=== PATIENT | female | born 1950 | race Caucasian/White ===

== ENCOUNTER 2025-03-06 18:32 | Emergency (ER) | payer MEDICAID, SELFPAY ==
--- NOTE | 2025-03-06 19:14 | XR_ITS ---
Examination: CT brain head without contrast. 2-D sagittal coronal reconstructions Date and time of exam:March 06, 2025 1936 hours Comparison August 01, 2024 INDICATIONS: Altered mental status today, history CVA CTDI: vol (mGy):48.8 DLP: (mGycm):976 Technique: Multiple CT axial sections of the brain have been obtained, 5 mm slice thickness. Contrast has not been administered. 2-D sagittal, coronal reconstructions have been obtained Low dose protocols were performed. One or more of the following dose reduction techniques were used; automated exposure control, adjustment of the mA and/or KV according to patient size, use of iterative reconstruction technique. Findings: No significant ventricular enlargement. Old infarcts right posterior temporal right occipital lobe left occipital lobe Intra-axial or extra-axial hemorrhage density is not seen. No mass effect or midline shift Basal cisterns are not remarkable. Fourth ventricle is midline. Cranial vault intact. Impression: Negative for acute hemorrhage, mass effect or midline shift Brain MRI follow-up would best assess for acute ischemic change
--- NOTE | 2025-03-06 19:15 | PD.EDRME ---
Rapid Medical Screening Exam RME Arrival date/time: 03/06/25 18:32 This is a case of 74-year-old female with history of CVA was brought by the son due to multiple falls this week and altered level of consciousness patient son denies patient complaining chest pain shortness of breath or palpitation Chief Complaint: Altered Mental Status Time Seen by Provider: 03/06/25 18:46
[2025-03-06 19:24] VITALS: BP 147/89; PULSE 101; RESP 18; TEMP 36.6; O2SAT 95; BMI 26.6
[2025-03-06 19:54] LABS: Basophils % (Auto) 0 % (0-2.5); Eosinophils % (Auto) 0 % (0-10); Hematocrit 37.5 % (36.0-46.0); Hemoglobin 11.9 g/dL (12.0-16.0); Immature Granulocytes % (Auto) 1 % (0-0); Immature Granulocytes Auto 0.03 Thou/mm3 (0.00-0.00); Lymphocytes # (Auto) 1.6 Thou/mm3 (1.0-4.8); Lymphocytes % (Auto) 25 % (10-50); Mean Corpuscular HGB Conc 31.7 g/dl (31.0-37.0); Mean Corpuscular Hemoglobin 29.1 pg (25.0-35.0); Mean Corpuscular Volume 92 fL (80-100); Monocytes # (Auto) 0.8 Thou/mm3 (0.0-0.8); Monocytes % (Auto) 12 % (0-12); Neutrophils # (Auto) 3.9 Thou/mm3 (1.8-7.7); Neutrophils % (Auto) 62 % (37-80); Nucleated Red Blood Cell % 0 /100 WBC (0); Platelet Count 251 Thou/mm3 (140-440); RDW Standard Deviation 46.8 fL (36.4-46.3); Red Blood Count 4.09 Miln/mm3 (4.00-5.20); White Blood Count 6.3 Thou/mm3 (3.6-11.0)
[2025-03-06 20:07] LABS: Alanine Aminotransferase 13 U/L (10-49); Albumin, Serum 3.8 gm/dL (3.4-4.8); Albumin/Globulin Ratio 1.2 (1.2-2.2); Alkaline Phosphatase 87 U/L (46-116); Anion Gap 8 (7-16); Aspartate Amino Transferase 18 U/L (0-34); BUN/Creatinine Ratio 14 Ratio (12-20); Bilirubin,Total 1.5 mg/dL (0.3-1.2); Blood Urea Nitrogen 14 mg/dL (9-23); Calcium 9.1 mg/dL (8.3-10.6); Calcium (Corrected) 9.3 mg/dL (8.5-10.1); Carbon Dioxide 25.3 mMol/L (20.0-31.0); Chloride 105 mMol/L (98-107); Globulin 3.1 gm/dL (2.3-3.5); Glucose 114 mg/dL (74-106); Osmolality,Calculated 277 (275-295); Potassium 3.3 mMol/L (3.4-5.1); Sodium 138 mMol/L (136-145); Total Protein 6.9 gm/dL (5.7-8.2); eGFR 58 See Note
[2025-03-06 20:11] LABS: Troponin I 0.072 ng/mL (0.0-0.045)
[2025-03-06 22:39] LABS: Troponin I 0.065 ng/mL (0.0-0.045)
== END 2025-03-07 00:23 | disposition left against medical advice (07) ==
PROVIDERS: Nurse Practitioner Family; Emergency Provider Emergency Medicine
DX: R41.82 Altered mental status, unspecified (principal); Z86.73 Personal history of transient ischemic attack (TIA), and cerebral infarction without residual deficits; Z53.29 Procedure and treatment not carried out because of patient's decision for other reasons
CPT/HCPCS: 36415; 70450; 80053; 84484; 85025; 99281

== ENCOUNTER 2025-04-26 22:12 | Inpatient (IN) | payer MEDICARE, MEDICAID, SELFPAY ==
[2025-04-26] VITALS (16 sets, daily range): BP systolic 75–106; BP diastolic 55–70; PULSE 68–188; RESP 10–27; TEMP 36.6–36.7; O2SAT 95–97; BMI 30.7
--- NOTE | 2025-04-26 22:47 | EKG_ITS ---
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[id number] Requested By: ED Temporary Provider Order Number: [id number] Reading MD: ED Temporary Provider Measurements Intervals [place] Rate: 187 P: AK: QRS: -18 QRSD: 166 T: -60 QT: 251 QTc: 443 Interpretive Statements ATRIAL FIBRILLATION WITH RAPID VENTRICULAR RESPONSE INTRAVENTRICULAR CONDUCTION DELAY [130+ ms QRS DURATION] INFERIOR MYOCARDIAL INFARCTION , OF INDETERMINATE AGE [40+ ms Q WAVE AND/OR ST/T ABNORMALITY IN II/aVF] CRITICAL TEST RESULT Compared to ECG 08/02/2024 00:46:54 Myocardial infarct finding now present Sinus rhythm no longer present First degree AV block no longer present /store/S0/[id number]/[id number].pdf
--- NOTE | 2025-04-26 23:03 | XR_ITS ---
Examination: AP chest single view TECHNIQUE: AP portable supine chest single view Date and time: April 26, 2025 1142 hours Comparison August 01, 2024 MEDICATIONS: Atrial fibrillation status post coronary artery stent hypertension FINDINGS: Mild prominence cardiac contour. Mild vascular congestion. No lobar pneumonia or chetan pulmonary edema IMPRESSION: Mild vascular congestion
--- NOTE | 2025-04-26 23:03 | XR_ITS ---
Examination: CT brain head without contrast. 2-D sagittal coronal reconstructions Date and time of exam:April 27, 2025 0109 hours INDICATIONS: Altered mental status today COMPARISON: March 06, 2025 CTDI: vol (mGy):47.4 DLP: (mGycm):940 Technique: Multiple CT axial sections of the brain have been obtained, 5 mm slice thickness. Contrast has not been administered. 2-D sagittal, coronal reconstructions have been obtained Low dose protocols were performed. One or more of the following dose reduction techniques were used; automated exposure control, adjustment of the mA and/or KV according to patient size, use of iterative reconstruction technique. Findings: No significant ventricular enlargement. Again noted old infarcts in the right posterior parietal occipital lobe and left occipital lobe Intra-axial or extra-axial hemorrhage density is not seen. No mass effect or midline shift Basal cisterns are not remarkable. Fourth ventricle is midline. Cranial vault intact. Impression: Negative for acute hemorrhage, mass effect or midline shift If symptoms persist, consider MRI brain follow up as clinically warranted
--- NOTE | 2025-04-26 23:05 | XR_ITS ---
Examination: CT cervical spine without contrast 2-D sagittal reconstructions 2-D coronal reconstructions 3-D reconstructions. Exam date and time:April 27, 2025 0109 hours INDICATIONS: Neck pain altered mental status today CTDI:vol (mGy) 8.19 DLP: (mGycm) 151 Technique: Multiple 2 mm axial sections of the cervical spine have been obtained. The coronal and sagittal reconstructions have been obtained. 3-D reconstructions have been obtained. Low dose protocols were performed. One or more of the following dose reduction techniques were used; automated exposure control, adjustment of the mA and/or KV according to patient size, use of iterative reconstruction technique. Findings: Axial sections demonstrate intact base of the skull. C1 exhibit satisfactory relationship to the odontoid. No acute cervical vertebral body fracture seen. Alignment posterior spinous processes satisfactory. Impression: No acute cervical fracture. Moderate degenerative disc disease C3-C4, C4-C5, C5-C6
--- NOTE | 2025-04-26 23:05 | PD.EDWEAK ---
ED Weakness RME/HPI General Chief complaint: Weakness Stated complaint: WEAKNESS Arrival date/time: 04/26/25 22:12 RME / HPI RME / HPI Narrative: Dr. Sapp?s Main ED Evaluation: 74yo female with a history of CVA, aFib, MARCIO thrombus, CAD s/p stent, HTN BIBA from home presents to the ED for a chief complaint of generalized weakness. I spoke with the patient's son Robbi on the phone, who states the patient has been generally weak for the last few months, reporting it's gotten progressively worse over the last few weeks. Son states he is unable to take care of the patient due to him working all day. Son notes the patient did not take her amiodarone today. Patient denies any chest pain, abdominal pain or any other associated symptoms. Patient does smoke tobacco and marijuana. Related Data Home Medications ?Medication ?Instructions ?Recorded ?Confirmed olmesartan 40 mg tablet 40 mg PO DAILY 08/18/23 08/03/24 bumetanide 1 mg tablet 1 mg PO QDAY 08/03/24 08/03/24 spironolactone 25 mg tablet 25 mg PO QDAY 08/03/24 08/03/24 Previous Rx's ?Medication ?Instructions ?Recorded aspirin 81 mg capsule 81 mg PO QDAY #30 caps 08/20/23 atorvastatin 80 mg tablet 80 mg PO QDAY #30 tabs 08/20/23 apixaban 5 mg tablet (Eliquis) 5 mg PO BID #60 tabs 08/22/23 amiodarone 200 mg tablet 200 mg PO QDAY 30 days #30 tabs 08/04/24 Allergies Allergy/AdvReac Type Severity Reaction Status Date / Time codeine Allergy Unknown Blister Verified 03/06/25 18:35 Review of Systems Review of Systems Systems Reviewed: All systems reviewed, normal except as documented Past Medical History Past Medical History NEUROLOGIC: Positive Cerebrovascular Accident; Negative Neurological Disorders or Seizures CARDIAC: Positive Myocardial Infarction, Cardiac Arrhythmia, Atrial Fibrillation, Heart Murmur, Congestive Heart Failure and Hypertension; Negative Cardiac Disorders, Edema, Cellulitis or Varicose Veins RESPIRATORY: Negative Chronic Obstructive Pulmonary Disease (COPD), Asthma, Tuberculosis or Sleep Apnea GASTROINTESTINAL: Negative Gastrointestinal Disorders or Hepatitis GENITOURINARY: Negative Genitourinary Disorders or Renal Disease REPRODUCTIVE: Positive Previous Pregnancies MUSCULOSKELETAL: Positive Musculoskeletal Disorders, Arthritis, Fibromyalgia and Fractures ENDOCRINE: Negative Endocrine Disorders, Diabetes Mellitus Type 1 or Diabetes Mellitus Type 2 HEMATOLOGIC: Negative Blood Disorders or Sickle Cell Disease OTHER HISTORY: Positive Hospitalization and Falls; Negative Autoimmune Disease, Shingles, Blood Transfusions, Blood Transfusion Reaction, Anesthesia Reactions, Chemotherapy, Radiation Therapy, MRSA, Human Immunodeficiency Virus (HIV), Chicken Pox, Measles, Mumps, Rubella (Chinese Measles), Pertussis, Clostridium Difficile or Cancer Family History FAMILY HISTORY: Positive Family Cardiac Disorders, Family Cancer and Family Surgery; Negative Family Psychiatric Problems, Family Respiratory Disorders, Family Gastrointestinal Problems or Family Anesthesia Reaction Surgical History SURGICAL: Positive Cardiac Surgery, Coronary Stent, Angiogram, Hysterectomy, Tubal Ligation and Section; Negative Pacemaker or Ear Surgery Social History SMOKING STATUS: Never smoker SECOND HAND EXPOSURE: Yes ED Exam Narrative Physical exam: GEN. APPEARANCE: The patient is alert awake oriented X-3 in no distress, lying down comfortably, does not look ill/toxic. Patient has good eye contact. Patient is cooperative. VITALS: All vitals were reviewed and the pulse ox is 95% on room air which is normal according to my interpretation. HEENT: Normocephalic, atraumatic. Pupils are equal and reactive. Oral mucosa is moist. Patent Nares NECK: Supple, nontender, no thyromegaly, no meningismus, no JVD CHEST: Symmetrical, atraumatic, and with equal expansion , Nontender on palpation no deformity and no crepitus. CARDIOVASCULAR: Tachycardic, irregular rhythm, no murmur or gallop rub. LUNGS: Clear to auscultation bilaterally with symmetrical chest rise. No laboring tachypnea or wheezing. No intercostal subcostal retraction. No rales and no rhonchi. ABDOMEN: Soft, flat, nontender to palpation, no guarding or rebound tenderness. There are no abnormal masses palpated. Active and normal bowel sounds. EXTREMITIES: Nontender. No edema. No cyanosis. Patient is able to move all 4 extremities well, with full ROM and good CSM. SKIN: Warm and dry, no jaundice or rashes noted. NEURO: Patient is MONK x 4, Cranial nerves II through XII grossly intact. There is no focal neurologic deficits noted. GCS is 15, PNS and TANK REFINISHER appear grossly intact. PSYCHIATRIC: Patient is in normal mood and affect. Course Quality Measures none Orders Category Date Time Status Bedside COVID-19 Antigen Test NOW Care 04/26/25 23:03 Active Bedside Influenza A&B Antigen Test NOW Care 04/26/25 23:03 Completed EKG (ED ONLY) *Do not use* NOW Care 04/26/25 22:47 Completed EKG (ED ONLY) *Do not use* NOW Care 04/27/25 06:27 Completed EKG (ED ONLY) *Do not use* NOW Care 04/27/25 06:28 Active Le [Urinary Catheter] QS Care 04/27/25 01:12 Active Consult to General Surgery Stat Cons 04/27/25 06:32 Ordered Consult to Nephrology Stat Cons 04/27/25 06:[address] abdomen pelvis wo con Stat Exams 04/27/25 00:[address] cervical spine wo con Stat Exams 04/26/25 23:[address] chest wo con Stat Exams 04/27/25 00:[address] head/brain wo con Stat Exams 04/26/25 23:03 Taken CXR [XR chest 1V] Stat Exams 04/26/25 23:03 Completed EKG (ED Only) Stat Exams 04/26/25 22:47 Draft EKG (ED Only) Stat Exams 04/27/25 06:26 Ordered EKG (ED Only) Stat Exams 04/27/25 06:28 Ordered US abdomen limited Stat Exams 04/27/25 02:51 Taken Acetaminophen Stat Lab 04/26/25 23:16 Completed Ammonia Stat Lab 04/26/25 23:16 Completed BNP [B-Type Natriuretic Peptide] Stat Lab 04/26/25 23:16 Completed CBC Stat Lab 04/26/25 23:16 Completed CMP [Comprehensive Metabolic Panel] Stat Lab 04/26/25 23:16 Completed Drug Screen,Urine Stat Lab 04/27/25 01:41 Completed INR [Prothrombin Time with INR] Stat Lab 04/26/25 23:16 Completed Salicylate Stat Lab 04/26/25 23:16 Completed T4 (Thyroxine) Stat Lab 04/26/25 23:16 Completed Thyroid Stimulating Hormone Stat Lab 04/26/25 23:16 Completed Troponin I Stat Lab 04/26/25 23:16 Completed Troponin I Stat Lab 04/27/25 00:50 Completed UA, C/S IF [Urinalysis, C/S if Indicated] Stat Lab 04/27/25 01:12 Ordered UA, C/S IF [Urinalysis, C/S if Indicated] Stat Lab 04/27/25 01:41 Completed VBG [Venous Blood Gas] Stat Lab 04/26/25 23:16 Completed Amiodarone 150 mg Ivpb [Nexterone Ivpb] Med 04/26/25 23:00 Discontinued 150 mg in 100 ml IV 600 mls/hr Amiodarone 360 mg Ivpb [Nexterone Ivpb] Med 04/26/25 23:00 Discontinued 360 mg in 200 ml IV 16.667 mls/hr Amiodarone 360 mg Ivpb [Nexterone Ivpb] Med 04/27/25 05:00 Active 360 mg in 200 ml IV 16.667 mls/hr Amiodarone 360 mg Ivpb [Nexterone Ivpb] Med 04/26/25 22:59 Discontinued 360 mg in 200 ml IV 33.333 mls/hr Bumetanide Inj [Bumex Inj] Med 04/27/25 06:30 Once 1 mg IVP X1 ONE Digoxin Inj [Lanoxin Inj] Med 04/26/25 23:35 Discontinued 0.25 mg IVP X1 ONE Digoxin Inj [Lanoxin Inj] Med 04/27/25 06:27 Discontinued 0.25 mg IVP X1 ONE Etomidate Inj [Amidate Inj] Med 04/26/25 22:53 Discontinued 20 mg .ROUTE .STK-MED ONE Etomidate Inj [Amidate Inj] Med 04/26/25 22:57 Discontinued 5 mg IVP X1 ONE Magnesium Sulfate 1 gm Ivpb [Magnesium Sulfate Ivpb] Med 04/26/25 22:54 Discontinued 1 gm in 100 ml IV X1 Magnesium Sulfate 1 gm Ivpb [Magnesium Sulfate Ivpb] Med 04/27/25 06:34 Active 1 gm in 100 ml IV X1 Magnesium Sulfate 1 gm Ivpb [Magnesium Sulfate Ivpb] Med 04/26/25 22:48 Discontinued 100 ml IV .STK-MED Norepinephrine/D5W 8mg/250ml [Levophed in D5W 8mg/250ml Med 04/26/25 22:59 Active ] 8 mg in 250 ml IV 0.05 mcg/kg/min Vital Signs Vital signs: Vital Signs Temperature 97.8 F 04/26/25 22:25 Pulse Rate 164 H 04/26/25 22:25 Respiratory Rate 20 04/26/25 22:25 Pulse Oximetry (%) 95 04/26/25 22:25 Oxygen Delivery Method Room Air 04/26/25 22:25 Weakness MDM Narrative [facility] Narrative:: Scribe Attestation: 04/26/25 - Bárbara Stevens am scribing for and in the presence of Dr. Sapp. 2313: Discussed case with Dr. Rosas from cardiology regarding consultation. Discussed patients ED course, exam findings, labs, and radiology results. Agrees with holding off cardioversion due to the patient's known MARCIO thrombus. Discussed how the patient has a history of CHF with a 30% EF and I ordered NS 500mL. Recommends additional NS 500mL. Is agreeable to the amiodarone bolus and drip, and starting levophed. Recommends digoxin 0.25mg if there's no improvement in the patient's blood pressure. 2335: Patient is still fluctuating from the 160s-180s after receiving amiodarone. Digoxin 0.25mg ordered. 0051: Patient is now hypoxic, likely due to her fluid overload. Patient's HR is in sinus rhythm. BP is sustaining at 100 systolically. The nurses expressed concern regarding vaginal bleeding. Will proceed with CT scans without contrast. 0254: Patient is back on room air. Hemodynamically stable not in distress. Went to CT without any difficulties. Labs showed leukocytosis 13.1 left shift of 89%. No acute electrolyte abnormality, patient does have acute renal failure, current creatinine is 2.4, GFR is 13. In February of this year her creatinine was normal. Patient also with a transaminitis, T. bili is 2, AST 166, ALT 413, alk phos 163 troponin was 0.16 which down trended to 0.14. BNP is 1788. Chest x-ray with findings concerning for fluid overload. Given patient's acute renal failure, will consult nephrology for recommendations of her fluid overload state and acute renal failure. Patient is producing urine. Urinalysis with amorphous crystals, rare bacteria no leuk esterase no nitrites. CT abdomen pelvis with evidence of cirrhosis, gallstones with thickened gallbladder wall. Given transaminitis also ordered right upper quadrant ultrasound. For further assessment. Patient has anasarca. CT of the chest with pneumonia. Will provide patient with antibiotics. 0257: Called on-call mender [employer] Dr. Martin, left HIPAA compliant voicemail. 0304: Discussed case with the resident physician, attending Dr. French from Hospitalist service regarding admission. Discussed patients ED course, exam findings, labs, and radiology results. The Hospitalist requests to wait for the abdominal ultrasound. 0546: Called on-call mender [employer] Dr. Martin again, left HIPAA compliant voicemail. 0627: Patient is tachycardic again in the 160s and is hypoxic at 86% on room air. Repeat EKG and digoxin 0.25mg ordered. Patient converted back to sinus rhythm. Digoxin held. Magnesium sulfate 1mg ordered. 0629: Discussed case with Dr. Martin from nephrology regarding consultation. Discussed patients ED course, exam findings, labs, and radiology results. Recommends Bumex 1mg BID. 0632: Discussed case with Dr. West from general surgery regarding consultation. Discussed patients ED course, exam findings, labs, and radiology results. Agrees to consult. 0636: Discussed case with the resident physician, attending Dr. French from Hospitalist service regarding admission. Discussed patients ED course, exam findings, labs, and radiology results. The Hospitalist agrees to accept the patient for admission and will pass this patient off to the day team. Patient data External records reviewed:: [facility] previous records (Per chart review, patient was admitted here on 08/01/24 for CVA.) and EMS form Clinical information provided by:: patient, EMS and family (son) Social determinants that could affect healthcare access:: none Patient has the following chronic illnesses:: CVA, aFib on Eliquis, CAD s/p stent, HTN How is presenting disease/condition affected by chronic disease/condition?: caused by Evaluation data The following diagnostics were reviewed and interpreted by me:: lab results, radiology exam(s) and EKG tracing(s) Lab and/or radiology exams considered but not ordered:: none Interpretation Summary: WBC 13.1, PT 14.6, INR 1.4, Creatinine 3.4, BUN 81, eGFR 13, Total Bilirubin 2.0, LFTs elevated, Troponin 0.161, BNP 1788, TSH 13.17, T4 3.4, Salicylates negative, Acetaminophen negative. Repeat troponin 0.147. EKG done at 2249, aFib RVR, rate of 185, nonspecific ST-T wave changes, no STEMI, according to my interpretation. Repeat EKG done at 0630, NSR, rate of 76, occasional PVCs, nonspecific ST-T changes, no acute ischemia, according to my interpretation. [place] [facility] Report Signed Patient: OLGA GEIGER Record#: [id number] Birthdate: 1950 Age/Sex: 74 / F Location: [facility] Attending Dr: Ordering Physician: Mary Jo Sapp MD Date of Service: 04/26/25 Procedure(s): XR chest 1V Accession Number(s): [id number] cc: Kelby Philippe MD; NO PRIMARY/FAMILY,PHYSICIAN; Mary Jo Sapp MD~ Examination: AP chest single view TECHNIQUE: AP portable supine chest single view Date and time: April 26, 2025 1142 hours Comparison August 01, 2024 MEDICATIONS: Atrial fibrillation status post coronary artery stent hypertension FINDINGS: Mild prominence cardiac contour. Mild vascular congestion. No lobar pneumonia or chetan pulmonary edema IMPRESSION: Mild vascular congestion Dictated By: Kelby Philippe MD Signed By: <Electronically signed by Kelby Philippe MD in OV> 04/26/[address] scan of the chest without intravenous contrast (axial sections with sagittal and coronal reformats) April 27, 2025 at 0114 hours Clinical History: Pulmonary thromboembolism Comparison: None Findings: There are multiple bilateral pulmonary nodules, predominantly subpleural, the largest measures 1.7 cm in the right middle lobe (image 76/162). There is streaky atelectasis/scarring in the posterior lower lobes. There are mild emphysematous changes in the lungs with bullae. There is peribronchial soft tissue thickening in bilateral lungs, consistent with chronic airways disease. There is patchy collapse-consolidation in bilateral lower lobes posteriorly (left greater than right); possibility of aspiration cannot be excluded. No evidence of pleural effusion or pneumothorax. The mediastinum demonstrates no evidence of mass or lymphadenopathy. The thoracic aorta demonstrates atheromatous calcification without evidence of aneurysm. Coronary artery calcification is noted. There is minimal pericardial effusion. There is mild cardiomegaly. Degenerative changes are identified in the spine. There is diffuse osteopenia. There is subcutaneous edema in the mid and lower chest wall. Please note that evaluation of soft tissue/vascular structures is limited due to absence of IV contrast. Impression: 1. Possibility of pulmonary thromboembolism cannot be excluded on this noncontrast study. 2. Multiple bilateral pulmonary nodules, likely neoplastic as described. 3. Patchy collapse-consolidation in bilateral lower lobes posteriorly (left greater than right); possibility of aspiration cannot be excluded. 4. Mild emphysematous changes in the lungs. 5. Peribronchial soft tissue thickening in bilateral lungs, consistent with chronic airways disease. 6. Mild cardiomegaly with minimal pericardial effusion. 7. Other findings as described above. Suggest clinical correlation and follow up accordingly. This report has been electronically signed by: Narendra Pierce MD. CT scan of the abdomen and pelvis without intravenous contrast (axial sections with sagittal and coronal reformats) April 27, 2025 at 0114 hours Clinical History: Renal failure / Stone Comparison: None Findings: The evaluation is limited due streaky artifacts. The liver demonstrates nodular contour, suggestive of cirrhosis. There are cysts in the left lobe of the liver, the largest measuring 1.4 cm. Additional small hypodense lesions are noted in the liver, which are too small to characterize. There are multiple small calculi in the contracted gallbladder with apparent wall thickening. The pancreas, spleen, kidneys and adrenals are grossly unremarkable on this noncontrast study. No renal/ureteric calculus or ureteral obstruction. No evidence of bowel obstruction. The appendix is not visualized. There is no mesenteric or retroperitoneal adenopathy. There is suggestion of pelvic floor laxity with possible rectocele. A Le catheter is seen in the incompletely distended urinary bladder. There is a bicornuate uterus. There is zxse-sj-vsfrxaen ascites. There is no free air. The abdominal aorta demonstrates atheromatous calcification without evidence of aneurysm. Degenerative changes are identified in the spine. There is diffuse subcutaneous edema in the abdominal wall. Please note that evaluation of soft tissue/vascular structures and bowel loops is limited due to absence of IV and oral contrast. Impression: 1. No renal/ureteric calculus or ureteral obstruction. 2. Zoxr-xb-micxiten ascites and generalized anasarca. 3. Cholelithiasis with apparent gallbladder wall thickening. Suggest further evaluation with sonography, if clinically indicated. 4. Possible hepatic cirrhosis. 5. Other findings as described above. Suggest clinical correlation and follow up accordingly. Please also refer to report of CT chest. This report has been electronically signed by: Narendra Pierce MD. CT scan of the head without intravenous contrast (axial sections with sagittal and coronal reformats) April 27, 2025 0109 hours. 3D images were also provided. Clinical History: Altered mental status. Comparison: No prior study is available for comparison. Findings: There is no evidence of acute intracranial hemorrhage, mass effect or midline shift. There are large hypodensities in the right occipitoparietal and left parietal lobes, likely representing old infarcts with encephalomalacia. An old lacunar infarct is noted in the left basal ganglia. There are periventricular white matter hypodensities, compatible with chronic small vessel ischemia. Although no definitive wedge shaped acute infarcts are detected, it is difficult to exclude small acute infarcts especially in a background of chronic ischemic changes. Please also note that subtle early infarcts are better assessed using diffusion weighted MR imaging if clinically indicated. There is volume loss. The intracranial arteries are tortuous, ectatic and demonstrates mild atheromatous calcification. The calvarium is intact. Right maxillary sinus is hypoplastic and demonstrates mild mucosal thickening and sclerotic cohen. A tiny retention cyst or polyp is seen in the left maxillary sinus. The mastoid air cells and the other visualized paranasal sinuses are clear. Postsurgical changes are seen at the right ostiomeatal unit with a small adjacent soft tissue lesion/polyp (axial image 37/42), measuring 1.5 x 1.2 cm. Impression: 1. No evidence of acute intracranial hemorrhage, midline shift or calvarial fracture. If there are persistent clinical symptoms or additional clinical concerns consider an MRI. 2. Generalized cerebral atrophy and chronic small vessel ischemic change with chronic infarcts as described above. 3. Other findings as described above. This report has been electronically signed by: Narendra Pierce MD. CT scan of the cervical spine without intravenous contrast (axial sections with sagittal and coronal reformats). 3D images were also provided. April 27, 2025 0109 hours Clinical History: Trauma. Comparison: No prior study is available for comparison. Findings: The bones are osteopenic. There is no evidence of acute fracture or traumatic subluxation. There is loss of cervical lordosis. Degenerative changes are noted in the form of multilevel marginal osteophytes, decreased disc spaces, uncinate and facet hypertrophy, producing multilevel mild spinal canal and [id number]-ad-[id number] bilateral neural foraminal narrowing. The prevertebral soft tissues are unremarkable. The visualized lung apices are clear. There is an exophytic osseous lesion in the right mandible medially (axial image 30/81), incompletely included in the field of view. A small hypodense nodule is seen in the right lobe of thyroid. Impression: 1. No evidence of acute fracture or traumatic subluxation. 2. Cervical spondylosis as described. 3. Other findings as described above. Suggest clinical correlation and follow up accordingly. This report has been electronically signed by: Narendra Pierce MD. [facility] Preliminary Report Draft Patient: OLGA GEIGER. Record#: [id number] Birthdate: 1950 Age/Sex: 74 / F Location: [facility] Attending Dr: Ordering Physician: Date of Service: Procedure(s): Accession Number(s): cc: ~ Ultrasound Abdomen. April 27, 2025 at 0427 hours Clinical history: Cholecystitis. Technique: Grayscale and color flow images of the abdomen are provided. Hepatic and portal veins were also imaged with color flow images. Correlated with the prior CT study dated April 27, 2025 at 0114 hours Findings: The liver is normal in echogenicity. Hepatopetal flow in main portal vein. No intrahepatic biliary ductal dilatation. Gallbladder wall thickening up to 0.32 mm. Gallbladder calculus measuring up to 2.2 x 0.8 x 1.6 cm. Small amount of free fluid in the right upper quadrant and right lower quadrant. The pancreas is not seen due to bowel gas. The inferior vena cava to the extent visualized is within normal limits. Impression: Cholelithiasis with acute cholecystitis. Suggest follow-up with HIDA scan, if clinically indicated. Report Electronically Signed By: Benoit Keen 04/27/2025 5:59:42 AM [EST] Medications / Prescriptions Medications or Prescriptions considered but not ordered:: none Medication administrations:: Medication Administration History Bumetanide (Bumetanide Inj 0.25 Mg/Ml Vial 4 Ml) 1 mg IVP X1 ONE Stop: 04/27/25 06:31 Norepinephrine/Dextrose (Levophed In D5w 8mg/250ml) 8 mg in 250 mls @ 7.867 mls/hr IV .Q24H PRN; Protocol PRN Reason: PER PROTOCOL Stop: 05/26/25 22:58 Amiodarone HCl/Dextrose (Nexterone Ivpb) 360 mg in 200 mls @ 16.667 mls/hr IV .Q12H JOHN Stop: 04/28/25 04:59 Last Admin: 04/27/25 05:07 Dose: 16.667 mls/hr Documented By: EE Magnesium Sulfate/Dextrose (Magnesium Sulfate Ivpb) 1 gm in 100 mls @ 100 mls/hr IV X1 ONE Stop: 04/27/25 07:33 Discontinued Medications Digoxin (Digoxin Inj 0.25 Mg/Ml Amp 2 Ml) 0.25 mg IVP X1 ONE Stop: 04/26/25 23:36 Last Admin: 04/26/25 23:46 Dose: 0.25 mg Documented By: EE Digoxin (Digoxin Inj 0.25 Mg/Ml Amp 2 Ml) 0.25 mg IVP X1 ONE Stop: 04/27/25 06:28 Etomidate (Etomidate Inj 2 Mg/Ml Vial 10 Ml) 5 mg IVP X1 ONE Stop: 04/26/25 22:58 Last Admin: 04/27/25 01:23 Dose: Not Given Documented By: DEYSI Non-Admin Reason: Discontinued Etomidate (Etomidate Inj 2 Mg/Ml Vial 10 Ml) Confirm Administered Dose 20 mg .ROUTE .STK-MED ONE Stop: 04/26/25 22:54 Last Admin: 04/26/25 23:41 Dose: Not Given Documented By: EE Non-Admin Reason: Override Medication Magnesium Sulfate/Dextrose (Magnesium Sulfate Ivpb) 1 gm in 100 mls @ 100 mls/hr IV X1 ONE Stop: 04/26/25 23:53 Last Admin: 04/26/25 23:42 Dose: Not Given Documented By: EE Non-Admin Reason: Cancelled by Provider Magnesium Sulfate/Dextrose (Magnesium Sulfate Ivpb) Confirm Administered Dose 100 mls @ ud IV .STK-MED ONE Stop: 04/26/25 22:49 Last Admin: 04/26/25 23:48 Dose: Not Given Documented By: EE Non-Admin Reason: Override Medication Amiodarone HCl/Dextrose (Nexterone Ivpb) 150 mg in 100 mls @ 600 mls/hr IV .Q10M ONE Stop: 04/26/25 23:09 Last Infusion: 04/26/25 23:23 Dose: Infused Documented By: Admin: 04/26/25 23:12 Dose: 600 mls/hr Documented By: EF Amiodarone HCl/Dextrose (Nexterone Ivpb) 360 mg in 200 mls @ 33.333 mls/hr IV .Q6H ONE Stop: 04/27/25 04:58 Last Infusion: 04/27/25 05:23 Dose: Infused Documented By: Admin: 04/26/25 23:22 Dose: 33.333 mls/hr Documented By: EF Amiodarone HCl/Dextrose (Nexterone Ivpb) 360 mg in 200 mls @ 16.667 mls/hr IV .Q12H JOHN Stop: 04/27/25 22:59 Last Admin: 04/27/25 02:36 Dose: Not Given Documented By: EE Non-Admin Reason: Cancelled by Provider see above Consultations Consultation(s) initiated? (list below): Yes Diagnosis Weakness Differential Diagnosis: other (ACS, arrhythmia, CHF exacerbation, renal failure, liver failure, LOYD) Most likely diagnosis given after review of the tests above:: see clinical impression below Admission Indicated Admission indicated?: indicated Admission Request Was there a request for admission?: No Disposition Plan Disposition Plan: Admit Critical Care Time Critical Care Time Critical Care Time: Yes Total Critical Care Time (min.): 120 Attestation: The high probability of sudden, clinically significant deterioration in the patient?s condition required the highest level of my preparedness to intervene urgently. The services I provided to this patient were to treat and/or prevent clinically significant deterioration. Services included the following: chart data review, reviewing nursing notes and/or old charts, documentation time, csm consultant collaboration regarding findings and treatment options, medication orders and management, direct patient care, vital sign assessments and ordering, interpreting and reviewing diagnostic studies and lab tests. Aggregate critical care time includes only time during which I was engaged in work directly related to the patient?s care, as described above, whether at bedside or elsewhere in the Emergency Department. It did not include time spent performing other reported procedures or the services of residents, students, nurses or physician assistants. Discharge Plan Plan Patient Disposition: Admit Acute Care w/in Hospital Prescriptions/Referrals Prescriptions/Med Rec: No Action olmesartan 40 mg tablet 40 mg PO DAILY aspirin 81 mg capsule 81 mg PO QDAY Qty: 30 3RF atorvastatin 80 mg tablet 80 mg PO QDAY Qty: 30 3RF Eliquis 5 mg tablet 5 mg PO BID Qty: 60 3RF spironolactone 25 mg Tablet 25 mg PO QDAY bumetanide 1 mg Tablet 1 mg PO QDAY amiodarone 200 mg Tablet 200 mg PO QDAY 30 Days Qty: 30 2RF Referrals: No Primary/Family,Physician [Primary Care Provider] - In 1 week Problem List Clinical Impression: Atrial fibrillation with RVR, Acute renal failure (ARF), CHF exacerbation, Shock, Elevated troponin, Acute cholecystitis Patient/Caregiver Discharge Instructions Print Language: Syrian Stand Alone Forms: Alexandrea Award Info., Patient Portal Info Letter
[2025-04-26] MEDS: AMIODARONE 150 MG IVPB 150 MG/100 ML BAG 600 MG IV (23:12)
[2025-04-26] MEDS: AMIODARONE 360 MG IVPB 360 MG/200 ML BAG 33.333 MG IV (23:22)
[2025-04-26 23:26] LABS: Base Excess, Venous -4 (-3-3); O2 Saturation, Venous 76 % (96-97); PCO2, Venous 23 mmHg (36-56); PO2, Venous 33 mmHg (15-58); pH, Venous 7.49 (7.33-7.66)
[2025-04-26 23:27] LABS: Basophils # (Auto) 0.0 Thou/mm3 (0.0-0.2); Basophils % (Auto) 0 % (0-2.5); Eosinophils # (Auto) 0.0 Thou/mm3 (0.0-0.5); Eosinophils % (Auto) 0 % (0-10); Hematocrit 41.1 % (36.0-46.0); Hemoglobin 13.7 g/dL (12.0-16.0); Immature Granulocytes Auto 0.08 Thou/mm3 (0.00-0.00); Lymphocytes # (Auto) 0.6 Thou/mm3 (1.0-4.8); Lymphocytes % (Auto) 5 % (10-50); Mean Corpuscular HGB Conc 33.3 g/dl (31.0-37.0); Mean Corpuscular Hemoglobin 25.5 pg (25.0-35.0); Mean Corpuscular Volume 77 fL (80-100); Monocytes # (Auto) 0.8 Thou/mm3 (0.0-0.8); Monocytes % (Auto) 6 % (0-12); Neutrophils # (Auto) 11.6 Thou/mm3 (1.8-7.7); Neutrophils % (Auto) 89 % (37-80); Nucleated Red Blood Cell # 0.03 Thou/mm3 (0.00-0.00); Nucleated Red Blood Cell % 0 /100 WBC (0); Platelet Count 103 Thou/mm3 (140-440); RDW Standard Deviation 51.0 fL (36.4-46.3); Red Blood Count 5.37 Miln/mm3 (4.00-5.20); White Blood Count 13.1 Thou/mm3 (3.6-11.0)
[2025-04-26 23:40] LABS: INR 1.4 (0.9-1.3); Prothrombin Time 14.6 Seconds (9.0-12.2)
[2025-04-26] MEDS: DIGOXIN INJ 0.25 MG/ML AMP 2 ML IVP (23:46)
[2025-04-26 23:47] LABS: B-Type Natriuretic Peptide 1788 pg/mL (0-100)
[2025-04-26 23:49] LABS: Ammonia 34 uMol/L (11-32)
[2025-04-26 23:52] LABS: T4 (Thyroxine) 3.4 mcg/dL (4.5-10.9)
[2025-04-26 23:53] LABS: Acetaminophen < 2.0 mcg/mL (10.0-20.0); Alanine Aminotransferase 413 U/L (10-49); Albumin, Serum 3.0 gm/dL (3.4-4.8); Albumin/Globulin Ratio 0.9 (1.2-2.2); Alkaline Phosphatase 163 U/L (46-116); Anion Gap 14 (7-16); Aspartate Amino Transferase 166 U/L (0-34); BUN/Creatinine Ratio 24 Ratio (12-20); Bilirubin,Total 2.0 mg/dL (0.3-1.2); Blood Urea Nitrogen 81 mg/dL (9-23); Calcium 8.2 mg/dL (8.3-10.6); Calcium (Corrected) 9.0 mg/dL (8.5-10.1); Carbon Dioxide 21.6 mMol/L (20.0-31.0); Chloride 103 mMol/L (98-107); Creatinine (Component) 3.4 mg/dL (0.6-1.3); Estimated Creatinine Clearance 15.1 mL/min (>60); Globulin 3.4 gm/dL (2.3-3.5); Glucose 142 mg/dL (74-106); Osmolality,Calculated 303 (275-295); Potassium 3.6 mMol/L (3.4-5.1); Salicylate 4.1 mg/dL; Sodium 139 mMol/L (136-145); Thyroid Stimulating Hormone 13.17 uIU/mL (0.55-4.78); Total Protein 6.4 gm/dL (5.7-8.2); eGFR 13 See Note
[2025-04-26 23:54] LABS: Troponin I 0.161 ng/mL (0.0-0.045)
[2025-04-27] VITALS (143 sets, daily range): BP systolic 77–134; BP diastolic 48–91; PULSE 54–161; RESP 7–26; TEMP 36.3–36.6; O2SAT 61–100
--- NOTE | 2025-04-27 00:55 | XR_ITS ---
Examination: CT chest, without intravenous contrast. Sagittal and coronal 2-D reconstructions. Exam date and time: April 27, 2025, 0114 hours INDICATIONS: Chest pain and difficulty breathing shortness of breath today CTDI:vol (mGy) 23.2 DLP: (mGycm) 798 Technique: Multiple 3.0 mm axial sections of the chest to been obtained. Bone and lung density settings are obtained. Sagittal and coronal 2-D reconstructions have been obtained. Low dose protocols were performed. One or more of the following dose reduction techniques were used; automated exposure control, adjustment of the mA and/or KV according to patient size, use of iterative reconstruction technique. Findings: Moderate enlargement cardiac contour Heavy coronary artery calcification. No thoracic aortic aneurysmal dilatation No mediastinal lymphadenopathy At least 6 bilateral noncalcified pulmonary nodules, the largest in the lower lung zone on the right measuring 11 mm, 12 mm Mild vascular congestion Mild left base pneumonia Focal areas of air space destruction Trace pericardial effusion IMPRESSION: Moderate enlargement cardiac contour, heavy coronary artery calcification Mild left base pneumonia Bilateral pulmonary nodules, the largest in the right lung, 11 mm 12 mm, differential would include pulmonary nodular metastatic disease
--- NOTE | 2025-04-27 00:55 | XR_ITS ---
Examination: CT abdomen and pelvis without contrast. Coronal 3-D reconstructions. Sagittal 2-D reconstructions. Date and time of exam:April 27, 2025, 0114 hours INDICATIONS: Renal failure, altered mental status of abdominal pain and weakness today CTDI: vol (mGy): 18.8 DLP: (mGycm): 1075 Technique: Axial images of the abdomen have been obtained, 3 mm slice thickness Intravenous contrast material has not been administered. Low dose protocols were performed. One or more of the following dose reduction techniques were used; automated exposure control, adjustment of the mA and/or KV according to patient size, use of iterative reconstruction technique. Findings: Pneumonia left base Minimal right pleural disease Cirrhosis Small liver cysts Spleen is not enlarged Trace ascites Anasarca Cholelithiasis, gallbladder wall is thickened No pancreatic mass 2 mm upper pole left renal calculus, coronal image 86 Moderate renal parenchymal scar formation No bowel obstruction No pericecal inflammatory change Colonic diverticulosis Urinary bladder is contracted around a Le catheter with marked urinary bladder wall thickening IMPRESSION: Mild pneumonia left base Cirrhosis Mild ascites Cholelithiasis Gallbladder wall thickening, consider HIDA scan or MRCP follow-up 2 mm upper pole nonobstructing left renal calculus, no hydronephrosis or ureteral calculi Marked thickening of the urinary bladder wall, consider cystitis
--- NOTE | 2025-04-27 01:18 | PC.NURSE ---
PT TAKEN TO CT VIA JASON WITH RN AND AUTO FLEET MANAGER MORIAH
[2025-04-27 01:21] LABS: Troponin I 0.147 ng/mL (0.0-0.045)
[2025-04-27 01:47] LABS: Collection Type, Urine Catheter
[2025-04-27 01:53] LABS: Amorphous Crystals,Urine Present (Absent); Bacteria,Urine Rare; Bilirubin,Urine Negative (Negative); Blood,Urine 3+ (Negative); Clarity,Urine Turbid (Clear/Hazy); Color,Urine Yellow (Lt Yel-Yel); Culture Indicated,Urine Not Indicated; Glucose, Urine Negative (Negative); Hyaline Casts,Urine 1 /hpf (0-1); Ketones,Urine Negative (Negative); Leukocyte Esterase,Urine Negative (Negative); Nitrite,Urine Negative (Negative); PH,Urine 5.5 (5.0-7.0); Protein,Urine 1+ (Neg - Trace); RBC,Urine 5 /hpf (0-3); Specific Gravity,Urine 1.018 (1.001-1.035); Squamous Epithelial Cell,Urine 3 /hpf (0-5); Urobilinogen,Urine Negative mg/dL (0.0-1.0); WBC,Urine 5 /hpf (0-5)
[2025-04-27 01:57] LABS: Amphetamine/Methamp Scrn,U Negative (Negative); Barbiturate Screen,Urine Negative (Negative); Benzodiazepines Screen,Urine Negative (Negative); Benzoylecgonine Screen, Ur Negative (Negative); Fentanyl Screen,Urine Negative (Negative); Opiate Screen,Urine Negative (Negative); THC Screen,Urine Negative (Negative)
--- NOTE | 2025-04-27 02:51 | XR_ITS ---
Examination: Abdomen sonogram, Limited Date and time of exam: April 27, 2025, 0427 hours INDICATIONS: Right upper abdominal pain and nausea beginning several days ago Technique: Real-time baires scale transabdominal sonographic images of the upper abdomen obtained. Findings: 22 mm gallstone Gallbladder wall 0.32 cm no edema Common duct and pancreas obscured by bowel gas Liver 16.1 cm, mild free fluid in the right upper abdomen and right lower abdomen Normal hepatopedal portal venous flow Patent IVC IMPRESSION: Cholelithiasis, negative for cholecystitis Mild free fluid in the abdomen, clinical correlation advised
--- NOTE | 2025-04-27 02:53 | PRELIM_ITS ---
CT scan of the head without intravenous contrast (axial sections with sagittal and coronal reformats) April 27, 2025 0109 hours. 3D images were also provided. Clinical History: Altered mental status. Comparison: No prior study is available for comparison. Findings: There is no evidence of acute intracranial hemorrhage, mass effect or midline shift. There are large hypodensities in the right occipitoparietal and left parietal lobes, likely representing old infarcts with encephalomalacia. An old lacunar infarct is noted in the left basal ganglia. There are periventricular white matter hypodensities, compatible with chronic small vessel ischemia. Although no definitive wedge shaped acute infarcts are detected, it is difficult to exclude small acute infarcts especially in a background of chronic ischemic changes. Please also note that subtle early infarcts are better assessed using diffusion weighted MR imaging if clinically indicated. There is volume loss. The intracranial arteries are tortuous, ectatic and demonstrates mild atheromatous calcification. The calvarium is intact. Right maxillary sinus is hypoplastic and demonstrates mild mucosal thickening and sclerotic cohen. A tiny retention cyst or polyp is seen in the left maxillary sinus. The mastoid air cells and the other visualized paranasal sinuses are clear. Postsurgical changes are seen at the right ostiomeatal unit with a small adjacent soft tissue lesion/polyp (axial image 37/42), measuring 1.5 x 1.2 cm. Impression: 1. No evidence of acute intracranial hemorrhage, midline shift or calvarial fracture. If there are persistent clinical symptoms or additional clinical concerns consider an MRI. 2. Generalized cerebral atrophy and chronic small vessel ischemic change with chronic infarcts as described above. 3. Other findings as described above. Report Electronically Signed By: Narendra Story 04/27/2025 2:52:16 AM [EST]
--- NOTE | 2025-04-27 02:54 | PRELIM_ITS ---
CT scan of the cervical spine without intravenous contrast (axial sections with sagittal and coronal reformats). 3D images were also provided. April 27, 2025 0109 hours Clinical History: Trauma. Comparison: No prior study is available for comparison. Findings: The bones are osteopenic. There is no evidence of acute fracture or traumatic subluxation. There is loss of cervical lordosis. Degenerative changes are noted in the form of multilevel marginal osteophytes, decreased disc spaces, uncinate and facet hypertrophy, producing multilevel mild spinal canal and doel-al-parepang bilateral neural foraminal narrowing. The prevertebral soft tissues are unremarkable. The visualized lung apices are clear. There is an exophytic osseous lesion in the right mandible medially (axial image 30/81), incompletely included in the field of view. A small hypodense nodule is seen in the right lobe of thyroid. Impression: 1. No evidence of acute fracture or traumatic subluxation. 2. Cervical spondylosis as described. 3. Other findings as described above. Suggest clinical correlation and follow up accordingly. Report Electronically Signed By: Narendra Story 04/27/2025 2:53:30 AM [EST]
[2025-04-27] MEDS: AMIODARONE 360 MG IVPB 360 MG/200 ML BAG 16.667 MG IV ×2 (05:07→17:01)
--- NOTE | 2025-04-27 06:00 | PRELIM_ITS ---
Ultrasound Abdomen. April 27, 2025 at 0427 hours Clinical history: Cholecystitis. Technique: Grayscale and color flow images of the abdomen are provided. Hepatic and portal veins were also imaged with color flow images. Correlated with the prior CT study dated April 27, 2025 at 0114 hours Findings: The liver is normal in echogenicity. Hepatopetal flow in main portal vein. No intrahepatic biliary ductal dilatation. Gallbladder wall thickening up to 0.32 mm. Gallbladder calculus measuring up to 2.2 x 0.8 x 1.6 cm. Small amount of free fluid in the right upper quadrant and right lower quadrant. The pancreas is not seen due to bowel gas. The inferior vena cava to the extent visualized is within normal limits. Impression: Cholelithiasis with acute cholecystitis. Suggest follow-up with HIDA scan, if clinically indicated. Report Electronically Signed By: Benoit Keen 04/27/2025 5:59:42 AM [EST]
--- NOTE | 2025-04-27 06:26 | EKG_ITS ---
[facility] Test Date: 2025-04-27 Pat Name: OLGA GEIGER Department: Room: - Gender: Female Sales And Service Associate: : 1950 Requested By: Mary Jo Urrutia Order Number: [id number] Reading MD: Mary Jo Urrutia Measurements Intervals [place] Rate: 76 P: -23 NE: 163 QRS: -12 QRSD: 106 T: 240 QT: 367 QTc: 413 Interpretive Statements SINUS RHYTHM WITH FREQUENT VENTRICULAR PREMATURE COMPLEXES POSSIBLE ANTERIOR MYOCARDIAL INFARCTION , OF INDETERMINATE AGE [30 ms Q WAVE IN V3/V4, OR R < 0.2 mV IN V4] INFERIOR MYOCARDIAL INFARCTION , OF INDETERMINATE AGE [40+ ms Q WAVE AND/OR ST/T ABNORMALITY IN II/aVF] Compared to ECG 04/26/2025 22:50:43 Ventricular premature complex(es) now present Atrial fibrillation no longer present T-wave abnormality no longer present Possible ischemia no longer present Myocardial infarct finding still present /store/S0/[id number]/ecg/[id number].pdf
--- NOTE | 2025-04-27 06:27 | PC.NURSE ---
PT BACK IN SVT ON MONITOR RATE 168. MD RIVERA INFORMED. NEW ORDERS PROVIDED.
--- NOTE | 2025-04-27 06:33 | PC.NURSE ---
EKG COMPLETED AND READS SINUS WITH HR IN THE 70'S PER DR RIVERA, HOLD OFF ON DIGOXIN MED AT THIS TIME.
[2025-04-27] MEDS: BUMETANIDE INJ 0.25 MG/ML VIAL 4 ML 1 MG IVP ×3 (06:43→18:43)
--- NOTE | 2025-04-27 07:20 | PC.NURSE ---
Received report from Sana DAMON and assumed care of patient. Patient sleeping in bed at this time with no signs of distress. Vital signs stable at this time.
--- NOTE | 2025-04-27 07:48 | PD.IMCONS ---
HPI Data of Consult Primary Care Provider: Physician No Primary/Family Consult Narrative History of present illness: This is a 74yo female with a history of CVA, aFib, MARCIO thrombus, CAD s/p stent, HTN BIBA Patient was seen in the emergency room with a complaint of generalized fatigue tiredness Patient in the emergency room was noted to be in rapid atrial fibrillation Heart rate was in the 140s Cardiology consultation requested Patient was started on amiodarone drip, this morning patient converted to sinus rhythm Patient has a prior history of atrial fibrillation also carries a diagnosis of left atrial appendage thrombus cc:: cc: Meds Home Medications and Allergies Home Medications ?Medication ?Instructions ?Recorded ?Confirmed ?Type olmesartan 40 mg tablet 40 mg PO DAILY 08/18/23 08/03/24 History bumetanide 1 mg tablet 1 mg PO QDAY 08/03/24 08/03/24 History spironolactone 25 mg tablet 25 mg PO QDAY 08/03/24 08/03/24 History Allergies Allergy/AdvReac Type Severity Reaction Status Date / Time codeine Allergy Unknown Blister Verified 03/06/25 18:35 Exam Vital Signs Temp Pulse Resp BP Pulse Ox O2 Del Method O2 Flow Rate 97.8 F 68 16 119/80 97 Oxy Mask 8 04/27/25 01:56 04/27/25 06:43 04/27/25 06:35 04/27/25 06:43 04/27/25 06:35 04/27/25 06:35 04/27/25 06:35 Routine HEENT Exam Head: Present normocephalic and atraumatic Eye: Present EOMI and PERRL ENT: Present mucous membranes moist Routine Neck Exam Neck: Present supple and trachea midline Routine Respiratory Exam Respiratory: Present chest non-tender, lungs clear, normal breath sounds and no resp distress Routine Cardiovascular Exam Cardiovascular: Present RRR Routine Abdominal Exam Abdominal: Present soft and normoactive bowel sounds Routine Extremities Exam Extremities: Present full ROM Routine Skin Exam Skin: Present intact, dry and warm Routine Neurological Exam Neurological: Present alert, oriented X3 and CN II-XII intact Routine Psychiatric Exam Psychiatric: Present normal affect and normal thought process Results Labs 04/26/25 23:16 04/26/25 23:16 Labs: Short CBC 04/26/25 Range/Units 23:16 WBC 13.1 H (3.6-11.0) Thou/mm3 Hgb 13.7 (12.0-16.0) g/dL Hct 41.1 (36.0-46.0) % Plt Count 103 L (140-440) Thou/mm3 BMP 04/26/25 23:16 Sodium 139 Potassium 3.6 Chloride 103 Carbon Dioxide 21.6 BUN 81 H Creatinine 3.4 H Glucose 142 H Calcium 8.2 L Cardiac Enzymes 04/26/25 04/27/25 Range/Units 23:16 00:50 Troponin I 0.161 H* 0.147 H* (0.0-0.045) ng/mL Liver Function 04/26/25 Range/Units 23:16 Total Bilirubin 2.0 H (0.3-1.2) mg/dL AST 166 H (0-34) U/L ALT 413 H (10-49) U/L Alkaline Phosphatase 163 H (46-116) U/L Albumin 3.0 L (3.4-4.8) gm/dL Urine 04/27/25 Range/Units 01:41 Urine Color Yellow (Lt Yel-Yel) Urine Clarity Turbid A (Clear/Hazy) Urine pH 5.5 (5.0-7.0) Ur Specific [place] 1.018 (1.001-1.035) Urine Protein 1+ A (Neg - Trace) Urine Glucose (UA) Negative (Negative) ABG Interpretation ABG results: 04/26/25 23:16 VBG pH 7.49 VBG pCO2 23 L VBG pO2 33 VBG Base Excess -4 L Assessment and Plan Assessment and plan (1) Atrial fibrillation with RVR: Status: Acute (2) Hypertension: Status: Acute (3) Elevated troponin: Status: Acute (4) Cholelithiasis: Status: Acute Additional Assessment & Plan Additional Plan: Patient has converted back to sinus rhythm Currently on amiodarone drip Once the protocol is completed changed to p.o. amiodarone Patient has minimal elevation of troponin Patient will be recommended to undergo echocardiographic exam
--- NOTE | 2025-04-27 07:50 | PD.SURCONS ---
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 She was noted to have elevation of troponins, acute renal failure with creatinine of 3.4, significant elevation of BNP and elevation of liver enzymes. Abdominal ultrasound showed gallstones without evidence of cholecystitis. CT scan revealed cirrhosis of the liver with ascites. She denies history of abdominal pain, has been eating and tolerating diet well. Review of Systems Constitutional Constitutional: Denies chills and Denies fever(s) Cardiovascular Cardiovascular: Reports chest pain and Reports dyspnea Respiratory Respiratory: Denies cough and Reports dyspnea Genitourinary Genitourinary: Denies difficulty voiding Hematologic/Lymphatic Hematologic/Lymphatic: Denies easy bleeding and Reports easy bruising Past Medical History Surgical History OTHER SURGICAL HX: , coronary angiogram Social History SMOKING STATUS: Current every day smoker SUBSTANCE USE: marijuana ALCOHOL: Current Meds Home Medications and Allergies Home Medications ?Medication ?Instructions ?Recorded ?Confirmed ?Type olmesartan 40 mg tablet 40 mg PO DAILY 08/18/23 08/03/24 History bumetanide 1 mg tablet 1 mg PO QDAY 08/03/24 08/03/24 History spironolactone 25 mg tablet 25 mg PO QDAY 08/03/24 08/03/24 History Allergies Allergy/AdvReac Type Severity Reaction Status Date / Time codeine Allergy Unknown Blister Verified 03/06/25 18:35 Exam Vital Signs Temp Pulse Resp BP Pulse Ox O2 Del Method O2 Flow Rate 97.4 F 66 13 97/66 96 Oxy Mask 13 04/27/25 07:48 04/27/25 07:48 04/27/25 07:48 04/27/25 07:48 04/27/25 07:48 04/27/25 07:48 04/27/25 07:48 Constitutional Constitutional: no acute distress Routine Abdominal Exam Comments: Abdomen is soft and nondistended and nontender Results Results: Laboratory Laboratory results: results reviewed Results: Imaging Imaging narrative: Abdominal ultrasound, CT scan of abdomen pelvis images reviewed, radiologist interpretation noted Assessment & Plan Additional Assessment Additional comments: She has cholelithiasis without evidence of cholecystitis. Elevation of liver enzymes is most likely due to shock liver from heart failure. Ultrasound does not show evidence of cholecystitis. Gallbladder wall thickening on CT scan in the presence of ascites is not an accurate assessment for cholecystitis Plan Patient was found to have cholelithiasis that is asymptomatic. Clinically she does not have evidence of cholecystitis. Once her other medical issues are resolved, if cholecystitis still a consideration she will require HIDA scan. No indications for surgical intervention at this time
--- NOTE | 2025-04-27 08:13 | ECHO_ITS ---
Transthoracic Echo Report Ht (in): 65 Wt (lb): 185 Exam Location: Echo Lab Status: Emergency Farmworker Animal: CecilioAlida cedillo Indications: Procedure Performed: BP: 119 / 80 HR: 68 Technical Quality: Adequate MEASUREMENTS (Male / Female) Normal Values 2D ECHO LV Diastolic Diameter PLAX 7.2 cm 4.2 - 5.9 / 3.9 - 5.3 cm LV Systolic Diameter PLAX 6.2 cm IVS Diastolic Thickness 0.6 cm 0.6 - 1.0 / 0.6 - 0.9 cm LVPW Diastolic Thickness 0.8 cm 0.6 - 1.0 / 0.6 - 0.9 cm LV Relative Wall Thickness 0.2 LVOT Diameter 2.2 cm LA Volume Index 72.0 cm?/m? 16 - 28 cm?/m? DOPPLER AV Peak Velocity 116.0 cm/s AV Peak Gradient 5.4 mmHg LVOT Peak Velocity 73.2 cm/s LVOT Peak Gradient 2.1 mmHg AV Area Cont Eq pk 2.4 cm? TR Peak Velocity 227.0 cm/s TR Peak Gradient 20.6 mmHg PV Peak Velocity 97.7 cm/s PV Peak Gradient 3.8 mmHg FINDINGS Left Ventricle The left ventricular cavity size is severely increased. The left ventricular the left ventricular ejection fraction is severely decreased, estimated at 15-20%. wall thicknesses are normal. Right Ventricle The right ventricular size is moderately increased. . The estimated right ventricular systolic pressure 20 mmHg. Left Atrium The left atrial cavity size is severely increased. Right Atrium The right atrial cavity size is severely increased. Atrial Septum The interatrial septum appears normal with no evidence of a shunt. Aorta The aorta is normal by two-dimensional, color flow and Doppler interrogation. Mitral Valve Mild mitral annular calcification as well as mild calcification of the mitral valve leaflets. Mild mitral regurgitation. Aortic Valve Diffuse calcification of the aortic valve without stenosis. No significant aortic regurgitation. Tricuspid Valve The tricuspid valve is normal by two-dimensional, color flow and Doppler interrogation. There is moderate tricuspid regurgitation. Pulmonic Valve The pulmonic valve is not well visualized. There is trace pulmonic valve regurgitation. Vessels The pulmonary artery appears normal. The inferior vena cava is dilated. Pericardium The pericardium is normal by two-dimensional imaging. There is no significant pericardial effusion. CONCLUSIONS Indications: HFrEF and A-fib. Dilated cardiomyopathy. EF worsened from 35 to 40% to less than 20%. Severe LV dilatation, severe Global Hypokinesis. Estimated EF 15-20%. Diastolic dysfunction present but could not be graded due to A-fib/arrhythmia. Mild RV dilatation with moderate RV dysfunction. Mildly elevated RVSP at 35 and 40 mmHg. Mild MAC with mild MR.. Mild aortic valve sclerosis without stenosis. Moderate TR. Trace PI. IVC Dilated with less than 50% collapse with inspiration. No pericardial effusion. Herberth Lezama (Electronically Signed) Final Date: 27 April 2025 18:22
--- NOTE | 2025-04-27 08:37 | PD.EDADDENDU ---
Emergency Room Addendum <Selina Wellington - Last Filed: 04/27/25 09:09> Addendum Narrative: 0828: I spoke with vascular sonographer Dr. Lezama, discussed patients HPI . Request that the patient receive a total of 2 mg of Bumex, 2 mg of magnesium as well as 40 mg of potassium this morning given that her blood pressure is within normal limits, and she is fluid overloaded. I updated the hospitalist team. Care is now transitioned to the hospitalist team. <Mary Jo Sapp MD - Last Filed: 04/27/25 08:48> Addendum Narrative: 0828: I spoke with vascular sonographer Dr. Lezama, discussed patients HPI . Request that the patient receive a total of 2 mg of Bumex, 2 mg of magnesium as well as 40 mg of potassium this morning given that her blood pressure is within normal limits, and she is fluid overloaded. I updated the hospitalist team. Care is not transitioned to the hospitalist team.
[2025-04-27 09:59] LABS: Free T4 (Free Thyroxine) 0.76 ng/dL (0.89-1.76)
--- NOTE | 2025-04-27 11:45 | PCS.ST ---
Swallow Evaluation completed. See report for details. Recommend chopped diet/regular liquids.
--- NOTE | 2025-04-27 12:08 | PD.RESHP ---
Documentation for date of: 04/27/25 HPI History of Present Illness History of present illness: Patient is a poor historian unable to give history. Patient states she lives with her son Robbi whom I tried to contact twice unable to reach via phone. Majority of history is obtained by chart reviewing. Ms. Kaiser is a 74-year-old female past medical history significant for A-fib (on amiodarone and Eliquis), CAD status post stent, hypertension, history of CVA in 2022, HFrEF EF 35 to 40% and history of left ventrical mural thrombus. Patient was brought in by her son for SNF placement as he is unable to care of her at home because patient has increased generalized weakness. In the ED patient was found to have elevated troponins, and SVT patient was given digoxin and magnesium and then patient went into A-fib with RVR and was started on amnio drip overnight. Patient also appeared to be in fluid overload with worsening shortness of breath and lower extremity edema. Patient denied any chest pain, palpitation, dizziness. Patient appears to be agitated and asks to call her son for detailed information. ED course: In the ED initial blood pressure 76/55, pulse 164 respirations 20 saturating 172 oxygen via oxy mask. Labs are significant for WBC 13.1, MCV 77, platelet 103, BUN 81, creatinine 3.4, GFR 13, osmolality 303, total bilirubin 2.0, AST 166, ALT 413, ammonia 34, troponin 0.161 -> 0.147, albumin 3.0 TSH 13.13, freeT4 0.76, T4 3.4 PMH: A-fib, CAD status post stent, hypertension, history of CVA, HFrEF, left ventricle mural thrombus PSH: Coronary angiogram, x4 SH: Smokes cigarettes and marijuana daily, denies illicit drugs or alcohol Allergies: Codeine Review of Systems Review of Systems Systems Reviewed: All systems reviewed, normal except as documented Exam Vital Signs Temp Pulse Resp BP Pulse Ox O2 Del Method O2 Flow Rate 97.9 F 60 18 94/67 97 Oxy Mask 13 04/27/25 10:23 04/27/25 10:23 04/27/25 10:23 04/27/25 10:23 04/27/25 10:23 04/27/25 10:04/27/25 10:23 Narrative Exam GENERAL: A&Ox3, elderly female, Awake, Not in acute distress NEURO: no focal neurological deficits HEENT: Atraumatic, Normocephalic. mucous membranes moist. Eyes open, symmetrical, & clear HEART: Normal Heart Sounds LUNGS: Clear to auscultation with no wheezing or crackles. ABDOMEN: soft, non-distended, non-tender, bowel sounds heard, no guarding or rebound tenderness SKIN: Multiple scrapes, lacerations noted on lower extremities bilaterally EXTREMITIES: 3+ pitting edema bilaterally in LE, no tenderness, able to move all 4 extremities, pedal pulses palpated Results: Labs 04/26/25 23:16 04/26/25 23:16 Labs: Short CBC 04/26/25 Range/Units 23:16 WBC 13.1 H (3.6-11.0) Thou/mm3 Hgb 13.7 (12.0-16.0) g/dL Hct 41.1 (36.0-46.0) % Plt Count 103 L (140-440) Thou/mm3 BMP 04/26/25 23:16 Sodium 139 Potassium 3.6 Chloride 103 Carbon Dioxide 21.6 BUN 81 H Creatinine 3.4 H Glucose 142 H Calcium 8.2 L Cardiac Enzymes 04/26/25 04/27/25 Range/Units 23:16 00:50 Troponin I 0.161 H* 0.147 H* (0.0-0.045) ng/mL Liver Function 04/26/25 Range/Units 23:16 Total Bilirubin 2.0 H (0.3-1.2) mg/dL AST 166 H (0-34) U/L ALT 413 H (10-49) U/L Alkaline Phosphatase 163 H (46-116) U/L Albumin 3.0 L (3.4-4.8) gm/dL Urine 04/27/25 Range/Units 01:41 Urine Color Yellow (Lt Yel-Yel) Urine Clarity Turbid A (Clear/Hazy) Urine pH 5.5 (5.0-7.0) Ur Specific [place] 1.018 (1.001-1.035) Urine Protein 1+ A (Neg - Trace) Urine Glucose (UA) Negative (Negative) ABG Interpretation ABG results: 04/26/25 23:16 VBG pH 7.49 VBG pCO2 23 L VBG pO2 33 VBG Base Excess -4 L Quality Measures Quality Measures none Advance care planning discussed with:: patient and other Medications Home Medications and Allergies Home Medications ?Medication ?Instructions ?Recorded ?Confirmed ?Type olmesartan 40 mg tablet 40 mg PO DAILY 08/18/23 08/03/24 History bumetanide 1 mg tablet 1 mg PO QDAY 08/03/24 08/03/24 History spironolactone 25 mg tablet 25 mg PO QDAY 08/03/24 08/03/24 History Allergies Allergy/AdvReac Type Severity Reaction Status Date / Time codeine Allergy Unknown Blister Verified 03/06/25 18:35 Visit Medications Acetaminophen (Acetaminophen 325 Mg Tablet) 650 mg PO Q6H PRN PRN Reason: Fever >101.5 Stop: 05/27/25 08:00 Heparin Sodium (Porcine) (Heparin Sod Inj 5000 Unit/Ml Vial) 5,000 unit SC Q8HR [facility] Stop: 05/11/25 08:14 Norepinephrine/Dextrose (Levophed In D5w 8mg/250ml) 8 mg in 250 mls @ 7.867 mls/hr IV .Q24H PRN; Protocol PRN Reason: PER PROTOCOL Stop: 05/26/25 22:58 Amiodarone HCl/Dextrose (Nexterone Ivpb) 360 mg in 200 mls @ 16.667 mls/hr IV .Q12H [facility] Stop: 04/28/25 04:59 Last Admin: 04/27/25 05:07 Dose: 16.667 mls/hr Ceftriaxone Sodium/Dextrose (Rocephin/D5w 1gm Iv Premix) 1 gm in 50 mls @ 100 mls/hr IV QDAY [facility] Stop: 05/04/25 08:06 Azithromycin 500 mg/ Sodium (Chloride) 250 mls @ 250 mls/hr IV QDAY [facility] Stop: 05/05/25 08:59 Discontinued Medications Bumetanide (Bumetanide Inj 0.25 Mg/Ml Vial 4 Ml) 1 mg IVP X1 ONE Stop: 04/27/25 06:31 Last Admin: 04/27/25 06:43 Dose: 1 mg Bumetanide (Bumetanide Inj 0.25 Mg/Ml Vial 4 Ml) 1 mg IVP X1 ONE Stop: 04/27/25 08:36 Digoxin (Digoxin Inj 0.25 Mg/Ml Amp 2 Ml) 0.25 mg IVP X1 ONE Stop: 04/26/25 23:36 Last Admin: 04/26/25 23:46 Dose: 0.25 mg Digoxin (Digoxin Inj 0.25 Mg/Ml Amp 2 Ml) 0.25 mg IVP X1 ONE Stop: 04/27/25 06:28 Etomidate (Etomidate Inj 2 Mg/Ml Vial 10 Ml) 5 mg IVP X1 ONE Stop: 04/26/25 22:58 Last Admin: 04/27/25 01:23 Dose: Not Given Magnesium Sulfate/Dextrose (Magnesium Sulfate Ivpb) 1 gm in 100 mls @ 100 mls/hr IV X1 ONE Stop: 04/26/25 23:53 Last Admin: 04/26/25 23:42 Dose: Not Given Amiodarone HCl/Dextrose (Nexterone Ivpb) 150 mg in 100 mls @ 600 mls/hr IV .Q10M ONE Stop: 04/26/25 23:09 Last Infusion: 04/26/25 23:23 Dose: Infused Amiodarone HCl/Dextrose (Nexterone Ivpb) 360 mg in 200 mls @ 33.333 mls/hr IV .Q6H ONE Stop: 04/27/25 04:58 Last Infusion: 04/27/25 05:23 Dose: Infused Amiodarone HCl/Dextrose (Nexterone Ivpb) 360 mg in 200 mls @ 16.667 mls/hr IV .Q12H JOHN Stop: 04/27/25 22:59 Last Admin: 04/27/25 02:36 Dose: Not Given Magnesium Sulfate/Dextrose (Magnesium Sulfate Ivpb) 1 gm in 100 mls @ 100 mls/hr IV X1 ONE Stop: 04/27/25 07:33 Last Infusion: 04/27/25 07:50 Dose: Infused Azithromycin 500 mg/ Sodium (Chloride) 250 mls @ 250 mls/hr IV X1 ONE Stop: 04/27/25 09:29 Magnesium Sulfate/Dextrose (Magnesium Sulfate Ivpb) 1 gm in 100 mls @ 100 mls/hr IV X1 ONE Stop: 04/27/25 09:34 Potassium Chloride (Potassium Chloride 20 Meq Tabcr) 40 meq PO X1 ONE Stop: 04/27/25 08:36 Assessment & Plan Plan Ms. Kaiser is a 74-year-old female past medical history significant for A-fib (on amiodarone and Eliquis), CAD status post stent, hypertension, history of CVA in 2022, HFrEF EF 35 to 40% and history of left ventrical mural thrombus. Patient was brought in by her son for SNF placement as he is unable to care of her at home because patient has increased generalized weakness. #Acute hypoxic respiratory failure secondary to #Community-acquired pneumonia and #Acute decompensated heart failure #HFrEF, EF of 30 to 35% with stage II diastolic dysfunction - CT of chest shows moderate enlargement of cardiac contour and mild left base pneumonia -BNP is 11/14/1989 Plan: -IV antibiotics azithromycin plus Rocephin started 04/27- -Continue Bumex 1mg IV BID -Echocardiogram ordered -Will hold home GDMT due to soft BP and pt requiring amiodrip for A-fib with RVR -Strict ins and out -Daily weights -Fluid restrictions -Cardiology is consulted and following #A-fib with RVR #History of small PFO - Patient has a history of A-fib and takes amiodarone as well as Eliquis daily - On admission patient was found to be in A-fib with heart rate 160-70's -In the ED patient was given digoxin and magnesium and started on amio drip as per cardio recommendations BE: BE from 08/22/2023 showed Small mobile MARCIO thrombus, Positive bubble study. There is evidence of very small PFO demonstrated by agitated saline injection [id number] score 5, HAS-BLED 5 Plan: -Continue amnio drip at 1 mg/min as per cardiology's recommendation -Resumed home pt's eliquis -Keep magnesium above 2 and potassium above 4 -Repeat echo ordered -Learning Analyst Dr. Lezama is consulted, appreciate recommendations #LOYD Baseline 1.0, on admission creatinine is 3.4, GFR 13, BUN 81 likely prerenal in the setting of poor oral intake plan: -Avoid nephrotoxic and renally dise medications -Unable to give IV fludis due to pt rafael cute CHF exacerbation Consulted Application Administrator Dr. Martin, appreciate recommendations #Hypotension. #Primary hypertension. Patient has history of hypertension, home meds include olmesartan 40mg and spironolactone 25mg, however Pt became hypotensive after starting amiodarone drip. -Will hold antihypertensive medications as of now. -Continue to monitor BP now Will consider antihypertensives after the amiodarone drip has been stopped #Euthyroid sick syndrome #Intermittent bradycardia - Patient does not have history of thyroid disease -TSH is 13.17, free T4 0.76, T4 3.4 -Patient intermittently goes into bradycardia with heart rate ranging between 39 and 60s Plan: - Levothyroxine 25 mcg daily before breakfast - Due to bradycardia additional levothyroxine 25 mcg's given x 1 - Atropine as needed for heart rate below 40 - Will check for goiter in the setting of patient on amiodarone for chronic A-fib #Pulmonary nodules CT of chest shows At least 6 bilateral noncalcified pulmonary nodules, the largest in the lower lung zone on the right measuring 11 mm, 12 mm - Patient is unaware of the pulmonary nodules however she is a chronic smoker plan: After patient is stable patient will likely need further workup of the pulmonary nodules - The nodules may be too small to biopsy, will speak to IR after patient is more stable. #Hx. of Ischemic stroke, 2022 #History of CAD s/p stent placement. -Resumed home aspirin and Atorvastatin Health Maintenance Disposition: telemetry DVT Prophylaxis: resumed Eliquis for afib GI Prophylaxis: not indicated Diet: Diabetic Diet Lines: Peripheral lines Code status: Full Assessment and plan discussed with my attending physician Dr. Yvan Vanessa ([id number]-[id number])- Internal medicine resident Attending Provider Attestation/Addendum After examination of the patient and review of the clinical data I feel that this patient needs admission to the hospital for further treatment/evaluation. I have discussed and was present for the essential components of the history, physical examination, diagnosis, and treatment plan with the resident. I agree with the patient's care as documented by the resident and amended herein by me. Alberto Santoro DO. Patient seen and evaluated in the ED in short, the patient is a 74-year-old female with a significant past medical history of CVA the last being in July 2024, atrial fibrillation on AC, left atrial thrombus, CAD status post stent, hypertension and CHF, last echocardiogram in July 2024 with an EF of 30 to 35% with stage II diastolic dysfunction with severe global hypokinesis and severe systolic dysfunction. Patient presented to the ED for progressively worsening generalized weakness, progressively worsening over the last couple of weeks. Patient's son has difficulty managing the patient at home due to his work schedule. The patient presented with atrial fibrillation with RVR with a heart rate in the 1 60-1 80s and received amiodarone and digoxin per cardiology recommendations who were consulted in the ED. Patient did become hypoxic and she was hypotensive however became more hemodynamically stable as time passed. Blood pressure was still soft today, 98/59 mmHg however stable. Patient has been afebrile thus far. Patient on OxyMask 15 L, SpO2 98%. Significant labs today include a WBC of 13.1, normal hemoglobin, platelet count 103, INR 1.4, VBG performed in the ED demonstrated a corrected pH of 7.54, CO2 of 18. Sodium 139, potassium 3.6, bicarb 21.6, BUN 81 and creatinine 3.4, baseline appears to be 1. Total bilirubin 2, liver enzymes elevated with an AST of 166, ALT 413 and alk phos at 163. Ammonia level normal at 34. Troponin was elevated upon admission however it has down trended, the last 0.147, BNP 1788 on arrival. TSH 13, free T4 low at 0.76, patient not on any levothyroxine at home however the patient is acutely ill and readings are not reliable. UA significant for 3+ blood. U tox negative. Initial EKG demonstrated atrial fibrillation with RVR with a rate of 187, chest x-ray demonstrated mild vascular congestion, CT head unremarkable for any acute intracranial pathology, CT cervical spine negative, CTAP demonstrating mild pneumonia in the left base, cirrhosis, mild ascites, cholelithiasis with gallbladder wall thickening and a 2 mm upper pole nonobstructing left renal calculi with no hydronephrosis noted and a marked thickening of the bladder indicative of cystitis. Chest CT demonstrated a moderate enlargement of the cardiac contour, mild left base pneumonia and bilateral pulmonary nodules the largest being in the right lung, 11 mm, 12 mm. An abdominal ultrasound was negative for cholecystitis and demonstrated mild free fluid in the abdomen. CBD was obscured by bowel gas, the largest gallstone was 22 mm. Repeat EKG on 04/27 demonstrated NSR with frequent PVCs. Echo pending Patient will be admitted to telemetry for acute decompensated heart failure exacerbation, atrial fibrillation with RVR, LOYD, left base pneumonia likely secondary to gram-negative organisms, incidental finding of pulmonary nodules, possibly metastatic in nature and possible hypothyroidism/ESS. At this time cardiology has been consulted for the cardiac issues listed above, patient presently amiodarone drip, patient has converted back to NSR at present. Will also continue Bumex 1 mg IV twice daily. Heart failure measures have been placed, strict I's and O's, fluid restriction and daily weights at this time. Echo ordered and pending. The patient was on GDMT however final med rec pending. Like nephrology is also been consulted by the ED for LOYD, most likely no urgent dialysis need at this time we will continue to monitor strict I's and O's and diurese the patient monitoring for adequate UOP. Surgery was also consulted for cholelithiasis and possible cholecystitis by the ED however does not have any evidence of cholecystitis, no surgical intervention warranted at this time. Patient has no right upper quadrant tenderness, liver enzymes possibly secondary to cirrhosis versus hepatic congestion, will CTM. The patient pneumonia, will continue coverage for Likely secondary to gram-negative organisms and possibly atypical organisms, will cover with ceftriaxone azithromycin at this time. Will likely start the patient on low-dose levothyroxine at this time, TSH and free T4 may be inaccurate in time of acute illness due to euthyroid sick syndrome however hypothyroidism may be contributing to some of her symptoms. Will also check for goiter ISO amiodarone use. Will reconcile and restart home medications as appropriate will continue to monitor closely while she is here. Although this document has been carefully reviewed, there may still be some phonetic and other typographical errors. These errors are purely grammatical due to imperfections in the software program and should not be construed in any way to compromise the substance of the patient's medical care during this visit.
--- NOTE | 2025-04-27 13:06 | PC.LAC ---
PATIENT EVALUATED AND CLEARED BY SPEECH THERAPY TO EAT AND DRINK.
--- NOTE | 2025-04-27 13:23 | PD.NEPHCONS ---
History of Present Illness Data of Consult Requesting Physician: Matias Santoro DO Primary Care Provider: Physician No Primary/Family Consult Narrative cc:: cc: Matias Santoro, DO Meds Home Medications and Allergies Home Medications ?Medication ?Instructions ?Recorded ?Confirmed ?Type olmesartan 40 mg tablet 40 mg PO DAILY 08/18/23 08/03/24 History bumetanide 1 mg tablet 1 mg PO QDAY 08/03/24 08/03/24 History spironolactone 25 mg tablet 25 mg PO QDAY 08/03/24 08/03/24 History Allergies Allergy/AdvReac Type Severity Reaction Status Date / Time codeine Allergy Unknown Blister Verified 03/06/25 18:35 Exam Vital Signs Temp Pulse Resp BP Pulse Ox O2 Del Method O2 Flow Rate 97.8 F 69 20 111/79 95 Oxy Mask 13 04/27/25 12:03 04/27/25 12:03 04/27/25 12:03 04/27/25 12:03 04/27/25 12:03 04/27/25 12:03 04/27/25 12:03 Results Labs 04/30/25 04:55 04/30/25 04:55 Labs: Short CBC 04/26/25 Range/Units 23:16 WBC 13.1 H (3.6-11.0) Thou/mm3 Hgb 13.7 (12.0-16.0) g/dL Hct 41.1 (36.0-46.0) % Plt Count 103 L (140-440) Thou/mm3 BMP 04/26/25 23:16 Sodium 139 Potassium 3.6 Chloride 103 Carbon Dioxide 21.6 BUN 81 H Creatinine 3.4 H Glucose 142 H Calcium 8.2 L Cardiac Enzymes 04/26/25 04/27/25 Range/Units 23:16 00:50 Troponin I 0.161 H* 0.147 H* (0.0-0.045) ng/mL Liver Function 04/26/25 Range/Units 23:16 Total Bilirubin 2.0 H (0.3-1.2) mg/dL AST 166 H (0-34) U/L ALT 413 H (10-49) U/L Alkaline Phosphatase 163 H (46-116) U/L Albumin 3.0 L (3.4-4.8) gm/dL Urine 04/27/25 Range/Units 01:41 Urine Color Yellow (Lt Yel-Yel) Urine Clarity Turbid A (Clear/Hazy) Urine pH 5.5 (5.0-7.0) Ur Specific [place] 1.018 (1.001-1.035) Urine Protein 1+ A (Neg - Trace) Urine Glucose (UA) Negative (Negative) ABG Interpretation ABG results: 04/26/25 23:16 VBG pH 7.49 VBG pCO2 23 L VBG pO2 33 VBG Base Excess -4 L Assessment & Plan Assessment and plan (1) Atrial fibrillation with RVR: Status: Acute (2) Hypertension: Status: Acute (3) Elevated troponin: Status: Acute (4) Cholelithiasis: Status: Acute
[2025-04-27] MEDS: HEPARIN SOD INJ 5000 UNIT/ML VIAL SC (14:41)
[2025-04-27] MEDS: AZITHROMYCIN INJ 500 MG in SODIUM CHLORIDE 0.9% 250 ML 250 ML 250 MG IV (14:57)
--- NOTE | 2025-04-27 17:12 | PC.NURSE ---
CALLED DR. GALLAGHER TO NOTIFIED HER ABOUT THIS PT RHYTHM AND HEART RATE IN THE LOW 30-40'S, DR. GALLAGHER REPORTS THAT SHE WILL CONSULT WITH CARDIOLOGY. NO NEW ORDERS GIVEN TO THIS NURSE
[2025-04-27] MEDS: cefTRIAXone/D5w 1gm IV premix 1 GM/50 ML BAG IV (18:10)
[2025-04-27] MEDS: LEVOTHYROXINE SODIUM 25 MCG TABLET PO (18:47)
--- NOTE | 2025-04-27 19:15 | PC.NURSE ---
Pt is resting in bed with no c/o pain or acute distess at this time, pt noted to be on amioodarone drip at 16.7 ml/hr and tolerating well with 69 controlled A-Fib at this time, pt also noted on 10L/min face mask with SaO2-95%. Bed in low position and locked with siderails up x 2.
--- NOTE | 2025-04-27 21:11 | PD.RESCONSUL ---
HPI Data of Consult Requesting Physician: Matias Santoro DO Admitting Provider: Matias Santoro DO Attending Provider: Matias Santoro DO Primary Care Provider: Physician No Primary/Family Consult Narrative History of present illness: CC: lower peripheral edema. Patient is a 74 year old female with past medical history of multivessel disease with medical treatment [COGNOS ANALYST of RCA and moderate LCx, OM1 disease, excellent [id number] collaterals] as per cardiac cath in 2018, CHF with HFrEF 35 to 40% to less than 20% (04/27/2025) dilated cardiomyopathy, history of MARCIO thrombus, and history of small PFO, Atrial Fibrillation on Eliquis, history of CVA, and hypertension. Patient presented to the emergency room via EMS w/ chief complain of possible SNF placement and acute on chronic CHF with Atrial Fibrillation w/ rvr. Patient is a poor historian and is only alert and oriented x 2, patient is unsure of time. Patient unable to provide past medical history or medication history, which was chart reviewed. Patient was admitted by hospitalist team on 04/27/2025 for acute on chronic CHF and atrial fibrillation with RVR likely in the setting of community-acquired pneumonia. Cardiology consulted on 04/27/2025 for acute on chronic CHF exacerbation along with atrial fibrillation with RVR. Acute on chronic CHF A-fib with RVR. ER course Vitals blood pressure 76/55, HR 64, respiratory rate 20, temperature 97.8, SpO2 95% on 7 L NC--> patient on 11 L WBC (04/26/2025) 13 CMP (04/26/2024): Sodium 139, osmolality 303 K3.6, BUN 81, creatinine 3.4 (LOYD), BUN/creatinine ratio 24 Glucose 142 Total bili 2, AST's 166, ALT 413, alkaline phosphatase 163, ammonia 34--> hyperosmolarity likely in the setting of ammonia Trending troponin 0.161, 0.147-peaked EKG: A-fib with RVR Chest x-ray mild vascular congestion head CT negative for acute hemorrhage or mass effect Abdomen pelvis (04/27/2025) mild pneumonia left base, cirrhosis, mild ascites, cholelithiasis, gallbladder wall thickening consider HIDA, 2 mm upper pole nonobstructing left renal calculus no hydronephrosis or utero calculi noted, marked thickening of the urinary bladder wall consider cystitis Cervical spine CT: Moderate degenerative disc disease PMH: A-fib, CAD status post stent, hypertension, history of CVA, HFrEF, left ventricle mural thrombus PSH: Coronary angiogram, x4 SH: Smokes cigarettes and marijuana daily, denies illicit drugs or alcohol Allergies: Codeine cc:: cc: Matias Santoro, DO Review of Systems Review of Systems Narrative Review of Systems: General appearance: NO weight change, NO fatigue, NO weakness, NO fever, NO chills, NO night sweats, No cough Skin: NO rash, NO itching, NO sores, NO moles HEENT: NO Trauma, NO nausea, NO vomiting, NO visual changes, NO blurry vision, NO double vision, NO tinnitus, NO vertigo, NO ear discharge, NO rhinorrhea, NO stuffiness, NO sneezing, NO allergy, NO epistaxis. NO Hoarseness, NO sore throat, NO swollen neck. Cardiac: NO Palpitations, NO dyspnea on exertion, NO orthopnea, NO paroxysmal nocturnal dyspnea, NO edema Respiratory: NO Shortness of Breath, NO Wheezing, NO Cough, NO Sputum, NO hemoptysis GI:NO appetite, NO nausea, NO vomiting, NO dysphagia, NO changes in bowel frequency, NO stool color, NO diarrhea, NO constipation, NO hemetemesis, NO hemorrhoids, NO melena, NO hematechezia, NO abdominal pain, NO jaundice Renal: NO frequency, NO hesitancy, NO urgency, NO hematuria, NO nocturia, NO incontinence MSK: NO muscle weakness, NO gout, NO arthritis, NO muscle stiffness Neuro: NO headaches, NO tremors, NO weakness, NO paralysis, NO seizures, NO loss of consciousness, NO numbness. Hem: NO anemia, NO easy bruising/bleeding, NO petechiae, NO purpura Endo: NO heat/cold intolerance, NO excessive sweating, NO polyuria, NO polydipsia, NO polyphagia, NO thyroid problems, NO diabetes Pysch: NO mood, NO anxiety, NO depression Exam Vital Signs Temp Pulse Resp BP Pulse Ox O2 Del Method O2 Flow Rate 97.8 F 65 16 110/71 100 Oxy Mask 15 04/27/25 20:00 04/27/25 20:00 04/27/25 20:00 04/27/25 20:00 04/27/25 20:00 04/27/25 20:00 04/27/25 16:22 Narrative Exam General Appearance: Alert & Oriented X1, thin female who is lying in bed in thin female HEENT: Skull symmetrical and atraumatic. Conjunctivae pink and moist. Oral mucosa appears dry. Pupils equal, round, reactive to light and accommodation (PERRL). External ear without lesion or discharge. Cardio: Normal Rate and Rhythm with S1 and S2 heart sounds. No murmurs or extra heart sounds auscultated. No bruits on carotid auscultation. No peripheral edema or cyanosis. Lungs: Symmetric with good expansion. Chest and back non-tender. Decreased vesicular breath sounds, rhonchi present. Abdomen: Non-tender, Non-distended, Normal Reactive Bowel Sounds Neuro: YES Alert, NO cooperative, Yes oriented to person, NO place, and NO time. speech slurred. CN grossly intact. Upper motor strength 5/5 and Lower motor strength 4/5. Sensation intact. Results Labs 04/28/25 05:22 04/28/25 05:22 Labs: Short CBC 04/26/25 Range/Units 23:16 WBC 13.1 H (3.6-11.0) Thou/mm3 Hgb 13.7 (12.0-16.0) g/dL Hct 41.1 (36.0-46.0) % Plt Count 103 L (140-440) Thou/mm3 BMP 04/26/25 23:16 Sodium 139 Potassium 3.6 Chloride 103 Carbon Dioxide 21.6 BUN 81 H Creatinine 3.4 H Glucose 142 H Calcium 8.2 L Cardiac Enzymes 04/26/25 04/27/25 Range/Units 23:16 00:50 Troponin I 0.161 H* 0.147 H* (0.0-0.045) ng/mL Liver Function 04/26/25 Range/Units 23:16 Total Bilirubin 2.0 H (0.3-1.2) mg/dL AST 166 H (0-34) U/L ALT 413 H (10-49) U/L Alkaline Phosphatase 163 H (46-116) U/L Albumin 3.0 L (3.4-4.8) gm/dL Urine 04/27/25 Range/Units 01:41 Urine Color Yellow (Lt Yel-Yel) Urine Clarity Turbid A (Clear/Hazy) Urine pH 5.5 (5.0-7.0) Ur Specific [place] 1.018 (1.001-1.035) Urine Protein 1+ A (Neg - Trace) Urine Glucose (UA) Negative (Negative) ABG Interpretation ABG results: 04/26/25 23:16 VBG pH 7.49 VBG pCO2 23 L VBG pO2 33 VBG Base Excess -4 L Quality Measures Quality Measures none Advance care planning discussed with:: patient Medications Home Medications and Allergies Home Medications ?Medication ?Instructions ?Recorded ?Confirmed ?Type olmesartan 40 mg tablet 40 mg PO DAILY 08/18/23 08/03/24 History bumetanide 1 mg tablet 1 mg PO QDAY 08/03/24 08/03/24 History spironolactone 25 mg tablet 25 mg PO QDAY 08/03/24 08/03/24 History Allergies Allergy/AdvReac Type Severity Reaction Status Date / Time codeine Allergy Unknown Blister Verified 03/06/25 18:35 Visit Medications Acetaminophen (Acetaminophen 325 Mg Tablet) 650 mg PO Q6H PRN PRN Reason: Fever >101.5 Stop: 05/27/25 08:00 Apixaban (Apixaban 2.5 Mg Tablet) 5 mg PO BID [facility] Stop: 05/27/25 20:59 Aspirin (Aspirin Ec 81 Mg Tabec) 81 mg PO DAILY [facility] Stop: 05/28/25 08:59 Atorvastatin Calcium (Atorvastatin Calcium 20 Mg Tablet) 80 mg PO HS [facility] Stop: 05/27/25 20:59 Atropine Sulfate (Atropine Sulf Inj 1 Mg/Ml Vial) 0.5 mg IVP Q5MIN PRN PRN Reason: HR < 40 Stop: 04/30/25 17:39 Bumetanide (Bumetanide Inj 0.25 Mg/Ml Vial 4 Ml) 1 mg IVP BIDD JOHN Stop: 05/27/25 17:59 Last Admin: 04/27/25 18:43 Dose: 1 mg Norepinephrine/Dextrose (Levophed In D5w 8mg/250ml) 8 mg in 250 mls @ 7.867 mls/hr IV .Q24H PRN; Protocol PRN Reason: PER PROTOCOL Stop: 05/26/25 22:58 Amiodarone HCl/Dextrose (Nexterone Ivpb) 360 mg in 200 mls @ 16.667 mls/hr IV .Q12H [facility] Stop: 04/28/25 04:59 Last Admin: 04/27/25 17:01 Dose: 16.667 mls/hr Ceftriaxone Sodium/Dextrose (Rocephin/D5w 1gm Iv Premix) 1 gm in 50 mls @ 100 mls/hr IV QDAY [facility] Stop: 05/04/25 08:06 Last Infusion: 04/27/25 18:50 Dose: Infused Azithromycin 500 mg/ Sodium (Chloride) 250 mls @ 250 mls/hr IV QDAY [facility] Stop: 05/05/25 08:59 Levothyroxine Sodium (Levothyroxine Sodium 25 Mcg Tablet) 25 mcg PO ACBR [facility] Stop: 05/28/25 05:59 Discontinued Medications Atropine Sulfate (Atropine Sulf Inj 0.1 Mg/Ml Syr 10 Ml) 0.5 mg IV Q5MIN PRN PRN Reason: HR <40 Stop: 04/30/25 17:31 Bumetanide (Bumetanide Inj 0.25 Mg/Ml Vial 4 Ml) 1 mg IVP X1 ONE Stop: 04/27/25 06:31 Last Admin: 04/27/25 06:43 Dose: 1 mg Bumetanide (Bumetanide Inj 0.25 Mg/Ml Vial 4 Ml) 1 mg IVP X1 ONE Stop: 04/27/25 08:36 Last Admin: 04/27/25 14:36 Dose: 1 mg Digoxin (Digoxin Inj 0.25 Mg/Ml Amp 2 Ml) 0.25 mg IVP X1 ONE Stop: 04/26/25 23:36 Last Admin: 04/26/25 23:46 Dose: 0.25 mg Digoxin (Digoxin Inj 0.25 Mg/Ml Amp 2 Ml) 0.25 mg IVP X1 ONE Stop: 04/27/25 06:28 Last Admin: 04/27/25 14:59 Dose: Not Given Etomidate (Etomidate Inj 2 Mg/Ml Vial 10 Ml) 5 mg IVP X1 ONE Stop: 04/26/25 22:58 Last Admin: 04/27/25 01:23 Dose: Not Given Heparin Sodium (Porcine) (Heparin Sod Inj 5000 Unit/Ml Vial) 5,000 unit SC Q8HR [facility] Stop: 05/11/25 08:14 Last Admin: 04/27/25 14:41 Dose: 5,000 unit Magnesium Sulfate/Dextrose (Magnesium Sulfate Ivpb) 1 gm in 100 mls @ 100 mls/hr IV X1 ONE Stop: 04/26/25 23:53 Last Admin: 04/26/25 23:42 Dose: Not Given Amiodarone HCl/Dextrose (Nexterone Ivpb) 150 mg in 100 mls @ 600 mls/hr IV .Q10M ONE Stop: 04/26/25 23:09 Last Infusion: 04/26/25 23:23 Dose: Infused Amiodarone HCl/Dextrose (Nexterone Ivpb) 360 mg in 200 mls @ 33.333 mls/hr IV .Q6H ONE Stop: 04/27/25 04:58 Last Infusion: 04/27/25 05:23 Dose: Infused Amiodarone HCl/Dextrose (Nexterone Ivpb) 360 mg in 200 mls @ 16.667 mls/hr IV .Q12H JOHN Stop: 04/27/25 22:59 Last Admin: 04/27/25 02:36 Dose: Not Given Magnesium Sulfate/Dextrose (Magnesium Sulfate Ivpb) 1 gm in 100 mls @ 100 mls/hr IV X1 ONE Stop: 04/27/25 07:33 Last Infusion: 04/27/25 07:50 Dose: Infused Azithromycin 500 mg/ Sodium (Chloride) 250 mls @ 250 mls/hr IV X1 ONE Stop: 04/27/25 09:29 Last Infusion: 04/27/25 16:31 Dose: Infused Magnesium Sulfate/Dextrose (Magnesium Sulfate Ivpb) 1 gm in 100 mls @ 100 mls/hr IV X1 ONE Stop: 04/27/25 09:34 Last Admin: 04/27/25 18:51 Dose: 100 mls/hr Levothyroxine Sodium (Levothyroxine Sodium 25 Mcg Tablet) 25 mcg PO X1 ONE Stop: 04/27/25 18:01 Last Admin: 04/27/25 18:47 Dose: 25 mcg Potassium Chloride (Potassium Chloride 20 Meq Tabcr) 40 meq PO X1 ONE Stop: 04/27/25 08:36 Last Admin: 04/27/25 14:28 Dose: 40 meq Assessment & Plan Plan Patient is a 74 year old female with past medical history of CAD s/p with COGNOS ANALYST of RCA and 90% stenosis of OM1 as per cardiac cath in 2018, CHF HFrEF 35 to 40% to less than 20% (04/27/2025) dilated cardiomyopathy, history of MARCIO thrombus, and history of small PFO, Atrial Fibrillation on Eliquis, history of CVA, and hypertension. Patient was admitted for acute on chronic CHF and atrial fibrillation. #Acute respiratory failure secondary to acute CHF exacerbation as well as A-fib with RVR #Acute on chronic severe congestive heart failure #A-fib with RVR #Dilated ischemic cardiomyopathy with severe global hypokinesia # History of multivessel CAD on medical management #CHF HFrEF 20% (04/27/2025) Patient has a past medical history of CHF with previous ejection fraction between 35 to 40%, upon admission worsening ejection fraction to 20% (638 2024). Patient has a past medical history of a cardiomyopathy likely in the setting of atrial fibrillation and undelrying pneumonia. Lower peripheral edema noted ,3+. Acute CHF likely cardio-renal syndrome. 04/27/2025: Dilated cardiomyopathy. EF worsened from 35 to 40% to less than 20%.Severe LV dilatation, severe Global Hypokinesis. Estimated EF 15-20%.Diastolic dysfunction present but could not be graded due to A-fib/arrhythmia. Mild RV dilatation with moderate RV dysfunction. Mildly elevated RVSP at 35 and 40 mmHg. Mild MAC with mild MR.. Mild aortic valve sclerosis without stenosis. Moderate TR. Trace PI. IVC Dilated with less than 50% collapse with inspiration. No pericardial effusion. BNP 1788 NYHA III Plan -Bumex 1 mg IV BID Albumin prior to next dose of Bumex given low Albumin. -Home dose Bumex 1 mg PO once daily -Continue Diuresis 1.5/2.0 L daily -Aggressive Diuresis -Aspiration precautions needed -K>4 and Magnesium >2 -Repeat BNP prior to discharge -Fluid restriction 1500 and sodium restriction -Work towards GDMT, Entresto (not part of home medication) & Sprinoloactone #A-fib with RVR #History of MARCIO thrombus Patient has a past medical history of atrial fibrillation, on Amiodarone 200 mg Qday and Eliquis 5 mg PO BID. Plan -Amiodarone Drip continue -Transition to home medication of Amiodarone 100 mg once daily->Amioadarone 100 mg BID, monitor AST ALT functin for worsening #LOYD-mostly cardiorenal syndrome Patient presented with worsening BUN81/ Cr of 3.4, which previous base of 1.0. BUN/Cr ratio of 24, likely pre-renal, unclear if patinet is compliant with home medication, including bumex. Given BUN/Cr ration consider cardio-renal vs LOYD on CKD givne previous GFR near 50s/CDK IIIa. Monitor for signs of intrinsic injury given concern for decrease urine output Plan -Strict ins and outs -avoid nephrotoxins -renally dose medication -consider urine lytes but may be off given use of bumex. #Acute Metabolic Encephalopathy #Altered Mental Status Patient presented with worsening acute encephalopathy, patient appears altered and unable to describe place or time. Patient presented with increased Ammonia vs infectious cause vs stroke given history of CVA Plan -Continue to treat underlying condition, including Ammonia and Pneumonia #Cirrhosis, mild ascites #Hyperbilirubinemia # Elevated LFTs-Transiminits Patient noted to have cirrhosis on CT abdomen.Elevated hyerbilirubinemia and transimiitis, likely in the settin go hepto-chf, given CHF exacerbation vs other infectious cause, such as hepatitis vs incidential finding of cholelithiasis-less likely. Amiodarone and Atorvastatin may also be contributing to elvation of AST/ALT Plan -Continue to monitor AST/ALT -Continue to monitor liver function -Hepatitis AM #Community Acquired Pneumonia #SIRs criteria, likely CAP #Luekocytosis Patient presented on admission with elvated WBC 13.1 and tachycardia-likely combination of infectious cause and atrial fibrillation. Plan -Ceftriaxone (04/27/2025-05/04/2025) and Azithromycin (04/28/2025-05/05/2025) -MRSA screen needed -Consider Sputum -Cocci ordered -Blood Cultures pending #History of CVA, Left occipital infarct #Hyperlipidemia Patient has a past medical histoyr o fo CVA and hyperlipidemia. Plan -Aspirin 81 mg once daily -Atorvastatin 80 mg PO HS, monitor AST and [facility] -Lipid Panel #Incidental bilateral pulmonary nodules, largest in the right lung 11 mm, 12 mm #Incidental finding 2 mm upper pole left renal calculi #Incidental finding, cholelithiasis negative for cholecystitis Health Maintenance: Disp: Pt is currently admitted to floors for further management of acute on chronic CHF and AFib w/ rvr. Cardiology consulted. FEN: Cardiac Diet DVT: on subQ heparin Code: Full Code - The patient's plan was discussed with attending Dr. Lise Zhu MD PGY1 Internal Medicine Attending Provider Attestation/Addendum I have personally seen and examined the patient separately on the above date of service and discussed the plan of care with the resident. I reviewed the resident Dr. Laura Zhu consultation progress note and agree with the resident findings and plan in the note above and have also edited the documentation to reflect my findings and plan. Patient well-known to me from previous admissions. Presented with weakness as well as some shortness of breath. Patient was hypertensive in the emergency department with she was atrial fibrillation with RVR. Overnight cardiology consult was consulted and recommended no ventricular cardioversion was not was given amiodarone IV bolus along with amiodarone drip. Patient also received 1 dose of reaction 0.25 mg and then eventually converted to normal sinus rhythm. Patient was hypotensive on arrival and initially was actually given fluids in the emergency department and patient was definitely fluid overloaded and later on was started on Bumex 1 mg IV twice daily. An echocardiogram was read as part of the evaluation which showed Echo 04/27/2025: Dilated cardiomyopathy. EF worsened from 35 to 40% to less than 20%.Severe LV dilatation, severe Global Hypokinesis. Estimated EF 15-20%.Diastolic dysfunction present but could not be graded due to A-fib/arrhythmia. Mild RV dilatation with moderate RV dysfunction. Mildly elevated RVSP at 35 and 40 mmHg. Mild MAC with mild MR.. Mild aortic valve sclerosis without stenosis. Moderate TR. Trace PI. IVC Dilated with less than 50% collapse with inspiration. No pericardial effusion. Acute hypoxic respiratory failure mostly secondary to the acute on chronic severe CHF exacerbation and also been very tight for pneumonia. Echo noted now shows an ejection fraction of 20% and on examination send patient is significantly volume overloaded including pedal edema as well as crackles on examination. Also has possible cardiorenal syndrome with creatinine elevated to 3.4 as and also elevated AST and ALT secondary to hepatic congestion. Recommend aggressive diuresis for now with IV Bumex 1 mg twice daily and will continue to uptitrate based on the input output. Patient mostly has ischemic dilated cardiomyopathy given her previous history of CAD multivessel as noted above in the HPI. Troponins peaked only 0.161 indicating acute coronary syndrome. Troponin is mostly secondary to supply dyspnea especially in the setting of prolonged A-fib with RVR. Likely A-fib with RVR patient should be continued with amiodarone drip as per protocol and start the patient on amiodarone 200 mg twice daily and eventually can be changed to 200 mg once daily. Heparin drip for anticoagulation for now. Keep potassium greater than 4 and magnesium greater than 2.0 at all times. Check TSH A1c and lipid profile for further cardiac restratification. Strict input output Daily weights and 2 g sodium diet. Herberth Lezama M.D. Interventional Cardiology
[2025-04-27] MEDS: APIXABAN 2.5 MG TABLET 5 MG PO (21:52)
[2025-04-27] MEDS: ATORVASTATIN CALCIUM 20 MG TABLET 80 MG PO (21:52)
--- NOTE | 2025-04-27 21:58 | PC.NURSE ---
Report called to floor nurse, NELSON Zavala
--- NOTE | 2025-04-27 23:01 | PC.NURSE ---
PT AAO TO SELF AND PLACE. NO S/S OF DISTRESS.PT DENIES PAIN. PT STATED POC SON SOH. RN CALLED [facility] AT [phone]. FOR ADMISSION QUESTIONS AND HOME MEDS BUT NO ANSWER. LEFT MESSAGE TO CALL BACK. PT ORIENTED TO ROOM, USE OF CALL LIGHT AND UPDATED WITH PLAN OF CARE, PT VERBALIZED UNDERSTANDING. CALL LIGHT WITHIN REACH. BED LOW,WHEELS LOCKED AND ALARM ON.
[2025-04-28] VITALS (12 sets, daily range): BP systolic 93–117; BP diastolic 49–80; PULSE 52–77; RESP 16–18; TEMP 36.1–36.6; O2SAT 95–98; BMI 12.0; BMI 27.1
--- NOTE | 2025-04-28 01:30 | PC.NURSE ---
pt unable to recall home meds, will follow up with son Robbi in am.
[2025-04-28] MEDS: LEVOTHYROXINE SODIUM 25 MCG TABLET PO (05:15)
[2025-04-28 06:00] LABS: Basophils # (Auto) 0.0 Thou/mm3 (0.0-0.2); Basophils % (Auto) 0 % (0-2.5); Eosinophils # (Auto) 0.0 Thou/mm3 (0.0-0.5); Eosinophils % (Auto) 0 % (0-10); Hematocrit 41.2 % (36.0-46.0); Hemoglobin 13.6 g/dL (12.0-16.0); Immature Granulocytes Auto 0.09 Thou/mm3 (0.00-0.00); Lymphocytes # (Auto) 0.6 Thou/mm3 (1.0-4.8); Lymphocytes % (Auto) 5 % (10-50); Mean Corpuscular HGB Conc 33.0 g/dl (31.0-37.0); Mean Corpuscular Hemoglobin 25.4 pg (25.0-35.0); Mean Corpuscular Volume 77 fL (80-100); Monocytes # (Auto) 0.5 Thou/mm3 (0.0-0.8); Monocytes % (Auto) 4 % (0-12); Neutrophils # (Auto) 12.4 Thou/mm3 (1.8-7.7); Neutrophils % (Auto) 91 % (37-80); Nucleated Red Blood Cell # 0.03 Thou/mm3 (0.00-0.00); Nucleated Red Blood Cell % 0 /100 WBC (0); Platelet Count 102 Thou/mm3 (140-440); RDW Standard Deviation 51.7 fL (36.4-46.3); Red Blood Count 5.36 Miln/mm3 (4.00-5.20); White Blood Count 13.7 Thou/mm3 (3.6-11.0)
[2025-04-28] MEDS: ACETAMINOPHEN 325 MG TABLET 650 MG PO (06:01)
[2025-04-28] MEDS: BUMETANIDE INJ 0.25 MG/ML VIAL 4 ML 1 MG IVP ×2 (06:24→12:21)
[2025-04-28 06:40] LABS: Alanine Aminotransferase 298 U/L (10-49); Albumin, Serum 2.8 gm/dL (3.4-4.8); Albumin/Globulin Ratio 0.8 (1.2-2.2); Alkaline Phosphatase 168 U/L (46-116); Anion Gap 13 (7-16); Aspartate Amino Transferase 91 U/L (0-34); BUN/Creatinine Ratio 29 Ratio (12-20); Bilirubin,Total 1.9 mg/dL (0.3-1.2); Blood Urea Nitrogen 84 mg/dL (9-23); Calcium 8.0 mg/dL (8.3-10.6); Calcium (Corrected) 9.0 mg/dL (8.5-10.1); Carbon Dioxide 23.8 mMol/L (20.0-31.0); Cardiac Risk Estimate 7.7 RATIO (3.7-5.6); Chloride 104 mMol/L (98-107); Cholesterol 108 mg/dL (132-200); Creatinine (Component) 2.9 mg/dL (0.6-1.3); Estimated Creatinine Clearance 16.6 mL/min (>60); Globulin 3.3 gm/dL (2.3-3.5); Glucose 114 mg/dL (74-106); HDL Cholesterol 14 mg/dL (40-60); LDL Cholesterol,Calculated 75 mg/dL (0-130); Magnesium 2.2 mg/dL (1.6-2.6); Osmolality,Calculated 307 (275-295); Phosphorous 4.2 mg/dL (2.4-5.1); Potassium 3.7 mMol/L (3.4-5.1); Sodium 141 mMol/L (136-145); Thyroid Stimulating Hormone 7.40 uIU/mL (0.55-4.78); Total Protein 6.1 gm/dL (5.7-8.2); Triglycerides 93 mg/dL (30-150); eGFR 16 See Note
--- NOTE | 2025-04-28 08:01 | EKG_ITS ---
[facility] (Formerly [facility]) Test Date: 2025-04-28 Pat Name: OLGA GEIGER Department: Room: S270A Gender: Female [employer]: NOAH : 1950 Requested By: Gasper Rosas Order Number: [id number] Reading MD: Gasper Rosas Measurements Intervals [place] Rate: 69 P: IN: QRS: -22 QRSD: 110 T: 243 QT: 430 QTc: 463 Interpretive Statements ATRIAL FIBRILLATION WITH ABERRANT CONDUCTION OR VENTRICULAR PREMATURE COMPLEXES LOW QRS VOLTAGE IN PRECORDIAL LEADS POSSIBLE ANTERIOR MYOCARDIAL INFARCTION , OF INDETERMINATE AGE INFERIOR MYOCARDIAL INFARCTION , PROBABLY OLD Compared to ECG 04/27/2025 06:30:33 Aberrant conduction of supraventricular beat(s) now present Low QRS voltage now present Sinus rhythm no longer present Myocardial infarct finding still present /store/S0/[id number].pdf
[2025-04-28] MEDS: cefTRIAXone/D5w 1gm IV premix 1 GM/50 ML BAG IV (08:38)
[2025-04-28] MEDS: ASPIRIN EC 81 MG TABEC PO (08:39)
[2025-04-28] MEDS: AMIODARONE HCL 200 MG TABLET PO (08:39)
[2025-04-28] MEDS: APIXABAN 2.5 MG TABLET 5 MG PO ×2 (08:39→21:08)
[2025-04-28] MEDS: AZITHROMYCIN INJ 500 MG in SODIUM CHLORIDE 0.9% 250 ML 250 ML 250 MG IV (10:20)
[2025-04-28 11:34] LABS: Hepatitis A Antibody IgM Non Reactive (Non React); Hepatitis B Core Antibody IgM Non Reactive (Non React); Hepatitis B Surface Antigen Non Reactive (Non React); Hepatitis C Antibody Non Reactive (Non React)
--- NOTE | 2025-04-28 12:05 | XR_ITS ---
Examination: Right shoulder single view TECHNIQUE: AP internal rotation right shoulder single view Date and time: April 28, 2025 1219 hours INDICATIONS: Onset right shoulder pain today FINDINGS: Moderate to advanced osteoarthritis glenohumeral joint No shoulder fracture or dislocation Moderate osteoarthritis acromioclavicular joint IMPRESSION: Moderate to advanced osteoarthritis glenohumeral joint Right lung pulmonary nodule at least 11 mm, please see the CT chest report April 27, 2025
--- NOTE | 2025-04-28 12:08 | PC.NURSE ---
Attempted to call son Robbi to have him bring in medication, phone number on file is the wrong number.
[2025-04-28 12:19] LABS: Cocci Serology, IgM Negative (Negative)
--- NOTE | 2025-04-28 13:27 | PD.RESPRO ---
Documentation for date of: 04/28/25 Subjective Subjective Interval history: Overnight events: No acute events overnight Patient was seen and examined at bedside. AM vitals and labs reviewed. Vitals WNL, no longer in the low 30s-40s noted on nursing note on 04/27/25, which prompted Cardiology consult. The patient was able to respond to questions and follow commands, but had to pause and think about how to respond for a few seconds. She was not able to articulate what brought her into the hospital. She denies any pain and stated that she has no complaints at this time. She did not endorse SOB during my encounter with her. She stated that she feels better than yesterday and does not look overtly edematous. Labs today showed improving Cr at 2.9, down from 3.4 yesterday AM. eGFR slightly increased to 16 from 13 yesterday AM. Intake/Output 898/900. Review of systems otherwise negative except for what is mentioned above. Exam Vital Signs Temp Pulse Resp BP Pulse Ox O2 Del Method O2 Flow Rate 97.4 F 77 18 99/80 98 Room Air 15 04/28/25 12:00 04/28/25 12:21 04/28/25 12:00 04/28/25 12:21 04/28/25 12:00 04/28/25 12:00 04/27/25 16:22 Narrative Exam Physical Exam: General: Dozing off periodically, no acute distress. Skin: Warm, dry, intact. Head: Normocephalic, atraumatic. Eye: Normal conjunctiva, PERRL. Cardiovascular: Heart sounds distant, could not appreciate. Respiratory: Crackles present in lower lung brock, respirations unlabored. Gastrointestinal: Soft, nontender, non-distended. No guarding or rebound tenderness. Extremities: No edema, no cyanosis, no clubbing. 1+ radial pulse bilaterally, 1+ posterior tibial pulse bilaterally. Neuro: No focal deficits observed. Conversant, moving all extremities. No overt cerebellar signs/incoordination. Psychiatric: Cooperative, quick to disengage in conversation. Objective Labs 04/30/25 04:55 04/30/25 04:55 Labs: Laboratory Results - last 24 hr 04/28/25 04/28/25 05:22 10:00 WBC 13.7 H RBC 5.36 H Hgb 13.6 Hct 41.2 MCV 77 L MCH 25.4 MCHC 33.0 RDW Std Deviation 51.7 H Plt Count 102 L Neut % (Auto) 91 H Lymph % (Auto) 5 L [place] % (Auto) 4 Eos % (Auto) 0 Baso % (Auto) 0 Neut # (Auto) 12.4 H Lymph # (Auto) 0.6 L [place] # (Auto) 0.5 Eos # (Auto) 0.0 Baso # (Auto) 0.0 Immature Gran # (Auto) 0.09 H Absolute Nucleated RBC 0.03 H Immature Gran % 1 H Nucleated RBC % 0 Sodium 141 Potassium 3.7 Chloride 104 Carbon Dioxide 23.8 Anion Gap 13 BUN 84 H Creatinine 2.9 H D Estim Creat Clear Calc 16.6 L eGFR 16 L BUN/Creatinine Ratio 29 H Glucose 114 H Calculated Osmolality 307 H Calcium 8.0 L Corrected Calcium 9.0 Phosphorus 4.2 Magnesium 2.2 Total Bilirubin 1.9 H AST 91 H ALT 298 H Alkaline Phosphatase 168 H Total Protein 6.1 Albumin 2.8 L Globulin 3.3 Albumin/Globulin Ratio 0.8 L Triglycerides 93 Cholesterol 108 L LDL Cholesterol, Calc 75 HDL Cholesterol 14 L Cholesterol/HDL Ratio 7.7 H TSH 7.40 H D Coccidioides IgM Ab Negative Hepatitis A IgM Ab Non Reactive Hep Bs Antigen Non Reactive Hep B Core IgM Ab Non Reactive Hepatitis C Antibody Non Reactive ABG Interpretation ABG results: 04/26/25 23:16 VBG pH 7.49 VBG pCO2 23 L VBG pO2 33 VBG Base Excess -4 L Quality Measures Quality Measures none Advance care planning discussed with:: patient Assessment & Plan Assessment Current Active Medications: Generic Name Dose Route Start Last Admin Trade Name Ivy PRN Reason Stop Dose Admin Acetaminophen 650 mg 04/27/25 08:01 04/28/25 06:01 Acetaminophen 325 Mg Tablet PO 05/27/25 08:00 650 mg Q6H PRN Administration Fever >101.5 Amiodarone HCl 200 mg 04/28/25 09:00 04/28/25 08:39 Amiodarone Hcl 200 Mg Tablet PO 05/28/25 08:59 200 mg QDAY JOHN Administration Apixaban 5 mg 04/27/25 21:00 04/28/25 08:39 Apixaban 2.5 Mg Tablet PO 05/27/25 20:59 5 mg BID JOHN Administration Aspirin 81 mg 04/28/25 09:00 04/28/25 08:39 Aspirin Ec 81 Mg Tabec PO 05/28/25 08:59 81 mg DAILY JOHN Administration Atorvastatin Calcium 80 mg 04/27/25 21:00 04/27/25 21:52 Atorvastatin Calcium 20 Mg Tablet PO 05/27/25 20:59 80 mg HS JOHN Administration Atropine Sulfate 0.5 mg 04/27/25 17:40 Atropine Sulf Inj 1 Mg/Ml Vial IVP 04/30/25 17:39 Q5MIN PRN HR < 40 Bumetanide 2 mg 04/28/25 18:00 Bumetanide Inj 0.25 Mg/Ml Vial 4 Ml IVP 05/28/25 17:59 BIDD JOHN Ceftriaxone Sodium/Dextrose 1 gm in 50 mls @ 100 mls/hr 04/27/25 08:07 04/28/25 08:38 Rocephin/D5w 1gm Iv Premix IV 05/04/25 08:06 100 mls/hr QDAY JOHN Administration Azithromycin 500 mg/ Sodium 250 mls @ 250 mls/hr 04/28/25 09:00 04/28/25 10:20 Chloride IV 05/05/25 08:59 250 mls/hr QDAY JOHN Administration Albumin Human 12.5 gm in 50 mls @ 50 mls/hr 04/28/25 17:00 Albuminar-25 Ivpb IV 04/28/25 17:59 X1 ONE Levothyroxine Sodium 25 mcg 04/28/25 06:00 04/28/25 05:15 Levothyroxine Sodium 25 Mcg Tablet PO 05/28/25 05:59 25 mcg ACBR JOHN Administration Plan Mrs. Kaiser is a 74 year old lady with a relevant past medical history of CAD s/p stent, HFrEF with EF of 35-40%, atrial fibrilation on Eliquis, and dilated cardiomyopathy who presented to [facility] with concerns of SNF placement. Nephrology was consulted due to concerns of LOYD in the setting of an acute exacerbation of her CHF. #Acute kidney injury due to cardiorenal syndrome 2/2 acute CHF exacerbation Patient admitted with Cr of 3.4, GFR 13, BUN 81 in the setting of a history of HFrEF and 3+ edema on physical exam. - Continue diuresis with Bumex/Bumetanide 1mg IVP daily - Continue to monitor progress and trend Cr - Nephrology will continue to monitor Rest of conditions to continue current management per primary team: - Acute hypoxic respiratory failure 2/2 acute decompensated heart failure vs CAP - A-fib w/ RVR - Pulmonary nodules Patient was discussed with the Nephrology attending, Dr. Martin. Thank you for allowing us to participate in the care of this patient. Aayush Hall, PGY-1 Attending Provider Attestation/Addendum Pt is seen and examined. labs reviewed. notes reviewed. agree with assessment and plan and findings of resident. Marcos Martin MD
--- NOTE | 2025-04-28 14:28 | ESPR_ITS ---
Documentation for date of: 04/28/25 Subjective Subjective Interval history: Pt is seen and examined at bedside. Pt BP is 103/69, saturating on room air. Pt denies SOB, and cardiac symptoms. Pt is net negative 101 potassium is 3.7, mag 2.2, keep potassium above 4 and mag above 2 at all times. Kidney fucntion is improving BUN 84, Creatinine 2.9. T. brent down trending 1.9, AST 91, ALT 298 Conitnue home amiodarone 200mg daily, eliquis 5mg BID, discontinue coreg due to soft BP. Exam Vital Signs Temp Pulse Resp BP Pulse Ox O2 Del Method O2 Flow Rate 97.4 F 77 18 99/80 98 Room Air 15 04/28/25 12:00 04/28/25 12:21 04/28/25 12:00 04/28/25 12:21 04/28/25 12:00 04/28/25 12:00 04/27/25 16:22 Narrative Exam GENERAL: A&Ox3, elderly female, Awake, Not in acute distress NEURO: no focal neurological deficits HEENT: Atraumatic, Normocephalic. mucous membranes moist. Eyes open, symmetrical, & clear HEART: Normal Heart Sounds LUNGS: Clear to auscultation with no wheezing or crackles. ABDOMEN: soft, non-distended, non-tender, bowel sounds heard, no guarding or rebound tenderness SKIN: Multiple scrapes, lacerations noted on lower extremities bilaterally and lower back on buttocks EXTREMITIES: 2+ pitting edema bilaterally in LE, no tenderness, able to move all 4 extremities, pedal pulses palpated Objective Labs 04/30/25 04:55 04/30/25 04:55 Labs: Laboratory Results - last 24 hr 04/28/25 04/28/25 05:22 10:00 WBC 13.7 H RBC 5.36 H Hgb 13.6 Hct 41.2 MCV 77 L MCH 25.4 MCHC 33.0 RDW Std Deviation 51.7 H Plt Count 102 L Neut % (Auto) 91 H Lymph % (Auto) 5 L [place] % (Auto) 4 Eos % (Auto) 0 Baso % (Auto) 0 Neut # (Auto) 12.4 H Lymph # (Auto) 0.6 L [place] # (Auto) 0.5 Eos # (Auto) 0.0 Baso # (Auto) 0.0 Immature Gran # (Auto) 0.09 H Absolute Nucleated RBC 0.03 H Immature Gran % 1 H Nucleated RBC % 0 Sodium 141 Potassium 3.7 Chloride 104 Carbon Dioxide 23.8 Anion Gap 13 BUN 84 H Creatinine 2.9 H D Estim Creat Clear Calc 16.6 L eGFR 16 L BUN/Creatinine Ratio 29 H Glucose 114 H Calculated Osmolality 307 H Calcium 8.0 L Corrected Calcium 9.0 Phosphorus 4.2 Magnesium 2.2 Total Bilirubin 1.9 H AST 91 H ALT 298 H Alkaline Phosphatase 168 H Total Protein 6.1 Albumin 2.8 L Globulin 3.3 Albumin/Globulin Ratio 0.8 L Triglycerides 93 Cholesterol 108 L LDL Cholesterol, Calc 75 HDL Cholesterol 14 L Cholesterol/HDL Ratio 7.7 H TSH 7.40 H D Coccidioides IgM Ab Negative Hepatitis A IgM Ab Non Reactive Hep Bs Antigen Non Reactive Hep B Core IgM Ab Non Reactive Hepatitis C Antibody Non Reactive ABG Interpretation ABG results: 04/26/25 23:16 VBG pH 7.49 VBG pCO2 23 L VBG pO2 33 VBG Base Excess -4 L Quality Measures Quality Measures none Advance care planning discussed with:: patient Assessment & Plan Assessment Current Active Medications: Generic Name Dose Route Start Last Admin Trade Name Freq PRN Reason Stop Dose Admin Acetaminophen 650 mg 04/27/25 08:01 04/28/25 06:01 Acetaminophen 325 Mg Tablet PO 05/27/25 08:00 650 mg Q6H PRN Administration Fever >101.5 Amiodarone HCl 200 mg 04/28/25 09:00 04/28/25 08:39 Amiodarone Hcl 200 Mg Tablet PO 05/28/25 08:59 200 mg QDAY JOHN Administration Apixaban 5 mg 04/27/25 21:00 04/28/25 08:39 Apixaban 2.5 Mg Tablet PO 05/27/25 20:59 5 mg BID JOHN Administration Aspirin 81 mg 04/28/25 09:00 04/28/25 08:39 Aspirin Ec 81 Mg Tabec PO 05/28/25 08:59 81 mg DAILY JOHN Administration Atorvastatin Calcium 80 mg 04/27/25 21:00 04/27/25 21:52 Atorvastatin Calcium 20 Mg Tablet PO 05/27/25 20:59 80 mg HS JOHN Administration Atropine Sulfate 0.5 mg 04/27/25 17:40 Atropine Sulf Inj 1 Mg/Ml Vial IVP 04/30/25 17:39 Q5MIN PRN HR < 40 Bumetanide 2 mg 04/28/25 18:00 Bumetanide Inj 0.25 Mg/Ml Vial 4 Ml IVP 05/28/25 17:59 BIDD JOHN Ceftriaxone Sodium/Dextrose 1 gm in 50 mls @ 100 mls/hr 04/27/25 08:07 04/28/25 08:38 Rocephin/D5w 1gm Iv Premix IV 05/04/25 08:06 100 mls/hr QDAY JOHN Administration Azithromycin 500 mg/ Sodium 250 mls @ 250 mls/hr 04/28/25 09:00 04/28/25 10:20 Chloride IV 05/05/25 08:59 250 mls/hr QDAY JOHN Administration Albumin Human 12.5 gm in 50 mls @ 50 mls/hr 04/28/25 17:00 Albuminar-25 Ivpb IV 04/28/25 17:59 X1 ONE Levothyroxine Sodium 25 mcg 04/28/25 06:00 04/28/25 05:15 Levothyroxine Sodium 25 Mcg Tablet PO 05/28/25 05:59 25 mcg ACBR JOHN Administration Plan Ms. Kaiser is a 74-year-old female past medical history significant for A-fib (on amiodarone and Eliquis), CAD status post stent, hypertension, history of CVA in 2022, HFrEF EF 35 to 40% and history of left ventrical mural thrombus. Patient was brought in by her son for SNF placement as he is unable to care of her at home because patient has increased generalized weakness. #Acute hypoxic respiratory failure secondary to #Acute on chronic decompensated heart failure #HFrEF, EF of 20% #Dilated Cardiomyopathy #Severe global hypokinesia Patient has a past medical history of CHF with previous ejection fraction between 35 to 40%, upon admission worsening ejection fraction to 20% (04/27/2025) - CT of chest shows moderate enlargement of cardiac contour and mild left base pneumonia -BNP is 1788 -NYHA IV Plan: -Continue Bumex 1mg IV BID -Discontinue home coreg -Will hold home GDMT due to soft BP and pt requiring amiodrip for A-fib with RVR -Strict ins and out -Daily weights -Fluid restrictions 1500 and sodium restriction to 2gm -K>4 and Magnesium >2 -Repeat BNP prior to discharge -Work towards GDMT, Entresto (not part of home medication) & Sprinoloactone #A-fib with RVR, now rate controlled #History of MARCIO thrombus - Patient has a history of A-fib and takes amiodarone 200mg daily as well as Eliquis 5mg BID - On admission patient was found to be in A-fib with heart rate 160-70's -In the ED patient was given digoxin and magnesium and started on amio drip as per cardio recommendations BE: BE from 08/22/2023 showed Small mobile MARCIO thrombus, Positive bubble study. There is evidence of very small PFO demonstrated by agitated saline injection [id number] score 5, HAS-BLED 5 Plan: -Amiodarone drip completed as per cardiology's recommendation -Transition to home medication of Amiodarone 200 mg once daily->Amioadarone 200 mg BID -Monitor liver enzymes -Resumed home eliquis -Keep magnesium above 2 and potassium above 4 #LOYD Baseline 1.0, on admission creatinine is 3.4, GFR 13, BUN 81 likely prerenal in the setting of poor oral intake plan: -Avoid nephrotoxic and renally dise medications -Unable to give IV fludis due to pt rafael cute CHF exacerbation Consulted Vehicle Controls Engineer Dr. Martin, appreciate recommendations #Hypotension. #Primary hypertension. Patient has history of hypertension, home meds include olmesartan 40mg and spironolactone 25mg, however Pt became hypotensive after starting amiodarone drip. -Will hold antihypertensive medications as of now. -Continue to monitor BP now Will consider antihypertensives after the amiodarone drip has been stopped #Community Acquired Pneumonia -Continue IV antibiotics #Pulmonary nodules CT of chest shows At least 6 bilateral noncalcified pulmonary nodules, the largest in the lower lung zone on the right measuring 11 mm, 12 mm - Patient is unaware of the pulmonary nodules however she is a chronic smoker plan: After patient is stable patient will likely need further workup of the pulmonary nodules -The nodules may be too small to biopsy, will speak to IR after patient is more stable. #Hx. of Ischemic stroke, 2022 #History of CAD s/p stent placement. -Continue home aspirin and Atorvastatin Assessment and plan discussed with attending physician Dr. Keven Vanessa (PGY-2)- Internal medicine resident Attending Provider Attestation/Addendum I have personally seen and examined the patient separately on the above date of service and discussed the plan of care with the resident. I reviewed the resident Dr. Juan Hernandez consultation progress note and agree with the resident findings and plan in the note above and have also edited the documentation to reflect my findings and plan. Herberth Lezama M.D. Interventional Cardiology
--- NOTE | 2025-04-28 14:50 | PD.RESPRO ---
Documentation for date of: 04/28/25 Exam Vital Signs Temp Pulse Resp BP Pulse Ox O2 Del Method O2 Flow Rate 97.4 F 77 18 99/80 98 Room Air 15 04/28/25 12:00 04/28/25 12:21 04/28/25 12:00 04/28/25 12:21 04/28/25 12:00 04/28/25 12:00 04/27/25 16:22 Objective Labs 04/28/25 05:22 04/28/25 05:22 Labs: Laboratory Results - last 24 hr 04/28/25 04/28/25 05:22 10:00 WBC 13.7 H RBC 5.36 H Hgb 13.6 Hct 41.2 MCV 77 L MCH 25.4 MCHC 33.0 RDW Std Deviation 51.7 H Plt Count 102 L Neut % (Auto) 91 H Lymph % (Auto) 5 L [place] % (Auto) 4 Eos % (Auto) 0 Baso % (Auto) 0 Neut # (Auto) 12.4 H Lymph # (Auto) 0.6 L [place] # (Auto) 0.5 Eos # (Auto) 0.0 Baso # (Auto) 0.0 Immature Gran # (Auto) 0.09 H Absolute Nucleated RBC 0.03 H Immature Gran % 1 H Nucleated RBC % 0 Sodium 141 Potassium 3.7 Chloride 104 Carbon Dioxide 23.8 Anion Gap 13 BUN 84 H Creatinine 2.9 H D Estim Creat Clear Calc 16.6 L eGFR 16 L BUN/Creatinine Ratio 29 H Glucose 114 H Calculated Osmolality 307 H Calcium 8.0 L Corrected Calcium 9.0 Phosphorus 4.2 Magnesium 2.2 Total Bilirubin 1.9 H AST 91 H ALT 298 H Alkaline Phosphatase 168 H Total Protein 6.1 Albumin 2.8 L Globulin 3.3 Albumin/Globulin Ratio 0.8 L Triglycerides 93 Cholesterol 108 L LDL Cholesterol, Calc 75 HDL Cholesterol 14 L Cholesterol/HDL Ratio 7.7 H TSH 7.40 H D Coccidioides IgM Ab Negative Hepatitis A IgM Ab Non Reactive Hep Bs Antigen Non Reactive Hep B Core IgM Ab Non Reactive Hepatitis C Antibody Non Reactive ABG Interpretation ABG results: 04/26/25 23:16 VBG pH 7.49 VBG pCO2 23 L VBG pO2 33 VBG Base Excess -4 L Quality Measures Quality Measures none Assessment & Plan Assessment Current Active Medications: Generic Name Dose Route Start Last Admin Trade Name Freq PRN Reason Stop Dose Admin Acetaminophen 650 mg 04/27/25 08:01 04/28/25 06:01 Acetaminophen 325 Mg Tablet PO 05/27/25 08:00 650 mg Q6H PRN Administration Fever >101.5 Amiodarone HCl 200 mg 04/28/25 09:00 04/28/25 08:39 Amiodarone Hcl 200 Mg Tablet PO 05/28/25 08:59 200 mg QDAY JOHN Administration Apixaban 5 mg 04/27/25 21:00 04/28/25 08:39 Apixaban 2.5 Mg Tablet PO 05/27/25 20:59 5 mg BID JOHN Administration Aspirin 81 mg 04/28/25 09:00 04/28/25 08:39 Aspirin Ec 81 Mg Tabec PO 05/28/25 08:59 81 mg DAILY JOHN Administration Atorvastatin Calcium 80 mg 04/27/25 21:00 04/27/25 21:52 Atorvastatin Calcium 20 Mg Tablet PO 05/27/25 20:59 80 mg HS JOHN Administration Atropine Sulfate 0.5 mg 04/27/25 17:40 Atropine Sulf Inj 1 Mg/Ml Vial IVP 04/30/25 17:39 Q5MIN PRN HR < 40 Bumetanide 2 mg 04/28/25 18:00 Bumetanide Inj 0.25 Mg/Ml Vial 4 Ml IVP 05/28/25 17:59 BIDD JOHN Ceftriaxone Sodium/Dextrose 1 gm in 50 mls @ 100 mls/hr 04/27/25 08:07 04/28/25 08:38 Rocephin/D5w 1gm Iv Premix IV 05/04/25 08:06 100 mls/hr QDAY JOHN Administration Azithromycin 500 mg/ Sodium 250 mls @ 250 mls/hr 04/28/25 09:00 04/28/25 10:20 Chloride IV 05/05/25 08:59 250 mls/hr QDAY JOHN Administration Albumin Human 12.5 gm in 50 mls @ 50 mls/hr 04/28/25 17:00 Albuminar-25 Ivpb IV 04/28/25 17:59 X1 ONE Levothyroxine Sodium 25 mcg 04/28/25 06:00 04/28/25 05:15 Levothyroxine Sodium 25 Mcg Tablet PO 05/28/25 05:59 25 mcg ACBR JOHN Administration
--- NOTE | 2025-04-28 14:56 | PC.SS ---
Addendum entered by Trista Ma 04/28/25 16:13: SS met with pt and son to talk about d/c to SNF. Son and pt are agreeable to SNF, residential placement in the area. Son is agreeable to seek placement short term outside the area. Son is aware APS report was completed for self neglect and hospital employees are mandated reporters. Addendum entered by Trista Ma 04/28/25 15:23: APS report provided to Tammi and faxed to [phone]. Written report in patient's chart. Bedside nurse, Alexandrea is updated Original Note: SS generated APS report based on the following pt had multiple bruising in the lower extremities.? In addition nurse reported pending Xray to right shoulder to assess for injury.? Pt resides with adult son, , and minor grand daughter.? Son is employed during the day.? Pt at home with family.? It was reported that pt provides own self care.? Pt is confused.? Pt currently not at baseline.? Per bedside nurse, pt has bruising in the lower bottom and sores in the lower region.? Son report pt is experiencing numerous falls at home.? Per nursing report d/c plan is for pt to go to SNF due to family not being able to care for her at home.? Soc 341 placed in patient's chart. ?
--- NOTE | 2025-04-28 16:43 | PD.RESPRO ---
Documentation for date of: 04/28/25 Patient is a 74-year-old female with a past medical history of CAD status post PCI, CHF with worsening ejection fraction 15 to 20% with severe LV dilation, severe global hypokinesia, and mild aortic valve sclerosis, hyperlipidemia, history of CVA, history of left ventricle mural who presented with acute hypoxic respiratory failure secondary to CAP and CHF exacerbation. Bumex increased from 1 mg IV twice daily to 2 mg twice daily and albumin x 1 given. Continue amiodarone p.o. despite bradycardia, continue to monitor. Possible euthyroid sick syndrome TSH 13.17 TSH 7.4. Continue levothyroxine. Patient agreeable to SNF. APS report filed. Subjective Subjective Interval history: Overnight events: No acute events overnight Patient was seen and examined at bedside. AM vitals and labs reviewed.The patient was able to understand and answer questions, but had to pause and think about how to respond for a few seconds. She was not able to articulate what brought her into the hospital. She denies any chest pain, shortness of breathe, fever, and chills. She stated that she feels better than yesterday and does not look overtly edematous. Her I/O is 898/900ml. Exam Vital Signs Temp Pulse Resp BP Pulse Ox O2 Del Method O2 Flow Rate 97.4 F 77 18 99/80 98 Room Air 15 04/28/25 12:00 04/28/25 12:21 04/28/25 12:00 04/28/25 12:21 04/28/25 12:00 04/28/25 12:00 04/27/25 16:22 Narrative Exam GENERAL: A&Ox3, elderly female, Awake, Not in acute distress NEURO: no focal neurological deficits HEENT: Atraumatic, Normocephalic. mucous membranes moist. Eyes open, symmetrical, & clear HEART: Normal Heart Sounds LUNGS: Clear to auscultation with no wheezing or crackles. ABDOMEN: soft, non-distended, non-tender, bowel sounds heard, no guarding or rebound tenderness SKIN: Multiple scrapes, lacerations noted on lower extremities bilaterally EXTREMITIES: 2+ pitting edema bilaterally in LE, no tenderness, able to move all 4 extremities, pedal pulses palpated Objective Labs 04/29/25 04:50 04/29/25 04:50 Labs: Laboratory Results - last 24 hr 04/28/25 04/28/25 05:22 10:00 WBC 13.7 H RBC 5.36 H Hgb 13.6 Hct 41.2 MCV 77 L MCH 25.4 MCHC 33.0 RDW Std Deviation 51.7 H Plt Count 102 L Neut % (Auto) 91 H Lymph % (Auto) 5 L Price % (Auto) 4 Eos % (Auto) 0 Baso % (Auto) 0 Neut # (Auto) 12.4 H Lymph # (Auto) 0.6 L Price # (Auto) 0.5 Eos # (Auto) 0.0 Baso # (Auto) 0.0 Immature Gran # (Auto) 0.09 H Absolute Nucleated RBC 0.03 H Immature Gran % 1 H Nucleated RBC % 0 Sodium 141 Potassium 3.7 Chloride 104 Carbon Dioxide 23.8 Anion Gap 13 BUN 84 H Creatinine 2.9 H D Estim Creat Clear Calc 16.6 L eGFR 16 L BUN/Creatinine Ratio 29 H Glucose 114 H Calculated Osmolality 307 H Calcium 8.0 L Corrected Calcium 9.0 Phosphorus 4.2 Magnesium 2.2 Total Bilirubin 1.9 H AST 91 H ALT 298 H Alkaline Phosphatase 168 H Total Protein 6.1 Albumin 2.8 L Globulin 3.3 Albumin/Globulin Ratio 0.8 L Triglycerides 93 Cholesterol 108 L LDL Cholesterol, Calc 75 HDL Cholesterol 14 L Cholesterol/HDL Ratio 7.7 H TSH 7.40 H D Coccidioides IgM Ab Negative Hepatitis A IgM Ab Non Reactive Hep Bs Antigen Non Reactive Hep B Core IgM Ab Non Reactive Hepatitis C Antibody Non Reactive ABG Interpretation ABG results: 04/26/25 23:16 VBG pH 7.49 VBG pCO2 23 L VBG pO2 33 VBG Base Excess -4 L Quality Measures Quality Measures none Advance care planning discussed with:: patient Assessment & Plan Assessment Current Active Medications: Generic Name Dose Route Start Last Admin Trade Name Freq PRN Reason Stop Dose Admin Acetaminophen 650 mg 04/27/25 08:01 04/28/25 06:01 Acetaminophen 325 Mg Tablet PO 05/27/25 08:00 650 mg Q6H PRN Administration Fever >101.5 Amiodarone HCl 200 mg 04/28/25 09:00 04/28/25 08:39 Amiodarone Hcl 200 Mg Tablet PO 05/28/25 08:59 200 mg QDAY JOHN Administration Apixaban 5 mg 04/27/25 21:00 04/28/25 08:39 Apixaban 2.5 Mg Tablet PO 05/27/25 20:59 5 mg BID JOHN Administration Aspirin 81 mg 04/28/25 09:00 04/28/25 08:39 Aspirin Ec 81 Mg Tabec PO 05/28/25 08:59 81 mg DAILY JOHN Administration Atorvastatin Calcium 80 mg 04/27/25 21:00 04/27/25 21:52 Atorvastatin Calcium 20 Mg Tablet PO 05/27/25 20:59 80 mg HS JOHN Administration Atropine Sulfate 0.5 mg 04/27/25 17:40 Atropine Sulf Inj 1 Mg/Ml Vial IVP 04/30/25 17:39 Q5MIN PRN HR < 40 Bumetanide 2 mg 04/28/25 18:00 Bumetanide Inj 0.25 Mg/Ml Vial 4 Ml IVP 05/28/25 17:59 BIDD JOHN Ceftriaxone Sodium/Dextrose 1 gm in 50 mls @ 100 mls/hr 04/27/25 08:07 04/28/25 08:38 Rocephin/D5w 1gm Iv Premix IV 05/04/25 08:06 100 mls/hr QDAY JOHN Administration Azithromycin 500 mg/ Sodium 250 mls @ 250 mls/hr 04/28/25 09:00 04/28/25 10:20 Chloride IV 05/05/25 08:59 250 mls/hr QDAY JOHN Administration Albumin Human 12.5 gm in 50 mls @ 50 mls/hr 04/28/25 17:00 Albuminar-25 Ivpb IV 04/28/25 17:59 X1 ONE Levothyroxine Sodium 25 mcg 04/28/25 06:00 04/28/25 05:15 Levothyroxine Sodium 25 Mcg Tablet PO 05/28/25 05:59 25 mcg ACBR JOHN Administration Plan Ms. Kaiser is a 74-year-old female past medical history significant for A-fib (on amiodarone and Eliquis), CAD status post stent, hypertension, history of CVA in 2022, HFrEF EF 35 to 40% and history of left ventrical mural thrombus. Patient was brought in by her son for SNF placement as he is unable to care of her at home because patient has increased generalized weakness. #Acute hypoxic respiratory failure secondary to #Community-acquired pneumonia and #Acute decompensated heart failure #HFrEF, EF of <20% - CT of chest shows moderate enlargement of cardiac contour and mild left base pneumonia -BNP is 11/14/1987 Plan: -IV antibiotics azithromycin plus Rocephin started 04/27- -Continue Bumex 2mg IV BID -Echocardiogram (04/27/2025) indicates HFrEF and A-fib. Dilated cardiomyopathy. EF worsened from 35 to 40% to less than 20%. Severe LV dilatation, severe Global Hypokinesis. Estimated EF 15-20%. Diastolic dysfunction present but could not be graded due to A-fib/arrhythmia. Mild RV dilatation with moderate RV dysfunction. Mildly elevated RVSP at 35 and 40 mmHg. Mild MAC with mild MR.. Mild aortic valve sclerosis without stenosis. Moderate TR. Trace PI. IVC Dilated with less than 50% collapse with inspiration. No pericardial effusion. -Will hold home GDMT due to soft BP and pt requiring amiodrip for A-fib with RVR -Strict ins and out -Daily weights -Fluid restrictions -Cardiology is consulted and following #A-fib with RVR #History of small PFO - Patient has a history of A-fib and takes amiodarone as well as Eliquis daily - On admission patient was found to be in A-fib with heart rate 160-70's -In the ED patient was given digoxin and magnesium and started on amio drip as per cardio recommendations BE: BE from 08/22/2023 showed Small mobile MARCIO thrombus, Positive bubble study. There is evidence of very small PFO demonstrated by agitated saline injection [id number] score 5, HAS-BLED 5 Plan: -Continue amnio drip at 1 mg/min as per cardiology's recommendation -Resumed home pt's eliquis -Keep magnesium above 2 and potassium above 4 -Repeat echo ordered -Winchman/Crane Operator Dr. Lezama is consulted, appreciate recommendations #LOYD Baseline 1.0, on admission creatinine is 3.4, GFR 13, BUN 81 likely prerenal in the setting of poor oral intake plan: -Avoid nephrotoxic and renally dise medications -Unable to give IV fludis due to pt rafael cute CHF exacerbation Consulted Power Saw Operator Dr. Martin, appreciate recommendations #Hypotension. #Primary hypertension. Patient has history of hypertension, home meds include olmesartan 40mg and spironolactone 25mg, however Pt became hypotensive after starting amiodarone drip. -Will hold antihypertensive medications as of now. -Continue to monitor BP now Will consider antihypertensives after the amiodarone drip has been stopped #Euthyroid sick syndrome #Intermittent bradycardia - Patient does not have history of thyroid disease -TSH is 13.17, free T4 0.76, T4 3.4 -Patient intermittently goes into bradycardia with heart rate ranging between 39 and 60s Plan: - Levothyroxine 25 mcg daily before breakfast - Due to bradycardia additional levothyroxine 25 mcg's given x 1 - Atropine as needed for heart rate below 40 - Will check for goiter in the setting of patient on amiodarone for chronic A-fib #Pulmonary nodules CT of chest shows At least 6 bilateral noncalcified pulmonary nodules, the largest in the lower lung zone on the right measuring 11 mm, 12 mm - Patient is unaware of the pulmonary nodules however she is a chronic smoker plan: After patient is stable patient will likely need further workup of the pulmonary nodules - The nodules may be too small to biopsy, will speak to IR after patient is more stable. #Hx. of Ischemic stroke, 2022 #History of CAD s/p stent placement. -Resumed home aspirin and Atorvastatin Health Maintenance Disposition: telemetry DVT Prophylaxis: resumed Eliquis for afib GI Prophylaxis: not indicated Diet: Diabetic Diet Lines: Peripheral lines Code status: Full Attending Provider Attestation/Addendum I have discussed and was present for the essential components of the history, physical examination, diagnosis, and treatment plan with the resident. I agree with the patient's care as documented by the resident and amended herein by me. Alberto Santoro DO. Although this document has been carefully reviewed, there may still be some phonetic and other typographical errors. These errors are purely grammatical due to imperfections in the software program and should not be construed in any way to compromise the substance of the patient's medical care during this visit.
[2025-04-28] MEDS: ALBUMIN HUMAN 25% IVPB 12.5 GM/50 ML BTL IV (17:08)
[2025-04-28] MEDS: BUMETANIDE INJ 0.25 MG/ML VIAL 4 ML 2 MG IVP (17:45)
[2025-04-28] MEDS: BALSAM PERU/CASTOR OIL (Venelex) 60 GM TUBE TOP (21:07)
[2025-04-28] MEDS: ATORVASTATIN CALCIUM 20 MG TABLET 80 MG PO (21:08)
[2025-04-29] VITALS (10 sets, daily range): BP systolic 91–138; BP diastolic 55–86; PULSE 61–169; RESP 16–98; TEMP 36.1–36.8; O2SAT 96–98; BMI 12.0
[2025-04-29] MEDS: BUMETANIDE INJ 0.25 MG/ML VIAL 4 ML 2 MG IVP ×2 (05:37→17:02)
[2025-04-29] MEDS: LEVOTHYROXINE SODIUM 25 MCG TABLET PO (05:38)
[2025-04-29 05:54] LABS: Basophils # (Auto) 0.0 Thou/mm3 (0.0-0.2); Basophils % (Auto) 0 % (0-2.5); Eosinophils # (Auto) 0.0 Thou/mm3 (0.0-0.5); Eosinophils % (Auto) 0 % (0-10); Hematocrit 39.4 % (36.0-46.0); Hemoglobin 13.4 g/dL (12.0-16.0); Immature Granulocytes Auto 0.06 Thou/mm3 (0.00-0.00); Lymphocytes # (Auto) 0.7 Thou/mm3 (1.0-4.8); Lymphocytes % (Auto) 6 % (10-50); Mean Corpuscular HGB Conc 34.0 g/dl (31.0-37.0); Mean Corpuscular Hemoglobin 25.6 pg (25.0-35.0); Mean Corpuscular Volume 75 fL (80-100); Monocytes # (Auto) 0.5 Thou/mm3 (0.0-0.8); Monocytes % (Auto) 5 % (0-12); Neutrophils # (Auto) 10.1 Thou/mm3 (1.8-7.7); Neutrophils % (Auto) 88 % (37-80); Nucleated Red Blood Cell # 0.02 Thou/mm3 (0.00-0.00); Nucleated Red Blood Cell % 0 /100 WBC (0); Platelet Count 98 Thou/mm3 (140-440); RDW Standard Deviation 50.6 fL (36.4-46.3); Red Blood Count 5.23 Miln/mm3 (4.00-5.20); White Blood Count 11.4 Thou/mm3 (3.6-11.0)
[2025-04-29 06:33] LABS: Alanine Aminotransferase 242 U/L (10-49); Albumin, Serum 3.0 gm/dL (3.4-4.8); Albumin/Globulin Ratio 0.9 (1.2-2.2); Alkaline Phosphatase 185 U/L (46-116); Anion Gap 7 (7-16); Aspartate Amino Transferase 66 U/L (0-34); BUN/Creatinine Ratio 28 Ratio (12-20); Bilirubin,Total 1.9 mg/dL (0.3-1.2); Blood Urea Nitrogen 72 mg/dL (9-23); Calcium 8.2 mg/dL (8.3-10.6); Calcium (Corrected) 9.0 mg/dL (8.5-10.1); Carbon Dioxide 30.8 mMol/L (20.0-31.0); Chloride 104 mMol/L (98-107); Creatinine (Component) 2.6 mg/dL (0.6-1.3); Estimated Creatinine Clearance 18.1 mL/min (>60); Globulin 3.3 gm/dL (2.3-3.5); Glucose 87 mg/dL (74-106); Magnesium 2.0 mg/dL (1.6-2.6); Osmolality,Calculated 303 (275-295); Phosphorous 3.1 mg/dL (2.4-5.1); Potassium 3.1 mMol/L (3.4-5.1); Sodium 142 mMol/L (136-145); Total Protein 6.3 gm/dL (5.7-8.2); eGFR 19 See Note
[2025-04-29] MEDS: AMIODARONE HCL 200 MG TABLET PO (08:47)
[2025-04-29] MEDS: cefTRIAXone/D5w 1gm IV premix 1 GM/50 ML BAG IV (08:47)
[2025-04-29] MEDS: APIXABAN 2.5 MG TABLET 5 MG PO ×2 (08:48→20:37)
[2025-04-29] MEDS: ASPIRIN EC 81 MG TABEC PO (08:48)
[2025-04-29] MEDS: BALSAM PERU/CASTOR OIL (Venelex) 60 GM TUBE TOP ×2 (08:48→20:38)
--- NOTE | 2025-04-29 09:10 | PC.SS ---
Follow up note: On IV Lasix. Son and pt are agreeable to SNF placement.
[2025-04-29] MEDS: AZITHROMYCIN INJ 500 MG in SODIUM CHLORIDE 0.9% 250 ML 250 ML 250 MG IV (09:22)
--- NOTE | 2025-04-29 10:10 | PC.SS ---
Late note 04-28-25: SS met with son and patient regarding her d/c plan.? Pt is alert but confused at this time.? Son explained pt at home is not confused. Pt was admitted for Acute Exacerbation Of CHF.? Son confirmed demographic and contact information is correct on facesheet.? Pt resides with son and .? Per son, pt was constantly falling at home and he is unable to care for pt at home due to having to work.? Son is requesting a SNF placement.? Pt is ok with all ADLs.? Son, Robbi Kaiser, phone# [phone] is patient's medical decision maker if she is unable.?? D/C plan:? SNF Next of Kin:? Robbi Kaiser, son, phone# [phone] Address:? Correct on facesheet
[2025-04-29 12:08] LABS: Cocci Serology, IgG Negative (Negative)
--- NOTE | 2025-04-29 13:03 | ESPR_ITS ---
Documentation for date of: 04/29/25 Subjective Subjective Interval history: Senior attestation: Continue aggressive diuresis for congestive heart failure 2 mg IV twice daily, likely decreased to Bumex 1 mg twice daily starting tomorrow. No albumin given today. 1280, output 2200 mL with net balance of -920. Patient's electrolytes repeated. Patient will require 3 night stay for SNF placement. Blood Cutlure negative after 48 hours. Ceftriaxone and Azithromycin started on 04/27 for CAP, likely d/c paitent on oral antibiotics- amoxicillin/Clavulanate (Augmentin). Follow up with renal panel AM. Patient was seen and examined at bedside. AM vitals and labs reviewed.The patient was able to understand and answer questions, but had to pause and think about how to respond for a few seconds. She was not able to articulate what brought her into the hospital. She denies any chest pain, shortness of breathe, fever, chills or shoulder pain. She stated that she feels better than yesterday and does not look overtly edematous. Her I/O net balance is -1220ml. Exam Vital Signs Temp Pulse Resp BP Pulse Ox O2 Del Method O2 Flow Rate 97.6 F 69 16 132/70 H 96 Room Air 15 04/29/25 08:00 04/29/25 08:47 04/29/25 08:00 04/29/25 08:47 04/29/25 08:00 04/29/25 08:00 04/27/25 16:22 Narrative Exam GENERAL: A&Ox3, elderly female, Awake, Not in acute distress NEURO: no focal neurological deficits HEENT: Atraumatic, Normocephalic. mucous membranes moist. Eyes open, symmetrical, & clear HEART: Normal Heart Sounds LUNGS: Clear to auscultation with no wheezing or crackles. ABDOMEN: soft, non-distended, non-tender, bowel sounds heard, no guarding or rebound tenderness SKIN: Multiple scrapes, lacerations noted on lower extremities bilaterally EXTREMITIES: 2+ pitting edema bilaterally in LE, no tenderness, able to move all 4 extremities, pedal pulses palpated Objective Labs 04/29/25 04:50 04/29/25 04:50 Labs: Laboratory Results - last 24 hr 04/28/25 04/29/25 05:22 04:50 WBC 11.4 H RBC 5.23 H Hgb 13.4 Hct 39.4 MCV 75 L MCH 25.6 MCHC 34.0 RDW Std Deviation 50.6 H Plt Count 98 L Neut % (Auto) 88 H Lymph % (Auto) 6 L [place] % (Auto) 5 Eos % (Auto) 0 Baso % (Auto) 0 Neut # (Auto) 10.1 H Lymph # (Auto) 0.7 L [place] # (Auto) 0.5 Eos # (Auto) 0.0 Baso # (Auto) 0.0 Immature Gran # (Auto) 0.06 H Absolute Nucleated RBC 0.02 H Immature Gran % 1 H Nucleated RBC % 0 Sodium 142 Potassium 3.1 L D Chloride 104 Carbon Dioxide 30.8 Anion Gap 7 BUN 72 H Creatinine 2.6 H Estim Creat Clear Calc 18.1 L eGFR 19 L BUN/Creatinine Ratio 28 H Glucose 87 Calculated Osmolality 303 H Calcium 8.2 L Corrected Calcium 9.0 Phosphorus 3.1 Magnesium 2.0 Total Bilirubin 1.9 H AST 66 H ALT 242 H Alkaline Phosphatase 185 H Total Protein 6.3 Albumin 3.0 L Globulin 3.3 Albumin/Globulin Ratio 0.9 L Coccidioides IgG Ab Negative ABG Interpretation ABG results: 04/26/25 23:16 VBG pH 7.49 VBG pCO2 23 L VBG pO2 33 VBG Base Excess -4 L Quality Measures Quality Measures none Advance care planning discussed with:: patient Assessment & Plan Assessment Current Active Medications: Generic Name Dose Route Start Last Admin Trade Name Freq PRN Reason Stop Dose Admin Acetaminophen 650 mg 04/27/25 08:01 04/28/25 06:01 Acetaminophen 325 Mg Tablet PO 05/27/25 08:00 650 mg Q6H PRN Administration Fever >101.5 Amiodarone HCl 200 mg 04/28/25 09:00 04/29/25 08:47 Amiodarone Hcl 200 Mg Tablet PO 05/28/25 08:59 200 mg QDAY JOHN Administration Apixaban 5 mg 04/27/25 21:00 04/29/25 08:48 Apixaban 2.5 Mg Tablet PO 05/27/25 20:59 5 mg BID JOHN Administration Aspirin 81 mg 04/28/25 09:00 04/29/25 08:48 Aspirin Ec 81 Mg Tabec PO 05/28/25 08:59 81 mg DAILY JOHN Administration Atorvastatin Calcium 80 mg 04/27/25 21:00 04/28/25 21:08 Atorvastatin Calcium 20 Mg Tablet PO 05/27/25 20:59 80 mg HS JOHN Administration Atropine Sulfate 0.5 mg 04/27/25 17:40 Atropine Sulf Inj 1 Mg/Ml Vial IVP 04/30/25 17:39 Q5MIN PRN HR < 40 Balsam Rich/[place] Oil 0 gm 04/28/25 21:00 04/29/25 08:48 Balsam Rich/[place] Oil (Venelex) 60 Gm Tube TOP 05/28/25 20:59 1 applicatio BID JOHN Administration Bumetanide 2 mg 04/28/25 18:00 04/29/25 05:37 Bumetanide Inj 0.25 Mg/Ml Vial 4 Ml IVP 05/28/25 17:59 2 mg BIDD JOHN Administration Ceftriaxone Sodium/Dextrose 1 gm in 50 mls @ 100 mls/hr 04/27/25 08:07 04/29/25 08:47 Rocephin/D5w 1gm Iv Premix IV 05/04/25 08:06 100 mls/hr QDAY JOHN Administration Azithromycin 500 mg/ Sodium 250 mls @ 250 mls/hr 04/28/25 09:00 04/29/25 09:22 Chloride IV 05/05/25 08:59 250 mls/hr QDAY JOHN Administration Levothyroxine Sodium 25 mcg 04/28/25 06:00 04/29/25 05:38 Levothyroxine Sodium 25 Mcg Tablet PO 05/28/25 05:59 25 mcg ACBR JOHN Administration Plan Ms. Kaiser is a 74-year-old female past medical history significant for A-fib (on amiodarone and Eliquis), CAD status post stent, hypertension, history of CVA in 2022, HFrEF EF 35 to 40% and history of left ventrical mural thrombus. Patient was brought in by her son for SNF placement as he is unable to care of her at home because patient has increased generalized weakness. #Acute hypoxic respiratory failure secondary to #Community-acquired pneumonia and #Acute decompensated heart failure #HFrEF, EF of <20% - CT of chest shows moderate enlargement of cardiac contour and mild left base pneumonia -BNP is 11/14/1987 Plan: -IV antibiotics azithromycin plus Rocephin started 04/27- -Continue Bumex 2mg IV BID -Echocardiogram (04/27/2025) indicates HFrEF and A-fib. Dilated cardiomyopathy. EF worsened from 35 to 40% to less than 20%. Severe LV dilatation, severe Global Hypokinesis. Estimated EF 15-20%. Diastolic dysfunction present but could not be graded due to A-fib/arrhythmia. Mild RV dilatation with moderate RV dysfunction. Mildly elevated RVSP at 35 and 40 mmHg. Mild MAC with mild MR.. Mild aortic valve sclerosis without stenosis. Moderate TR. Trace PI. IVC Dilated with less than 50% collapse with inspiration. No pericardial effusion. -Will hold home GDMT due to soft BP and pt requiring amiodrip for A-fib with RVR -Strict ins and out -Daily weights -Fluid restrictions -Cardiology is consulted and following #A-fib with RVR #History of small PFO - Patient has a history of A-fib and takes amiodarone as well as Eliquis daily - On admission patient was found to be in A-fib with heart rate 160-70's -In the ED patient was given digoxin and magnesium and started on amio drip as per cardio recommendations BE: BE from 08/22/2023 showed Small mobile MARCIO thrombus, Positive bubble study. There is evidence of very small PFO demonstrated by agitated saline injection [id number] score 5, HAS-BLED 5 Plan: -Continue amiodarone 200mg p.o qd. -Resumed home pt's eliquis -Keep magnesium above 2 and potassium above 4 -Repeat echo ordered -Trench Trimmer Fine Dr. Lezama is consulted, appreciate recommendations #LOYD Baseline 1.0, on admission creatinine is 3.4, GFR 13, BUN 81 likely prerenal in the setting of poor oral intake plan: -Avoid nephrotoxic and renally dise medications -Unable to give IV fludis due to pt rafael cute CHF exacerbation Consulted Video Coordinator Dr. Martin, appreciate recommendations #Hypotension. #Primary hypertension. Patient has history of hypertension, home meds include olmesartan 40mg and spironolactone 25mg, however Pt became hypotensive after starting amiodarone drip. -Will hold antihypertensive medications as of now. -Continue to monitor BP now Will consider antihypertensives after the amiodarone drip has been stopped #Euthyroid sick syndrome #Intermittent bradycardia - Patient does not have history of thyroid disease -TSH decreased to 7.4 from 13.17, free T4 0.76, T4 3.4 -Patient intermittently goes into bradycardia with heart rate ranging between 39 and 60s Plan: - Levothyroxine 25 mcg daily before breakfast - Due to bradycardia additional levothyroxine 25 mcg's given x 1 - Atropine as needed for heart rate below 40 - Will check for goiter in the setting of patient on amiodarone for chronic A- fib #Pulmonary nodules CT of chest shows At least 6 bilateral noncalcified pulmonary nodules, the largest in the lower lung zone on the right measuring 11 mm, 12 mm - Patient is unaware of the pulmonary nodules however she is a chronic smoker plan: After patient is stable patient will likely need further workup of the pulmonary nodules - The nodules may be too small to biopsy, will speak to IR after patient is more stable. #Hx. of Ischemic stroke, 2022 #History of CAD s/p stent placement. -Resumed home aspirin and Atorvastatin Health Maintenance Disposition: telemetry DVT Prophylaxis: resumed Eliquis for afib GI Prophylaxis: not indicated Diet: Diabetic Diet Lines: Peripheral lines Code status: Full Attending Provider Attestation/Addendum I have discussed and was present for the essential components of the history, physical examination, diagnosis, and treatment plan with the resident. I agree with the patient's care as documented by the resident and amended herein by me. Alberto Santoro DO. Although this document has been carefully reviewed, there may still be some phonetic and other typographical errors. These errors are purely grammatical due to imperfections in the software program and should not be construed in any way to compromise the substance of the patient's medical care during this visit.
--- NOTE | 2025-04-29 15:07 | ESPR_ITS ---
<Statement entered by Ryan Baca MD - 05/02/25 18:09> I personally evaluated and examined the patient longstanding history of atrial fibrillation episodes and cardiomyopathy congestive heart failure HFrEF admitted the hospital with multiple symptoms including A-fib RVR and shortness of breath. The patient continues to have shortness of breath but improved clinically she appears to be well compensated and more A-fib rate controlled with systolic episodes of A-fib RVR requiring medical management. She complains of generalized pain but no focal pain. Evaluate the patient is a resident physician Dr. Juan Vanessa agree with the treatment plan recommendation as documented reviewed all the findings personally and examined the patient. Documentation for date of: 04/29/25 Subjective Subjective Interval history: Pt is seen and examined at bedside. Currently saturating on room air. Pt denies shortness of breath, palpitations, chest pain or pressure. Pt complains of pain all over her body . No cardiac complaints. Ins/out 1220/2200 -> -980, BP this morning is 132/70 and HR 69. continue to hold home coreg. Creatinin is down trending to 2.6, BUN 72, GFR 19. telemetry is review pt is in a-fib rate controlled. continue Bumex 2mg daily, amiodarone 20mg daily and decrease eliquis to 2.5mg bid due to kidney function, age and weight Exam Vital Signs Temp Pulse Resp BP Pulse Ox O2 Del Method O2 Flow Rate 98.1 F 76 17 123/60 96 Room Air 15 04/29/25 12:00 04/29/25 12:04/29/25 12:04/29/25 12:04/29/25 12:04/29/25 08:00 04/27/25 16:22 Narrative Exam GENERAL: A&Ox3, elderly female, Awake, Not in acute distress NEURO: no focal neurological deficits HEENT: Atraumatic, Normocephalic. mucous membranes moist. Eyes open, symmetrical, & clear HEART: Normal Heart Sounds LUNGS: Clear to auscultation with no wheezing or crackles. ABDOMEN: soft, non-distended, non-tender, bowel sounds heard, no guarding or rebound tenderness SKIN: Multiple scrapes, lacerations noted on lower extremities bilaterally and lower back on buttocks (decubitus ulcer stage 1) EXTREMITIES: trace pitting edema bilaterally in LE, no tenderness, able to move all 4 extremities, pedal pulses palpated Objective Labs 04/29/25 04:50 04/29/25 04:50 Labs: Laboratory Results - last 24 hr 04/28/25 04/29/25 05:22 04:50 WBC 11.4 H RBC 5.23 H Hgb 13.4 Hct 39.4 MCV 75 L MCH 25.6 MCHC 34.0 RDW Std Deviation 50.6 H Plt Count 98 L Neut % (Auto) 88 H Lymph % (Auto) 6 L [place] % (Auto) 5 Eos % (Auto) 0 Baso % (Auto) 0 Neut # (Auto) 10.1 H Lymph # (Auto) 0.7 L [place] # (Auto) 0.5 Eos # (Auto) 0.0 Baso # (Auto) 0.0 Immature Gran # (Auto) 0.06 H Absolute Nucleated RBC 0.02 H Immature Gran % 1 H Nucleated RBC % 0 Sodium 142 Potassium 3.1 L D Chloride 104 Carbon Dioxide 30.8 Anion Gap 7 BUN 72 H Creatinine 2.6 H Estim Creat Clear Calc 18.1 L eGFR 19 L BUN/Creatinine Ratio 28 H Glucose 87 Calculated Osmolality 303 H Calcium 8.2 L Corrected Calcium 9.0 Phosphorus 3.1 Magnesium 2.0 Total Bilirubin 1.9 H AST 66 H ALT 242 H Alkaline Phosphatase 185 H Total Protein 6.3 Albumin 3.0 L Globulin 3.3 Albumin/Globulin Ratio 0.9 L Coccidioides IgG Ab Negative ABG Interpretation ABG results: 04/26/25 23:16 VBG pH 7.49 VBG pCO2 23 L VBG pO2 33 VBG Base Excess -4 L Quality Measures Quality Measures none Advance care planning discussed with:: patient Assessment & Plan Assessment Current Active Medications: Generic Name Dose Route Start Last Admin Trade Name Freq PRN Reason Stop Dose Admin Acetaminophen 650 mg 04/27/25 08:01 04/28/25 06:01 Acetaminophen 325 Mg Tablet PO 05/27/25 08:00 650 mg Q6H PRN Administration Fever >101.5 Amiodarone HCl 200 mg 04/28/25 09:00 04/29/25 08:47 Amiodarone Hcl 200 Mg Tablet PO 05/28/25 08:59 200 mg QDAY JOHN Administration Apixaban 5 mg 04/27/25 21:00 04/29/25 08:48 Apixaban 2.5 Mg Tablet PO 05/27/25 20:59 5 mg BID JOHN Administration Aspirin 81 mg 04/28/25 09:00 04/29/25 08:48 Aspirin Ec 81 Mg Tabec PO 05/28/25 08:59 81 mg DAILY JOHN Administration Atorvastatin Calcium 80 mg 04/27/25 21:00 04/28/25 21:08 Atorvastatin Calcium 20 Mg Tablet PO 05/27/25 20:59 80 mg HS JOHN Administration Atropine Sulfate 0.5 mg 04/27/25 17:40 Atropine Sulf Inj 1 Mg/Ml Vial IVP 04/30/25 17:39 Q5MIN PRN HR < 40 Balsam [place] Oil 0 gm 04/28/25 21:00 04/29/25 08:48 Balsam Rich/[place] Oil (Venelex) 60 Gm Tube TOP 05/28/25 20:59 1 applicatio BID JOHN Administration Bumetanide 2 mg 04/28/25 18:00 04/29/25 05:37 Bumetanide Inj 0.25 Mg/Ml Vial 4 Ml IVP 05/28/25 17:59 2 mg BIDD JOHN Administration Ceftriaxone Sodium/Dextrose 1 gm in 50 mls @ 100 mls/hr 04/27/25 08:07 04/29/25 08:47 Rocephin/D5w 1gm Iv Premix IV 05/04/25 08:06 100 mls/hr QDAY JOHN Administration Azithromycin 500 mg/ Sodium 250 mls @ 250 mls/hr 04/28/25 09:00 04/29/25 09:22 Chloride IV 05/05/25 08:59 250 mls/hr QDAY JOHN Administration Levothyroxine Sodium 25 mcg 04/28/25 06:00 04/29/25 05:38 Levothyroxine Sodium 25 Mcg Tablet PO 05/28/25 05:59 25 mcg ACBR JOHN Administration Plan Ms. Kaiser is a 74-year-old female past medical history significant for A-fib (on amiodarone and Eliquis), CAD status post stent, hypertension, history of CVA in 2022, HFrEF EF 35 to 40% and history of left ventrical mural thrombus. Patient was brought in by her son for SNF placement as he is unable to care of her at home because patient has increased generalized weakness. #Acute hypoxic respiratory failure secondary to #Acute on chronic decompensated heart failure #HFrEF, EF of 20% #Dilated Cardiomyopathy #Severe global hypokinesia Patient has a past medical history of CHF with previous ejection fraction between 35 to 40%, upon admission worsening ejection fraction to 20% (04/27/2025) - CT of chest shows moderate enlargement of cardiac contour and mild left base pneumonia -BNP is 1788 -NYHA IV Plan: -Continue Bumex 2mg Qday -Discontinue home coreg -Will hold home GDMT due to soft BP -Strict ins and out -Daily weights -Fluid restrictions 1500 and sodium restriction to 2gm -K>4 and Magnesium >2 -Repeat BNP prior to discharge -Work towards GDMT, Entresto (not part of home medication) & Sprinoloactone #A-fib with RVR, now rate controlled #History of MARCIO thrombus - Patient has a history of A-fib and takes amiodarone 200mg daily as well as Eliquis 5mg BID - On admission patient was found to be in A-fib with heart rate 160-70's -In the ED patient was given digoxin and magnesium and started on amio drip as per cardio recommendations BE: BE from 08/22/2023 showed Small mobile MARCIO thrombus, Positive bubble study. There is evidence of very small PFO demonstrated by agitated saline injection [id number] score 5, HAS-BLED 5 Plan: -Continue home Amiodarone 200 mg once daily -Continue eliquis 2.5mg bid -Keep magnesium above 2 and potassium above 4 #LOYD- improving Baseline 1.0, on admission creatinine is 3.4, GFR 13, BUN 81 likely prerenal in the setting of poor oral intake plan: -Avoid nephrotoxic and renally dise medications -Unable to give IV fludis due to pt rafael cute CHF exacerbation Consulted Core Machine Operator Dr. Martin, appreciate recommendations #Hypotension. #Primary hypertension. Patient has history of hypertension, home meds include olmesartan 40mg and spironolactone 25mg, however Pt became hypotensive after starting amiodarone drip. -Will hold antihypertensive medications as of now. -Continue to monitor BP now Will consider antihypertensives after the amiodarone drip has been stopped #Community Acquired Pneumonia -Continue IV antibiotics #Pulmonary nodules CT of chest shows At least 6 bilateral noncalcified pulmonary nodules, the largest in the lower lung zone on the right measuring 11 mm, 12 mm - Patient is unaware of the pulmonary nodules however she is a chronic smoker plan: After patient is stable patient will likely need further workup of the pulmonary nodules -The nodules may be too small to biopsy, will speak to IR after patient is more stable. #Hx. of Ischemic stroke, 2022 #History of CAD s/p stent placement. -Continue home aspirin and Atorvastatin Assessment and plan discussed with attending physician Dr. Keven Vanessa (PGY-2)- Internal medicine resident
--- NOTE | 2025-04-29 15:54 | ESPR_ITS ---
Documentation for date of: 04/29/25 Subjective Subjective Interval history: Overnight events: No acute events overnight Patient was seen and examined at bedside. AM vitals and labs reviewed. Renal function improving from yesterday. Cr 2.6, BUN 72, eGFR 17. Patient was withdrawn and did not make eye contact throughout encounter. When asked if she had any complaints, she stated that she feels sore all over, but no area feels acutely painful. She expressed desires of wanting to go home and had a sad affect. After leaving the room, the patient seemed to be talking to herself, but it was unclear if this was due to internal stimuli. Review of systems otherwise negative except for what is mentioned above. Exam Vital Signs Temp Pulse Resp BP Pulse Ox O2 Del Method O2 Flow Rate 98.1 F 76 17 123/60 96 Room Air 15 04/29/25 12:00 04/29/25 12:00 04/29/25 12:00 04/29/25 12:00 04/29/25 12:00 04/29/25 08:00 04/27/25 16:22 Narrative Exam Physical Exam: General: Alert, no acute distress. Head: Normocephalic, atraumatic. Respiratory: Lungs are clear to auscultation posteriorly, respirations unlabored, no crackles, no wheezing. Extremities: No edema, no cyanosis, no clubbing. 1+ radial pulse bilaterally, 1+ posterior tibial pulse bilaterally. Neuro: No focal deficits observed. Conversant, moving all extremities. No overt cerebellar signs/incoordination. Psychiatric: Cooperative, sad affect. Objective Labs 04/30/25 04:55 04/30/25 04:55 Labs: Laboratory Results - last 24 hr 04/28/25 04/29/25 05:22 04:50 WBC 11.4 H RBC 5.23 H Hgb 13.4 Hct 39.4 MCV 75 L MCH 25.6 MCHC 34.0 RDW Std Deviation 50.6 H Plt Count 98 L Neut % (Auto) 88 H Lymph % (Auto) 6 L [place] % (Auto) 5 Eos % (Auto) 0 Baso % (Auto) 0 Neut # (Auto) 10.1 H Lymph # (Auto) 0.7 L [place] # (Auto) 0.5 Eos # (Auto) 0.0 Baso # (Auto) 0.0 Immature Gran # (Auto) 0.06 H Absolute Nucleated RBC 0.02 H Immature Gran % 1 H Nucleated RBC % 0 Sodium 142 Potassium 3.1 L D Chloride 104 Carbon Dioxide 30.8 Anion Gap 7 BUN 72 H Creatinine 2.6 H Estim Creat Clear Calc 18.1 L eGFR 19 L BUN/Creatinine Ratio 28 H Glucose 87 Calculated Osmolality 303 H Calcium 8.2 L Corrected Calcium 9.0 Phosphorus 3.1 Magnesium 2.0 Total Bilirubin 1.9 H AST 66 H ALT 242 H Alkaline Phosphatase 185 H Total Protein 6.3 Albumin 3.0 L Globulin 3.3 Albumin/Globulin Ratio 0.9 L Coccidioides IgG Ab Negative ABG Interpretation ABG results: 04/26/25 23:16 VBG pH 7.49 VBG pCO2 23 L VBG pO2 33 VBG Base Excess -4 L Quality Measures Quality Measures none Advance care planning discussed with:: patient Assessment & Plan Assessment Current Active Medications: Generic Name Dose Route Start Last Admin Trade Name Freq PRN Reason Stop Dose Admin Acetaminophen 650 mg 04/27/25 08:01 04/28/25 06:01 Acetaminophen 325 Mg Tablet PO 05/27/25 08:00 650 mg Q6H PRN Administration Fever >101.5 Amiodarone HCl 200 mg 04/28/25 09:00 04/29/25 08:47 Amiodarone Hcl 200 Mg Tablet PO 05/28/25 08:59 200 mg QDAY JOHN Administration Apixaban 5 mg 04/27/25 21:00 04/29/25 08:48 Apixaban 2.5 Mg Tablet PO 05/27/25 20:59 5 mg BID JOHN Administration Aspirin 81 mg 04/28/25 09:00 04/29/25 08:48 Aspirin Ec 81 Mg Tabec PO 05/28/25 08:59 81 mg DAILY JOHN Administration Atorvastatin Calcium 80 mg 04/27/25 21:00 04/28/25 21:08 Atorvastatin Calcium 20 Mg Tablet PO 05/27/25 20:59 80 mg HS JOHN Administration Atropine Sulfate 0.5 mg 04/27/25 17:40 Atropine Sulf Inj 1 Mg/Ml Vial IVP 04/30/25 17:39 Q5MIN PRN HR < 40 Balsam Rich/[place] Oil 0 gm 04/28/25 21:00 04/29/25 08:48 Balsam [place] Oil (Venelex) 60 Gm Tube TOP 05/28/25 20:59 1 applicatio BID JOHN Administration Bumetanide 2 mg 04/28/25 18:00 04/29/25 05:37 Bumetanide Inj 0.25 Mg/Ml Vial 4 Ml IVP 05/28/25 17:59 2 mg BIDD JOHN Administration Ceftriaxone Sodium/Dextrose 1 gm in 50 mls @ 100 mls/hr 04/27/25 08:07 04/29/25 08:47 Rocephin/D5w 1gm Iv Premix IV 05/04/25 08:06 100 mls/hr QDAY JOHN Administration Azithromycin 500 mg/ Sodium 250 mls @ 250 mls/hr 04/28/25 09:00 04/29/25 09:22 Chloride IV 05/05/25 08:59 250 mls/hr QDAY JOHN Administration Levothyroxine Sodium 25 mcg 04/28/25 06:00 04/29/25 05:38 Levothyroxine Sodium 25 Mcg Tablet PO 05/28/25 05:59 25 mcg ACBR JOHN Administration Plan Mrs. Kaiser is a 74 year old lady with a relevant past medical history of CAD s/p stent, HFrEF with EF of 35-40%, atrial fibrilation on Eliquis, and dilated cardiomyopathy who presented to [facility] with concerns of SNF placement. Nephrology was consulted due to concerns of LOYD in the setting of an acute exacerbation of her CHF. #Acute kidney injury due to cardiorenal syndrome 2/2 acute CHF exacerbation Patient admitted with Cr of 3.4, GFR 13, BUN 81 in the setting of a history of HFrEF and 3+ edema on physical exam. - Continue diuresis with Bumex/Bumetanide 1mg IVP BID - Continue to monitor progress and trend Cr - Nephrology will continue to monitor Patient was discussed with the Nephrology attending, Dr. Martin. Thank you for allowing us to participate in the care of this patient. Aayush Hall, PGY-1 Attending Provider Attestation/Addendum Pt is seen and examined. labs reviewed. notes reviewed. agree with assessment and plan and findings of resident. Marcos Martin MD
--- NOTE | 2025-04-29 17:48 | PC.NURSE ---
Have been unable to reach family regarding patient's home medications, will endorse to NOC shift for F/U
[2025-04-29] MEDS: ATORVASTATIN CALCIUM 20 MG TABLET 80 MG PO (20:37)
--- NOTE | 2025-04-29 21:21 | PC.NURSE ---
Unable to obtain medication list from home as patient is confused. Attempt to call son Robbi but unable to get a hold of to clarify home medications. Will continue to try and call family.
[2025-04-30] VITALS (15 sets, daily range): BP systolic 90–133; BP diastolic 53–99; PULSE 67–160; RESP 15–96; TEMP 36.3–37.1; O2SAT 93–98; BMI 27.3
[2025-04-30] MEDS: DILTIAZEM INJ 5 MG/ML VIAL 5 ML 15 MG IV (02:10)
[2025-04-30] MEDS: LEVOTHYROXINE SODIUM 25 MCG TABLET PO (05:45)
[2025-04-30 05:59] LABS: Basophils # (Auto) 0.0 Thou/mm3 (0.0-0.2); Basophils % (Auto) 0 % (0-2.5); Eosinophils # (Auto) 0.0 Thou/mm3 (0.0-0.5); Eosinophils % (Auto) 0 % (0-10); Hematocrit 36.1 % (36.0-46.0); Hemoglobin 12.4 g/dL (12.0-16.0); Immature Granulocytes Auto 0.07 Thou/mm3 (0.00-0.00); Lymphocytes # (Auto) 1.0 Thou/mm3 (1.0-4.8); Lymphocytes % (Auto) 10 % (10-50); Mean Corpuscular HGB Conc 34.3 g/dl (31.0-37.0); Mean Corpuscular Hemoglobin 25.8 pg (25.0-35.0); Mean Corpuscular Volume 75 fL (80-100); Monocytes # (Auto) 0.8 Thou/mm3 (0.0-0.8); Monocytes % (Auto) 7 % (0-12); Neutrophils # (Auto) 8.5 Thou/mm3 (1.8-7.7); Neutrophils % (Auto) 82 % (37-80); Nucleated Red Blood Cell # 0.00 Thou/mm3 (0.00-0.00); Nucleated Red Blood Cell % 0 /100 WBC (0); Platelet Count 99 Thou/mm3 (140-440); RDW Standard Deviation 51.0 fL (36.4-46.3); Red Blood Count 4.81 Miln/mm3 (4.00-5.20); White Blood Count 10.4 Thou/mm3 (3.6-11.0)
[2025-04-30 06:19] LABS: Alanine Aminotransferase 194 U/L (10-49); Albumin, Serum 2.7 gm/dL (3.4-4.8); Albumin/Globulin Ratio 0.9 (1.2-2.2); Alkaline Phosphatase 210 U/L (46-116); Anion Gap 6 (7-16); Aspartate Amino Transferase 70 U/L (0-34); BUN/Creatinine Ratio 21 Ratio (12-20); Bilirubin,Total 1.7 mg/dL (0.3-1.2); Blood Urea Nitrogen 47 mg/dL (9-23); Calcium 8.0 mg/dL (8.3-10.6); Calcium (Corrected) 9.0 mg/dL (8.5-10.1); Carbon Dioxide 29.7 mMol/L (20.0-31.0); Chloride 106 mMol/L (98-107); Creatinine (Component) 2.2 mg/dL (0.6-1.3); Estimated Creatinine Clearance 21.5 mL/min (>60); Globulin 3.1 gm/dL (2.3-3.5); Glucose 89 mg/dL (74-106); Magnesium 1.8 mg/dL (1.6-2.6); Osmolality,Calculated 294 (275-295); Phosphorous 2.3 mg/dL (2.4-5.1); Potassium 3.7 mMol/L (3.4-5.1); Sodium 142 mMol/L (136-145); Total Protein 5.8 gm/dL (5.7-8.2); eGFR 23 See Note
--- NOTE | 2025-04-30 08:37 | EKG_ITS ---
[facility] Test Date: 2025-04-30 Pat Name: OLGA GEIGER Department: Room: S270A Gender: Female Dice Manager: MARCIE : 1950 Requested By: Migue Rodríguez Order Number: [id number] Reading MD: Migue Rodríguez Measurements Intervals [place] Rate: 74 P: DE: QRS: -26 QRSD: 102 T: 153 QT: 353 QTc: 394 Interpretive Statements SUPRAVENTRICULAR RHYTHM POSSIBLE ANTERIOR MYOCARDIAL INFARCTION , OF INDETERMINATE AGE INFERIOR MYOCARDIAL INFARCTION , PROBABLY OLD Compared to ECG 04/28/2025 13:14:14 Supraventricular rhythm now present Atrial fibrillation no longer present Ventricular premature complex(es) no longer present Aberrant conduction of supraventricular beat(s) no longer present Myocardial infarct finding still present /store/S0/[id number]/ecg/[id number].pdf
[2025-04-30] MEDS: AMIODARONE HCL 200 MG TABLET PO ×2 (08:56→20:45)
[2025-04-30] MEDS: ASPIRIN EC 81 MG TABEC PO (09:05)
[2025-04-30] MEDS: BUMETANIDE INJ 0.25 MG/ML VIAL 4 ML 2 MG IVP (09:05)
[2025-04-30] MEDS: APIXABAN 2.5 MG TABLET PO ×2 (09:08→20:47)
[2025-04-30] MEDS: METOPROLOL SUCCINATE XL 25 MG TABCR PO (09:09)
[2025-04-30] MEDS: BALSAM PERU/CASTOR OIL (Venelex) 60 GM TUBE TOP ×2 (09:10→20:47)
[2025-04-30] MEDS: cefTRIAXone/D5w 1gm IV premix 1 GM/50 ML BAG IV (09:15)
[2025-04-30] MEDS: AZITHROMYCIN INJ 500 MG in SODIUM CHLORIDE 0.9% 250 ML 250 ML 250 MG IV (10:42)
--- NOTE | 2025-04-30 11:13 | PD.RESPRO ---
Documentation for date of: 04/30/25 Subjective Subjective Interval history: Overnight events: No acute events overnight. Patient was seen and examined at bedside. AM vitals and labs reviewed. Patient was more conversational today, but still could not answer why she is in the hospital and what date it is. Several times during the encounter, the patient responded inappropriately to questions. Bruising on back and right arm noted. Patient expressed no complaints today. Renal function improving with BUN 47, Cr 2.2, and eGFR 23 on AM labs. Review of systems otherwise negative except for what is mentioned above. Exam Vital Signs Temp Pulse Resp BP Pulse Ox O2 Del Method O2 Flow Rate 97.8 F 119 H 16 133/99 H 97 Room Air 15 04/30/25 08:00 04/30/25 09:09 04/30/25 08:00 04/30/25 09:09 04/30/25 08:00 04/30/25 08:00 04/27/25 16:22 Narrative Exam Physical Exam: General: Alert, no acute distress. Skin: Warm, dry, intact, no obvious rash. Head: Normocephalic, atraumatic. Eye: Normal conjunctiva, PERRL. Throat: Oral mucosa moist. No obvious lesions in oropharynx. Cardiovascular: Regular rate and rhythm, no murmur, +S1/S2. Respiratory: Lungs are clear to auscultation, respirations unlabored, no crackles, no wheezing. Extremities: 1+ edema in BLE, no cyanosis, no clubbing. 1+ radial pulse bilaterally. Neuro: No focal deficits observed. Conversant, moving all extremities. No overt cerebellar signs/incoordination. Psychiatric: Cooperative, inappropriate responses periodically. Objective Labs 05/02/25 10:20 05/02/25 05:40 Labs: Laboratory Results - last 24 hr 04/28/25 04/30/25 05:22 04:55 WBC 10.4 RBC 4.81 Hgb 12.4 Hct 36.1 MCV 75 L MCH 25.8 MCHC 34.3 RDW Std Deviation 51.0 H Plt Count 99 L Neut % (Auto) 82 H Lymph % (Auto) 10 [place] % (Auto) 7 Eos % (Auto) 0 Baso % (Auto) 0 Neut # (Auto) 8.5 H Lymph # (Auto) 1.0 [place] # (Auto) 0.8 Eos # (Auto) 0.0 Baso # (Auto) 0.0 Immature Gran # (Auto) 0.07 H Absolute Nucleated RBC 0.00 Immature Gran % 1 H Nucleated RBC % 0 Sodium 142 Potassium 3.7 D Chloride 106 Carbon Dioxide 29.7 Anion Gap 6 L BUN 47 H Creatinine 2.2 H Estim Creat Clear Calc 21.5 L eGFR 23 L BUN/Creatinine Ratio 21 H Glucose 89 Calculated Osmolality 294 Calcium 8.0 L Corrected Calcium 9.0 Phosphorus 2.3 L Magnesium 1.8 Total Bilirubin 1.7 H AST 70 H ALT 194 H Alkaline Phosphatase 210 H D Total Protein 5.8 Albumin 2.7 L Globulin 3.1 Albumin/Globulin Ratio 0.9 L Coccidioides IgG Ab Negative ABG Interpretation ABG results: 04/26/25 23:16 VBG pH 7.49 VBG pCO2 23 L VBG pO2 33 VBG Base Excess -4 L Quality Measures Quality Measures none Advance care planning discussed with:: patient Assessment & Plan Assessment Current Active Medications: Generic Name Dose Route Start Last Admin Trade Name Freq PRN Reason Stop Dose Admin Acetaminophen 650 mg 04/27/25 08:01 04/28/25 06:01 Acetaminophen 325 Mg Tablet PO 05/27/25 08:00 650 mg Q6H PRN Administration Fever >101.5 Amiodarone HCl 200 mg 04/30/25 21:00 Amiodarone Hcl 200 Mg Tablet PO 05/30/25 20:59 BID JOHN Apixaban 2.5 mg 04/30/25 09:00 04/30/25 09:08 Apixaban 2.5 Mg Tablet PO 05/30/25 08:59 2.5 mg BID JOHN Administration Aspirin 81 mg 04/28/25 09:00 04/30/25 09:05 Aspirin Ec 81 Mg Tabec PO 05/28/25 08:59 81 mg DAILY JOHN Administration Atorvastatin Calcium 80 mg 04/27/25 21:00 04/29/25 20:37 Atorvastatin Calcium 20 Mg Tablet PO 05/27/25 20:59 80 mg HS JOHN Administration Atropine Sulfate 0.5 mg 04/27/25 17:40 Atropine Sulf Inj 1 Mg/Ml Vial IVP 04/30/25 17:39 Q5MIN PRN HR < 40 Balsam Rich/[place] Oil 0 gm 04/28/25 21:00 04/30/25 09:10 Balsam [place] Oil (Venelex) 60 Gm Tube TOP 05/28/25 20:59 1 applicatio BID JOHN Administration Bumetanide 2 mg 04/30/25 09:00 04/30/25 09:05 Bumetanide Inj 0.25 Mg/Ml Vial 4 Ml IVP 05/30/25 08:59 2 mg QDAY JOHN Administration Ceftriaxone Sodium/Dextrose 1 gm in 50 mls @ 100 mls/hr 04/27/25 08:07 04/30/25 09:15 Rocephin/D5w 1gm Iv Premix IV 05/04/25 08:06 100 mls/hr QDAY JOHN Administration Azithromycin 500 mg/ Sodium 250 mls @ 250 mls/hr 04/28/25 09:00 04/30/25 10:42 Chloride IV 05/05/25 08:59 250 mls/hr QDAY JOHN Administration Levothyroxine Sodium 25 mcg 04/28/25 06:00 04/30/25 05:45 Levothyroxine Sodium 25 Mcg Tablet PO 05/28/25 05:59 25 mcg ACBR JOHN Administration Plan Mrs. Kaiser is a 74 year old lady with a relevant past medical history of CAD s/p stent, HFrEF with EF of 35-40%, atrial fibrilation on Eliquis, and dilated cardiomyopathy who presented to [facility] with concerns of SNF placement. Nephrology was consulted due to concerns of LOYD in the setting of an acute exacerbation of her CHF. #Acute kidney injury due to cardiorenal syndrome 2/2 acute CHF exacerbation Patient admitted with Cr of 3.4, GFR 13, BUN 81 in the setting of a history of HFrEF and 3+ edema on physical exam. - Continue diuresis with Bumex/Bumetanide 1mg IVP BID - Continue to monitor progress and trend Cr - Nephrology will continue to monitor Patient was discussed with the Nephrology attending, Dr. Martin. Thank you for allowing us to participate in the care of this patient. Aayush Hall, PGY-1 Attending Provider Attestation/Addendum Pt is seen and examined. labs and investigations are reviewed. Agree with assessment and plan and findings by resident. Marcos Martin MD
--- NOTE | 2025-04-30 11:28 | PD.RESPRO ---
Documentation for date of: 04/30/25 Subjective Subjective Interval history: Senior attesation: 04/2025 patient examined at bedside. Continue Bumex 2 mg IV push for CHF. Continue to monitor kidney function BUN 16 and creatinine 2.2 with a GFR of 23. Ins and outs 1600/6-6 50/-1050. Net balance for this visit -1311. Current weight 70 kg 0.89 down from 74.503. Continue amiodarone 200 twice daily. Metoprolol 25 mg x 1 given today. Start metoprolol 50 mg daily starting tomorrow. Patient had a rapid response for bradycardia converted to a flutter then sinus tach he without medical intervention. Patient's vitals remained stable. Ativan given X 1 as patient was reported biting. Expect discharge within the next 24 hours Overnight patient was in A-fib and RVR Patient was seen and examined at bedside. A.m. vitals and labs reviewed. The patient was able to understand and answer questions was much more oriented than yesterday. Patient was not able to tell which hospital she is in. She denies any chest pain, shortness of breath, fever, chills or generalized body pain. She does not look overtly edematous. Her I/O net balance is -1350ml At 11:45 AM she was overly agitated and was given lorazepam 1 mg IV. Exam Vital Signs Temp Pulse Resp BP Pulse Ox O2 Del Method O2 Flow Rate 97.8 F 119 H 16 133/99 H 97 Room Air 15 04/30/25 08:00 04/30/25 09:09 04/30/25 08:00 04/30/25 09:09 04/30/25 08:00 04/30/25 08:00 04/27/25 16:22 Narrative Exam GENERAL: A&Ox3, elderly female, Awake, Not in acute distress NEURO: no focal neurological deficits HEENT: Atraumatic, Normocephalic. mucous membranes moist. Eyes open, symmetrical, & clear HEART: Normal Heart Sounds LUNGS: Clear to auscultation with no wheezing or crackles. ABDOMEN: soft, non-distended, non-tender, bowel sounds heard, no guarding or rebound tenderness SKIN: Multiple scrapes, lacerations noted on lower extremities bilaterally EXTREMITIES: 2+ pitting edema bilaterally in LE, no tenderness, able to move all 4 extremities, pedal pulses palpated Objective Labs 05/01/25 05:17 05/01/25 05:17 Labs: Laboratory Results - last 24 hr 04/28/25 04/30/25 05:22 04:55 WBC 10.4 RBC 4.81 Hgb 12.4 Hct 36.1 MCV 75 L MCH 25.8 MCHC 34.3 RDW Std Deviation 51.0 H Plt Count 99 L Neut % (Auto) 82 H Lymph % (Auto) 10 [place] % (Auto) 7 Eos % (Auto) 0 Baso % (Auto) 0 Neut # (Auto) 8.5 H Lymph # (Auto) 1.0 [place] # (Auto) 0.8 Eos # (Auto) 0.0 Baso # (Auto) 0.0 Immature Gran # (Auto) 0.07 H Absolute Nucleated RBC 0.00 Immature Gran % 1 H Nucleated RBC % 0 Sodium 142 Potassium 3.7 D Chloride 106 Carbon Dioxide 29.7 Anion Gap 6 L BUN 47 H Creatinine 2.2 H Estim Creat Clear Calc 21.5 L eGFR 23 L BUN/Creatinine Ratio 21 H Glucose 89 Calculated Osmolality 294 Calcium 8.0 L Corrected Calcium 9.0 Phosphorus 2.3 L Magnesium 1.8 Total Bilirubin 1.7 H AST 70 H ALT 194 H Alkaline Phosphatase 210 H D Total Protein 5.8 Albumin 2.7 L Globulin 3.1 Albumin/Globulin Ratio 0.9 L Coccidioides IgG Ab Negative ABG Interpretation ABG results: 04/26/25 23:16 VBG pH 7.49 VBG pCO2 23 L VBG pO2 33 VBG Base Excess -4 L Quality Measures Quality Measures none Advance care planning discussed with:: patient Assessment & Plan Assessment Current Active Medications: Generic Name Dose Route Start Last Admin Trade Name Freq PRN Reason Stop Dose Admin Acetaminophen 650 mg 04/27/25 08:01 04/28/25 06:01 Acetaminophen 325 Mg Tablet PO 05/27/25 08:00 650 mg Q6H PRN Administration Fever >101.5 Amiodarone HCl 200 mg 04/30/25 21:00 Amiodarone Hcl 200 Mg Tablet PO 05/30/25 20:59 BID JOHN Apixaban 2.5 mg 04/30/25 09:00 04/30/25 09:08 Apixaban 2.5 Mg Tablet PO 05/30/25 08:59 2.5 mg BID JOHN Administration Aspirin 81 mg 04/28/25 09:00 04/30/25 09:05 Aspirin Ec 81 Mg Tabec PO 05/28/25 08:59 81 mg DAILY JOHN Administration Atorvastatin Calcium 80 mg 04/27/25 21:00 04/29/25 20:37 Atorvastatin Calcium 20 Mg Tablet PO 05/27/25 20:59 80 mg HS JOHN Administration Atropine Sulfate 0.5 mg 04/27/25 17:40 Atropine Sulf Inj 1 Mg/Ml Vial IVP 04/30/25 17:39 Q5MIN PRN HR < 40 Balsam Rich/[place] Oil 0 gm 04/28/25 21:00 04/30/25 09:10 Balsam Dawn/[place] Oil (Venelex) 60 Gm Tube TOP 05/28/25 20:59 1 applicatio BID JOHN Administration Bumetanide 2 mg 04/30/25 09:00 04/30/25 09:05 Bumetanide Inj 0.25 Mg/Ml Vial 4 Ml IVP 05/30/25 08:59 2 mg QDAY JOHN Administration Ceftriaxone Sodium/Dextrose 1 gm in 50 mls @ 100 mls/hr 04/27/25 08:07 04/30/25 09:15 Rocephin/D5w 1gm Iv Premix IV 05/04/25 08:06 100 mls/hr QDAY JOHN Administration Azithromycin 500 mg/ Sodium 250 mls @ 250 mls/hr 04/28/25 09:00 04/30/25 10:42 Chloride IV 05/05/25 08:59 250 mls/hr QDAY JOHN Administration Levothyroxine Sodium 25 mcg 04/28/25 06:00 04/30/25 05:45 Levothyroxine Sodium 25 Mcg Tablet PO 05/28/25 05:59 25 mcg ACBR JOHN Administration Plan Ms. Kaiser is a 74-year-old female past medical history significant for A-fib (on amiodarone and Eliquis), CAD status post stent, hypertension, history of CVA in 2022, HFrEF EF 35 to 40% and history of left ventrical mural thrombus. Patient was brought in by her son for SNF placement as he is unable to care of her at home because patient has increased generalized weakness. #A-fib with RVR #History of small PFO - Patient has a history of A-fib and takes amiodarone as well as Eliquis daily - On admission patient was found to be in A-fib with heart rate 160-70's -In the ED patient was given digoxin and magnesium and started on amio drip as per cardio recommendations BE: BE from 08/22/2023 showed Small mobile MARCIO thrombus, Positive bubble study. There is evidence of very small PFO demonstrated by agitated saline injection [id number] score 5, HAS-BLED 5 Plan: -Resumed home pt's eliquis -Keep magnesium above 2 potassium above 4 -Repeat echo ordered -Senior Medical Technologist Dr. Lezama is consulted, appreciate recommendations -Patient continues to have A-fib with RVR overnight we will try metoprolol succinate 50 mg starting tomorrow and we will observe how blood pressure changes. -Amiodarone 200 mg p.o. bid #Acute hypoxic respiratory failure secondary to #Community-acquired pneumonia and #Acute decompensated heart failure #HFrEF, EF of <20% - CT of chest shows moderate enlargement of cardiac contour and mild left base pneumonia -BNP is [birth year]14[birth year]1987 Plan: -IV antibiotics azithromycin plus Rocephin started 04/27- -Continue Bumex 2mg IV BID -Echocardiogram (04/27/2025) indicates HFrEF and A-fib. Dilated cardiomyopathy. EF worsened from 35 to 40% to less than 20%. Severe LV dilatation, severe Global Hypokinesis. Estimated EF 15-20%. Diastolic dysfunction present but could not be graded due to A-fib/arrhythmia. Mild RV dilatation with moderate RV dysfunction. Mildly elevated RVSP at 35 and 40 mmHg. Mild MAC with mild MR.. Mild aortic valve sclerosis without stenosis. Moderate TR. Trace PI. IVC Dilated with less than 50% collapse with inspiration. No pericardial effusion. -Will hold home GDMT due to soft BP and pt requiring amiodrip for A-fib with RVR -Strict ins and out -Daily weights -Fluid restrictions -Cardiology is consulted and following #LOYD Baseline 1.0, on admission creatinine is 3.4, GFR 13, BUN 81 likely prerenal in the setting of poor oral intake plan: -Avoid nephrotoxic and renally dise medications -Unable to give IV fludis due to pt rafael cute CHF exacerbation Consulted Staff Development Manager Dr. Martin, appreciate recommendations #Hypotension. #Primary hypertension. Patient has history of hypertension, home meds include olmesartan 40mg and spironolactone 25mg, however Pt became hypotensive after starting amiodarone drip. -Will hold antihypertensive medications as of now. -Continue to monitor BP now Will consider antihypertensives after the amiodarone drip has been stopped #Euthyroid sick syndrome #Intermittent bradycardia - Patient does not have history of thyroid disease -TSH decreased to 7.4 from 13.17, free T4 0.76, T4 3.4 -Patient intermittently goes into bradycardia with heart rate ranging between 39 and 60s Plan: - Levothyroxine 25 mcg daily before breakfast - Due to bradycardia additional levothyroxine 25 mcg's given x 1 - Atropine as needed for heart rate below 40 - Will check for goiter in the setting of patient on amiodarone for chronic A-fib #Pulmonary nodules CT of chest shows At least 6 bilateral noncalcified pulmonary nodules, the largest in the lower lung zone on the right measuring 11 mm, 12 mm - Patient is unaware of the pulmonary nodules however she is a chronic smoker plan: After patient is stable patient will likely need further workup of the pulmonary nodules - The nodules may be too small to biopsy, will speak to IR after patient is more stable. #Hx. of Ischemic stroke, 2022 #History of CAD s/p stent placement. -Resumed home aspirin and Atorvastatin Health Maintenance Disposition: telemetry DVT Prophylaxis: resumed Eliquis for afib GI Prophylaxis: not indicated Diet: Diabetic Diet Lines: Peripheral lines Code status: Full Assessment and plan discussed with my attending physician Dr. Crane and Dr. Zhu (PGY-2) Dr. Grimes (PGY-1)- Internal medicine resident Attending Provider Attestation/Addendum 74-year-old female with multiple comorbidities including hypertension, hyperlipidemia, coronary artery disease status post stent placement with subsequent heart failure with reduced EF with EF 35-40% and history of left ventricular mural thrombus, atrial fibrillation on Eliquis CVA with no residual deficits who presented to the ER with generalized weakness found to have acute hypoxic respiratory failure likely being multifactorial secondary to community-acquired pneumonia and acute decompensated heart failure and subsequently started on IV antibiotic therapy and IV diuretics. In addition, patient also noted to have A-fib with RVR. Of note, patient underwent repeat echocardiogram with findings of EF 15 to 20% and also noted to have acute kidney injury with slight improvement with diuretic therapy. As of now, continue IV diuretic therapy and appreciate cardiology input.I reviewed above note and agree with findings and plans. I have also personally examined the patient with medicine team and went over assessment and plan with medical team including security intern and resident physician.
[2025-04-30] MEDS: LORazepam 2 MG/ML VIAL 1 MG IVP (11:57)
--- NOTE | 2025-04-30 13:41 | ESPR_ITS ---
<Statement entered by Ryan Baca MD - 05/02/25 18:49> I personally evaluated examined the patient with PGY 2 Dr. Juan Vanessa MD patient continues with abdominal pain primary team will be investigating may be just constipation but much more alert and awake today heart failure well compensated clinically dry no need to diurese at this time continue rest of medications including beta-bailee amiodarone for rate control also showing signs of bradycardia at time may have sick sinus syndrome tacky bradycardia arrhythmia will continue to monitor the patient closely Documentation for date of: 04/30/25 Subjective Subjective Interval history: overnight pt has been in paroxismal afib with RVR. And through out the day continues to have intermittent episodes of rapid HR. AMiodarone is increased to 200mg BID, if pt continues to have rapid HR and if BP permits, may resume pts home coreg. replete electrolytes. BUN and creatinine is downtrending to 60 and 2.2. Pt has become increasingly aggitated, recommend seroquel rather than ativan. Exam Vital Signs Temp Pulse Resp BP Pulse Ox O2 Del Method O2 Flow Rate 98.8 F 93 17 114/94 H 93 L Room Air 15 04/30/25 12:00 04/30/25 12:00 04/30/25 12:00 04/30/25 12:00 04/30/25 12:00 04/30/25 12:00 04/27/25 16:22 Narrative Exam GENERAL: A&Ox3, elderly female, Awake, Not in acute distress NEURO: no focal neurological deficits HEENT: Atraumatic, Normocephalic. mucous membranes moist. Eyes open, symmetrical, & clear HEART: Normal Heart Sounds LUNGS: Clear to auscultation with no wheezing or crackles. ABDOMEN: soft, non-distended, non-tender, bowel sounds heard, no guarding or rebound tenderness SKIN: Multiple scrapes, lacerations noted on lower extremities bilaterally and lower back on buttocks (decubitus ulcer stage 1) EXTREMITIES: trace pitting edema bilaterally in LE, no tenderness, able to move all 4 extremities, pedal pulses palpated Objective Labs 04/30/25 04:55 04/30/25 15:00 Labs: Laboratory Results - last 24 hr 04/30/25 04:55 WBC 10.4 RBC 4.81 Hgb 12.4 Hct 36.1 MCV 75 L MCH 25.8 MCHC 34.3 RDW Std Deviation 51.0 H Plt Count 99 L Neut % (Auto) 82 H Lymph % (Auto) 10 [place] % (Auto) 7 Eos % (Auto) 0 Baso % (Auto) 0 Neut # (Auto) 8.5 H Lymph # (Auto) 1.0 [place] # (Auto) 0.8 Eos # (Auto) 0.0 Baso # (Auto) 0.0 Immature Gran # (Auto) 0.07 H Absolute Nucleated RBC 0.00 Immature Gran % 1 H Nucleated RBC % 0 Sodium 142 Potassium 3.7 D Chloride 106 Carbon Dioxide 29.7 Anion Gap 6 L BUN 47 H Creatinine 2.2 H Estim Creat Clear Calc 21.5 L eGFR 23 L BUN/Creatinine Ratio 21 H Glucose 89 Calculated Osmolality 294 Calcium 8.0 L Corrected Calcium 9.0 Phosphorus 2.3 L Magnesium 1.8 Total Bilirubin 1.7 H AST 70 H ALT 194 H Alkaline Phosphatase 210 H D Total Protein 5.8 Albumin 2.7 L Globulin 3.1 Albumin/Globulin Ratio 0.9 L ABG Interpretation ABG results: 04/26/25 23:16 VBG pH 7.49 VBG pCO2 23 L VBG pO2 33 VBG Base Excess -4 L Quality Measures Quality Measures none Advance care planning discussed with:: other Assessment & Plan Assessment Current Active Medications: Generic Name Dose Route Start Last Admin Trade Name Freq PRN Reason Stop Dose Admin Acetaminophen 650 mg 04/27/25 08:01 04/28/25 06:01 Acetaminophen 325 Mg Tablet PO 05/27/25 08:00 650 mg Q6H PRN Administration Fever >101.5 Amiodarone HCl 200 mg 04/30/25 21:00 Amiodarone Hcl 200 Mg Tablet PO 05/30/25 20:59 BID JOHN Apixaban 2.5 mg 04/30/25 09:00 04/30/25 09:08 Apixaban 2.5 Mg Tablet PO 05/30/25 08:59 2.5 mg BID JOHN Administration Aspirin 81 mg 04/28/25 09:00 04/30/25 09:05 Aspirin Ec 81 Mg Tabec PO 05/28/25 08:59 81 mg DAILY JOHN Administration Atorvastatin Calcium 80 mg 04/27/25 21:00 04/29/25 20:37 Atorvastatin Calcium 20 Mg Tablet PO 05/27/25 20:59 80 mg HS JOHN Administration Atropine Sulfate 0.5 mg 04/27/25 17:40 Atropine Sulf Inj 1 Mg/Ml Vial IVP 04/30/25 17:39 Q5MIN PRN HR < 40 Balsam Rich/[place] Oil 0 gm 04/28/25 21:00 04/30/25 09:10 Balsam Rich/[place] Oil (Venelex) 60 Gm Tube TOP 05/28/25 20:59 1 applicatio BID JOHN Administration Bumetanide 2 mg 04/30/25 09:00 04/30/25 09:05 Bumetanide Inj 0.25 Mg/Ml Vial 4 Ml IVP 05/30/25 08:59 2 mg QDAY JOHN Administration Ceftriaxone Sodium/Dextrose 1 gm in 50 mls @ 100 mls/hr 04/27/25 08:07 04/30/25 09:15 Rocephin/D5w 1gm Iv Premix IV 05/04/25 08:06 100 mls/hr QDAY JOHN Administration Azithromycin 500 mg/ Sodium 250 mls @ 250 mls/hr 04/28/25 09:00 04/30/25 10:42 Chloride IV 05/05/25 08:59 250 mls/hr QDAY JOHN Administration Levothyroxine Sodium 25 mcg 04/28/25 06:00 04/30/25 05:45 Levothyroxine Sodium 25 Mcg Tablet PO 05/28/25 05:59 25 mcg ACBR JOHN Administration Polyethylene Glycol 17 gm 05/01/25 09:00 Polyethylene Glycol 17 Gm Packet PO 05/31/25 08:59 QDAY JOHN Plan Ms. Kaiser is a 74-year-old female past medical history significant for A-fib (on amiodarone and Eliquis), CAD status post stent, hypertension, history of CVA in 2022, HFrEF EF 35 to 40% and history of left ventrical mural thrombus. Patient was brought in by her son for SNF placement as he is unable to care of her at home because patient has increased generalized weakness. #Acute hypoxic respiratory failure secondary to #Acute on chronic decompensated heart failure #HFrEF, EF of 20% #Dilated Cardiomyopathy #Severe global hypokinesia Patient has a past medical history of CHF with previous ejection fraction between 35 to 40%, upon admission worsening ejection fraction to 20% (04/27/2025) - CT of chest shows moderate enlargement of cardiac contour and mild left base pneumonia -BNP is 1788 -NYHA IV Plan: -Continue Bumex 2mg Qday -Discontinue home coreg -Will hold home GDMT due to soft BP -Strict ins and out -Daily weights -Fluid restrictions 1500 and sodium restriction to 2gm -K>4 and Magnesium >2 -Repeat BNP prior to discharge -Work towards GDMT, Entresto (not part of home medication) & Sprinoloactone #A-fib with RVR, now rate controlled #History of MARCIO thrombus - Patient has a history of A-fib and takes amiodarone 200mg daily as well as Eliquis 5mg BID - On admission patient was found to be in A-fib with heart rate 160-70's -In the ED patient was given digoxin and magnesium and started on amio drip as per cardio recommendations BE: BE from 08/22/2023 showed Small mobile MARCIO thrombus, Positive bubble study. There is evidence of very small PFO demonstrated by agitated saline injection [id number] score 5, HAS-BLED 5 Plan: -Continue home Amiodarone 200 mg twice daily -Pt is started on metoprolol 50mg daily by the primary team -Continue eliquis 2.5mg bid -Keep magnesium above 2 and potassium above 4 #LOYD- improving Baseline 1.0, on admission creatinine is 3.4, GFR 13, BUN 81 likely prerenal in the setting of poor oral intake plan: -Avoid nephrotoxic and renally dise medications -Unable to give IV fludis due to pt rafael cute CHF exacerbation Consulted Distribution Engineering Technologist Dr. Martin, appreciate recommendations #Hypotension. #Primary hypertension. Patient has history of hypertension, home meds include olmesartan 40mg and spironolactone 25mg, however Pt became hypotensive after starting amiodarone drip. -Will hold antihypertensive medications as of now. -Continue to monitor BP now Will consider antihypertensives after the amiodarone drip has been stopped #Community Acquired Pneumonia -Continue IV antibiotics #Pulmonary nodules CT of chest shows At least 6 bilateral noncalcified pulmonary nodules, the largest in the lower lung zone on the right measuring 11 mm, 12 mm - Patient is unaware of the pulmonary nodules however she is a chronic smoker plan: After patient is stable patient will likely need further workup of the pulmonary nodules -The nodules may be too small to biopsy, will speak to IR after patient is more stable. #Hx. of Ischemic stroke, 2022 #History of CAD s/p stent placement. -Continue home aspirin and Atorvastatin Assessment and plan discussed with attending physician Dr. Keven Vanessa (PGY-2)- Internal medicine resident
--- NOTE | 2025-04-30 14:30 | PD.RESEVENT ---
Documentation for date of: 04/30/25 Event Note Event Note: Code baires on at approximately 11:40 a.m. as patient was agitated trying to bite staff members and IV line out. Patient denied suprapubic tenderness distended bladder. Rapid response 14 :43 called for bradycardia of less than 40 non-sustained less than 1 minute. Patient converted Sinus tachycard to sinus rhythm. Metoprolol XL 25 and Ativan 1 mg X a administered prior to rapid per chart review, have have contributed to non-substained bradycardia. UA 04/27/2025 Negative. Bladder Scan as needed. Systolic BP during rapid 109/71. Glucose within normal limits. Intervention: Potassium and magnesium given. Repeat renal panel. Continue to monitor. Amiodarone 200 mg BID. - The patient's plan was discussed with attending Dr. Rosa Maria Zhu MD PGY2 Internal Medicine
--- NOTE | 2025-04-30 15:07 | PC.SS ---
Pt has rapid response due to low blood pressure and heart rate up. SS was present.
[2025-04-30] MEDS: Magnesium Sulfate 2 GM Ivpb 2 GM/50 ML BAG IV (15:29)
[2025-04-30] MEDS: POT PHOS 15 mMol in NS 250 ML 15 MMOL/250 ML BAG 62.5 MMOL IV ×2 (15:40→19:41)
--- NOTE | 2025-04-30 16:08 | PC.SS ---
[facility].
[2025-04-30 16:26] LABS: Albumin, Serum 2.6 gm/dL (3.4-4.8); Anion Gap 10 (7-16); BUN/Creatinine Ratio 27 Ratio (12-20); Blood Urea Nitrogen 60 mg/dL (9-23); Calcium 7.9 mg/dL (8.3-10.6); Calcium (Corrected) 9.0 mg/dL (8.5-10.1); Carbon Dioxide 31.0 mMol/L (20.0-31.0); Chloride 101 mMol/L (98-107); Creatinine (Component) 2.2 mg/dL (0.6-1.3); Estimated Creatinine Clearance 21.0 mL/min (>60); Glucose 78 mg/dL (74-106); Magnesium 1.8 mg/dL (1.6-2.6); Osmolality,Calculated 299 (275-295); Phosphorous 1.9 mg/dL (2.4-5.1); Potassium 3.8 mMol/L (3.4-5.1); Sodium 142 mMol/L (136-145); eGFR 23 See Note
--- NOTE | 2025-04-30 19:13 | PC.NURSE ---
1443-patient's heart rate 160' atrial flutter, rapid response was called at this time.
[2025-04-30] MEDS: ATORVASTATIN CALCIUM 20 MG TABLET 80 MG PO (20:47)
[2025-05-01] VITALS (15 sets, daily range): BP systolic 91–141; BP diastolic 64–89; PULSE 55–78; RESP 8–97; TEMP 35.8–37; O2SAT 90–98; BMI 26.0
[2025-05-01] MEDS: LEVOTHYROXINE SODIUM 25 MCG TABLET PO (05:47)
[2025-05-01 06:35] LABS: Basophils # (Auto) 0.0 Thou/mm3 (0.0-0.2); Basophils % (Auto) 0 % (0-2.5); Eosinophils # (Auto) 0.1 Thou/mm3 (0.0-0.5); Eosinophils % (Auto) 1 % (0-10); Hematocrit 34.9 % (36.0-46.0); Hemoglobin 11.2 g/dL (12.0-16.0); Immature Granulocytes Auto 0.03 Thou/mm3 (0.00-0.00); Lymphocytes # (Auto) 1.3 Thou/mm3 (1.0-4.8); Lymphocytes % (Auto) 16 % (10-50); Mean Corpuscular HGB Conc 32.1 g/dl (31.0-37.0); Mean Corpuscular Hemoglobin 25.5 pg (25.0-35.0); Mean Corpuscular Volume 80 fL (80-100); Monocytes # (Auto) 0.6 Thou/mm3 (0.0-0.8); Monocytes % (Auto) 8 % (0-12); Neutrophils # (Auto) 5.8 Thou/mm3 (1.8-7.7); Neutrophils % (Auto) 74 % (37-80); Nucleated Red Blood Cell # 0.00 Thou/mm3 (0.00-0.00); Nucleated Red Blood Cell % 0 /100 WBC (0); Platelet Count 101 Thou/mm3 (140-440); RDW Standard Deviation 55.2 fL (36.4-46.3); Red Blood Count 4.39 Miln/mm3 (4.00-5.20); White Blood Count 7.8 Thou/mm3 (3.6-11.0)
[2025-05-01 07:08] LABS: Alanine Aminotransferase 152 U/L (10-49); Albumin, Serum 2.6 gm/dL (3.4-4.8); Albumin/Globulin Ratio 1.0 (1.2-2.2); Alkaline Phosphatase 173 U/L (46-116); Anion Gap 9 (7-16); Aspartate Amino Transferase 69 U/L (0-34); BUN/Creatinine Ratio 30 Ratio (12-20); Bilirubin,Total 1.5 mg/dL (0.3-1.2); Blood Urea Nitrogen 60 mg/dL (9-23); Calcium 7.8 mg/dL (8.3-10.6); Calcium (Corrected) 8.9 mg/dL (8.5-10.1); Carbon Dioxide 36.0 mMol/L (20.0-31.0); Chloride 102 mMol/L (98-107); Creatinine (Component) 2.0 mg/dL (0.6-1.3); Estimated Creatinine Clearance 23.1 mL/min (>60); Globulin 2.7 gm/dL (2.3-3.5); Glucose 80 mg/dL (74-106); Magnesium 2.2 mg/dL (1.6-2.6); Osmolality,Calculated 308 (275-295); Phosphorous 3.7 mg/dL (2.4-5.1); Potassium 3.7 mMol/L (3.4-5.1); Sodium 147 mMol/L (136-145); Total Protein 5.3 gm/dL (5.7-8.2); eGFR 25 See Note
--- NOTE | 2025-05-01 08:46 | ESPR_ITS ---
Documentation for date of: 05/01/25 Subjective Subjective Interval history: Overnight events: No acute events overnight. Patient was seen and examined at bedside. AM vitals and labs reviewed. BUN 60, Cr 2.0, eGFR 25. The patient appeared more withdrawn today, refusing to make eye contact, but otherwise had no complaints. Patient had a rapid response called at 1443 yesterday due to concerns of bradycardia in 40s sustained for less than a minute. Ins/Outs 1060/700. Review of systems otherwise negative except for what is mentioned above. Exam Vital Signs Temp Pulse Resp BP Pulse Ox O2 Del Method O2 Flow Rate 98.6 F 55 L 17 141/77 H 95 Room Air 10 05/01/25 04:00 05/01/25 07:26 05/01/25 07:26 05/01/25 04:00 05/01/25 04:00 05/01/25 04:00 05/01/25 04:00 Narrative Exam Physical Exam: General: Alert, no acute distress. Head: Normocephalic, atraumatic. Respiratory: Lungs are clear to auscultation, respirations unlabored, no crackles, no wheezing. Extremities: No edema, no cyanosis, no clubbing. Psychiatric: Withdrawn, flat affect. Objective Labs 05/02/25 10:20 05/02/25 05:40 Labs: Laboratory Results - last 24 hr 04/30/25 05/01/25 15:00 05:17 WBC 7.8 RBC 4.39 Hgb 11.2 L Hct 34.9 L MCV 80 MCH 25.5 MCHC 32.1 RDW Std Deviation 55.2 H Plt Count 101 L Neut % (Auto) 74 Lymph % (Auto) 16 [place] % (Auto) 8 Eos % (Auto) 1 Baso % (Auto) 0 Neut # (Auto) 5.8 Lymph # (Auto) 1.3 [place] # (Auto) 0.6 Eos # (Auto) 0.1 Baso # (Auto) 0.0 Immature Gran # (Auto) 0.03 H Absolute Nucleated RBC 0.00 Immature Gran % 0 Nucleated RBC % 0 Sodium 142 147 H Potassium 3.8 3.7 Chloride 101 102 Carbon Dioxide 31.0 36.0 H Anion Gap 10 9 BUN 60 H 60 H Creatinine 2.2 H 2.0 H Estim Creat Clear Calc 21.0 L 23.1 L eGFR 23 L 25 L BUN/Creatinine Ratio 27 H 30 H Glucose 78 80 Calculated Osmolality 299 H 308 H Calcium 7.9 L 7.8 L Corrected Calcium 9.0 8.9 Phosphorus 1.9 L 3.7 Magnesium 1.8 2.2 Total Bilirubin 1.5 H AST 69 H ALT 152 H Alkaline Phosphatase 173 H D Total Protein 5.3 L Albumin 2.6 L 2.6 L Globulin 2.7 Albumin/Globulin Ratio 1.0 L ABG Interpretation ABG results: 04/26/25 23:16 VBG pH 7.49 VBG pCO2 23 L VBG pO2 33 VBG Base Excess -4 L Quality Measures Quality Measures none Advance care planning discussed with:: patient Assessment & Plan Assessment Current Active Medications: Generic Name Dose Route Start Last Admin Trade Name Freq PRN Reason Stop Dose Admin Acetaminophen 650 mg 04/27/25 08:01 04/28/25 06:01 Acetaminophen 325 Mg Tablet PO 05/27/25 08:00 650 mg Q6H PRN Administration Fever >101.5 Amiodarone HCl 200 mg 04/30/25 21:00 04/30/25 20:45 Amiodarone Hcl 200 Mg Tablet PO 05/30/25 20:59 200 mg BID JOHN Administration Apixaban 2.5 mg 04/30/25 09:00 04/30/25 20:47 Apixaban 2.5 Mg Tablet PO 05/30/25 08:59 2.5 mg BID JOHN Administration Aspirin 81 mg 04/28/25 09:00 04/30/25 09:05 Aspirin Ec 81 Mg Tabec PO 05/28/25 08:59 81 mg DAILY JOHN Administration Atorvastatin Calcium 80 mg 04/27/25 21:00 04/30/25 20:47 Atorvastatin Calcium 20 Mg Tablet PO 05/27/25 20:59 80 mg HS JOHN Administration Balsam [place] Oil 0 gm 04/28/25 21:00 04/30/25 20:47 Balsam [place] Oil (Venelex) 60 Gm Tube TOP 05/28/25 20:59 1 applicatio BID JOHN Administration Bumetanide 2 mg 04/30/25 09:00 04/30/25 09:05 Bumetanide Inj 0.25 Mg/Ml Vial 4 Ml IVP 05/30/25 08:59 2 mg QDAY JOHN Administration Ceftriaxone Sodium/Dextrose 1 gm in 50 mls @ 100 mls/hr 04/27/25 08:07 04/30/25 09:15 Rocephin/D5w 1gm Iv Premix IV 05/04/25 08:06 100 mls/hr QDAY JOHN Administration Azithromycin 500 mg/ Sodium 250 mls @ 250 mls/hr 04/28/25 09:00 04/30/25 10:42 Chloride IV 05/05/25 08:59 250 mls/hr QDAY JOHN Administration Levothyroxine Sodium 25 mcg 04/28/25 06:00 05/01/25 05:47 Levothyroxine Sodium 25 Mcg Tablet PO 05/28/25 05:59 25 mcg ACBR JOHN Administration Metoprolol Succinate 50 mg 05/01/25 10:00 Metoprolol Succinate Xl 25 Mg Tabcr PO 05/31/25 09:59 QDAY JOHN Polyethylene Glycol 17 gm 05/01/25 09:00 Polyethylene Glycol 17 Gm Packet PO 05/31/25 08:59 QDAY JOHN Plan Mrs. Kaiser is a 74 year old lady with a relevant past medical history of CAD s/p stent, HFrEF with EF of 35-40%, atrial fibrilation on Eliquis, and dilated cardiomyopathy who presented to [facility] with concerns of SNF placement. Nephrology was consulted due to concerns of LOYD in the setting of an acute exacerbation of her CHF. #Acute kidney injury due to cardiorenal syndrome 2/2 acute CHF exacerbation Patient admitted with Cr of 3.4, GFR 13, BUN 81 in the setting of a history of HFrEF and 3+ edema on physical exam. - Continue diuresis with Bumex/Bumetanide 1mg IVP daily. - Continue to monitor progress and trend Cr. - Nephrology will continue to monitor. Patient was discussed with the Nephrology attending, Dr. Martin. Thank you for allowing us to participate in the care of this patient. Aayush Hall, PGY-1 Attending Provider Attestation/Addendum Pt is seen and examined. labs and investigations are reviewed. Agree with assessment and plan and findings by resident. Marcos Martin MD
[2025-05-01] MEDS: AMIODARONE HCL 200 MG TABLET PO ×2 (09:44→20:16)
[2025-05-01] MEDS: APIXABAN 2.5 MG TABLET PO (09:45)
[2025-05-01] MEDS: ASPIRIN EC 81 MG TABEC PO (09:45)
[2025-05-01] MEDS: cefTRIAXone/D5w 1gm IV premix 1 GM/50 ML BAG IV (09:45)
[2025-05-01] MEDS: AZITHROMYCIN INJ 500 MG in SODIUM CHLORIDE 0.9% 250 ML 250 ML 250 MG IV (09:46)
[2025-05-01] MEDS: POLYETHYLENE GLYCOL 17 GM PACKET PO (09:51)
[2025-05-01] MEDS: BUMETANIDE INJ 0.25 MG/ML VIAL 4 ML 1 MG IVP (09:51)
[2025-05-01] MEDS: BALSAM PERU/CASTOR OIL (Venelex) 60 GM TUBE TOP ×2 (09:53→20:16)
--- NOTE | 2025-05-01 10:20 | XR_ITS ---
Examination: AP chest single view Technique one AP portable upright chest single view Date and time: May 01, 2025, 1026 hrs. Comparison April 26, 2025 Indications: Shortness of breath today. Findings: Moderate enlargement cardiac contour Prominent vascular congestion. No lobar pneumonia or chetan pulmonary edema Impression: Moderate enlargement cardiac contour Prominent vascular congestion
--- NOTE | 2025-05-01 12:49 | PC.NURSE ---
Removed bilateral wrist restraints at 8 am. Pending discharge to assisted due to patient has to be off restraints for 24 hours. Patient is cooperative at this time resting quietly.--KELIN
[2025-05-01] MEDS: ACETAMINOPHEN 325 MG TABLET 650 MG PO (13:41)
--- NOTE | 2025-05-01 14:00 | PD.RESPRO ---
Documentation for date of: 05/01/25 Subjective Subjective Interval history: Overnight, edson was given Quetiapine 25 mg X 1-->scheduled quetiapine 25 mg HS. Edson examined at bedside. Patient resting in no acute distress, off [place] Patient is alert and orientated x2. normal rate. Patient denied chest pain, shortness of breath, or chills overnight. Last bowel movement two days ago 04/29/2025. After morning rounding patient complained of generalized back pain which patient has prior history of bieng tired of laying on bed, l[place] patch provider form back pain. Updated at approximately 4:00 PM, patient complaining of 10/10 generalized body ache, including bones . Abdomen non distended with diffuse tenderness in all four quadrants. Bowel sounds hypo-active, pained stated she need to have a bowel movement but couldn't on the bed. Supra-pubic region palpated, bladder scan negative. KUB ordered, noted for stool impaction. No obstructing patter. Patient stated 10/10 pain. Eliquis held as hematuria noted during bladder scan.->consider resuming AM if no change in Hemoglobin. Dilaudid 1 mg administered. US bladder obtained. RR-->called at approximetly 7:30 for concern for lethargy. Exam Vital Signs Temp Pulse Resp BP Pulse Ox O2 Del Method O2 Flow Rate 97.5 F 68 18 119/87 H 96 Room Air 3 05/01/25 19:41 05/01/25 20:16 05/01/25 19:43 05/01/25 20:16 05/01/25 19:43 05/01/25 16:00 05/01/25 19:43 Narrative Exam GENERAL: A&Ox2, elderly female, Awake, Not in acute distress NEURO: no focal neurological deficits HEENT: Atraumatic, Normocephalic. mucous membranes moist. Eyes open, symmetrical, & clear HEART: Normal Heart Sounds LUNGS: Clear to auscultation with no wheezing or crackles. ABDOMEN: soft, non-distended, non-tender, bowel sounds heard, no guarding or rebound tenderness SKIN: Multiple scrapes, lacerations noted on lower extremities bilaterally EXTREMITIES: 2+ pitting edema bilaterally in LE, no tenderness, able to move all 4 extremities, pedal pulses palpated Objective Labs 05/05/25 05:43 05/05/25 05:43 Labs: Laboratory Results - last 24 hr 05/01/25 05/01/25 05/01/25 05:17 19:51 20:05 WBC 7.8 RBC 4.39 Hgb 11.2 L Hct 34.9 L MCV 80 MCH 25.5 MCHC 32.1 RDW Std Deviation 55.2 H Plt Count 101 L Neut % (Auto) 74 Lymph % (Auto) 16 [place] % (Auto) 8 Eos % (Auto) 1 Baso % (Auto) 0 Neut # (Auto) 5.8 Lymph # (Auto) 1.3 [place] # (Auto) 0.6 Eos # (Auto) 0.1 Baso # (Auto) 0.0 Immature Gran # (Auto) 0.03 H Absolute Nucleated RBC 0.00 Immature Gran % 0 Nucleated RBC % 0 Puncture Site Right Radial ABG pH 7.50 H ABG pCO2 45 ABG pO2 89 ABG HCO3 35 H ABG O2 Saturation 98 ABG Base Excess 10 H FiO2 32 Sodium 147 H 145 Potassium 3.7 4.0 Chloride 102 106 Carbon Dioxide 36.0 H 32.2 H Anion Gap 9 7 BUN 60 H 49 H Creatinine 2.0 H 1.9 H Estim Creat Clear Calc 23.1 L 24.3 L eGFR 25 L 27 L BUN/Creatinine Ratio 30 H 26 H Glucose 80 121 H D Calculated Osmolality 308 H 302 H Lactic Acid 2.0 Calcium 7.8 L 8.3 Corrected Calcium 8.9 9.3 Phosphorus 3.7 Magnesium 2.2 Total Bilirubin 1.5 H 1.5 H AST 69 H 76 H ALT 152 H 153 H Alkaline Phosphatase 173 H D 205 H D Total Protein 5.3 L 5.9 Albumin 2.6 L 2.8 L Globulin 2.7 3.1 Albumin/Globulin Ratio 1.0 L 0.9 L ABG Interpretation ABG results: 04/26/25 05/01/25 23:16 19:51 ABG pH 7.50 H ABG pCO2 45 ABG pO2 89 ABG HCO3 35 H ABG O2 Saturation 98 ABG Base Excess 10 H VBG pH 7.49 VBG pCO2 23 L VBG pO2 33 VBG Base Excess -4 L Quality Measures Quality Measures none Advance care planning discussed with:: patient Assessment & Plan Assessment Current Active Medications: Generic Name Dose Route Start Last Admin Trade Name Freq PRN Reason Stop Dose Admin Acetaminophen 650 mg 05/01/25 17:44 Acetaminophen 325 Mg Tablet PO 05/27/25 08:00 Q6H PRN Fever >100.3 Amiodarone HCl 200 mg 04/30/25 21:00 05/01/25 20:16 Amiodarone Hcl 200 Mg Tablet PO 05/30/25 20:59 200 mg BID JOHN Administration Apixaban 2.5 mg 04/30/25 09:00 05/01/25 09:45 Apixaban 2.5 Mg Tablet PO 05/30/25 08:59 2.5 mg BID JOHN Administration Aspirin 81 mg 04/28/25 09:00 05/01/25 09:45 Aspirin Ec 81 Mg Tabec PO 05/28/25 08:59 81 mg DAILY JOHN Administration Atorvastatin Calcium 80 mg 04/27/25 21:00 05/01/25 20:15 Atorvastatin Calcium 20 Mg Tablet PO 05/27/25 20:59 80 mg HS JOHN Administration Balsam [place] Oil 0 gm 04/28/25 21:00 05/01/25 20:16 Balsam [place] Oil (Venelex) 60 Gm Tube TOP 05/28/25 20:59 1 applicatio BID JOHN Administration Ceftriaxone Sodium/Dextrose 1 gm in 50 mls @ 100 mls/hr 04/27/25 08:07 05/01/25 09:45 Rocephin/D5w 1gm Iv Premix IV 05/04/25 08:06 100 mls/hr QDAY JOHN Administration Azithromycin 500 mg/ Sodium 250 mls @ 250 mls/hr 04/28/25 09:00 05/01/25 09:46 Chloride IV 05/05/25 08:59 250 mls/hr QDAY JOHN Administration Levothyroxine Sodium 25 mcg 04/28/25 06:00 05/01/25 05:47 Levothyroxine Sodium 25 Mcg Tablet PO 05/28/25 05:59 25 mcg ACBR JOHN Administration Metoprolol Succinate 50 mg 05/01/25 10:00 05/01/25 09:49 Metoprolol Succinate Xl 25 Mg Tabcr PO 05/31/25 09:59 Not Given QDAY JOHN Polyethylene Glycol 17 gm 05/01/25 09:00 05/01/25 09:51 Polyethylene Glycol 17 Gm Packet PO 05/31/25 08:59 17 gm QDAY JOHN Administration Quetiapine Fumarate 25 mg 05/01/25 21:00 05/01/25 20:13 Quetiapine Fumarate 25 Mg Tablet PO 05/31/25 20:59 Not Given HS JOHN Sennosides 1 tab 05/01/25 21:00 05/01/25 20:16 Senna/Docusate Sod 1 Tab Tablet PO 05/31/25 20:59 1 tab HS JOHN Administration Protocol Plan Ms. Kaiser is a 74-year-old female past medical history significant for A-fib (on amiodarone and Eliquis), CAD status post stent, hypertension, history of CVA in 2022, HFrEF EF 35 to 40% and history of left ventrical mural thrombus. Patient was brought in by her son for SNF placement as he is unable to care of her at home because patient has increased generalized weakness. #Intractable abdominal pain #Transaminitis, improving #Hyperbilirubinemia, improving On admission patient presented with transaminitis AST 166 and ALT 413 of alkaline phosphate of 163, likely in the setting of hepatorenal syndrome as patient presented with acute on chronic CHF exacerbation. Hepatitis panel negative. Less likely cholecystitis as common bile is not distended only cholelithiasis this pattern noted with wall thickening but no obstruction. Very open repeat ultrasound of the upper quadrant showing contracted gallbladder with multiple gallstones. Consider general surgery consult if symptoms do not improve. Plan -F/U with gallbladder scan -Continue to trend AST's and ALT's, continue to trend total bili - Consider general surgery consult #A-fib with RVR, improved #History of small PFO - Patient has a history of A-fib and takes amiodarone as well as Eliquis daily - On admission patient was found to be in A-fib with heart rate 160-70's -In the ED patient was given digoxin and magnesium and started on amio drip as per cardio recommendations, BE: BE from 08/22/2023 showed Small mobile MARCIO thrombus, Positive bubble study. There is evidence of very small PFO demonstrated by agitated saline injection [id number] score 5, HAS-BLED 5 Plan: -HOLDING Eliquis given hematuria noted on adult diapers, if no changes no changes Hg-->resume. Clarify with Cardiology why patient was started at 2.5 mg BID as patient is <80 years and >65 kg. -Amiodarone 200 mg p.o. bid -Keep magnesium above 2 potassium above 4 #Acute hypoxic respiratory failure secondary CHF exacerbation #Acute decompensated heart failure #HFrEF, EF of <20% #Sever LV dilation, w/ severe Global Hypokinesis Patient presented in acute chf exacerbation with HFrEF of <20% likely secondary to dilated cardiomyoapthy given atrial fibrillaiton. Diagnostics: -BNP 1987-->Repeat with morning labs -Echo (04/27/2025) indicates HFrEF and A-fib.Dilated cardiomyopathy. EF worsened from 35 to 40% to less than 20%. Severe LV dilatation, severe Global Hypokinesis. Estimated EF 15-20%. Diastolic dysfunction present but could not be graded due to A-fib/arrhythmia. Mild RV dilatation with moderate RV dysfunction. Mildly elevated RVSP at 35 and 40 mmHg. Mild MAC with mild MR.. Mild aortic valve sclerosis without stenosis. Moderate TR. Trace PI. IVC Dilated with less than 50% collapse with inspiration. No pericardial effusion. Plan: -Continue Bumex 1 mg IV-->discontinued per cardiology recommendations. -Repeat BNP AM -Strict ins and out -Daily weights -Fluid restrictions -Work towards GDMT -Cardiology is consulted and following #Community Acquired Pneumonia #Leukocytosis Concern for CAP pneumonia. Patient started on antibiotics Blood cultures negative. Plan --IV antibiotics azithromycin plus Rocephin started 04/27-05/02/2025 -Given worsening leukocytosis, consider repeat cxr AM and consider repeat urine study LOYD, likely prerenal on admission likely prerenal as patient presented on 04/26/2025 with a BUN level of 81, creatinine level 3.4 and BUN/creatinine ratio of 24. Likely pre-renal in the setting of cardio-renal syndrome continue with aggressive diuresis on admission. Plan -Avoid nephrotoxins continue to monitor renal function with diuretics on board - Strict ins and outs monitor for any ATN progression - Nephrology consulted, appreciate recommendations #Hypotension. #Primary hypertension. Patient has history of hypertension, home meds include olmesartan 40mg and spironolactone 25mg, however Pt became hypotensive after starting amiodarone drip. -Will hold antihypertensive medications as of now. #Euthyroid sick syndrome #Intermittent bradycardia - Patient does not have history of thyroid disease -TSH decreased to 7.4 from 13.17, free T4 0.76, T4 3.4 -Patient intermittently goes into bradycardia with heart rate ranging between 39 and 60s Plan: -Repeat TSH and Free T4 w/ AM draws on 05/03/2025 - Levothyroxine 25 mcg daily before breakfast #Hx. of Ischemic stroke, 2022 #History of CAD s/p stent placement. -Resumed home aspirin and Atorvastatin #Pulmonary nodules CT of chest shows At least 6 bilateral noncalcified pulmonary nodules, the largest in the lower lung zone on the right measuring 11 mm, 12 mm. Chronic smoking history. Plan: -Follow up with repeat images in 6 months. Health Maintenance Disposition: telemetry DVT Prophylaxis: resumed Eliquis for afib GI Prophylaxis: not indicated Diet: Diabetic Diet Lines: Peripheral lines Code status: Full - The patient's plan was discussed with attending Dr. Rosa Maria Zhu MD PGY2 Internal Medicine Attending Provider Attestation/Addendum 74-year-old female with multiple comorbidities including hypertension, hyperlipidemia, coronary artery disease status post stent placement with subsequent heart failure with reduced EF with EF 35-40% and history of left ventricular mural thrombus, atrial fibrillation on Eliquis CVA with no residual deficits who presented to the ER with generalized weakness found to have acute hypoxic respiratory failure likely being multifactorial secondary to community-acquired pneumonia and acute decompensated heart failure and subsequently started on IV antibiotic therapy and IV diuretics. In addition, patient also noted to have A-fib with RVR. Of note, patient underwent repeat echocardiogram with findings of EF 15 to 20% and also noted to have acute kidney injury likely ATN. Furthermore, patient is pending HIDA scan to evaluate for possible cholelithiasis versus cholecystitis. Plan to continue IV antibiotic therapy and monitor the patient closely. I reviewed above note and agree with findings and plans. I have also personally examined the patient with medicine team and went over assessment and plan with medical team including internal audit director and resident physician.
[2025-05-01] MEDS: LIDOCAINE 5% 1 PATCH TOP (16:14)
--- NOTE | 2025-05-01 17:36 | XR_ITS ---
Examination: Abdomen AP single view Technique: AP portable supine abdomen, single view Exam date and time: May 01, 2025 1812 hours INDICATIONS: Abdominal pain today. FINDINGS: Moderate stool throughout the colon including rectum No free air Vascular calcification Prominent osteopenia. Advanced right hip osteoarthritis IMPRESSION: Nonobstructive bowel gas pattern
--- NOTE | 2025-05-01 18:01 | ESPR_ITS ---
<Statement entered by Ryan Baca MD - 05/02/25 18:55> I personally examined the patient evaluated with the resident physician patient is feeling little better today does not complain of any shortness of breath chest pain abdominal pain improved A-fib rate controlled clinically not in heart failure we will continue medical management monitor for any decompensation. Continue to decrease diuretics and hold off for now. Elevated the patient with Dr. Otf MCGUIRE PGY2 agree with the treatment plan recommendation as documented Documentation for date of: 05/01/25 Subjective Subjective Interval history: Pt is seen and examined at bedside this morning. Pt has become increasingly agitated during hospitalization. Pt has been responding well to diuresis, denies any shortness of breath, palpitations or chest pain. Pt is saturating on room air, and on physical exam does not have any edema in LE. Pt appears to be dry. Recommend stop diuretics for now. vitals are stable with BP 113/67 and HR of 73 Labs are significant for milk contraction alkalosis with Bicarb 32.2, BUN 49, Cr 1.9, GFR 27 Pt is complaining of left side abdominal pain and on physical exam there is tenderness noted on left Upper and lower quadrant. CT scan does show cholelithiasis , T bili is 1.5, AST 76, ALT 153. Pt has no cardiac complaints Exam Vital Signs Temp Pulse Resp BP Pulse Ox O2 Del Method O2 Flow Rate 96.9 F 75 18 100/64 94 L Room Air 10 05/01/25 16:00 05/01/25 16:00 05/01/25 16:05/01/25 16:05/01/25 16:05/01/25 16:05/01/25 04:00 Narrative Exam GENERAL: A&Ox3, elderly female, Awake, Not in acute distress NEURO: no focal neurological deficits HEENT: Atraumatic, Normocephalic. mucous membranes moist. Eyes open, symmetrical, & clear HEART: Normal Heart Sounds LUNGS: Clear to auscultation with no wheezing or crackles. ABDOMEN: soft, non-distended, Left upper and lower quadrant tenderness, bowel sounds heard, no guarding or rebound tenderness SKIN: Multiple scrapes, lacerations noted on lower extremities bilaterally and lower back on buttocks (decubitus ulcer stage 1) EXTREMITIES: trace pitting edema bilaterally in LE, no tenderness, able to move all 4 extremities, pedal pulses palpated Objective Labs 05/01/25 05:17 05/01/25 20:05 Labs: Laboratory Results - last 24 hr 05/01/25 05:17 WBC 7.8 RBC 4.39 Hgb 11.2 L Hct 34.9 L MCV 80 MCH 25.5 MCHC 32.1 RDW Std Deviation 55.2 H Plt Count 101 L Neut % (Auto) 74 Lymph % (Auto) 16 [place] % (Auto) 8 Eos % (Auto) 1 Baso % (Auto) 0 Neut # (Auto) 5.8 Lymph # (Auto) 1.3 [place] # (Auto) 0.6 Eos # (Auto) 0.1 Baso # (Auto) 0.0 Immature Gran # (Auto) 0.03 H Absolute Nucleated RBC 0.00 Immature Gran % 0 Nucleated RBC % 0 Sodium 147 H Potassium 3.7 Chloride 102 Carbon Dioxide 36.0 H Anion Gap 9 BUN 60 H Creatinine 2.0 H Estim Creat Clear Calc 23.1 L eGFR 25 L BUN/Creatinine Ratio 30 H Glucose 80 Calculated Osmolality 308 H Calcium 7.8 L Corrected Calcium 8.9 Phosphorus 3.7 Magnesium 2.2 Total Bilirubin 1.5 H AST 69 H ALT 152 H Alkaline Phosphatase 173 H D Total Protein 5.3 L Albumin 2.6 L Globulin 2.7 Albumin/Globulin Ratio 1.0 L ABG Interpretation ABG results: 04/26/25 23:16 VBG pH 7.49 VBG pCO2 23 L VBG pO2 33 VBG Base Excess -4 L Quality Measures Quality Measures none Advance care planning discussed with:: other Assessment & Plan Assessment Current Active Medications: Generic Name Dose Route Start Last Admin Trade Name Ivy PRN Reason Stop Dose Admin Acetaminophen 650 mg 05/01/25 17:44 Acetaminophen 325 Mg Tablet PO 05/27/25 08:00 Q6H PRN Fever >100.3 Amiodarone HCl 200 mg 04/30/25 21:00 05/01/25 09:44 Amiodarone Hcl 200 Mg Tablet PO 05/30/25 20:59 200 mg BID OJHN Administration Apixaban 2.5 mg 04/30/25 09:00 05/01/25 09:45 Apixaban 2.5 Mg Tablet PO 05/30/25 08:59 2.5 mg BID JOHN Administration Aspirin 81 mg 04/28/25 09:00 05/01/25 09:45 Aspirin Ec 81 Mg Tabec PO 05/28/25 08:59 81 mg DAILY JOHN Administration Atorvastatin Calcium 80 mg 04/27/25 21:00 04/30/25 20:47 Atorvastatin Calcium 20 Mg Tablet PO 05/27/25 20:59 80 mg HS JOHN Administration Balsam [place] Oil 0 gm 04/28/25 21:00 05/01/25 09:53 Balsam [place] Oil (Venelex) 60 Gm Tube TOP 05/28/25 20:59 1 applicatio BID JOHN Administration Bumetanide 1 mg 05/01/25 09:00 05/01/25 09:51 Bumetanide Inj 0.25 Mg/Ml Vial 4 Ml IVP 05/31/25 08:59 1 mg QDAY JOHN Administration Ceftriaxone Sodium/Dextrose 1 gm in 50 mls @ 100 mls/hr 04/27/25 08:07 05/01/25 09:45 Rocephin/D5w 1gm Iv Premix IV 05/04/25 08:06 100 mls/hr QDAY JOHN Administration Azithromycin 500 mg/ Sodium 250 mls @ 250 mls/hr 04/28/25 09:00 05/01/25 09:46 Chloride IV 05/05/25 08:59 250 mls/hr QDAY JOHN Administration Levothyroxine Sodium 25 mcg 04/28/25 06:00 05/01/25 05:47 Levothyroxine Sodium 25 Mcg Tablet PO 05/28/25 05:59 25 mcg ACBR JOHN Administration Metoprolol Succinate 50 mg 05/01/25 10:00 05/01/25 09:49 Metoprolol Succinate Xl 25 Mg Tabcr PO 05/31/25 09:59 Not Given QDAY JOHN Polyethylene Glycol 17 gm 05/01/25 09:00 05/01/25 09:51 Polyethylene Glycol 17 Gm Packet PO 05/31/25 08:59 17 gm QDAY JOHN Administration Quetiapine Fumarate 25 mg 05/01/25 21:00 Quetiapine Fumarate 25 Mg Tablet PO 05/31/25 20:59 HS JOHN Sennosides 1 tab 05/01/25 21:00 Senna/Docusate Sod 1 Tab Tablet PO 05/31/25 20:59 HS JOHN Protocol Plan Ms. Kaiser is a 74-year-old female past medical history significant for A-fib (on amiodarone and Eliquis), CAD status post stent, hypertension, history of CVA in 2022, HFrEF EF 35 to 40% and history of left ventrical mural thrombus. Patient was brought in by her son for SNF placement as he is unable to care of her at home because patient has increased generalized weakness. #Acute hypoxic respiratory failure secondary to - resolved #Acute on chronic decompensated heart failure #HFrEF, EF of 20% #Dilated Cardiomyopathy #Severe global hypokinesia Patient has a past medical history of CHF with previous ejection fraction between 35 to 40%, upon admission worsening ejection fraction to 20% (04/27/2025) - CT of chest shows moderate enlargement of cardiac contour and mild left base pneumonia -BNP is 1788 -NYHA IV Plan: -disontinue Bumex for now, pt appears to be dry, no longer in decompensated HF -Discontinue home coreg -Will hold home GDMT due to soft BP -Strict ins and out -Daily weights -Fluid restrictions 1500 and sodium restriction to 2gm -K>4 and Magnesium >2 -Repeat BNP prior to discharge -Work towards GDMT, Entresto (not part of home medication) & Sprinoloactone #A-fib with RVR, now rate controlled #History of MARCIO thrombus - Patient has a history of A-fib and takes amiodarone 200mg daily as well as Eliquis 5mg BID - On admission patient was found to be in A-fib with heart rate 160-70's -In the ED patient was given digoxin and magnesium and started on amio drip as per cardio recommendations BE: BE from 08/22/2023 showed Small mobile MARCIO thrombus, Positive bubble study. There is evidence of very small PFO demonstrated by agitated saline injection [id number] score 5, HAS-BLED 5 Plan: -Continue home Amiodarone 200 mg twice daily -Pt is started on metoprolol 50mg daily by the primary team -Continue eliquis 2.5mg bid -Keep magnesium above 2 and potassium above 4 #LOYD- improving Baseline 1.0, on admission creatinine is 3.4, GFR 13, BUN 81 likely prerenal in the setting of poor oral intake plan: -Avoid nephrotoxic and renally dise medications -Unable to give IV fludis due to pt rafael cute CHF exacerbation Consulted Gate Tender Dr. Martin, appreciate recommendations #Hypotension. #Primary hypertension. Patient has history of hypertension, home meds include olmesartan 40mg and spironolactone 25mg, however Pt became hypotensive after starting amiodarone drip. -Will hold antihypertensive medications as of now. -Continue to monitor BP #Community Acquired Pneumonia -Continue IV antibiotics #Pulmonary nodules CT of chest shows At least 6 bilateral noncalcified pulmonary nodules, the largest in the lower lung zone on the right measuring 11 mm, 12 mm - Patient is unaware of the pulmonary nodules however she is a chronic smoker plan: After patient is stable patient will likely need further workup of the pulmonary nodules -The nodules may be too small to biopsy, recommend contacting IR if nodules can be biopsied. #Hx. of Ischemic stroke, 2022 #History of CAD s/p stent placement. -Continue home aspirin and Atorvastatin Assessment and plan discussed with attending physician Dr. Keven Vanessa (PGY-2)- Internal medicine resident
[2025-05-01] MEDS: HYDROmorphone INJ 2 MG/ML VIAL 1 MG IVP (18:02)
--- NOTE | 2025-05-01 19:08 | XR_ITS ---
Examination: Abdomen sonogram, Limited Date and time of exam: May 01, 2025, 2018 hours INDICATIONS: Clinical diagnosis acute cholecystitis, right upper abdominal pain Technique: Real-time baires scale transabdominal sonographic images of the upper abdomen obtained. Findings: Contracted gallbladder Gallbladder wall is thickened 0.72 cm Multiple gallstones Common bile duct 0.3 cm Pancreatic head 3.6 cm Liver 14.7 cm lobular contour of fatty infiltration mild ascites 13 mm left lobe liver cyst Normal hepatopedal portal venous flow Patent IVC IMPRESSION: Cholelithiasis Gallbladder wall is thickened but the patient has cirrhosis and ascites which may cause the gallbladder wall thickening Clinical correlation advised, consider HIDA scan follow-up
--- NOTE | 2025-05-01 19:45 | PD.RESEVENT ---
Documentation for date of: 05/01/25 Event Note Event Note: Rapid response called at 7:40 PM after being noted to be less responsive. Upon arrival, vital signs stable with O2 98% on 3 L NC, BP and HR stable. Noted to have been given 1 mg dilaudid not too long ago and was arousable to voice. Will order an ABG and follow-up on results to ensure that patient is not retaining but she was resting comfortably in bed afterwards. No interventions needed at this time. Second rapid response called at approximately 2 AM for heart rate sustaining 150s as well as significant pain. EKG showed A-fib versus flutter with heart rate of 156. Patient was also agitated and as previously noted in significant pain so was given 0.25 mg Dilaudid, 25 mg quetiapine, and 50 mg metoprolol succinate. Afterwards, patient pain improved and heart rate also improved to 80s. ----- Plan discussed with attending physician Dr. Otf France MD PGY-2 Internal Medicine
[2025-05-01 20:02] LABS: Base Excess 10 (-3-3); HCO3 35 mEq/L (20-26); Inspired Oxygen, FIO2 32 %; O2 Saturation 98 % (91-98); PCO2 45 mmHg (32.0-48.0); PO2 89 mmHg (83-108); pH, Arterial 7.50 (7.35-7.45)
[2025-05-01 20:03] LABS: Allen Test Performed/OK; Puncture Site Right Radial
[2025-05-01] MEDS: ATORVASTATIN CALCIUM 20 MG TABLET 80 MG PO (20:15)
[2025-05-01] MEDS: SENNA/DOCUSATE SOD 1 TAB TABLET PO (20:16)
[2025-05-01 20:18] LABS: Lactate (Lactic Acid) 2.0 mMol/L (0.4-2.0)
[2025-05-01 20:47] LABS: Alanine Aminotransferase 153 U/L (10-49); Albumin, Serum 2.8 gm/dL (3.4-4.8); Albumin/Globulin Ratio 0.9 (1.2-2.2); Anion Gap 7 (7-16); Aspartate Amino Transferase 76 U/L (0-34); BUN/Creatinine Ratio 26 Ratio (12-20); Bilirubin,Total 1.5 mg/dL (0.3-1.2); Blood Urea Nitrogen 49 mg/dL (9-23); Calcium 8.3 mg/dL (8.3-10.6); Calcium (Corrected) 9.3 mg/dL (8.5-10.1); Carbon Dioxide 32.2 mMol/L (20.0-31.0); Chloride 106 mMol/L (98-107); Creatinine (Component) 1.9 mg/dL (0.6-1.3); Estimated Creatinine Clearance 24.3 mL/min (>60); Globulin 3.1 gm/dL (2.3-3.5); Glucose 121 mg/dL (74-106); Osmolality,Calculated 302 (275-295); Potassium 4.0 mMol/L (3.4-5.1); Sodium 145 mMol/L (136-145); Total Protein 5.9 gm/dL (5.7-8.2); eGFR 27 See Note
[2025-05-01 20:48] LABS: Alkaline Phosphatase 205 U/L (46-116)
[2025-05-02] VITALS (12 sets, daily range): BP systolic 87–158; BP diastolic 62–117; PULSE 72–160; RESP 15–20; TEMP 35.9–36.6; O2SAT 91–99; BMI 26.0
--- NOTE | 2025-05-02 02:04 | EKG_ITS ---
[facility] Test Date: 2025-05-02 Pat Name: OLGA GEIGER Department: Room: S270A Gender: Female Bioinformatics Software Engineer: ROSANNE : 1950 Requested By: Camacho France Order Number: [id number] Reading MD: Camacho France Measurements Intervals [place] Rate: 156 P: -48 [place]: 131 QRS: -39 QRSD: 134 T: -61 QT: 314 QTc: 507 Interpretive Statements ECTOPIC ATRIAL TACHYCARDIA, POSSIBLE ATRIAL FLUTTER INTRAVENTRICULAR CONDUCTION DELAY INFERIOR MYOCARDIAL INFARCTION , OF INDETERMINATE AGE ANTEROLATERAL MYOCARDIAL INFARCTION , OF INDETERMINATE AGE Compared to ECG 04/30/2025 14:53:52 Intraventricular conduction delay now present Supraventricular rhythm no longer present Myocardial infarct finding still present /[id number]/[id number]
[2025-05-02] MEDS: HYDROmorphone INJ 2 MG/ML VIAL 0.25 MG IVP (02:13)
[2025-05-02] MEDS: METOPROLOL SUCCINATE XL 25 MG TABCR 50 MG PO ×2 (02:44→09:39)
[2025-05-02] MEDS: LEVOTHYROXINE SODIUM 25 MCG TABLET PO (05:21)
[2025-05-02 05:58] LABS: Lactate (Lactic Acid) 2.4 mMol/L (0.4-2.0)
[2025-05-02 06:04] LABS: Basophils # (Auto) 0.1 Thou/mm3 (0.0-0.2); Basophils % (Auto) 0 % (0-2.5); Eosinophils # (Auto) 0.0 Thou/mm3 (0.0-0.5); Eosinophils % (Auto) 0 % (0-10); Hematocrit 41.7 % (36.0-46.0); Hemoglobin 13.6 g/dL (12.0-16.0); Immature Granulocytes Auto 0.29 Thou/mm3 (0.00-0.00); Lymphocytes # (Auto) 0.5 Thou/mm3 (1.0-4.8); Lymphocytes % (Auto) 2 % (10-50); Mean Corpuscular HGB Conc 32.6 g/dl (31.0-37.0); Mean Corpuscular Hemoglobin 25.0 pg (25.0-35.0); Mean Corpuscular Volume 77 fL (80-100); Monocytes # (Auto) 0.5 Thou/mm3 (0.0-0.8); Monocytes % (Auto) 2 % (0-12); Neutrophils # (Auto) 29.0 Thou/mm3 (1.8-7.7); Neutrophils % (Auto) 96 % (37-80); Nucleated Red Blood Cell # 0.00 Thou/mm3 (0.00-0.00); Nucleated Red Blood Cell % 0 /100 WBC (0); Platelet Count 136 Thou/mm3 (140-440); RDW Standard Deviation 54.2 fL (36.4-46.3); Red Blood Count 5.44 Miln/mm3 (4.00-5.20); White Blood Count 30.4 Thou/mm3 (3.6-11.0)
[2025-05-02 06:38] LABS: Alanine Aminotransferase 134 U/L (10-49); Albumin, Serum 2.6 gm/dL (3.4-4.8); Albumin/Globulin Ratio 0.9 (1.2-2.2); Alkaline Phosphatase 167 U/L (46-116); Anion Gap 11 (7-16); Aspartate Amino Transferase 54 U/L (0-34); BUN/Creatinine Ratio 27 Ratio (12-20); Bilirubin,Total 1.7 mg/dL (0.3-1.2); Blood Urea Nitrogen 57 mg/dL (9-23); Calcium 8.3 mg/dL (8.3-10.6); Calcium (Corrected) 9.4 mg/dL (8.5-10.1); Carbon Dioxide 31.6 mMol/L (20.0-31.0); Chloride 103 mMol/L (98-107); Creatinine (Component) 2.1 mg/dL (0.6-1.3); Estimated Creatinine Clearance 22.0 mL/min (>60); Globulin 2.9 gm/dL (2.3-3.5); Glucose 117 mg/dL (74-106); Magnesium 2.0 mg/dL (1.6-2.6); Osmolality,Calculated 307 (275-295); Phosphorous 3.3 mg/dL (2.4-5.1); Potassium 4.2 mMol/L (3.4-5.1); Sodium 146 mMol/L (136-145); Total Protein 5.5 gm/dL (5.7-8.2); eGFR 24 See Note
[2025-05-02 08:51] LABS: Reflex Lactate? Y
[2025-05-02] MEDS: cefTRIAXone/D5w 1gm IV premix 1 GM/50 ML BAG IV (09:28)
[2025-05-02] MEDS: AZITHROMYCIN INJ 500 MG in SODIUM CHLORIDE 0.9% 250 ML 250 ML 250 MG IV (09:28)
[2025-05-02] MEDS: AMIODARONE HCL 200 MG TABLET PO ×2 (09:37→20:40)
[2025-05-02] MEDS: ASPIRIN EC 81 MG TABEC PO (09:38)
[2025-05-02] MEDS: BALSAM PERU/CASTOR OIL (Venelex) 60 GM TUBE TOP ×2 (09:39→20:40)
[2025-05-02] MEDS: POLYETHYLENE GLYCOL 17 GM PACKET PO (09:39)
--- NOTE | 2025-05-02 10:22 | XR_ITS ---
Examination: DOUG, hepatobiliary radioisotope scan Date and time of exam: May 04, 2025 0857 hours INDICATIONS: Elevated total bilirubin alkaline phosphatase on laboratory examination this week Technique: 6.0 mCi of 99M Hepatolite administered. Serial imaging then obtained from immediate through 60 minutes. Findings: Radioisotope activity within the liver is reasonably homogenous. Common bile duct small bowel activity noted Impression: No gallbladder activity noted consistent with cystic duct obstruction
[2025-05-02 10:26] LABS: Lactic Acid, 3 HR 2.5 mMol/L (0.4-2.0)
[2025-05-02] MEDS: metroNIDAZOLE/NS 500 MG IVPB 500 MG/100 ML BAG 200 MG IV ×2 (11:30→21:12)
--- NOTE | 2025-05-02 12:36 | ESPR_ITS ---
Documentation for date of: 05/02/25 Senior resident attestation: Patient evaluated and examined at the bedside, plan of care discussed with rest of the team including my attending physician, except as noted. Patient is not complaining of any abdominal pain, but noted abdominal tenderness on physical, slight distention, had consulted general surgery for cholelithiasis and possible cholecystitis, given history of cirrhosis and ascites and other comorbid factors, regarding surgery patient is not a candidate for surgery despite recommended continuing antibiotics. Will wait for HIDA scan. Quresh PGY3 Subjective Subjective Interval history: Patient was seen and examined at bedside. A.m. vitals and labs reviewed. Yesterday, patient had a tachycardic episode in which the patient's heart rate increased up to 160 with agitation. Dilaudid has been given to manage the episode. The patient has leukocytosis with WBC count of 30.4, RUQ pain and US gallbladder (05/01/2025) result of cholelithiasis and possible cholecystitis. However the patient is currently afebrile, normal blood pressure, and heart rate. Surgery consult has been placed and metronidazole ordered. Today, patient looks drowsy but was able to answer some of my questions. Denies chest pain, shortness of breath, fever or chills. The patient does not overtly edematous. Exam Vital Signs Temp Pulse Resp BP Pulse Ox O2 Del Method O2 Flow Rate 97.9 F 73 15 96/66 92 L Oxy Mask 4 05/02/25 12:05/02/25 12:05/02/25 12:05/02/25 12:05/02/25 12:05/02/25 12:05/02/25 12:00 Narrative Exam GENERAL: Drowsy, elderly female, Awake, Not in acute distress NEURO: no focal neurological deficits HEENT: Atraumatic, Normocephalic. mucous membranes moist. Eyes open, symmetrical, & clear HEART: Normal Heart Sounds LUNGS: Clear to auscultation with no wheezing or crackles. ABDOMEN: soft, non-distended, non-tender, bowel sounds heard, no guarding or rebound tenderness SKIN: Multiple scrapes, lacerations noted on lower extremities bilaterally EXTREMITIES: 2+ pitting edema bilaterally in LE, no tenderness, able to move all 4 extremities, pedal pulses palpated Objective Labs 05/05/25 05:43 05/05/25 05:43 Labs: Laboratory Results - last 24 hr 05/01/25 05/01/25 05/02/25 19:51 20:05 05:40 WBC 30.4 H D RBC 5.44 H Hgb 13.6 D Hct 41.7 MCV 77 L MCH 25.0 MCHC 32.6 RDW Std Deviation 54.2 H Plt Count 136 L D Neut % (Auto) 96 H Lymph % (Auto) 2 L [place] % (Auto) 2 Eos % (Auto) 0 Baso % (Auto) 0 Neut # (Auto) 29.0 H Lymph # (Auto) 0.5 L [place] # (Auto) 0.5 Eos # (Auto) 0.0 Baso # (Auto) 0.1 Immature Gran # (Auto) 0.29 H Absolute Nucleated RBC 0.00 Immature Gran % 1 H Nucleated RBC % 0 Puncture Site Right Radial ABG pH 7.50 H ABG pCO2 45 ABG pO2 89 ABG HCO3 35 H ABG O2 Saturation 98 ABG Base Excess 10 H FiO2 32 Sodium 145 146 H Potassium 4.0 4.2 Chloride 106 103 Carbon Dioxide 32.2 H 31.6 H Anion Gap 7 11 BUN 49 H 57 H Creatinine 1.9 H 2.1 H Estim Creat Clear Calc 24.3 L 22.0 L eGFR 27 L 24 L BUN/Creatinine Ratio 26 H 27 H Glucose 121 H D 117 H Calculated Osmolality 302 H 307 H Lactic Acid 2.0 2.4 H Calcium 8.3 8.3 Corrected Calcium 9.3 9.4 Phosphorus 3.3 Magnesium 2.0 Total Bilirubin 1.5 H 1.7 H AST 76 H 54 H ALT 153 H 134 H Alkaline Phosphatase 205 H D 167 H D Total Protein 5.9 5.5 L Albumin 2.8 L 2.6 L Globulin 3.1 2.9 Albumin/Globulin Ratio 0.9 L 0.9 L 05/02/25 10:20 WBC RBC Hgb Hct MCV MCH MCHC RDW Std Deviation Plt Count Neut % (Auto) Lymph % (Auto) [place] % (Auto) Eos % (Auto) Baso % (Auto) Neut # (Auto) Lymph # (Auto) [place] # (Auto) Eos # (Auto) Baso # (Auto) Immature Gran # (Auto) Absolute Nucleated RBC Immature Gran % Nucleated RBC % Puncture Site ABG pH ABG pCO2 ABG pO2 ABG HCO3 ABG O2 Saturation ABG Base Excess FiO2 Sodium Potassium Chloride Carbon Dioxide Anion Gap BUN Creatinine Estim Creat Clear Calc eGFR BUN/Creatinine Ratio Glucose Calculated Osmolality Lactic Acid 2.5 H Calcium Corrected Calcium Phosphorus Magnesium Total Bilirubin AST ALT Alkaline Phosphatase Total Protein Albumin Globulin Albumin/Globulin Ratio ABG Interpretation ABG results: 04/26/25 05/01/25 23:16 19:51 ABG pH 7.50 H ABG pCO2 45 ABG pO2 89 ABG HCO3 35 H ABG O2 Saturation 98 ABG Base Excess 10 H VBG pH 7.49 VBG pCO2 23 L VBG pO2 33 VBG Base Excess -4 L Quality Measures Quality Measures none Advance care planning discussed with:: patient Assessment & Plan Assessment Current Active Medications: Generic Name Dose Route Start Last Admin Trade Name Freq PRN Reason Stop Dose Admin Acetaminophen 650 mg 05/01/25 17:44 Acetaminophen 325 Mg Tablet PO 05/27/25 08:00 Q6H PRN Fever >100.3 Amiodarone HCl 200 mg 04/30/25 21:00 05/02/25 09:37 Amiodarone Hcl 200 Mg Tablet PO 05/30/25 20:59 200 mg BID JOHN Administration Apixaban 2.5 mg 04/30/25 09:00 05/01/25 09:45 Apixaban 2.5 Mg Tablet PO 05/30/25 08:59 2.5 mg BID JOHN Administration Aspirin 81 mg 04/28/25 09:00 05/02/25 09:38 Aspirin Ec 81 Mg Tabec PO 05/28/25 08:59 81 mg DAILY JOHN Administration Atorvastatin Calcium 80 mg 04/27/25 21:00 05/01/25 20:15 Atorvastatin Calcium 20 Mg Tablet PO 05/27/25 20:59 80 mg HS JOHN Administration Balsam Rich/[place] Oil 0 gm 04/28/25 21:00 05/02/25 09:39 Balsam Rich/[place] Oil (Venelex) 60 Gm Tube TOP 05/28/25 20:59 1 applicatio BID JOHN Administration Ceftriaxone Sodium/Dextrose 1 gm in 50 mls @ 100 mls/hr 04/27/25 08:07 05/02/25 09:28 Rocephin/D5w 1gm Iv Premix IV 05/04/25 08:06 100 mls/hr QDAY JOHN Administration Azithromycin 500 mg/ Sodium 250 mls @ 250 mls/hr 04/28/25 09:00 05/02/25 09:28 Chloride IV 05/05/25 08:59 250 mls/hr QDAY JOHN Administration Metronidazole 500 mg in 100 mls @ 200 mls/hr 05/02/25 10:21 05/02/25 11:30 Flagyl 500 Mg Iv IV 05/09/25 10:20 200 mls/hr Q8HR JOHN Administration Levothyroxine Sodium 25 mcg 04/28/25 06:00 05/02/25 05:21 Levothyroxine Sodium 25 Mcg Tablet PO 05/28/25 05:59 25 mcg ACBR JOHN Administration Metoprolol Succinate 50 mg 05/02/25 09:00 05/02/25 09:39 Metoprolol Succinate Xl 25 Mg Tabcr PO 06/01/25 08:59 50 mg QDAY JOHN Administration Polyethylene Glycol 17 gm 05/01/25 09:00 05/02/25 09:39 Polyethylene Glycol 17 Gm Packet PO 05/31/25 08:59 17 gm QDAY JOHN Administration Quetiapine Fumarate 25 mg 05/01/25 21:00 05/01/25 20:13 Quetiapine Fumarate 25 Mg Tablet PO 05/31/25 20:59 Not Given HS JOHN Sennosides 1 tab 05/01/25 21:00 05/01/25 20:16 Senna/Docusate Sod 1 Tab Tablet PO 05/31/25 20:59 1 tab HS JOHN Administration Protocol Plan Ms. Kaiser is a 74-year-old female past medical history significant for A-fib (on amiodarone and Eliquis), CAD status post stent, hypertension, history of CVA in 2022, HFrEF EF 35 to 40% and history of left ventrical mural thrombus. Patient was brought in by her son for SNF placement as he is unable to care of her at home because patient has increased generalized weakness. #A-fib with RVR #History of small PFO - Patient has a history of A-fib and takes amiodarone as well as Eliquis daily - On admission patient was found to be in A-fib with heart rate 160-70's -In the ED patient was given digoxin and magnesium and started on amio drip as per cardio recommendations BE: BE from 08/22/2023 showed Small mobile MARCIO thrombus, Positive bubble study. There is evidence of very small PFO demonstrated by agitated saline injection [id number] score 5, HAS-BLED 5 Plan: -Resumed home pt's eliquis -Keep magnesium above 2 potassium above 4 -Repeat echo ordered -[employer] Dr. Lezama is consulted, appreciate recommendations -Patient continues to have A-fib with RVR overnight we will try metoprolol succinate 50 mg starting tomorrow and we will observe how blood pressure changes. -Amiodarone 200 mg p.o. bid #Acute hypoxic respiratory failure secondary to #Community-acquired pneumonia and #Acute decompensated heart failure #HFrEF, EF of <20% - CT of chest shows moderate enlargement of cardiac contour and mild left base pneumonia -BNP is [birth year]14[birth year]1987 Plan: -IV antibiotics azithromycin plus Rocephin started 04/27- -Continue Bumex 2mg IV BID -Echocardiogram (04/27/2025) indicates HFrEF and A-fib. Dilated cardiomyopathy. EF worsened from 35 to 40% to less than 20%. Severe LV dilatation, severe Global Hypokinesis. Estimated EF 15-20%. Diastolic dysfunction present but could not be graded due to A-fib/arrhythmia. Mild RV dilatation with moderate RV dysfunction. Mildly elevated RVSP at 35 and 40 mmHg. Mild MAC with mild MR.. Mild aortic valve sclerosis without stenosis. Moderate TR. Trace PI. IVC Dilated with less than 50% collapse with inspiration. No pericardial effusion. -Will hold home GDMT due to soft BP and pt requiring amiodrip for A-fib with RVR -Strict ins and out -Daily weights -Fluid restrictions -Cardiology is consulted and following #Cholelithiasis, r/o Cholecysitis -US gallbladder (05/01/2025): Cholelithiasis, Gallbladder wall is thickened but the patient has cirrhosis and ascites which, may cause the gallbladder wall thickening - WBC count of 30.4 -Dr. Chino saw this patient at 04/27/2025 and recommended no surgical intervention. Patient was asymptomatic at that time. Right now the patient is complaining of right upper quadrant pain and tenderness. Reviewed the consult with Dr. Serelathan placed. Pending recommendation. -Added metronidazole #LOYD Baseline 1.0, on admission creatinine is 3.4, GFR 13, BUN 81 likely prerenal in the setting of poor oral intake plan: -Avoid nephrotoxic and renally dise medications -Unable to give IV fludis due to pt rafael cute CHF exacerbation Consulted [employer] Dr. Martin, appreciate recommendations #Hypotension. #Primary hypertension. Patient has history of hypertension, home meds include olmesartan 40mg and spironolactone 25mg, however Pt became hypotensive after starting amiodarone drip. -Will hold antihypertensive medications as of now. -Continue to monitor BP now Will consider antihypertensives after the amiodarone drip has been stopped #Euthyroid sick syndrome #Intermittent bradycardia - Patient does not have history of thyroid disease -TSH decreased to 7.4 from 13.17, free T4 0.76, T4 3.4 -Patient intermittently goes into bradycardia with heart rate ranging between 39 and 60s Plan: - Levothyroxine 25 mcg daily before breakfast - Due to bradycardia additional levothyroxine 25 mcg's given x 1 - Atropine as needed for heart rate below 40 - Will check for goiter in the setting of patient on amiodarone for chronic A- fib #Pulmonary nodules CT of chest shows At least 6 bilateral noncalcified pulmonary nodules, the largest in the lower lung zone on the right measuring 11 mm, 12 mm - Patient is unaware of the pulmonary nodules however she is a chronic smoker plan: After patient is stable patient will likely need further workup of the pulmonary nodules - The nodules may be too small to biopsy, will speak to IR after patient is more stable. #Hx. of Ischemic stroke, 2022 #History of CAD s/p stent placement. -Resumed home aspirin and Atorvastatin Health Maintenance Disposition: telemetry DVT Prophylaxis: resumed Eliquis for afib GI Prophylaxis: not indicated Diet: Diabetic Diet Lines: Peripheral lines Code status: Full Assessment and plan discussed with my attending physician Dr. Crane and Dr. Rodríguez (PGY-3) Dr. Grimes (PGY-1)- Internal medicine resident Attending Provider Attestation/Addendum 74-year-old female with multiple comorbidities including hypertension, hyperlipidemia, coronary artery disease status post stent placement with subsequent heart failure with reduced EF with EF 35-40% and history of left ventricular mural thrombus, atrial fibrillation on Eliquis CVA with no residual deficits who presented to the ER with generalized weakness found to have acute hypoxic respiratory failure likely being multifactorial secondary to community- acquired pneumonia and acute decompensated heart failure and subsequently started on IV antibiotic therapy and IV diuretics. In addition, patient also noted to have A-fib with RVR. Of note, patient underwent repeat echocardiogram with findings of EF 15 to 20% and also noted to have acute kidney injury likely ATN. Furthermore, patient is pending HIDA scan to evaluate for possible cholelithiasis versus cholecystitis. Plan to continue IV antibiotic therapy and monitor the patient closely..I reviewed above note and agree with findings and plans. I have also personally examined the patient with medicine team and went over assessment and plan with medical team including academic intern and resident physician.
[2025-05-02 14:38] LABS: Basophils # (Auto) 0.2 Thou/mm3 (0.0-0.2); Basophils % (Auto) 1 % (0-2.5); Eosinophils # (Auto) 0.0 Thou/mm3 (0.0-0.5); Eosinophils % (Auto) 0 % (0-10); Hematocrit 40.7 % (36.0-46.0); Hemoglobin 13.1 g/dL (12.0-16.0); Immature Granulocytes Auto 0.31 Thou/mm3 (0.00-0.00); Lymphocytes # (Auto) 0.6 Thou/mm3 (1.0-4.8); Lymphocytes % (Auto) 2 % (10-50); Mean Corpuscular HGB Conc 32.2 g/dl (31.0-37.0); Mean Corpuscular Hemoglobin 25.1 pg (25.0-35.0); Mean Corpuscular Volume 78 fL (80-100); Monocytes # (Auto) 0.6 Thou/mm3 (0.0-0.8); Monocytes % (Auto) 2 % (0-12); Neutrophils # (Auto) 30.6 Thou/mm3 (1.8-7.7); Neutrophils % (Auto) 95 % (37-80); Nucleated Red Blood Cell # 0.00 Thou/mm3 (0.00-0.00); Nucleated Red Blood Cell % 0 /100 WBC (0); Platelet Count 119 Thou/mm3 (140-440); RDW Standard Deviation 55.2 fL (36.4-46.3); Red Blood Count 5.22 Miln/mm3 (4.00-5.20); White Blood Count 32.3 Thou/mm3 (3.6-11.0)
--- NOTE | 2025-05-02 16:14 | PC.SS ---
SS confirmed with [employer] pt is eligible for transportation services SS left message for Robbi, son, to call back to confirm plan is for pt to go to [facility] upon discharge
--- NOTE | 2025-05-02 16:37 | ESPR_ITS ---
<Statement entered by Ryan Baca MD - 05/02/25 18:58> I personally examined the patient along with resident physician Dr. Ender Ward patient is doing much better today abdominal pain improved she is feeling a lot better but still having some shortness of breath no chest pain no complaints of abdominal pain still lying flat with no evidence of orthopnea clinically appears to be dry no need to diurese her aggressively at this time. Will continue to monitor the patient closely Documentation for date of: 05/02/25 Subjective Subjective Interval history: Patient seen and examined at bedside Overnight, patient had 2 rapid events, first at around 7:30 PM for altered sensorium after receiving opioids. No intervention was done at the time. Second rapid was around 2:30 AM as patient went into atrial fibrillation with rapid ventricular rate for which patient was given 1 dose of metoprolol 50 Mg, Dilaudid and quetiapine at that time following which the heart rate went into 80s At the time of examination, patient is alert able to respond to the questions appropriately. Still complaining of pain in the abdomen noticed tenderness in the right side of the abdomen. Telemetry was reviewed and patient found to be in normal sinus rhythm Eliquis was held today in view of hematuria. But hemoglobin is stable. Labs showed uptrending WBC, BUN and creatinine Recommended to continue metoprolol XL 50, resume Eliquis if no further episodes of bleeding manifestations noted Exam Vital Signs Temp Pulse Resp BP Pulse Ox O2 Del Method O2 Flow Rate 97.9 F 73 15 96/66 92 L Oxy Mask 4 05/02/25 12:00 05/02/25 12:05/02/25 12:05/02/25 12:05/02/25 12:05/02/25 12:05/02/25 12:00 Narrative Exam General: Awake. Ill looking HEENT: Normocephalic, atraumatic, mucous membranes moist. Heart: Regular rate and rhythm, no murmurs. Lungs: Clear to auscultation with no wheezing or crackles. Abdomen: Soft, nondistended, moderate to severe tenderness noted in right side of the abdomen, positive bowel sounds. ?No guarding or rebound tenderness. Neurologic: Alert and oriented x3, no gross neurological deficit, and patient able to move all 4 extremities. Extremities: No edema. Skin: Stage I decubitus ulcer Objective Labs 05/02/25 10:20 05/02/25 05:40 Labs: Laboratory Results - last 24 hr 05/01/25 05/01/25 05/02/25 19:51 20:05 05:40 WBC 30.4 H D RBC 5.44 H Hgb 13.6 D Hct 41.7 MCV 77 L MCH 25.0 MCHC 32.6 RDW Std Deviation 54.2 H Plt Count 136 L D Neut % (Auto) 96 H Lymph % (Auto) 2 L [place] % (Auto) 2 Eos % (Auto) 0 Baso % (Auto) 0 Neut # (Auto) 29.0 H Lymph # (Auto) 0.5 L [place] # (Auto) 0.5 Eos # (Auto) 0.0 Baso # (Auto) 0.1 Immature Gran # (Auto) 0.29 H Absolute Nucleated RBC 0.00 Immature Gran % 1 H Nucleated RBC % 0 Puncture Site Right Radial ABG pH 7.50 H ABG pCO2 45 ABG pO2 89 ABG HCO3 35 H ABG O2 Saturation 98 ABG Base Excess 10 H FiO2 32 Sodium 145 146 H Potassium 4.0 4.2 Chloride 106 103 Carbon Dioxide 32.2 H 31.6 H Anion Gap 7 11 BUN 49 H 57 H Creatinine 1.9 H 2.1 H Estim Creat Clear Calc 24.3 L 22.0 L eGFR 27 L 24 L BUN/Creatinine Ratio 26 H 27 H Glucose 121 H D 117 H Calculated Osmolality 302 H 307 H Lactic Acid 2.0 2.4 H Calcium 8.3 8.3 Corrected Calcium 9.3 9.4 Phosphorus 3.3 Magnesium 2.0 Total Bilirubin 1.5 H 1.7 H AST 76 H 54 H ALT 153 H 134 H Alkaline Phosphatase 205 H D 167 H D Total Protein 5.9 5.5 L Albumin 2.8 L 2.6 L Globulin 3.1 2.9 Albumin/Globulin Ratio 0.9 L 0.9 L 05/02/25 10:20 WBC 32.3 H RBC 5.22 H Hgb 13.1 Hct 40.7 MCV 78 L MCH 25.1 MCHC 32.2 RDW Std Deviation 55.2 H Plt Count 119 L Neut % (Auto) 95 H Lymph % (Auto) 2 L [place] % (Auto) 2 Eos % (Auto) 0 Baso % (Auto) 1 Neut # (Auto) 30.6 H Lymph # (Auto) 0.6 L [place] # (Auto) 0.6 Eos # (Auto) 0.0 Baso # (Auto) 0.2 Immature Gran # (Auto) 0.31 H Absolute Nucleated RBC 0.00 Immature Gran % 1 H Nucleated RBC % 0 Puncture Site ABG pH ABG pCO2 ABG pO2 ABG HCO3 ABG O2 Saturation ABG Base Excess FiO2 Sodium Potassium Chloride Carbon Dioxide Anion Gap BUN Creatinine Estim Creat Clear Calc eGFR BUN/Creatinine Ratio Glucose Calculated Osmolality Lactic Acid 2.5 H Calcium Corrected Calcium Phosphorus Magnesium Total Bilirubin AST ALT Alkaline Phosphatase Total Protein Albumin Globulin Albumin/Globulin Ratio ABG Interpretation ABG results: 04/26/25 05/01/25 23:16 19:51 ABG pH 7.50 H ABG pCO2 45 ABG pO2 89 ABG HCO3 35 H ABG O2 Saturation 98 ABG Base Excess 10 H VBG pH 7.49 VBG pCO2 23 L VBG pO2 33 VBG Base Excess -4 L Quality Measures Quality Measures none Advance care planning discussed with:: patient Assessment & Plan Assessment Current Active Medications: Generic Name Dose Route Start Last Admin Trade Name Freq PRN Reason Stop Dose Admin Acetaminophen 650 mg 05/01/25 17:44 Acetaminophen 325 Mg Tablet PO 05/27/25 08:00 Q6H PRN Fever >100.3 Amiodarone HCl 200 mg 04/30/25 21:00 05/02/25 09:37 Amiodarone Hcl 200 Mg Tablet PO 05/30/25 20:59 200 mg BID JOHN Administration Apixaban 2.5 mg 04/30/25 09:00 05/01/25 09:45 Apixaban 2.5 Mg Tablet PO 05/30/25 08:59 2.5 mg BID JOHN Administration Aspirin 81 mg 04/28/25 09:00 05/02/25 09:38 Aspirin Ec 81 Mg Tabec PO 05/28/25 08:59 81 mg DAILY JOHN Administration Atorvastatin Calcium 80 mg 04/27/25 21:00 05/01/25 20:15 Atorvastatin Calcium 20 Mg Tablet PO 05/27/25 20:59 80 mg HS JOHN Administration Balsam [place] Oil 0 gm 04/28/25 21:00 05/02/25 09:39 Balsam [place] Oil (Venelex) 60 Gm Tube TOP 05/28/25 20:59 1 applicatio BID JOHN Administration Ceftriaxone Sodium/Dextrose 1 gm in 50 mls @ 100 mls/hr 04/27/25 08:07 05/02/25 09:28 Rocephin/D5w 1gm Iv Premix IV 05/04/25 08:06 100 mls/hr QDAY JOHN Administration Azithromycin 500 mg/ Sodium 250 mls @ 250 mls/hr 04/28/25 09:00 05/02/25 09:28 Chloride IV 05/05/25 08:59 250 mls/hr QDAY JOHN Administration Metronidazole 500 mg in 100 mls @ 200 mls/hr 05/02/25 10:21 05/02/25 11:30 Flagyl 500 Mg Iv IV 05/09/25 10:20 200 mls/hr Q8HR JOHN Administration Levothyroxine Sodium 25 mcg 04/28/25 06:00 05/02/25 05:21 Levothyroxine Sodium 25 Mcg Tablet PO 05/28/25 05:59 25 mcg ACBR JOHN Administration Metoprolol Succinate 50 mg 05/02/25 09:00 05/02/25 09:39 Metoprolol Succinate Xl 25 Mg Tabcr PO 06/01/25 08:59 50 mg QDAY JOHN Administration Polyethylene Glycol 17 gm 05/01/25 09:00 05/02/25 09:39 Polyethylene Glycol 17 Gm Packet PO 05/31/25 08:59 17 gm QDAY JOHN Administration Quetiapine Fumarate 25 mg 05/01/25 21:00 05/01/25 20:13 Quetiapine Fumarate 25 Mg Tablet PO 05/31/25 20:59 Not Given HS JOHN Sennosides 1 tab 05/01/25 21:00 05/01/25 20:16 Senna/Docusate Sod 1 Tab Tablet PO 05/31/25 20:59 1 tab HS JOHN Administration Protocol Plan Ms. Kaiser is a 74-year-old female past medical history significant for A-fib (on amiodarone and Eliquis), CAD status post stent, hypertension, history of CVA in 2022, HFrEF EF 35 to 40% and history of left ventrical mural thrombus. Patient was brought in by her son for SNF placement as he is unable to care of her at home because patient has increased generalized weakness. #Acute hypoxic respiratory failure secondary to - resolved #Acute on chronic decompensated heart failure, resolved #HFrEF, EF of 20% #Dilated Cardiomyopathy #Severe global hypokinesia Patient has a past medical history of CHF with previous ejection fraction between 35 to 40%, upon admission worsening ejection fraction to 20% (04/27/2025) -CT of chest shows moderate enlargement of cardiac contour and mild left base pneumonia -BNP is 1788 -NYHA IV Plan: -disontinue Bumex for now, pt appears to be dry, no longer in decompensated HF -Continue Metoprolol XL 50mg once daily -Will hold home GDMT due to soft BP -Strict in and out -Daily weights -Fluid restrictions 1500 and sodium restriction to 2gm -K>4 and Magnesium >2 -Repeat BNP prior to discharge -Work towards GDMT, Entresto (not part of home medication) & Sprinoloactone #A-fib with RVR, now rate controlled #History of MARCIO thrombus - Patient has a history of A-fib and takes amiodarone 200mg daily as well as Eliquis 5mg BID - On admission patient was found to be in A-fib with heart rate 160-70's - In the ED patient was given digoxin and magnesium and started on amio drip as per cardio recommendations BE: BE from 08/22/2023 showed Small mobile MARCIO thrombus, Positive bubble study. There is evidence of very small PFO demonstrated by agitated saline injection [id number] score 5, HAS-BLED 5 Plan: -Continue home Amiodarone 200 mg twice daily -Pt is started on metoprolol 50mg daily by the primary team -Eliquis 2.5mg bid held in view of hematuria on 05/02/2025 -Keep magnesium above 2 and potassium above 4 #LOYD Baseline 1.0, on admission creatinine is 3.4, GFR 13, BUN 81 likely prerenal in the setting of poor oral intake plan: -Avoid nephrotoxic and renally dose medications -Consulted Marriage Counselor Dr. Martin, appreciate recommendations #Hypotension. #Primary hypertension. Patient has history of hypertension, home meds include olmesartan 40mg and spironolactone 25mg, however Pt became hypotensive after starting amiodarone drip. -Will hold antihypertensive medications as of now. -Continue to monitor BP #Community Acquired Pneumonia -Continue IV antibiotics #Pulmonary nodules CT of chest shows At least 6 bilateral noncalcified pulmonary nodules, the largest in the lower lung zone on the right measuring 11 mm, 12 mm - Patient is unaware of the pulmonary nodules however she is a chronic smoker plan: After patient is stable patient will likely need further workup of the pulmonary nodules -The nodules may be too small to biopsy, recommend contacting IR if nodules can be biopsied. #Hx. of Ischemic stroke, 2022 #History of CAD s/p stent placement. -Continue home aspirin and Atorvastatin Assessment and plan discussed with attending physician Dr. Keven Ward, PGY2
--- NOTE | 2025-05-02 18:28 | PD.SURCONS ---
HPI Consult details Consult date: 05/02/25 Reason for consultation narrative: Patient was evaluated for a possible surgery due to gallstones History of present illness: History of present was reviewed and the patient was admitted with a history of multiple medical problems but mostly due to cardiac causes. Patient is not able to give any history and there is no family members to talk to. Most of the information was obtained from the chart. Patient's past medical history revealed that she had a history of coronary artery disease and hypertension and atrial fibrillation with mural thrombosis. She is on anticoagulation and she has had a stent placement. Other problem consist of congestive heart failure with ejection fraction around 30 to 40% at the time of admission. Now she has been complaining of pain diffusely in the abdomen and therefore surgical consultation was obtained. Patient has been evaluated by Dr. West about 5 days ago and was advised nonoperative treatment. Review of Systems Constitutional Constitutional: Denies chills and Denies fever(s) Cardiovascular Cardiovascular: Reports chest pain and Reports dyspnea Respiratory Respiratory: Denies cough and Reports dyspnea Genitourinary Genitourinary: Denies difficulty voiding Hematologic/Lymphatic Hematologic/Lymphatic: Denies easy bleeding and Reports easy bruising Past Medical History Surgical History OTHER SURGICAL HX: , coronary angiogram Social History SMOKING STATUS: Current every day smoker SUBSTANCE USE: marijuana ALCOHOL: Current Meds Home Medications and Allergies Home Medications ?Medication ?Instructions ?Recorded ?Confirmed ?Type olmesartan 40 mg tablet 40 mg PO DAILY 08/18/23 04/30/25 History bumetanide 1 mg tablet 1 mg PO QDAY 08/03/24 04/30/25 History spironolactone 25 mg tablet 25 mg PO QDAY 08/03/24 04/30/25 History clonidine HCl 0.2 mg tablet 0.2 mg PO DAILY 04/30/25 04/30/25 History nitroglycerin 0.4 mg sublingual 0.4 mg buccal [id number] PRN chest 04/30/25 04/30/25 History tablet pain Allergies Allergy/AdvReac Type Severity Reaction Status Date / Time codeine Allergy Unknown Blister Verified 03/06/25 18:35 Exam Vital Signs Temp Pulse Resp BP Pulse Ox O2 Del Method O2 Flow Rate 96.9 F 77 15 87/62 L 92 L Room Air 4 05/02/25 16:00 05/02/25 16:00 05/02/25 16:00 05/02/25 16:00 05/02/25 16:00 05/02/25 16:00 05/02/25 12:00 Physical examination revealed a an elderly white female who appeared to be in his stated age. She is 5 foot 5 inches weighing 155 pounds Narrative Exam Patient is not able to give any clear history Constitutional Constitutional: moderate distress Routine Abdominal Exam Comments: Examination of the abdomen showed tenderness everywhere including the suprapubic area and some in the upper abdomen. Routine Rectal Exam Comments: Deferred Routine Extremities Exam Comments: Deferred Results Results: Laboratory Laboratory Narrative: Patient's laboratory workup showed elevated liver enzymes on there is a sudden increase in her leukocytosis to 32,000. Laboratory results: results reviewed Results: Imaging Imaging narrative: Abdominal ultrasound, CT scan of abdomen pelvis images reviewed, radiologist interpretation noted Assessment & Plan Additional Assessment Additional comments: She has cholelithiasis without evidence of cholecystitis. Elevation of liver enzymes is most likely due to shock liver from heart failure. Ultrasound does not show evidence of cholecystitis. Gallbladder wall thickening on CT scan in the presence of ascites is not an accurate assessment for cholecystitis Plan Patient was found to have cholelithiasis that is asymptomatic. Clinically she does not have evidence of cholecystitis. Once her other medical issues are resolved, if cholecystitis still a consideration she will require HIDA scan. No indications for surgical intervention at this time
--- NOTE | 2025-05-02 18:32 | PD.SURCONS ---
HPI Consult details Consult date: 05/02/25 Reason for consultation narrative: Patient was evaluated for a possible surgery due to gallstones History of present illness: History of present was reviewed and the patient was admitted with a history of multiple medical problems but mostly due to cardiac causes. Patient is not able to give any history and there is no family members to talk to. Most of the information was obtained from the chart. Patient's past medical history revealed that she had a history of coronary artery disease and hypertension and atrial fibrillation with mural thrombosis. She is on anticoagulation and she has had a stent placement. Other problem consist of congestive heart failure with ejection fraction around 30 to 40% at the time of admission. Now she has been complaining of pain diffusely in the abdomen and therefore surgical consultation was obtained. Patient has been evaluated by Dr. West about 5 days ago and was advised nonoperative treatment. Review of Systems Constitutional Constitutional: Denies chills and Denies fever(s) Cardiovascular Cardiovascular: Reports chest pain and Reports dyspnea Respiratory Respiratory: Denies cough and Reports dyspnea Genitourinary Genitourinary: Denies difficulty voiding Hematologic/Lymphatic Hematologic/Lymphatic: Denies easy bleeding and Reports easy bruising Past Medical History Surgical History OTHER SURGICAL HX: , coronary angiogram Social History SMOKING STATUS: Current every day smoker SUBSTANCE USE: marijuana ALCOHOL: Current Meds Home Medications and Allergies Home Medications ?Medication ?Instructions ?Recorded ?Confirmed ?Type olmesartan 40 mg tablet 40 mg PO DAILY 08/18/23 04/30/25 History bumetanide 1 mg tablet 1 mg PO QDAY 08/03/24 04/30/25 History spironolactone 25 mg tablet 25 mg PO QDAY 08/03/24 04/30/25 History clonidine HCl 0.2 mg tablet 0.2 mg PO DAILY 04/30/25 04/30/25 History nitroglycerin 0.4 mg sublingual 0.4 mg buccal [id number] PRN chest 04/30/25 04/30/25 History tablet pain Allergies Allergy/AdvReac Type Severity Reaction Status Date / Time codeine Allergy Unknown Blister Verified 03/06/25 18:35 Exam Vital Signs Temp Pulse Resp BP Pulse Ox O2 Del Method O2 Flow Rate 96.9 F 77 15 87/62 L 92 L Room Air 4 05/02/25 16:00 05/02/25 16:00 05/02/25 16:00 05/02/25 16:00 05/02/25 16:00 05/02/25 16:00 05/02/25 12:00 Physical examination revealed a an elderly white female who appeared to be in his stated age. She is 5 foot 5 inches weighing 155 pounds Narrative Exam Patient is not able to give any clear history Constitutional Constitutional: moderate distress Routine Abdominal Exam Comments: Examination of the abdomen showed tenderness everywhere including the suprapubic area and some in the upper abdomen. Routine Rectal Exam Comments: Deferred Routine Extremities Exam Comments: Deferred Results Results: Laboratory Laboratory Narrative: Patient's laboratory workup showed elevated liver enzymes on there is a sudden increase in her leukocytosis to 32,000. Laboratory results: results reviewed Results: Imaging Imaging narrative: Abdominal ultrasound, CT scan of abdomen pelvis images reviewed, radiologist interpretation noted patient's echocardiogram shows an ejection fraction of 20% which is worse than when she was admitted Assessment & Plan Additional Assessment Additional comments: Impression: Contracted gallbladder with stones Coronary artery disease with atrial fibrillation and stent placement Hypertension History of CVA Congestive heart failure Possible cirrhosis of the liver with ascites Plan Plan: Patient definitely is not a candidate for surgery. With the contracted gallbladder it is very unlikely to have acute cholecystitis. Moreover presence of ascites complicates interpretation of the gallbladder wall. Because of the sudden elevation in the leukocytosis needs to be determined. It may be due to other causes. Even if the patient has very severe acute cholecystitis no surgical intervention is possible in this form. Thank you very much
[2025-05-02 19:51] LABS: Ammonia < 10 uMol/L (11-32)
[2025-05-02] MEDS: SENNA/DOCUSATE SOD 1 TAB TABLET PO (20:40)
[2025-05-02] MEDS: APIXABAN 2.5 MG TABLET PO (20:40)
[2025-05-02] MEDS: ATORVASTATIN CALCIUM 20 MG TABLET 80 MG PO (20:40)
[2025-05-02] MEDS: LACTULOSE SYRUP 20 GM/30 ML UDC PO (20:40)
--- NOTE | 2025-05-02 22:00 | PC.NURSE ---
DR. IVAN BARBER NOTIFIED REGARDING PT REPEATEDLY REMOVING OXYGEN WITH BILATERAL MITTENS. SHE IS UNDIRECTABLE WITH AVASURE IN PLACE. O2 DROPS TO MID 70% SATURATIONS. PT TO BE SWITCHED TO BILATERAL WRIST RESTRAINTS.
[2025-05-03] VITALS (14 sets, daily range): BP systolic 92–124; BP diastolic 64–74; PULSE 69–185; RESP 13–25; TEMP 35.9–36.2; O2SAT 90–97; BMI 25.6
[2025-05-03] MEDS: LEVOTHYROXINE SODIUM 25 MCG TABLET PO (05:25)
[2025-05-03] MEDS: metroNIDAZOLE/NS 500 MG IVPB 500 MG/100 ML BAG 200 MG IV ×3 (05:25→21:06)
[2025-05-03 05:57] LABS: Basophils # (Auto) 0.2 Thou/mm3 (0.0-0.2); Basophils % (Auto) 0 % (0-2.5); Eosinophils # (Auto) 0.0 Thou/mm3 (0.0-0.5); Eosinophils % (Auto) 0 % (0-10); Hematocrit 40.4 % (36.0-46.0); Hemoglobin 13.4 g/dL (12.0-16.0); Immature Granulocytes Auto 1.01 Thou/mm3 (0.00-0.00); Lymphocytes # (Auto) 0.7 Thou/mm3 (1.0-4.8); Lymphocytes % (Auto) 2 % (10-50); Mean Corpuscular HGB Conc 33.2 g/dl (31.0-37.0); Mean Corpuscular Hemoglobin 25.5 pg (25.0-35.0); Mean Corpuscular Volume 77 fL (80-100); Monocytes # (Auto) 1.0 Thou/mm3 (0.0-0.8); Monocytes % (Auto) 3 % (0-12); Neutrophils # (Auto) 35.1 Thou/mm3 (1.8-7.7); Neutrophils % (Auto) 93 % (37-80); Nucleated Red Blood Cell # 0.00 Thou/mm3 (0.00-0.00); Nucleated Red Blood Cell % 0 /100 WBC (0); Platelet Count 123 Thou/mm3 (140-440); RDW Standard Deviation 54.3 fL (36.4-46.3); Red Blood Count 5.26 Miln/mm3 (4.00-5.20)
[2025-05-03 06:04] LABS: White Blood Count 37.9 Thou/mm3 (3.6-11.0)
[2025-05-03 06:18] LABS: Anion Gap 10 (7-16); BUN/Creatinine Ratio 26 Ratio (12-20); Blood Urea Nitrogen 60 mg/dL (9-23); Calcium 8.7 mg/dL (8.3-10.6); Carbon Dioxide 34.1 mMol/L (20.0-31.0); Chloride 103 mMol/L (98-107); Creatinine (Component) 2.3 mg/dL (0.6-1.3); Estimated Creatinine Clearance 20.0 mL/min (>60); Free T4 (Free Thyroxine) 0.82 ng/dL (0.89-1.76); Glucose 111 mg/dL (74-106); Osmolality,Calculated 310 (275-295); Potassium 4.1 mMol/L (3.4-5.1); Sodium 147 mMol/L (136-145); Thyroid Stimulating Hormone 4.76 uIU/mL (0.55-4.78); eGFR 21 See Note
[2025-05-03 06:44] LABS: Path Review Blood Smear Sent to Pathologist
[2025-05-03 07:30] LABS: B-Type Natriuretic Peptide 1554 pg/mL (0-100)
[2025-05-03] MEDS: METOPROLOL SUCCINATE XL 25 MG TABCR 50 MG PO (08:11)
[2025-05-03] MEDS: POLYETHYLENE GLYCOL 17 GM PACKET PO (08:11)
[2025-05-03] MEDS: cefTRIAXone/D5w 1gm IV premix 1 GM/50 ML BAG IV (08:11)
[2025-05-03] MEDS: ASPIRIN EC 81 MG TABEC PO (08:12)
[2025-05-03] MEDS: APIXABAN 2.5 MG TABLET PO (08:12)
[2025-05-03] MEDS: AMIODARONE HCL 200 MG TABLET PO ×2 (08:12→21:05)
[2025-05-03] MEDS: BALSAM PERU/CASTOR OIL (Venelex) 60 GM TUBE TOP ×2 (08:12→21:05)
--- NOTE | 2025-05-03 08:29 | PD.SURPROG ---
Documentation for date of: 05/03/25 Subjective Subjective Brief History: History of present was reviewed and the patient was admitted with a history of multiple medical problems but mostly due to cardiac causes. Patient is not able to give any history and there is no family members to talk to. Most of the information was obtained from the chart. Patient's past medical history revealed that she had a history of coronary artery disease and hypertension and atrial fibrillation with mural thrombosis. She is on anticoagulation and she has had a stent placement. Other problem consist of congestive heart failure with ejection fraction around 30 to 40% at the time of admission. Now she has been complaining of pain diffusely in the abdomen and therefore surgical consultation was obtained. Patient has been evaluated by Dr. West about 5 days ago and was advised nonoperative treatment. Narrative: The patient is a general condition is unchanged. She does not have any significant complaints over the abdomen Exam Vital Signs Temp Pulse Resp BP Pulse Ox O2 Del Method O2 Flow Rate 97.0 F 76 14 102/70 95 Nasal Cannula 4 05/03/25 08:00 05/03/25 08:12 05/03/25 08:00 05/03/25 08:12 05/03/25 08:00 05/03/25 08:00 05/03/25 08:00 Her vital signs are normal Routine Abdominal Exam Comments: Abdominal examination showed no significant tenderness anywhere Results Results: Laboratory Laboratory Narrative: Her WBCs markedly elevated on the source of infection is not clear. Assessment & Plan Assessment Additional comments: Impression: Because of the significant leukocytosis is not clear Plan Plan: We shall follow her as needed
[2025-05-03 08:58] LABS: Creatine Kinase 35 U/L (34-171)
--- NOTE | 2025-05-03 10:03 | ESPR_ITS ---
Documentation for date of: 05/03/25 Subjective Subjective Interval history: Pt is seen and examined not doing well Pt is lethargic Exam Vital Signs Temp Pulse Resp BP Pulse Ox O2 Del Method O2 Flow Rate 97.0 F 76 14 102/70 95 Nasal Cannula 4 05/03/25 08:00 05/03/25 08:12 05/03/25 08:00 05/03/25 08:12 05/03/25 08:00 05/03/25 08:00 05/03/25 08:00 Narrative Exam heart s1, s2 chest CTA [facility] Neuro: pt is lethargic Objective Labs 05/05/25 05:43 05/05/25 08:17 Labs: Laboratory Results - last 24 hr 05/02/25 05/02/25 05/03/25 10:20 19:25 04:53 WBC 32.3 H 37.9 H* D RBC 5.22 H 5.26 H Hgb 13.1 13.4 Hct 40.7 40.4 MCV 78 L 77 L MCH 25.1 25.5 MCHC 32.2 33.2 RDW Std Deviation 55.2 H 54.3 H Plt Count 119 L 123 L Neut % (Auto) 95 H 93 H Lymph % (Auto) 2 L 2 L [place] % (Auto) 2 3 Eos % (Auto) 0 0 Baso % (Auto) 1 0 Neut # (Auto) 30.6 H 35.1 H Lymph # (Auto) 0.6 L 0.7 L [place] # (Auto) 0.6 1.0 H Eos # (Auto) 0.0 0.0 Baso # (Auto) 0.2 0.2 Immature Gran # (Auto) 0.31 H 1.01 H Absolute Nucleated RBC 0.00 0.00 Immature Gran % 1 H 3 H Nucleated RBC % 0 0 Smear Path Review Sent to Pathologist Sodium 147 H Potassium 4.1 Chloride 103 Carbon Dioxide 34.1 H Anion Gap 10 BUN 60 H Creatinine 2.3 H Estim Creat Clear Calc 20.0 L eGFR 21 L BUN/Creatinine Ratio 26 H Glucose 111 H Calculated Osmolality 310 H Lactic Acid 2.5 H Calcium 8.7 Ammonia < 10 L Total Creatine Kinase 35 B-Natriuretic Peptide 1554 H* TSH 4.76 D Free T4 0.82 L ABG Interpretation ABG results: 04/26/25 05/01/25 23:16 19:51 ABG pH 7.50 H ABG pCO2 45 ABG pO2 89 ABG HCO3 35 H ABG O2 Saturation 98 ABG Base Excess 10 H VBG pH 7.49 VBG pCO2 23 L VBG pO2 33 VBG Base Excess -4 L Assessment & Plan Assessment and plan (1) Atrial fibrillation with RVR: Status: Acute (2) Hypertension: Status: Acute (3) Elevated troponin: Status: Acute (4) Cholelithiasis: Status: Acute (5) Acute renal failure (ARF): Status: Acute Assessment and plan: LOYD worsening c/w supportive care avoid nephrotoxic medications will monitor
[2025-05-03] MEDS: AZITHROMYCIN INJ 500 MG in SODIUM CHLORIDE 0.9% 250 ML 250 ML 250 MG IV (10:08)
--- NOTE | 2025-05-03 11:07 | XR_ITS ---
Examination: AP chest single view Technique: Portable sitting AP chest single view Date and time: May 03, 2025, 11:14 AM Comparison May 01, 2025 Indications: Difficulty breathing today. Findings: Mild heart failure. Moderate enlargement cardiac contour with prominent vascular congestion. Consider superimposed pneumonia left base Impression: Moderate heart failure. Suspicious for pneumonia left base
[2025-05-03] MEDS: LACTULOSE SYRUP 20 GM/30 ML UDC 40 GM PO (11:53)
--- NOTE | 2025-05-03 12:30 | PC.NURSE ---
hospitalist team rounding, ordered cruz, placed with minimal output, bright red hematuria. Team aware. Plan to order CT sacn
--- NOTE | 2025-05-03 13:02 | XR_ITS ---
Examination: CT abdomen and pelvis without contrast. Coronal 3-D reconstructions. Sagittal 2-D reconstructions. Date and time of exam:May 03, 2025, 1355 hrs. Comparison April 27, 2025 Indications: History cirrhosis, abdominal distention this week CTDI: vol (mGy): 13.5 DLP: (mGycm): 729 Technique: Axial images of the abdomen have been obtained, 3 mm slice thickness Intravenous contrast material has not been administered. Low dose protocols were performed. One or more of the following dose reduction techniques were used; automated exposure control, adjustment of the mA and/or KV according to patient size, use of iterative reconstruction technique. Findings: Atelectasis versus pneumonia left base. Moderate enlargement cardiac contour. Small bilateral pleural effusions Cirrhosis, liver irregular in contour Pneumoperitoneum Spleen is not enlarged Gallstones No pancreatic mass Subcentimeter nonobstructing left renal calculi No bowel obstruction Anasarca Colonic diverticulosis Urinary bladder is contracted around a Le catheter urinary bladder wall thickening Impression: Atelectasis versus pneumonia left base Cirrhosis. Mild ascites. Pneumoperitoneum, clinical correlation advised Cholelithiasis Nonobstructing left renal calculi
--- NOTE | 2025-05-03 13:27 | PD.RESPRO ---
Documentation for date of: 05/03/25 Senior resident attestation: Patient evaluated and examined at the bedside, plan of care discussed with rest of the team including my attending physician, except as noted. Presents with abdominal pain and tenderness, persistently rising WBC count, concern for worsening sepsis, ordered CT abdomen pelvis without contrast to evaluate for any obscure source of sepsis, CT reported as pneumoperitoneum, Dr. Fofana was contacted emergently, evaluated the patient, family was contacted son Robbi was updated about patient's clinical condition and concern for pneumoperitoneum and possible need for emergent surgery, if indicated. Patient had stable vitals, lactic acid was 2.5, creatinine kinase within normal limits, given the clinical condition General Surgery recommended to withhold anticoagulation Eliquis and aspirin and continue close observation and monitoring with possible need for emergent surgery, if indicated. Family was updated about the treatment plan. We spoke to plant cytologist Dr. Crabtree who recommended if patient becomes hemodynamically stable they can be transferred to ICU for closer observation. Anne PGY3 Subjective Subjective Interval history: Patient examined at the bedside, complaining of worsening abdominal pain, noted abdominal tenderness on physical exam, though still soft but markedly tender right upper quadrant. Le catheter was passed due to concern for urine retention, noted hematuria minimal urine output, ordered CT abdomen pelvis without contrast to rule out any obscure source of sepsis. CT was reported as pneumoperitoneum. General surgery was consulted urgently, Dr. Fofana for the patient and went over the images. Patient's family was contacted, patient's son Robbi was given update about patient's worsening clinical condition, possible pneumoperitoneum and need for emergent surgery. Per Dr. Fofana patient physical and clinical exam does not correlate with acute surgical abdomen, went over the images, not entirely convinced about perforated viscus or pneumoperitoneum, quite possible colonic distention overlying the liver, per his opinion. Reported that he will discuss radiology images with dr Ayala. Reported he will continue with watchful observation for today, hold anticoagulation Eliquis and aspirin in anticipation of possible surgery, if patient hemodynamically unstable. Exam Vital Signs Temp Pulse Resp BP Pulse Ox O2 Del Method O2 Flow Rate 96.9 F 81 17 104/74 97 Nasal Cannula 3 05/03/25 12:00 05/03/25 12:00 05/03/25 12:00 05/03/25 12:00 05/03/25 12:00 05/03/25 12:00 05/03/25 12:00 Narrative Exam General: Moderatly drowsy, Ill looking, Alert and oriented x3 HEENT: Normocephalic, atraumatic, mucous membranes moist. Heart: Regular rate and rhythm, no murmurs. Lungs: Clear to auscultation with no wheezing or crackles. Abdomen: moderately distended, moderate to severe tenderness noted in right side of the abdomen, Slight pain in other areas of abdomen, positive bowel sounds. ?No guarding or rebound tenderness. Neurologic: no gross neurological deficit, and patient able to move all 4 extremities. Extremities: No edema. Skin: Stage I decubitus ulcer Objective Labs 05/05/25 05:43 05/05/25 05:43 Labs: Laboratory Results - last 24 hr 05/02/25 05/02/25 05/03/25 10:20 19:25 04:53 WBC 32.3 H 37.9 H* D RBC 5.22 H 5.26 H Hgb 13.1 13.4 Hct 40.7 40.4 MCV 78 L 77 L MCH 25.1 25.5 MCHC 32.2 33.2 RDW Std Deviation 55.2 H 54.3 H Plt Count 119 L 123 L Neut % (Auto) 95 H 93 H Lymph % (Auto) 2 L 2 L [place] % (Auto) 2 3 Eos % (Auto) 0 0 Baso % (Auto) 1 0 Neut # (Auto) 30.6 H 35.1 H Lymph # (Auto) 0.6 L 0.7 L [place] # (Auto) 0.6 1.0 H Eos # (Auto) 0.0 0.0 Baso # (Auto) 0.2 0.2 Immature Gran # (Auto) 0.31 H 1.01 H Absolute Nucleated RBC 0.00 0.00 Immature Gran % 1 H 3 H Nucleated RBC % 0 0 Smear Path Review Sent to Pathologist Sodium 147 H Potassium 4.1 Chloride 103 Carbon Dioxide 34.1 H Anion Gap 10 BUN 60 H Creatinine 2.3 H Estim Creat Clear Calc 20.0 L eGFR 21 L BUN/Creatinine Ratio 26 H Glucose 111 H Calculated Osmolality 310 H Calcium 8.7 Ammonia < 10 L Total Creatine Kinase 35 B-Natriuretic Peptide 1554 H* TSH 4.76 D Free T4 0.82 L ABG Interpretation ABG results: 04/26/25 05/01/25 23:16 19:51 ABG pH 7.50 H ABG pCO2 45 ABG pO2 89 ABG HCO3 35 H ABG O2 Saturation 98 ABG Base Excess 10 H VBG pH 7.49 VBG pCO2 23 L VBG pO2 33 VBG Base Excess -4 L Quality Measures Quality Measures none Advance care planning discussed with:: patient Assessment & Plan Assessment Current Active Medications: Generic Name Dose Route Start Last Admin Trade Name Freq PRN Reason Stop Dose Admin Acetaminophen 650 mg 05/01/25 17:44 Acetaminophen 325 Mg Tablet PO 05/27/25 08:00 Q6H PRN Fever >100.3 Amiodarone HCl 200 mg 04/30/25 21:00 05/03/25 08:12 Amiodarone Hcl 200 Mg Tablet PO 05/30/25 20:59 200 mg BID JOHN Administration Apixaban 2.5 mg 04/30/25 09:00 05/03/25 08:12 Apixaban 2.5 Mg Tablet PO 05/30/25 08:59 2.5 mg BID JOHN Administration Aspirin 81 mg 04/28/25 09:00 05/03/25 08:12 Aspirin Ec 81 Mg Tabec PO 05/28/25 08:59 81 mg DAILY JOHN Administration Atorvastatin Calcium 80 mg 04/27/25 21:00 05/02/25 20:40 Atorvastatin Calcium 20 Mg Tablet PO 05/27/25 20:59 80 mg HS JOHN Administration Balsam Rich/[place] Oil 0 gm 04/28/25 21:00 05/03/25 08:12 Balsam Rich/[place] Oil (Venelex) 60 Gm Tube TOP 05/28/25 20:59 1 applicatio BID JOHN Administration Ceftriaxone Sodium/Dextrose 1 gm in 50 mls @ 100 mls/hr 04/27/25 08:07 05/03/25 08:11 Rocephin/D5w 1gm Iv Premix IV 05/04/25 08:06 100 mls/hr QDAY JOHN Administration Metronidazole 500 mg in 100 mls @ 200 mls/hr 05/02/25 10:21 05/03/25 05:25 Flagyl 500 Mg Iv IV 05/09/25 10:20 200 mls/hr Q8HR JOHN Administration Levothyroxine Sodium 25 mcg 04/28/25 06:00 05/03/25 05:25 Levothyroxine Sodium 25 Mcg Tablet PO 05/28/25 05:59 25 mcg ACBR JOHN Administration Metoprolol Succinate 50 mg 05/02/25 09:00 05/03/25 08:11 Metoprolol Succinate Xl 25 Mg Tabcr PO 06/01/25 08:59 50 mg QDAY JOHN Administration Polyethylene Glycol 17 gm 05/01/25 09:00 05/03/25 08:11 Polyethylene Glycol 17 Gm Packet PO 05/31/25 08:59 17 gm QDAY JOHN Administration Quetiapine Fumarate 25 mg 05/01/25 21:00 05/02/25 20:40 Quetiapine Fumarate 25 Mg Tablet PO 05/31/25 20:59 25 mg HS JOHN Administration Sennosides 1 tab 05/01/25 21:00 05/02/25 20:40 Senna/Docusate Sod 1 Tab Tablet PO 05/31/25 20:59 1 tab HS JOHN Administration Protocol Plan Ms. Kaiser is a 74-year-old female past medical history significant for A-fib (on amiodarone and Eliquis), CAD status post stent, hypertension, history of CVA in 2022, HFrEF EF 35 to 40% and history of left ventrical mural thrombus. Patient was brought in by her son for SNF placement as he is unable to care of her at home because patient has increased generalized weakness. She was initially admitted for A-fib with RVR, acute hypoxic respiratory failure secondary to community acquired pneumonia and DHF, and HFrEF, EF <20%, Patient was being treated rate and rhythm controlled medications. She started to experience leukocytosis and tender right upper quadrant. CT abdomen result showed pneumoperitoneum. #Possible Pneumoperitonieum. - Leukocytosis where WBC increased from 7.8 (05/01/2025) to 32.3 (05/02/2025) and 37.9 (05/03/2025). Despite using IV metronidazole and IV ceftriaxone, patient's WBC count remained significantly increased.? -Her BNP level is 1554. -Abdomen XR (05/01/2025):nonobstrutive bowel gas pattern with no free air. -Abdomen XR (05/03/2025):There appears to be free air beneath right hemidiaphragm. -Patient still complained diffuse abdominal pain especially in RUQ -Did not have any bowel movement since 04/29/2025 although lactulose was given. -Abdomen/pelvis(05/03/2025): Pneumoperitoneum, clinical correlation advised, Atelectasis versus pneumonia left base, Cirrhosis., Mild ascites., Cholelithiasi, Nonobstructing left renal calculi -Patient's vital remain relatively stable currently (BP:120/64, Pulse:82, Resp: 18, Temp: 97.2F, O2sat:95 NS 3L/min) Plan: -Given patient's high risk of morbidity and mortality, patient has a poor survival chance during the surgery.? General Surgery is not entirely convinced of the diagnosis of pneumoperitoneum as clinical and physical signs do not reflect acute surgical abdomen. -General Surgery Dr. Fofana would like to hold Eliquis and aspirin for today and reevaluate tomorrow for worsening clinical condition.If patient require emergent surgery and will reconsider intervention at that point. - Noted ICU plant cytologist Dr. Crabtree regarding ICU admission for close observation and monitoring.? Given patient's stable vitals systolic blood pressure in the 100s, heart rate in the low 80s, recommended IV fluid bolus and observation.? Will be upgraded to ICU if hemodynamically unstable. #A-fib with RVR #History of small PFO - Patient has a history of A-fib and takes amiodarone as well as Eliquis daily - On admission patient was found to be in A-fib with heart rate 160-70's -In the ED patient was given digoxin and magnesium and started on amio drip as per cardio recommendations BE: BE from 08/22/2023 showed Small mobile MARCIO thrombus, Positive bubble study. There is evidence of very small PFO demonstrated by agitated saline injection [id number] score 5, HAS-BLED 5 Plan: -Resumed home pt's eliquis - Held due to possibility of requiring surgery for pneumoperitonieum. -Keep magnesium above 2 potassium above 4 -Director Of Retail Merchandising Dr. Lezama is consulted, appreciate recommendations -Patient continues to have A-fib with RVR overnight we will try metoprolol succinate 50 mg starting tomorrow and we will observe how blood pressure changes. -Amiodarone 200 mg p.o. bid #Acute hypoxic respiratory failure secondary to #Community-acquired pneumonia and #Acute decompensated heart failure #HFrEF, EF of <20% - CT of chest shows moderate enlargement of cardiac contour and mild left base pneumonia -BNP is [birth year]1987 Plan: -IV antibiotics azithromycin plus Rocephin started 04/27- -Echocardiogram (04/27/2025) indicates HFrEF and A-fib. Dilated cardiomyopathy. EF worsened from 35 to 40% to less than 20%. Severe LV dilatation, severe Global Hypokinesis. Estimated EF 15-20%. Diastolic dysfunction present but could not be graded due to A-fib/arrhythmia. Mild RV dilatation with moderate RV dysfunction. Mildly elevated RVSP at 35 and 40 mmHg. Mild MAC with mild MR.. Mild aortic valve sclerosis without stenosis. Moderate TR. Trace PI. IVC Dilated with less than 50% collapse with inspiration. No pericardial effusion. -Will hold home GDMT due to soft BP and pt requiring amiodrip for A-fib with RVR -Strict ins and out -Daily weights -Fluid restrictions -Cardiology is consulted and following #Cholelithiasis, r/o Cholecysitis -US gallbladder (05/01/2025): Cholelithiasis, Gallbladder wall is thickened but the patient has cirrhosis and ascites which, may cause the gallbladder wall thickening - WBC count of 30.4 -Dr. Chino saw this patient at 04/27/2025 and recommended no surgical intervention. Patient was asymptomatic at that time. Right now the patient is complaining of right upper quadrant pain and tenderness. Reviewed the consult with Dr. Tony hartley. Pending recommendation. -Added metronidazole #LOYD Baseline 1.0, on admission creatinine is 3.4, GFR 13, BUN 81 likely prerenal in the setting of poor oral intake plan: -Avoid nephrotoxic and renally dise medications -Unable to give IV fludis due to pt rafael cute CHF exacerbation Consulted Finished Cigar Maker Dr. Martin, appreciate recommendations #Hypotension. #Primary hypertension. Patient has history of hypertension, home meds include olmesartan 40mg and spironolactone 25mg, however Pt became hypotensive after starting amiodarone drip. -Will hold antihypertensive medications as of now. -Continue to monitor BP now Will consider antihypertensives after the amiodarone drip has been stopped #Euthyroid sick syndrome #Intermittent bradycardia - Patient does not have history of thyroid disease -TSH decreased to 7.4 from 13.17, free T4 0.76, T4 3.4 -Patient intermittently goes into bradycardia with heart rate ranging between 39 and 60s Plan: - Levothyroxine 25 mcg daily before breakfast - Due to bradycardia additional levothyroxine 25 mcg's given x 1 - Atropine as needed for heart rate below 40 - Will check for goiter in the setting of patient on amiodarone for chronic A-fib #Pulmonary nodules CT of chest shows At least 6 bilateral noncalcified pulmonary nodules, the largest in the lower lung zone on the right measuring 11 mm, 12 mm - Patient is unaware of the pulmonary nodules however she is a chronic smoker plan: After patient is stable patient will likely need further workup of the pulmonary nodules - The nodules may be too small to biopsy, will speak to IR after patient is more stable. #Hx. of Ischemic stroke, 2022 #History of CAD s/p stent placement. -Resumed home aspirin and Atorvastatin-Aspirin currently held due to chances of surgery Health Maintenance Disposition: telemetry DVT Prophylaxis: resumed Eliquis for afib GI Prophylaxis: not indicated Diet: Diabetic Diet Lines: Peripheral lines Code status: Full Assessment and plan discussed with my attending physician Dr. Crane and Dr. Camarena (PGY-3) Dr. Grimes (PGY-1)- Internal medicine resident Attending Provider Attestation/Addendum 74-year-old female with multiple comorbidities including hypertension, hyperlipidemia, coronary artery disease status post stent placement with subsequent heart failure with reduced EF with EF 35-40% and history of left ventricular mural thrombus, atrial fibrillation on Eliquis CVA with no residual deficits who presented to the ER with generalized weakness found to have acute hypoxic respiratory failure likely being multifactorial secondary to community-acquired pneumonia and acute decompensated heart failure and subsequently started on IV antibiotic therapy and IV diuretics. In addition, patient also noted to have A-fib with RVR. Of note, patient underwent repeat echocardiogram with findings of EF 15 to 20% and also noted to have acute kidney injury likely ATN. On 05/03/2025, patient was noted to have significant elevation in leukocytosis on physical exam noted tender abdomen with distention and subsequently underwent CT abdomen and pelvis without contrast which showed pneumoperitoneum. As a result, general surgery was consulted and evaluated the patient and stated that unlikely pneumoperitoneum. Will continue IV antibiotic therapy. Furthermore, updated general surgery team regarding need for continuous monitoring as patient continues to have severe tenderness to palpation throughout all abdomen and patient continues to have ATN with worsening creatinine. Discussed with son stated that he wanted his mother to be full code..I reviewed above note and agree with findings and plans. I have also personally examined the patient with medicine team and went over assessment and plan with medical team including [facility] internship and resident physician.
[2025-05-03 14:53] LABS: Collection Type, Urine Catheter
[2025-05-03 15:13] LABS: Bilirubin,Urine Negative (Negative); Blood,Urine 3+ (Negative); Glucose, Urine Negative (Negative); Ketones,Urine Negative (Negative); Leukocyte Esterase,Urine Positive (Negative); Nitrite,Urine Negative (Negative); PH,Urine 7.0 (5.0-7.0); Protein,Urine 1+ (Neg - Trace); RBC,Urine 3805 /hpf (0-3); Specific Gravity,Urine 1.008 (1.001-1.035); Squamous Epithelial Cell,Urine 7 /hpf (0-5); Urobilinogen,Urine Negative mg/dL (0.0-1.0); WBC,Urine 288 /hpf (0-5)
--- NOTE | 2025-05-03 15:17 | XR_ITS ---
Examination: AP chest single view Technique: AP portable chest single view Date and time: May 03, 2025, 1530 hrs. Comparison 11:14 AM Indications: Assess for pneumoperitoneum Findings: Moderate enlargement cardiac contour. There appears to be free air beneath right hemidiaphragm Suspicious for pneumonia left base Impression: There appears to be free air beneath right hemidiaphragm.
[2025-05-03 15:23] LABS: Clarity,Urine Bloody (Clear/Hazy); Color,Urine Red (Lt Yel-Yel)
--- NOTE | 2025-05-03 15:44 | ESPR_ITS ---
<Statement entered by Ryan Baca MD - 05/06/25 00:12> I personally evaluated examined this patient with PGY 2 Dr. Vanessa patient's cardiac jang stable however she deteriorating with abdominal pain acute abdomen under investigation patient continues to right upper quadrant tenderness though slightly improved but still she is acute daily with leukocytosis possibly acute abdominal pathology including gallbladder issues. Evaluate the patient agree with the treatment plan recommendation as documented by Dr. Vanessa will continue to hold off diuretics can carefully hydrate the patient though patient has HFrEF clinically not in heart failure hence we will continue to hold diuretic therapy Documentation for date of: 05/03/25 Subjective Subjective Interval history: Pt is seen at bedside, Pt continues to be confused. Pt is laying flat currently saturating on room air. denies any cardiac symptoms including shortness of breath, chest pain, chest pressure or palpitations. Pt continues to have right sided abdominal pain, CT is obtained which is suspicious for air under diaphram howeever after consulting general surgeon by the primary team and images reviewed by the portrait photographer, there does not appear to be air under andrea diaphram, the imaging reveals dialted colon. pt also have large stool burden. Primary and surgery team will closely monitor. Vitals otherwise are stable, pt has remained afebrile. WBC count is rising 37.9, lactic acid 2.5, creatinine 2.3, BUN 60, GFR 21.Althought BNP is elevated at 1554, pt is not in acute decompendated CHF, pt were structural heart disease like dilated ventricles seen in HFrEF, this pt EF is 15-20% therefore BNP will always be elevated. Exam Vital Signs Temp Pulse Resp BP Pulse Ox O2 Del Method O2 Flow Rate 96.9 F 81 17 104/74 97 Nasal Cannula 3 05/03/25 12:05/03/25 12:05/03/25 12:05/03/25 12:00 05/03/25 12:05/03/25 12:05/03/25 12:00 Narrative Exam GENERAL: A&Ox3, elderly female, Awake, Not in acute distress NEURO: no focal neurological deficits HEENT: Atraumatic, Normocephalic. mucous membranes moist. Eyes open, symmetrical, & clear HEART: Normal Heart Sounds LUNGS: Clear to auscultation with no wheezing or crackles. ABDOMEN: soft, non-distended, Left upper and lower quadrant tenderness, bowel sounds heard, no guarding or rebound tenderness SKIN: Multiple scrapes, lacerations noted on lower extremities bilaterally and lower back on buttocks (decubitus ulcer stage 1) EXTREMITIES: no edema, no tenderness, able to move all 4 extremities, pedal pulses palpated Objective Labs 05/03/25 04:53 05/03/25 04:53 Labs: Laboratory Results - last 24 hr 05/02/25 05/03/25 05/03/25 19:25 04:53 13:00 WBC 37.9 H* D RBC 5.26 H Hgb 13.4 Hct 40.4 MCV 77 L MCH 25.5 MCHC 33.2 RDW Std Deviation 54.3 H Plt Count 123 L Neut % (Auto) 93 H Lymph % (Auto) 2 L [place] % (Auto) 3 Eos % (Auto) 0 Baso % (Auto) 0 Neut # (Auto) 35.1 H Lymph # (Auto) 0.7 L [place] # (Auto) 1.0 H Eos # (Auto) 0.0 Baso # (Auto) 0.2 Immature Gran # (Auto) 1.01 H Absolute Nucleated RBC 0.00 Immature Gran % 3 H Nucleated RBC % 0 Smear Path Review Sent to Pathologist Sodium 147 H Potassium 4.1 Chloride 103 Carbon Dioxide 34.1 H Anion Gap 10 BUN 60 H Creatinine 2.3 H Estim Creat Clear Calc 20.0 L eGFR 21 L BUN/Creatinine Ratio 26 H Glucose 111 H Calculated Osmolality 310 H Calcium 8.7 Ammonia < 10 L Total Creatine Kinase 35 B-Natriuretic Peptide 1554 H* TSH 4.76 D Free T4 0.82 L Ur Collection Type Catheter Urine Color Red A Urine Clarity Bloody A Urine pH 7.0 Ur Specific [place] 1.008 Urine Protein 1+ A Urine Glucose (UA) Negative Urine Ketones Negative Urine Blood 3+ A Urine Nitrite Negative Urine Bilirubin Negative Urine Urobilinogen (Auto) Negative Ur Leukocyte Esterase Positive Urine RBC 3805 H Urine WBC 288 H Ur Squamous Epith Cells 7 H Urine Bacteria None ABG Interpretation ABG results: 04/26/25 05/01/25 23:16 19:51 ABG pH 7.50 H ABG pCO2 45 ABG pO2 89 ABG HCO3 35 H ABG O2 Saturation 98 ABG Base Excess 10 H VBG pH 7.49 VBG pCO2 23 L VBG pO2 33 VBG Base Excess -4 L Quality Measures Quality Measures none Advance care planning discussed with:: child Assessment & Plan Assessment Current Active Medications: Generic Name Dose Route Start Last Admin Trade Name Ivy PRN Reason Stop Dose Admin Acetaminophen 650 mg 05/01/25 17:44 Acetaminophen 325 Mg Tablet PO 05/27/25 08:00 Q6H PRN Fever >100.3 Amiodarone HCl 200 mg 04/30/25 21:00 05/03/25 08:12 Amiodarone Hcl 200 Mg Tablet PO 05/30/25 20:59 200 mg BID JOHN Administration Apixaban 2.5 mg 04/30/25 09:00 05/03/25 08:12 Apixaban 2.5 Mg Tablet PO 05/30/25 08:59 2.5 mg BID JOHN Administration Aspirin 81 mg 04/28/25 09:00 05/03/25 08:12 Aspirin Ec 81 Mg Tabec PO 05/28/25 08:59 81 mg DAILY JOHN Administration Atorvastatin Calcium 80 mg 04/27/25 21:00 05/02/25 20:40 Atorvastatin Calcium 20 Mg Tablet PO 05/27/25 20:59 80 mg HS JOHN Administration Balsam [place]/Unity Oil 0 gm 04/28/25 21:00 05/03/25 08:12 Balsam [place]/Unity Oil (Venelex) 60 Gm Tube TOP 05/28/25 20:59 1 applicatio BID JOHN Administration Ceftriaxone Sodium/Dextrose 1 gm in 50 mls @ 100 mls/hr 04/27/25 08:07 05/03/25 08:11 Rocephin/D5w 1gm Iv Premix IV 05/04/25 08:06 100 mls/hr QDAY JOHN Administration Metronidazole 500 mg in 100 mls @ 200 mls/hr 05/02/25 10:21 05/03/25 14:32 Flagyl 500 Mg Iv IV 05/09/25 10:20 200 mls/hr Q8HR JOHN Administration Lactated Ringer's 500 mls @ 250 mls/hr 05/03/25 15:24 Lactated Ringers IV 05/03/25 17:23 .Q2H ONE Levothyroxine Sodium 25 mcg 04/28/25 06:00 05/03/25 05:25 Levothyroxine Sodium 25 Mcg Tablet PO 05/28/25 05:59 25 mcg ACBR JOHN Administration Metoprolol Succinate 50 mg 05/02/25 09:00 05/03/25 08:11 Metoprolol Succinate Xl 25 Mg Tabcr PO 06/01/25 08:59 50 mg QDAY JOHN Administration Quetiapine Fumarate 25 mg 05/01/25 21:00 05/02/25 20:40 Quetiapine Fumarate 25 Mg Tablet PO 05/31/25 20:59 25 mg HS JOHN Administration Sennosides 1 tab 05/01/25 21:00 05/02/25 20:40 Senna/Docusate Sod 1 Tab Tablet PO 05/31/25 20:59 1 tab HS JOHN Administration Protocol Plan Ms. Kaiser is a 74-year-old female past medical history significant for A-fib (on amiodarone and Eliquis), CAD status post stent, hypertension, history of CVA in 2022, HFrEF EF 35 to 40% and history of left ventrical mural thrombus. Patient was brought in by her son for SNF placement as he is unable to care of her at home because patient has increased generalized weakness. #Acute hypoxic respiratory failure secondary to - resolved #Acute on chronic decompensated heart failure, resolved #HFrEF, EF of 20% #Dilated Cardiomyopathy #Severe global hypokinesia Patient has a past medical history of CHF with previous ejection fraction between 35 to 40%, upon admission worsening ejection fraction to 20% (04/27/2025) -CT of chest shows moderate enlargement of cardiac contour and mild left base pneumonia -BNP is 1788 -NYHA IV Plan: -discontinue Bumex for now, pt appears to be dry, no longer in decompensated HF -Continue Metoprolol XL 50mg once daily -Will hold home GDMT due to soft BP -Strict in and out -Daily weights -Fluid restrictions 1500 and sodium restriction to 2gm -K>4 and Magnesium >2 -Repeat BNP prior to discharge -Work towards GDMT, Entresto (not part of home medication) & Sprinoloactone #A-fib with RVR, now rate controlled #History of MARCIO thrombus - Patient has a history of A-fib and takes amiodarone 200mg daily as well as Eliquis 5mg BID - On admission patient was found to be in A-fib with heart rate 160-70's - In the ED patient was given digoxin and magnesium and started on amio drip as per cardio recommendations BE: BE from 08/22/2023 showed Small mobile MARCIO thrombus, Positive bubble study. There is evidence of very small PFO demonstrated by agitated saline injection [id number] score 5, HAS-BLED 5 Plan: -Continue home Amiodarone 200 mg twice daily -Pt is started on metoprolol 50mg daily by the primary team -Eliquis 2.5mg bid held in view of hematuria on 05/02/2025 -Keep magnesium above 2 and potassium above 4 #LOYD Baseline 1.0, on admission creatinine is 3.4, GFR 13, BUN 81 likely prerenal in the setting of poor oral intake plan: -Avoid nephrotoxic and renally dose medications -Consulted Medical Laboratory Specialist Dr. Martin, appreciate recommendations #Hypotension. #Primary hypertension. Patient has history of hypertension, home meds include olmesartan 40mg and spironolactone 25mg, however Pt became hypotensive after starting amiodarone drip. -Will hold antihypertensive medications as of now. -Continue to monitor BP #Community Acquired Pneumonia -Continue IV antibiotics #Pulmonary nodules CT of chest shows At least 6 bilateral noncalcified pulmonary nodules, the largest in the lower lung zone on the right measuring 11 mm, 12 mm - Patient is unaware of the pulmonary nodules however she is a chronic smoker plan: After patient is stable patient will likely need further workup of the pulmonary nodules -The nodules may be too small to biopsy, recommend contacting IR if nodules can be biopsied. #Hx. of Ischemic stroke, 2022 #History of CAD s/p stent placement. -Continue home aspirin and Atorvastatin Assessment and plan discussed with my attending physician Dr. Keven Vanessa (PGY-2)- Internal medicine resident
[2025-05-03] MEDS: RINGERS LACTATED 1000 ML 500 ML 250 ML IV (16:22)
[2025-05-03] MEDS: HYDROmorphone INJ 2 MG/ML VIAL 0.5 MG IVP (17:12)
[2025-05-03] MEDS: GLYCERIN, ADULT 1 EA SUPP 2 EACH PR (18:11)
--- NOTE | 2025-05-03 18:11 | PD.SURPROG ---
Documentation for date of: 05/03/25 Subjective Subjective Brief History: History of present was reviewed and the patient was admitted with a history of multiple medical problems but mostly due to cardiac causes. Patient is not able to give any history and there is no family members to talk to. Most of the information was obtained from the chart. Patient's past medical history revealed that she had a history of coronary artery disease and hypertension and atrial fibrillation with mural thrombosis. She is on anticoagulation and she has had a stent placement. Other problem consist of congestive heart failure with ejection fraction around 30 to 40% at the time of admission. Now she has been complaining of pain diffusely in the abdomen and therefore surgical consultation was obtained. Patient has been evaluated by Dr. West about 5 days ago and was advised nonoperative treatment. Narrative: The patient was seen by me once again this afternoon because of the free air under the diaphragm that was seen on the CT scan performed for evaluation of abdominal pain. Patient's vital signs have not changed significantly but she still has some pain over the abdomen as always when I first saw her yesterday. No significant change has occurred in her condition from what I understand from the nurses who is taking care of her Exam Vital Signs Temp Pulse Resp BP Pulse Ox O2 Del Method O2 Flow Rate 97.2 F 82 18 120/64 95 Nasal Cannula 3 05/03/25 16:00 05/03/25 16:00 05/03/25 16:00 05/03/25 16:00 05/03/25 16:00 05/03/25 16:00 05/03/25 16:00 When I arrived at the bedside her vital signs look normal Routine Abdominal Exam Comments: Examination of the abdomen showed tenderness all over the abdomen especially in the lower abdomen. There is no rigidity or rebound tenderness. There are no signs of peritoneal irritation and no signs of peritonitis. Results Results: Imaging Imaging narrative: I reviewed the CT scan there seems to be a small amount of air above the liver. But there is no joint pneumoperitoneum. I ordered an abdominal series that once again did not show any large amount of pneumoperitoneum. The radiologist raised the suspicion of free air under the right diaphragm but it appeared to be most probably lung markings that show lack of free air. There is no other free air seen on the abdominal x-rays. Assessment & Plan Assessment Additional comments: Impression: Possibility of free air under the diaphragm not definitely confirmed clinically Plan Plan: Patient is abdomen has not changed since I saw her from yesterday. She is also taking Eliquis and her ejection fraction is about 20 per. She has definitely ascites which may be due to cirrhosis of the liver or heart failure. I did do not think the patient will require exploration because I am not sure that there is indeed a perforated viscus or chetan peritonitis. I will continue to observe her and we will stop the Eliquis in case we need to take her to the OR tomorrow if the condition gets worse. I had the discussion with the son and family member regarding this findings of free air and my plan to observe her and not operate on her unless her conditions worsen. Thank you very much
[2025-05-03] MEDS: ATORVASTATIN CALCIUM 20 MG TABLET 80 MG PO (21:05)
[2025-05-04] VITALS (41 sets, daily range): BP systolic 48–164; BP diastolic 31–134; PULSE 71–109; RESP 10–27; TEMP 36.1–36.4; O2SAT 81–100; BMI 25.6
[2025-05-04] MEDS: LEVOTHYROXINE SODIUM 25 MCG TABLET PO (05:24)
[2025-05-04] MEDS: metroNIDAZOLE/NS 500 MG IVPB 500 MG/100 ML BAG 200 MG IV (05:24)
[2025-05-04 06:32] LABS: Basophils # (Auto) 0.1 Thou/mm3 (0.0-0.2); Basophils % (Auto) 0 % (0-2.5); Eosinophils # (Auto) 0.0 Thou/mm3 (0.0-0.5); Eosinophils % (Auto) 0 % (0-10); Hematocrit 42.6 % (36.0-46.0); Hemoglobin 13.4 g/dL (12.0-16.0); Immature Granulocytes Auto 0.53 Thou/mm3 (0.00-0.00); Lymphocytes # (Auto) 0.8 Thou/mm3 (1.0-4.8); Lymphocytes % (Auto) 3 % (10-50); Mean Corpuscular HGB Conc 31.5 g/dl (31.0-37.0); Mean Corpuscular Hemoglobin 25.0 pg (25.0-35.0); Mean Corpuscular Volume 80 fL (80-100); Monocytes # (Auto) 0.6 Thou/mm3 (0.0-0.8); Monocytes % (Auto) 2 % (0-12); Neutrophils # (Auto) 25.9 Thou/mm3 (1.8-7.7); Neutrophils % (Auto) 93 % (37-80); Nucleated Red Blood Cell # 0.02 Thou/mm3 (0.00-0.00); Nucleated Red Blood Cell % 0 /100 WBC (0); Platelet Count 138 Thou/mm3 (140-440); RDW Standard Deviation 56.9 fL (36.4-46.3); Red Blood Count 5.35 Miln/mm3 (4.00-5.20); White Blood Count 27.9 Thou/mm3 (3.6-11.0)
[2025-05-04 07:06] LABS: Alanine Aminotransferase 133 U/L (10-49); Albumin, Serum 2.6 gm/dL (3.4-4.8); Alkaline Phosphatase 264 U/L (46-116); Anion Gap 12 (7-16); Aspartate Amino Transferase 157 U/L (0-34); BUN/Creatinine Ratio 24 Ratio (12-20); Bilirubin,Direct 0.8 mg/dL (0.0-0.3); Bilirubin,Total 1.2 mg/dL (0.3-1.2); Blood Urea Nitrogen 76 mg/dL (9-23); Calcium 8.8 mg/dL (8.3-10.6); Carbon Dioxide 33.9 mMol/L (20.0-31.0); Chloride 104 mMol/L (98-107); Creatinine (Component) 3.2 mg/dL (0.6-1.3); Estimated Creatinine Clearance 14.3 mL/min (>60); Glucose 113 mg/dL (74-106); Osmolality,Calculated 321 (275-295); Potassium 4.8 mMol/L (3.4-5.1); Sodium 150 mMol/L (136-145); Total Protein 5.5 gm/dL (5.7-8.2); eGFR 14 See Note
[2025-05-04] MEDS: LORazepam 2 MG/ML VIAL 0.5 MG IV (09:15)
--- NOTE | 2025-05-04 09:47 | ESPR_ITS ---
Documentation for date of: 05/04/25 Subjective Subjective Interval history: Patient examined at bedside. Alert and oriented x 2. Patient is scheduled for HIDA. Hypernatremia 149 worsening kidney function with BUN of 83, creatinine 3.5, and GFR 13. Concern for intrinsic kidney injury given decreasing urine output. Net balance of -110 on 05/04/2025. Patient started on half-normal saline at a rate of 50 cc. Patient's ambulance driver paramedic updated. Total T. bili 1.2 and direct bilirubin 0.8. AST 157 ALT 133, which is down trended from 05/02/2025 total T. bili of 1.7. Surgery following patient, as patient is high risk overall poor surgical candidate. If patient conditions worsens consider transfer to tertiary center. An additional bolus of five 100/2 NS given.given past medical history of CHF HFrEF less than 20% and history of atrial fibrillation, metoprolol currently on hold given concern for ablation soft blood pressure and Eliquis currently on hold given concern for patient's hematuria noted in urine Le. Mottling noted and repeat CMP, lactic acid, and ABG. Please follow-up results overnight. Patient may require ICU upgrade. Patient was seen and examined at bedside. A.m. vitals and labs reviewed. Patient is more lethargic than previous days. Was able to open eyes to a of the questions but was not able to answer them. HIDA scan today showed cystic duct obstruction. Surgery decided that she is not candidate for the surgery. Patient's creatinine increased to 3.2. eGFR decreased to 14. Worsening kidney function is concerning for ATN. Currently urine looks bright red. Is likely heading towards candidate for hemodialysis. Follow up with CBC, CMP, lactic acid, ABG, additional bolus 1/2 NS 500cc given Exam Vital Signs Temp Pulse Resp BP Pulse Ox O2 Del Method O2 Flow Rate 97.4 F 77 15 94/77 90 L Nasal Cannula 5 05/04/25 08:00 05/04/25 08:00 05/04/25 08:00 05/04/25 08:00 05/04/25 08:00 05/04/25 08:00 05/04/25 08:00 Narrative Exam General: Lethargic, Ill looking HEENT: Normocephalic, atraumatic, mucous membranes moist. Heart: Regular rate and rhythm, no murmurs. Lungs: Clear to auscultation with no wheezing or crackles. Abdomen: moderately distended, moderate to severe tenderness noted in right side of the abdomen, Slight pain in other areas of abdomen, positive bowel sounds. ?No guarding or rebound tenderness. Neurologic: Minimally responsive to verbal stimuli. Extremities: No edema. Skin: Stage I decubitus ulcer Objective Labs 05/05/25 05:43 05/05/25 05:43 Labs: Laboratory Results - last 24 hr 05/03/25 05/04/25 13:00 04:55 WBC 27.9 H D RBC 5.35 H Hgb 13.4 Hct 42.6 MCV 80 MCH 25.0 MCHC 31.5 RDW Std Deviation 56.9 H Plt Count 138 L Neut % (Auto) 93 H Lymph % (Auto) 3 L [place] % (Auto) 2 Eos % (Auto) 0 Baso % (Auto) 0 Neut # (Auto) 25.9 H Lymph # (Auto) 0.8 L [place] # (Auto) 0.6 Eos # (Auto) 0.0 Baso # (Auto) 0.1 Immature Gran # (Auto) 0.53 H Absolute Nucleated RBC 0.02 H Immature Gran % 2 H Nucleated RBC % 0 Sodium 150 H Potassium 4.8 D Chloride 104 Carbon Dioxide 33.9 H Anion Gap 12 BUN 76 H Creatinine 3.2 H D Estim Creat Clear Calc 14.3 L eGFR 14 L* BUN/Creatinine Ratio 24 H Glucose 113 H Calculated Osmolality 321 H Calcium 8.8 Total Bilirubin 1.2 D Direct Bilirubin 0.8 H AST 157 H ALT 133 H Alkaline Phosphatase 264 H D Total Protein 5.5 L Albumin 2.6 L Ur Collection Type Catheter Urine Color Red A Urine Clarity Bloody A Urine pH 7.0 Ur Specific [place] 1.008 Urine Protein 1+ A Urine Glucose (UA) Negative Urine Ketones Negative Urine Blood 3+ A Urine Nitrite Negative Urine Bilirubin Negative Urine Urobilinogen (Auto) Negative Ur Leukocyte Esterase Positive Urine RBC 3805 H Urine WBC 288 H Ur Squamous Epith Cells 7 H Urine Bacteria None ABG Interpretation ABG results: 04/26/25 05/01/25 23:16 19:51 ABG pH 7.50 H ABG pCO2 45 ABG pO2 89 ABG HCO3 35 H ABG O2 Saturation 98 ABG Base Excess 10 H VBG pH 7.49 VBG pCO2 23 L VBG pO2 33 VBG Base Excess -4 L Quality Measures Quality Measures none Advance care planning discussed with:: patient Assessment & Plan Assessment Current Active Medications: Generic Name Dose Route Start Last Admin Trade Name Freq PRN Reason Stop Dose Admin Acetaminophen 650 mg 05/01/25 17:44 Acetaminophen 325 Mg Tablet PO 05/27/25 08:00 Q6H PRN Fever >100.3 Amiodarone HCl 200 mg 04/30/25 21:00 05/03/25 21:05 Amiodarone Hcl 200 Mg Tablet PO 05/30/25 20:59 200 mg BID JOHN Administration Apixaban 2.5 mg 04/30/25 09:00 05/03/25 08:12 Apixaban 2.5 Mg Tablet PO 05/30/25 08:59 2.5 mg BID JOHN Administration Aspirin 81 mg 04/28/25 09:00 05/03/25 08:12 Aspirin Ec 81 Mg Tabec PO 05/28/25 08:59 81 mg DAILY JOHN Administration Atorvastatin Calcium 80 mg 04/27/25 21:00 05/03/25 21:05 Atorvastatin Calcium 20 Mg Tablet PO 05/27/25 20:59 80 mg HS JOHN Administration Balsam Rich/[place] Oil 0 gm 04/28/25 21:00 05/03/25 21:05 Balsam Rich/[place] Oil (Venelex) 60 Gm Tube TOP 05/28/25 20:59 1 applicatio BID JOHN Administration Hydromorphone HCl 0.5 mg 05/03/25 17:03 05/03/25 17:12 Hydromorphone Inj 2 Mg/Ml Vial IVP 05/08/25 17:02 0.5 mg Q4HR PRN Administration PAIN SCALE 4-10(Mod-Sev Piperacillin/Tazobactam/Dextrose 3.375 gm in 50 mls @ 12.5 mls/hr 05/04/25 13:00 Zosyn IV 05/11/25 12:59 Q12H JOHN Dextrose/Sodium Chloride 500 mls @ 125 mls/hr 05/04/25 08:45 D5-1/2ns IV 06/03/25 08:44 .Q4H JOHN Levothyroxine Sodium 25 mcg 04/28/25 06:00 05/04/25 05:24 Levothyroxine Sodium 25 Mcg Tablet PO 05/28/25 05:59 25 mcg ACBR JOHN Administration Metoprolol Succinate 50 mg 05/02/25 09:00 05/03/25 08:11 Metoprolol Succinate Xl 25 Mg Tabcr PO 06/01/25 08:59 50 mg QDAY JOHN Administration Pharmacy Consult 1 each 05/04/25 08:36 Pharmacy Renal Dose Adjustment 1 Ea XX 06/03/25 08:35 PRN PRN CONSULT Quetiapine Fumarate 25 mg 05/01/25 21:00 05/03/25 21:06 Quetiapine Fumarate 25 Mg Tablet PO 05/31/25 20:59 25 mg HS JOHN Administration Sennosides 1 tab 05/01/25 21:00 05/02/25 20:40 Senna/Docusate Sod 1 Tab Tablet PO 05/31/25 20:59 1 tab HS JOHN Administration Protocol Plan Ms. Kaiser is a 74-year-old female past medical history significant for A-fib, CAD status s/p stent, history of CVA in 2022, HFrEF EF 20% (03/2025) and history of left ventrical mural thrombus. Patient was brought in by her son for SNF placement as he is unable to care of her at home because patient has increased generalized weakness. She was initially admitted for A-fib with RVR, acute hypoxic respiratory failure secondary to community acquired pneumonia and DHF, and HFrEF, EF <20%, Patient was being treated rate and rhythm controlled medications. She started to experience leukocytosis and tender right upper quadrant. CT abdomen result showed pneumoperitoneum. #Pneumoperitonieum #Intractable Abdominal Pain #Leukocytosis - Leukocytosis where WBC increased from 7.8 (05/01/2025) to 32.3 (05/02/2025) and 37.9 (05/03/2025). Despite using IV metronidazole and IV ceftriaxone, patient's WBC count remained significantly increased.?WBC count decreased to 27.9 (05/04/2025) Diagnostics: -Abdomen XR (05/01/2025):nonobstrutive bowel gas pattern with no free air. -Abdomen XR (05/03/2025):There appears to be free air beneath right hemidiaphragm. -Patient still complained diffuse abdominal pain especially in RUQ -Did not have any bowel movement since 04/29/2025 although lactulose was given. -Abdomen/pelvis(05/03/2025): Pneumoperitoneum, clinical correlation advised, Atelectasis versus pneumonia left base, Cirrhosis., Mild ascites., Cholelithiasi, Nonobstructing left renal calculi -Patient's vital remain relatively stable currently (BP:98/57, Pulse:72, Resp: 15, Temp: 97.3F, O2sat:95 NS 5L/min) Plan: -Zosyn (05/04/2025--) -Ceftriaxone (04/27/2025-05/04/2025) & Flagly (05/02/2025-05/04/2025) -Continue to monitor for signs of shock and vitals -Patient on 1/2 NS @ 50 cc plus additional bolus 500cc given -Given patient's high risk of morbidity and mortality, patient is a poor surgical candidate, consider transfer to higher level of care. -Follow up with CBC, CMP, lactic acid, ABG, additional bolus 1/2 NS 500cc given #Cholelithiasis, r/o Cholecysitis # Cystic Duct obstruction Patient complaining of diffuse abdominal pain. Concern for cholecytitis given choleithiasis noted on US gallbladder. Dr. Chino saw this patient at 04/27/2025 and recommended no surgical intervention. Patient was asymptomatic at that time. Right now the patient is complaining of right upper quadrant pain and tenderness. Reviewed the consult with Dr. Serelathan placed. HIDA Scan pending No surgical intervention Diagnostics: -US gallbladder (05/01/2025): Cholelithiasis, Gallbladder wall is thickened but the patient has cirrhosis and ascites which, may cause the gallbladder wall thickening -HIDA scan (05/02/2025): No gallbladder activity noted consistent with cystic duct obstruction. Plan - Zosyn (05/04/2025) -Ceftriaxone (04/27/2025-05/04/2025) & Flagly (05/02/2025-05/04/2025) -General Surgery Consulted, appreciated recommendations, if medical conditions worsens, consider transfer to tertiary care center. #LOYD, worsening ATN Baseline 1.0, on admission creatinine is 3.4, GFR 13, BUN 81. Currently, Cr increased to 3.2 from 2.3, eGFR decreased to 14 from 21. likely prerenal in the setting of poor oral intake plan: -Started 1/2 NS at 50ml/hr -Additional bolus 500 1/2 NS X 1 -Strict Ins and Outs. -Avoid nephrotoxic and renally dose medications Consulted Demand Planning Analyst Dr. Martin, appreciate recommendations #Acute hypoxic respiratory failure secondary to #Acute decompensated heart failure #HFrEF, EF of <20% (04/27/2025) #Systolic Dysfunction #Severe Global Hypokinesis Patient has a past medical history of cardiomyopathy, with worsening ejection fraction previously 35 to 40% now less than 20%. Patient noted to have severe LV dilation, severe global hypokinesia, and mild PAH rate elevated pulmonary arterial hypertension 35 to 40%. Currently holding off on guideline directed medical treatment as patient appears hypovolemic and concern for intrinsic kidney injury. Currently holding metoprolol and Bumex. Diagnostics: BNP (04/26/2025) 1788 BNP (05/03/2025): 1554 Echo (04/27/2025): Dilated cardiomyopathy. EF worsened from 35 to 40% to less than 20%.Severe LV dilatation, severe Global Hypokinesis. Estimated EF 15- 20%.Diastolic dysfunction present but could not be graded due to A- fib/arrhythmia.Mild RV dilatation with moderate RV dysfunction. Mildly elevated RVSP at 35 and 40 mmHg. Mild MAC with mild MR.. Mild aortic valve sclerosis without stenosis. Moderate TR. Trace PI. IVC Dilated with less than 50 collapse with inspiration. No pericardial effusion. Plan: -Bumex 1 mg, HOLD, given concern for ATN -Holding Metoprolol 50 mg once daily, given concern for hypotension and MAP 65 -Keep K >4 and Mg >2 -Fluid restrictions 1800, discontinued and Daily weights -Cardiology is consulted, appreciate recommendations, Dr. Baca. #A-fib with RVR #History of small PFO - Patient has a history of A-fib and takes amiodarone as well as Eliquis daily - On admission patient was found to be in A-fib with heart rate 160-70's -In the ED patient was given digoxin and magnesium and started on amio drip as per cardio recommendations BE: BE from 08/22/2023 showed Small mobile MARCIO thrombus, Positive bubble study. There is evidence of very small PFO demonstrated by agitated saline injection [id number] score 5, HAS-BLED 5 Plan: -Resumed home pt's eliquis - Held due to possibility of requiring surgery for pneumoperitonieum. -Keep magnesium above 2 potassium above 4 -Global Climate Change Analyst Dr. Lezama is consulted, appreciate recommendations -Patient continues to have A-fib with RVR overnight we will try metoprolol succinate 50 mg starting tomorrow and we will observe how blood pressure changes. -Amiodarone 200 mg p.o. bid #Hypotension, worsening #Primary hypertension. Patient has history of hypertension, home meds include olmesartan 40mg and spironolactone 25mg, however Pt became hypotensive after starting amiodarone drip. Plan: -Will hold antihypertensive medications as of now, including Metoprolol 25 XL. #Euthyroid sick syndrome #Intermittent bradycardia - Patient does not have history of thyroid disease likely in the setting of acute -TSH decreased to 7.4 from 13.17, free T4 0.76, T4 3.4 Plan: - Levothyroxine 25 mcg daily before breakfast - Will check for goiter in the setting of patient on amiodarone for chronic A- fib #Pulmonary nodules CT of chest shows At least 6 bilateral noncalcified pulmonary nodules, the largest in the lower lung zone on the right measuring 11 mm, 12 mm. Patient is unaware of the pulmonary nodules however she is a chronic smoker plan: After patient is stable patient will likely need further workup of the pulmonary nodules - The nodules may be too small to biopsy, will speak to IR after patient is more stable. #Hx. of Ischemic stroke, 2022 #History of CAD s/p stent placement. -Resumed home aspirin and Atorvastatin-Aspirin currently held due to chances of surgery #Community-acquired pneumonia, resolved, 7 day course of antibiotics Health Maintenance Disposition: telemetry DVT Prophylaxis: Eliquis is on hold given possible surgical intervention. GI Prophylaxis: not indicated Diet: NPO Lines: Peripheral lines Code status: Full Assessment and plan discussed with my attending physician Dr. Crane and resident Dr. Zhu (PGY-2) Dr. Grimes (PGY-1)- Internal medicine resident - The patient's plan was discussed with attending Dr. Rosa Maria Zhu MD PGY2 Internal Medicine Attending Provider Attestation/Addendum 74-year-old female with multiple comorbidities including hypertension, hyperlipidemia, coronary artery disease status post stent placement with subsequent heart failure with reduced EF with EF 35-40% and history of left ventricular mural thrombus, atrial fibrillation on Eliquis CVA with no residual deficits who presented to the ER with generalized weakness found to have acute hypoxic respiratory failure likely being multifactorial secondary to community- acquired pneumonia and acute decompensated heart failure and subsequently started on IV antibiotic therapy and IV diuretics. In addition, patient also noted to have A-fib with RVR. Of note, patient underwent repeat echocardiogram with findings of EF 15 to 20% and also noted to have acute kidney injury likely ATN. On 05/03/2025, patient was noted to have significant elevation in leukocytosis on physical exam noted tender abdomen with distention and subsequently underwent CT abdomen and pelvis without contrast which showed pneumoperitoneum. As a result, general surgery was consulted and evaluated the patient and stated that unlikely pneumoperitoneum. Will continue IV antibiotic therapy. Furthermore, updated general surgery team regarding need for continuous monitoring as patient continues to have severe tenderness to palpation throughout all abdomen and patient continues to have ATN with worsening creatinine. Discussed with son stated that he wanted his mother to be full code..I reviewed above note and agree with findings and plans. I have also personally examined the patient with medicine team and went over assessment and plan with medical team including marketing research intern and resident physician.
[2025-05-04 11:14] LABS: Lactate (Lactic Acid) 2.5 mMol/L (0.4-2.0)
[2025-05-04 11:38] LABS: Alanine Aminotransferase 125 U/L (10-49); Albumin, Serum 2.4 gm/dL (3.4-4.8); Albumin/Globulin Ratio 0.9 (1.2-2.2); Alkaline Phosphatase 229 U/L (46-116); Anion Gap 10 (7-16); Aspartate Amino Transferase 140 U/L (0-34); BUN/Creatinine Ratio 22 Ratio (12-20); Bilirubin,Total 1.1 mg/dL (0.3-1.2); Blood Urea Nitrogen 75 mg/dL (9-23); Calcium 8.6 mg/dL (8.3-10.6); Calcium (Corrected) 9.9 mg/dL (8.5-10.1); Carbon Dioxide 34.2 mMol/L (20.0-31.0); Chloride 105 mMol/L (98-107); Creatinine (Component) 3.4 mg/dL (0.6-1.3); Estimated Creatinine Clearance 13.5 mL/min (>60); Globulin 2.8 gm/dL (2.3-3.5); Glucose 105 mg/dL (74-106); Osmolality,Calculated 318 (275-295); Phosphorous 5.1 mg/dL (2.4-5.1); Potassium 4.8 mMol/L (3.4-5.1); Sodium 149 mMol/L (136-145); Total Protein 5.2 gm/dL (5.7-8.2); eGFR 13 See Note
[2025-05-04] MEDS: SODIUM CHLORIDE 0.45 % 1,000 ML 50 ML IV (11:54)
[2025-05-04] MEDS: PIPER/TAZO 3.375 GM PREMIX 3.375 GM/50 ML BAG IV ×2 (11:58→16:14)
[2025-05-04] MEDS: BALSAM PERU/CASTOR OIL (Venelex) 60 GM TUBE TOP (11:59)
--- NOTE | 2025-05-04 13:59 | PD.SURPROG ---
Documentation for date of: 05/04/25 Subjective Subjective Brief History: History of present was reviewed and the patient was admitted with a history of multiple medical problems but mostly due to cardiac causes. Patient is not able to give any history and there is no family members to talk to. Most of the information was obtained from the chart. Patient's past medical history revealed that she had a history of coronary artery disease and hypertension and atrial fibrillation with mural thrombosis. She is on anticoagulation and she has had a stent placement. Other problem consist of congestive heart failure with ejection fraction around 30 to 40% at the time of admission. Now she has been complaining of pain diffusely in the abdomen and therefore surgical consultation was obtained. Patient has been evaluated by Dr. West about 5 days ago and was advised nonoperative treatment. Narrative: The patient's general condition is unchanged. Her abdominal examination still shows some tenderness that is diffuse without any signs of peritonitis. Exam Vital Signs Temp Pulse Resp BP Pulse Ox O2 Del Method O2 Flow Rate 97.5 F 71 20 90/56 L 98 Nasal Cannula 5 05/04/25 12:05/04/25 12:05/04/25 12:05/04/25 12:05/04/25 12:05/04/25 12:05/04/25 12:00 Results Results: Laboratory Laboratory Narrative: Patient's WBC is down to 27,000. Results: Imaging Imaging narrative: HIDA scan showed nonvisualization of the gallbladder suggesting cystic duct is obstructed Assessment & Plan Assessment Additional comments: Impression: Patient does not seem to have a significant problem with the gallbladder in spite of cystic duct obstruction Plan Plan: Patient is not a candidate for surgery and is a prohibitive risk. She may have to be transferred to a tertiary care center if the problem needs to be addressed. Thank you
--- NOTE | 2025-05-04 14:08 | ESPR_ITS ---
Documentation for date of: 05/04/25 Subjective Subjective Interval history: Overnight events: No acute events overnight. Patient was seen and examined at bedside. AM vitals and labs reviewed. Renal function appears to be worsening per lab values. BUN 76, creatinine 3.2, and GFR 14. Sodium levels are also elevated at 150. Ins/outs 640/750. Patient appeared to have had an episode of anuria over the weekend. HIDA scan for elevated bilirubin alkaline phosphatase showed no gallbladder activity, suggesting a blocked cystic duct. General surgery evaluated the patient and determined that she was not a candidate for surgery. During evaluation today, the patient seemed more lethargic than usual. Patient would briefly open eyes to auditory stimulus but would not follow commands or answer questions. Patient would quickly fall back asleep after waking up with tactile stimulus. Patient appeared to lethargic to answer orientating questions. Due to new lethargy, patient was unable to respond to questions about new symptoms and any current complaints. Review of systems otherwise negative except for what is mentioned above. Exam Vital Signs Temp Pulse Resp BP Pulse Ox O2 Del Method O2 Flow Rate 97.5 F 71 20 90/56 L 98 Nasal Cannula 5 05/04/25 12:00 05/04/25 12:00 05/04/25 12:00 05/04/25 12:00 05/04/25 12:05/04/25 12:05/04/25 12:00 Narrative Exam Physical Exam: General: Lethargic, no acute distress. Skin: Warm, dry, intact. Head: Normocephalic, atraumatic. Cardiovascular: Regular rate and rhythm, no murmur, +S1/S2. Respiratory: Lungs are clear to auscultation, respirations unlabored, no crackles, no wheezing. Gastrointestinal: Soft, nontender, non-distended. Extremities: No edema, no cyanosis, no clubbing. 1+ radial pulse bilaterally, 1+ pedal pulse bilaterally. Objective Labs 05/04/25 04:55 05/04/25 15:07 Labs: Laboratory Results - last 24 hr 05/03/25 05/04/25 05/04/25 13:00 04:55 10:55 WBC 27.9 H D RBC 5.35 H Hgb 13.4 Hct 42.6 MCV 80 MCH 25.0 MCHC 31.5 RDW Std Deviation 56.9 H Plt Count 138 L Neut % (Auto) 93 H Lymph % (Auto) 3 L [place] % (Auto) 2 Eos % (Auto) 0 Baso % (Auto) 0 Neut # (Auto) 25.9 H Lymph # (Auto) 0.8 L [place] # (Auto) 0.6 Eos # (Auto) 0.0 Baso # (Auto) 0.1 Immature Gran # (Auto) 0.53 H Absolute Nucleated RBC 0.02 H Immature Gran % 2 H Nucleated RBC % 0 Sodium 150 H 149 H Potassium 4.8 D 4.8 Chloride 104 105 Carbon Dioxide 33.9 H 34.2 H Anion Gap 12 10 BUN 76 H 75 H Creatinine 3.2 H D 3.4 H Estim Creat Clear Calc 14.3 L 13.5 L eGFR 14 L* 13 L* BUN/Creatinine Ratio 24 H 22 H Glucose 113 H 105 Calculated Osmolality 321 H 318 H Lactic Acid 2.5 H Calcium 8.8 8.6 Corrected Calcium 9.9 Phosphorus 5.1 Total Bilirubin 1.2 D 1.1 Direct Bilirubin 0.8 H AST 157 H 140 H ALT 133 H 125 H Alkaline Phosphatase 264 H D 229 H D Total Protein 5.5 L 5.2 L Albumin 2.6 L 2.4 L Globulin 2.8 Albumin/Globulin Ratio 0.9 L Ur Collection Type Catheter Urine Color Red A Urine Clarity Bloody A Urine pH 7.0 Ur Specific [place] 1.008 Urine Protein 1+ A Urine Glucose (UA) Negative Urine Ketones Negative Urine Blood 3+ A Urine Nitrite Negative Urine Bilirubin Negative Urine Urobilinogen (Auto) Negative Ur Leukocyte Esterase Positive Urine RBC 3805 H Urine WBC 288 H Ur Squamous Epith Cells 7 H Urine Bacteria None ABG Interpretation ABG results: 04/26/25 05/01/25 23:16 19:51 ABG pH 7.50 H ABG pCO2 45 ABG pO2 89 ABG HCO3 35 H ABG O2 Saturation 98 ABG Base Excess 10 H VBG pH 7.49 VBG pCO2 23 L VBG pO2 33 VBG Base Excess -4 L Quality Measures Quality Measures none Advance care planning discussed with:: patient Assessment & Plan Assessment Current Active Medications: Generic Name Dose Route Start Last Admin Trade Name Freq PRN Reason Stop Dose Admin Acetaminophen 650 mg 05/01/25 17:44 Acetaminophen 325 Mg Tablet PO 05/27/25 08:00 Q6H PRN Fever >100.3 Amiodarone HCl 200 mg 04/30/25 21:00 05/04/25 11:15 Amiodarone Hcl 200 Mg Tablet PO 05/30/25 20:59 Not Given BID JOHN Apixaban 2.5 mg 04/30/25 09:00 05/03/25 08:12 Apixaban 2.5 Mg Tablet PO 05/30/25 08:59 2.5 mg BID JOHN Administration Aspirin 81 mg 04/28/25 09:00 05/03/25 08:12 Aspirin Ec 81 Mg Tabec PO 05/28/25 08:59 81 mg DAILY JOHN Administration Atorvastatin Calcium 80 mg 04/27/25 21:00 05/03/25 21:05 Atorvastatin Calcium 20 Mg Tablet PO 05/27/25 20:59 80 mg HS JOHN Administration Balsam Rich/[place] Oil 0 gm 04/28/25 21:00 05/04/25 11:59 Balsam Rich/[place] Oil (Venelex) 60 Gm Tube TOP 05/28/25 20:59 1 applicatio BID JOHN Administration Hydromorphone HCl 0.5 mg 05/03/25 17:03 05/03/25 17:12 Hydromorphone Inj 2 Mg/Ml Vial IVP 05/08/25 17:02 0.5 mg Q4HR PRN Administration PAIN SCALE 4-10(Mod-Sev Piperacillin/Tazobactam/Dextrose 3.375 gm in 50 mls @ 12.5 mls/hr 05/04/25 13:00 Zosyn IV 05/11/25 12:59 Q12H JOHN Lactated Ringer's 500 mls @ 125 mls/hr 05/04/25 10:22 05/04/25 11:23 Lactated Ringers IV 05/04/25 14:21 Not Given .Q4H ONE Sodium Chloride 1,000 mls @ 50 mls/hr 05/04/25 10:35 05/04/25 11:54 Ns 0.45% IV 05/06/25 02:34 50 mls/hr .Q20H JOHN Administration Levothyroxine Sodium 25 mcg 04/28/25 06:00 05/04/25 05:24 Levothyroxine Sodium 25 Mcg Tablet PO 05/28/25 05:59 25 mcg ACBR JOHN Administration Metoprolol Succinate 50 mg 05/02/25 09:00 05/03/25 08:11 Metoprolol Succinate Xl 25 Mg Tabcr PO 06/01/25 08:59 50 mg QDAY JOHN Administration Pharmacy Consult 1 each 05/04/25 08:36 Pharmacy Renal Dose Adjustment 1 Ea XX 06/03/25 08:35 PRN PRN CONSULT Quetiapine Fumarate 25 mg 05/01/25 21:00 05/03/25 21:06 Quetiapine Fumarate 25 Mg Tablet PO 05/31/25 20:59 25 mg HS JOHN Administration Sennosides 1 tab 05/01/25 21:00 05/02/25 20:40 Senna/Docusate Sod 1 Tab Tablet PO 05/31/25 20:59 1 tab HS JOHN Administration Protocol Plan Mrs. Kaiser is a 74 year old lady with a relevant past medical history of CAD s/p stent, HFrEF with EF of 35-40%, atrial fibrilation on Eliquis, and dilated cardiomyopathy who presented to [facility] with concerns of SNF placement. Nephrology was consulted due to concerns of LOYD in the setting of an acute exacerbation of her CHF. #Acute kidney injury due to cardiorenal syndrome 2/2 acute CHF exacerbation #Hypernatremia Patient admitted with Cr of 3.4, GFR 13, BUN 81 in the setting of a history of HFrEF and 3+ edema on physical exam. - Recommend 1/2 NS with fluid bolus to decrease sodium levels. - Encourage oral intake so long as patient is not in fluid overload status. - Will hold off on hemodialysis for now. - Patient most likely became fluid deficient, which resulted in further injury to kidneys, which should improve over time. - Continue to monitor progress and trend Cr. - Nephrology will continue to monitor. Patient was discussed with the Nephrology attending, Dr. Martin. Thank you for allowing us to participate in the care of this patient. Aayush Hall, PGY-1
[2025-05-04 14:11] LABS: Reflex Lactate? Y
--- NOTE | 2025-05-04 15:33 | ESPR_ITS ---
<Statement entered by Ryan Baca MD - 05/06/25 00:14> I personally examined and evaluated the patient with the PGY 2 Dr. Vanessa agree with the treatment plan recommendation patient's condition deteriorated clinically she appears a perforated viscus free air under the diaphragm discussed extensively with general surgeon patient is too risky to operate now comfort care appears to be appropriate. I had detailed conversation with primary team as well as surgical team and though patient's cardiac risk is very high now with the patient's risk is very high as well because she is acutely ill with with hypoperfusion agree with the treatment treatment plan recommendation as documented by PGY 2 Documentation for date of: 05/04/25 Subjective Subjective Interval history: Pt is seen at bedside, pt is minimal engaging in answering questions. Currently restrains are noted due to pt was continually agitated. Pt appears to be significantly dry, Primary team have started her on maintenance fluids. Pt is currently not in decompensated HF therefore it is ok to continue IV fluids at higher rate (can go up to 120cc/hr). Although general surg is hesitant about ex lap which is a major surgery and due to pt's current clinical presentation she is unstable to tolerate surgery per surgery. Pt is moderate risk to undergo surgery, however pt is clinically stable and not in decompensated HF therefore okay to proceed with emergency surgery of required. Pt has remained in sinus rhythm, BP is a little soft therefore metoprolol is held and will continue amiodarone. WBC count is down trending 27. 9, no source of infection is identified. lactic acid is uptrending to 3.3 . T bili is downtrending to 1.1, AST 140, ALT 125. Exam Vital Signs Temp Pulse Resp BP Pulse Ox O2 Del Method O2 Flow Rate 97.5 F 71 20 90/56 L 98 Nasal Cannula 5 05/04/25 12:05/04/25 12:05/04/25 12:00 05/04/25 12:05/04/25 12:05/04/25 12:05/04/25 12:00 Narrative Exam GENERAL: A&Ox3, elderly female, Awake, Not in acute distress NEURO: no focal neurological deficits HEENT: Atraumatic, Normocephalic. mucous membranes moist. Eyes open, symmetrical, & clear HEART: Normal Heart Sounds LUNGS: Clear to auscultation with no wheezing or crackles. ABDOMEN: soft, non-distended, Left upper and lower quadrant tenderness, bowel sounds heard, no guarding or rebound tenderness SKIN: Multiple scrapes, lacerations noted on lower extremities bilaterally and lower back on buttocks (decubitus ulcer stage 1), MOTTLING noted bilaterally on LE extending to thighs EXTREMITIES: no edema, no tenderness, able to move all 4 extremities, pedal pulses palpated Objective Labs 05/04/25 18:58 05/04/25 18:58 Labs: Laboratory Results - last 24 hr 05/04/25 05/04/25 04:55 10:55 WBC 27.9 H D RBC 5.35 H Hgb 13.4 Hct 42.6 MCV 80 MCH 25.0 MCHC 31.5 RDW Std Deviation 56.9 H Plt Count 138 L Neut % (Auto) 93 H Lymph % (Auto) 3 L Childress % (Auto) 2 Eos % (Auto) 0 Baso % (Auto) 0 Neut # (Auto) 25.9 H Lymph # (Auto) 0.8 L Childress # (Auto) 0.6 Eos # (Auto) 0.0 Baso # (Auto) 0.1 Immature Gran # (Auto) 0.53 H Absolute Nucleated RBC 0.02 H Immature Gran % 2 H Nucleated RBC % 0 Sodium 150 H 149 H Potassium 4.8 D 4.8 Chloride 104 105 Carbon Dioxide 33.9 H 34.2 H Anion Gap 12 10 BUN 76 H 75 H Creatinine 3.2 H D 3.4 H Estim Creat Clear Calc 14.3 L 13.5 L eGFR 14 L* 13 L* BUN/Creatinine Ratio 24 H 22 H Glucose 113 H 105 Calculated Osmolality 321 H 318 H Lactic Acid 2.5 H Calcium 8.8 8.6 Corrected Calcium 9.9 Phosphorus 5.1 Total Bilirubin 1.2 D 1.1 Direct Bilirubin 0.8 H AST 157 H 140 H ALT 133 H 125 H Alkaline Phosphatase 264 H D 229 H D Total Protein 5.5 L 5.2 L Albumin 2.6 L 2.4 L Globulin 2.8 Albumin/Globulin Ratio 0.9 L ABG Interpretation ABG results: 04/26/25 05/01/25 23:16 19:51 ABG pH 7.50 H ABG pCO2 45 ABG pO2 89 ABG HCO3 35 H ABG O2 Saturation 98 ABG Base Excess 10 H VBG pH 7.49 VBG pCO2 23 L VBG pO2 33 VBG Base Excess -4 L Quality Measures Quality Measures none Advance care planning discussed with:: child Assessment & Plan Assessment Current Active Medications: Generic Name Dose Route Start Last Admin Trade Name Freq PRN Reason Stop Dose Admin Acetaminophen 650 mg 05/01/25 17:44 Acetaminophen 325 Mg Tablet PO 05/27/25 08:00 Q6H PRN Fever >100.3 Amiodarone HCl 200 mg 04/30/25 21:00 05/04/25 11:15 Amiodarone Hcl 200 Mg Tablet PO 05/30/25 20:59 Not Given BID JOHN Apixaban 2.5 mg 04/30/25 09:00 05/03/25 08:12 Apixaban 2.5 Mg Tablet PO 05/30/25 08:59 2.5 mg BID JOHN Administration Aspirin 81 mg 04/28/25 09:00 05/03/25 08:12 Aspirin Ec 81 Mg Tabec PO 05/28/25 08:59 81 mg DAILY JOHN Administration Atorvastatin Calcium 80 mg 04/27/25 21:00 05/03/25 21:05 Atorvastatin Calcium 20 Mg Tablet PO 05/27/25 20:59 80 mg HS JOHN Administration Balsam Rich/Powderly Oil 0 gm 04/28/25 21:00 05/04/25 11:59 Balsam Rich/Powderly Oil (Venelex) 60 Gm Tube TOP 05/28/25 20:59 1 applicatio BID JOHN Administration Hydromorphone HCl 0.5 mg 05/03/25 17:03 05/03/25 17:12 Hydromorphone Inj 2 Mg/Ml Vial IVP 05/08/25 17:02 0.5 mg Q4HR PRN Administration PAIN SCALE 4-10(Mod-Sev Sodium Chloride 1,000 mls @ 50 mls/hr 05/04/25 10:35 05/04/25 11:54 Ns 0.45% IV 05/06/25 02:34 50 mls/hr .Q20H JOHN Administration Piperacillin/Tazobactam/Dextrose 3.375 gm in 50 mls @ 12.5 mls/hr 05/04/25 16:00 Zosyn IV 05/11/25 15:59 Q12H JOHN Levothyroxine Sodium 25 mcg 04/28/25 06:00 05/04/25 05:24 Levothyroxine Sodium 25 Mcg Tablet PO 05/28/25 05:59 25 mcg ACBR JOHN Administration Metoprolol Succinate 50 mg 05/02/25 09:00 05/03/25 08:11 Metoprolol Succinate Xl 25 Mg Tabcr PO 06/01/25 08:59 50 mg QDAY JOHN Administration Pharmacy Consult 1 each 05/04/25 08:36 Pharmacy Renal Dose Adjustment 1 Ea XX 06/03/25 08:35 PRN PRN CONSULT Quetiapine Fumarate 25 mg 05/01/25 21:00 05/03/25 21:06 Quetiapine Fumarate 25 Mg Tablet PO 05/31/25 20:59 25 mg HS JOHN Administration Sennosides 1 tab 05/01/25 21:00 05/02/25 20:40 Senna/Docusate Sod 1 Tab Tablet PO 05/31/25 20:59 1 tab HS JOHN Administration Protocol Plan Ms. Kaiser is a 74-year-old female past medical history significant for A-fib (on amiodarone and Eliquis), CAD status post stent, hypertension, history of CVA in 2022, HFrEF EF 35 to 40% and history of left ventrical mural thrombus. Patient was brought in by her son for SNF placement as he is unable to care of her at home because patient has increased generalized weakness. #Acute hypoxic respiratory failure secondary to - resolved #Acute on chronic decompensated heart failure, resolved #HFrEF, EF of 20% #Dilated Cardiomyopathy #Severe global hypokinesia Patient has a past medical history of CHF with previous ejection fraction between 35 to 40%, upon admission worsening ejection fraction to 20% (04/27/2025) -CT of chest shows moderate enlargement of cardiac contour and mild left base pneumonia -BNP is 1788 -NYHA IV Plan: -discontinue Bumex for now, pt appears to be dry, no longer in decompensated HF -Hold Metoprolol XL 50mg once daily, due to low blood pressure -Will hold home GDMT due to soft BP -Strict in and out -Daily weights -Fluid restrictions 1500 and sodium restriction to 2gm -K>4 and Magnesium >2 -Repeat BNP prior to discharge -If pt makes a recovery, will work towards GDMT, Entresto (not part of home medication) & Sprinoloactone #A-fib with RVR, now rate controlled #History of MARCIO thrombus - Patient has a history of A-fib and takes amiodarone 200mg daily as well as Eliquis 5mg BID - On admission patient was found to be in A-fib with heart rate 160-70's - In the ED patient was given digoxin and magnesium and started on amio drip as per cardio recommendations BE: BE from 08/22/2023 showed Small mobile MARCIO thrombus, Positive bubble study. There is evidence of very small PFO demonstrated by agitated saline injection [id number] score 5, HAS-BLED 5 Plan: -Continue home Amiodarone 200 mg twice daily -Hold metoprolol due to low BP -Eliquis 2.5mg bid held in view of hematuria on 05/02/2025 -Keep magnesium above 2 and potassium above 4 #LOYD Baseline 1.0, on admission creatinine is 3.4, GFR 13, BUN 81 likely prerenal in the setting of poor oral intake plan: -Avoid nephrotoxic and renally dose medications -Consulted [facility] Dr. Martin, appreciate recommendations #Hypotension. #Primary hypertension. Patient has history of hypertension, home meds include olmesartan 40mg and spironolactone 25mg, however Pt became hypotensive after starting amiodarone drip. -Will hold antihypertensive medications as of now. -Continue to monitor BP #Community Acquired Pneumonia -Continue IV antibiotics #Pulmonary nodules CT of chest shows At least 6 bilateral noncalcified pulmonary nodules, the largest in the lower lung zone on the right measuring 11 mm, 12 mm - Patient is unaware of the pulmonary nodules however she is a chronic smoker plan: After patient is stable patient will likely need further workup of the pulmonary nodules -The nodules may be too small to biopsy, recommend contacting IR if nodules can be biopsied. #Hx. of Ischemic stroke, 2022 #History of CAD s/p stent placement. -Continue home aspirin and Atorvastatin Assessment and plan discussed with my attending physician Dr. Keven Vanessa (PGY-2)- Internal medicine resident
[2025-05-04 16:11] LABS: Anion Gap 11 (7-16); BUN/Creatinine Ratio 22 Ratio (12-20); Blood Urea Nitrogen 77 mg/dL (9-23); Calcium 8.5 mg/dL (8.3-10.6); Carbon Dioxide 31.9 mMol/L (20.0-31.0); Chloride 106 mMol/L (98-107); Creatinine (Component) 3.5 mg/dL (0.6-1.3); Estimated Creatinine Clearance 13.1 mL/min (>60); Glucose 103 mg/dL (74-106); Osmolality,Calculated 319 (275-295); Potassium 4.9 mMol/L (3.4-5.1); Sodium 149 mMol/L (136-145); eGFR 13 See Note
[2025-05-04] MEDS: HYDROmorphone INJ 2 MG/ML VIAL 0.5 MG IVP (16:14)
[2025-05-04] MEDS: SODIUM CHLORIDE 0.45 % 500 ML 999 ML IV (18:53)
[2025-05-04 19:25] LABS: Lactate (Lactic Acid) 3.3 mMol/L (0.4-2.0)
[2025-05-04 19:29] LABS: Base Excess 4 (-3-3); HCO3 29 mEq/L (20-26); O2 Saturation 95 % (91-98); PCO2 47 mmHg (32.0-48.0); PO2 75 mmHg (83-108); pH, Arterial 7.40 (7.35-7.45)
[2025-05-04 19:30] LABS: Basophils # (Auto) 0.0 Thou/mm3 (0.0-0.2); Basophils % (Auto) 0 % (0-2.5); Eosinophils # (Auto) 0.0 Thou/mm3 (0.0-0.5); Eosinophils % (Auto) 0 % (0-10); Hematocrit 40.5 % (36.0-46.0); Hemoglobin 13.0 g/dL (12.0-16.0); Immature Granulocytes Auto 0.11 Thou/mm3 (0.00-0.00); Lymphocytes # (Auto) 0.9 Thou/mm3 (1.0-4.8); Lymphocytes % (Auto) 7 % (10-50); Mean Corpuscular HGB Conc 32.1 g/dl (31.0-37.0); Mean Corpuscular Hemoglobin 24.9 pg (25.0-35.0); Mean Corpuscular Volume 77 fL (80-100); Monocytes # (Auto) 0.3 Thou/mm3 (0.0-0.8); Monocytes % (Auto) 2 % (0-12); Neutrophils # (Auto) 11.6 Thou/mm3 (1.8-7.7); Neutrophils % (Auto) 90 % (37-80); Nucleated Red Blood Cell # 0.02 Thou/mm3 (0.00-0.00); Nucleated Red Blood Cell % 0 /100 WBC (0); Platelet Count 116 Thou/mm3 (140-440); RDW Standard Deviation 56.3 fL (36.4-46.3); Red Blood Count 5.23 Miln/mm3 (4.00-5.20); White Blood Count 13.0 Thou/mm3 (3.6-11.0)
[2025-05-04 19:35] LABS: Inspired O2, VO2 Liters 2 L/min; Puncture Site Right Radial
[2025-05-04 19:36] LABS: Allen Test Performed/OK
[2025-05-04] MEDS: DEXTROSE 50%-WATER INJ 50 ML SYRINGE IVP (19:45)
[2025-05-04 19:57] LABS: Alanine Aminotransferase 105 U/L (10-49); Albumin, Serum 2.3 gm/dL (3.4-4.8); Albumin/Globulin Ratio 0.9 (1.2-2.2); Alkaline Phosphatase 219 U/L (46-116); Anion Gap 11 (7-16); Aspartate Amino Transferase 107 U/L (0-34); BUN/Creatinine Ratio 24 Ratio (12-20); Bilirubin,Total 1.1 mg/dL (0.3-1.2); Blood Urea Nitrogen 83 mg/dL (9-23); Calcium 8.8 mg/dL (8.3-10.6); Calcium (Corrected) 10.2 mg/dL (8.5-10.1); Carbon Dioxide 30.2 mMol/L (20.0-31.0); Chloride 108 mMol/L (98-107); Creatinine (Component) 3.5 mg/dL (0.6-1.3); Estimated Creatinine Clearance 13.1 mL/min (>60); Globulin 2.6 gm/dL (2.3-3.5); Glucose 90 mg/dL (74-106); Osmolality,Calculated 321 (275-295); Potassium 5.0 mMol/L (3.4-5.1); Sodium 149 mMol/L (136-145); Total Protein 4.9 gm/dL (5.7-8.2); eGFR 13 See Note
[2025-05-04] MEDS: Norepinephrine/D5W 8mg/250ml 8 MG/250 ML BAG 6.508 MG IV (20:00)
[2025-05-04] MEDS: NALOXONE INJ 1 MG/ML SYRINGE 2 ML 2 MG IV (20:18)
--- NOTE | 2025-05-04 20:26 | ESPR_ITS ---
RE: OLGA GEIGER : 1950 DATE OF SERVICE: 05/04/2025 SUBJECTIVE: This patient has had a HIDA scan today and it showed non- visualization of the gallbladder suggesting cystic duct obstruction. However, I do not think this could alone mean an acute cholecystitis. The patient's condition has remained the same. Surprisingly, her vital signs are normal. Her abdominal examination is unchanged. She still has some tenderness when palpated all through the abdomen. It is not localized to any one particular quadrant of the abdomen. According to the nurses, the patient had 2 bowel movements yesterday. Her laboratory workup showed no significant change other than slight improvement in the WBC. I reviewed the x- rays with Dr. Lozano and he feels that the pneumoperitoneum cannot be ruled out because there is some amount of air seen on upper portion of the liver. This was not present in the previous CT scan. I had a discussion with Dr. Crane who suggested about exploration on this patient. She is starting to show some mottling of the lower extremities and she may go into hypotension. At this stage, surgical intervention is still risky given the poor ejection fraction and her other general condition. I tried to contact the son to discuss with him about making the patient comfort care, but he is not able to be reached. Meanwhile, I suggest we keep doing the present care and maybe move over to ICU if necessary. Other option will be to get an upper GI series with Gastrografin to see if there is any extravasation. We will make the decision tomorrow. DT: 19:39:25 TT: 20:24:00 Ref: [id number] - TID: [id number]
[2025-05-04] MEDS: MORPHINE SULF INJ 10 MG/ML VIAL 2 MG IVP (20:32)
[2025-05-04] MEDS: LIDOCAINE HCL 1% 20 ML VIAL 30 ML INFL (20:32)
--- NOTE | 2025-05-04 20:52 | XR_ITS ---
Examination: AP chest single view TECHNIQUE: AP portable upright chest single view Date and time: May 04, 20252100 hours Comparison May 03, 2025 INDICATIONS: Post central line placement FINDINGS: Right central line is directed cephalad in distribution of the right internal jugular vein in the neck Mild prominence left ventricle Mild bibasilar pneumonia IMPRESSION: Right central line projects cephalad in distribution of the right internal jugular vein in the neck
[2025-05-04] MEDS: MORPHINE SULF INJ 10 MG/ML VIAL IVP (21:12)
--- NOTE | 2025-05-04 21:30 | PD.RESHP ---
Documentation for date of: 05/04/25 HPI History of Present Illness Chief complaint: shock History of present illness: Patient is a 74 years old female with PMH of Review of Systems Review of Systems ROS Unobtainable: due to endotracheal tube Exam Vital Signs Temp Pulse Resp BP Pulse Ox O2 Del Method O2 Flow Rate 97.3 F 72 15 98/57 L 95 Nasal Cannula 5 05/04/25 20:19 05/04/25 20:19 05/04/25 20:19 05/04/25 20:19 05/04/25 20:19 05/04/25 16:00 05/04/25 20:19 Narrative Exam Gen: Well-developed and well-nourished agitated elderly female. HEENT: NCAT, PERRLA, EOMI, MMM, anicteric conjunctivae. CVS: normal S1 and S2. RRR. No M/R/G. Resp: wheezing B/L. No rhonchi, rales, crackles. Abd: soft, tender throughout, non-distended. BS muffled but present. MSK: Good ROM in BUE & BLE. Petechial rash over chest, mottling noted over BLE. 1+ edema BLE. Neuro: limited exam due to mental status. Results: Labs 05/04/25 22:30 05/04/25 21:38 Labs: Short CBC 05/04/25 05/04/25 Range/Units 04:55 18:58 WBC 27.9 H D 13.0 H D (3.6-11.0) Thou/mm3 Hgb 13.4 13.0 (12.0-16.0) g/dL Hct 42.6 40.5 (36.0-46.0) % Plt Count 138 L 116 L (140-440) Thou/mm3 BMP 05/04/25 05/04/25 05/04/25 04:55 10:55 15:07 Sodium 150 H 149 H 149 H Potassium 4.8 D 4.8 4.9 Chloride 104 105 106 Carbon Dioxide 33.9 H 34.2 H 31.9 H BUN 76 H 75 H 77 H Creatinine 3.2 H D 3.4 H 3.5 H Glucose 113 H 105 103 Calcium 8.8 8.6 8.5 05/04/25 18:58 Sodium 149 H Potassium 5.0 Chloride 108 H Carbon Dioxide 30.2 BUN 83 H Creatinine 3.5 H Glucose 90 Calcium 8.8 Liver Function 05/04/25 05/04/25 05/04/25 Range/Units 04:55 10:55 18:58 Total Bilirubin 1.2 D 1.1 1.1 (0.3-1.2) mg/dL Direct Bilirubin 0.8 H (0.0-0.3) mg/dL AST 157 H 140 H 107 H (0-34) U/L ALT 133 H 125 H 105 H (10-49) U/L Alkaline Phosphatase 264 H D 229 H D 219 H (46-116) U/L Albumin 2.6 L 2.4 L 2.3 L (3.4-4.8) gm/dL ABG Interpretation ABG results: 04/26/25 05/01/25 05/04/25 23:16 19:51 19:21 ABG pH 7.50 H 7.40 D ABG pCO2 45 47 ABG pO2 89 75 L ABG HCO3 35 H 29 H ABG O2 Saturation 98 95 ABG Base Excess 10 H 4 H VBG pH 7.49 VBG pCO2 23 L VBG pO2 33 VBG Base Excess -4 L Quality Measures Quality Measures VTE prophylaxis Advance care planning discussed with:: patient and child Medications Home Medications and Allergies Home Medications ?Medication ?Instructions ?Recorded ?Confirmed ?Type olmesartan 40 mg tablet 40 mg PO DAILY 08/18/23 04/30/25 History bumetanide 1 mg tablet 1 mg PO QDAY 08/03/24 04/30/25 History spironolactone 25 mg tablet 25 mg PO QDAY 08/03/24 04/30/25 History clonidine HCl 0.2 mg tablet 0.2 mg PO DAILY 04/30/25 04/30/25 History nitroglycerin 0.4 mg sublingual 0.4 mg buccal [id number] PRN chest 04/30/25 04/30/25 History tablet pain Allergies Allergy/AdvReac Type Severity Reaction Status Date / Time codeine Allergy Unknown Blister Verified 03/06/25 18:35 Visit Medications Acetaminophen (Acetaminophen 325 Mg Tablet) 650 mg PO Q6H PRN PRN Reason: Fever >100.3 Stop: 05/27/25 08:00 Amiodarone HCl (Amiodarone Hcl 200 Mg Tablet) 200 mg PO BID JOHN Stop: 05/30/25 20:59 Last Admin: 05/04/25 11:15 Dose: Not Given Apixaban (Apixaban 2.5 Mg Tablet) 2.5 mg PO BID JOHN Stop: 05/30/25 08:59 Last Admin: 05/03/25 08:12 Dose: 2.5 mg Aspirin (Aspirin Ec 81 Mg Tabec) 81 mg PO DAILY JOHN Stop: 05/28/25 08:59 Last Admin: 05/03/25 08:12 Dose: 81 mg Atorvastatin Calcium (Atorvastatin Calcium 20 Mg Tablet) 80 mg PO HS JOHN Stop: 05/27/25 20:59 Last Admin: 05/03/25 21:05 Dose: 80 mg Balsam Rich/Vina Oil (Balsam Rich/Vina Oil (Venelex) 60 Gm Tube) 0 gm TOP BID JOHN Stop: 05/28/25 20:59 Last Admin: 05/04/25 11:59 Dose: 1 applicatio Hydromorphone HCl (Hydromorphone Inj 2 Mg/Ml Vial) 0.5 mg IVP Q4HR PRN PRN Reason: PAIN SCALE 4-10(Mod-Sev Stop: 05/08/25 17:02 Last Admin: 05/04/25 16:14 Dose: 0.5 mg Sodium Chloride (Ns 0.45%) 1,000 mls @ 50 mls/hr IV .Q20H JOHN Stop: 05/06/25 02:34 Last Admin: 05/04/25 11:54 Dose: 50 mls/hr Piperacillin/Tazobactam/Dextrose (Zosyn) 3.375 gm in 50 mls @ 12.5 mls/hr IV Q12H JOHN Stop: 05/11/25 15:59 Last Admin: 05/04/25 16:14 Dose: 12.5 mls/hr Norepinephrine/Dextrose (Levophed In D5w 8mg/250ml) 8 mg in 250 mls @ 6.508 mls/hr IV .Q24H PRN; Protocol PRN Reason: PER PROTOCOL Stop: 06/03/25 21:06 Levothyroxine Sodium (Levothyroxine Sodium 25 Mcg Tablet) 25 mcg PO ACBR JOHN Stop: 05/28/25 05:59 Last Admin: 05/04/25 05:24 Dose: 25 mcg Metoprolol Succinate (Metoprolol Succinate Xl 25 Mg Tabcr) 50 mg PO QDAY [facility] Stop: 06/01/25 08:59 Last Admin: 05/04/25 08:30 Dose: Not Given Pharmacy Consult (Pharmacy Renal Dose Adjustment 1 Ea) 1 each XX PRN PRN PRN Reason: CONSULT Stop: 06/03/25 08:35 Quetiapine Fumarate (Quetiapine Fumarate 25 Mg Tablet) 25 mg PO [facility] Stop: 05/31/25 20:59 Last Admin: 05/03/25 21:06 Dose: 25 mg Sennosides (Senna/Docusate Sod 1 Tab Tablet) 1 tab PO [facility]; Protocol Stop: 05/31/25 20:59 Last Admin: 05/02/25 20:40 Dose: 1 tab Discontinued Medications Acetaminophen (Acetaminophen 325 Mg Tablet) 650 mg PO Q6H PRN PRN Reason: Fever >101.5 Stop: 05/27/25 08:00 Last Admin: 05/01/25 13:41 Dose: 650 mg Acetaminophen (Acetaminophen 325 Mg Tablet) 650 mg PO Q6H PRN PRN Reason: Fever >100.3 Stop: 05/27/25 08:00 Hydrocodone Bitart/Acetaminophen (Hydrocodone/Apap 10/325 Tab) 1 tab PO X1 ONE Stop: 05/01/25 22:39 Last Admin: 05/01/25 22:53 Dose: 1 tab Amiodarone HCl (Amiodarone Hcl 200 Mg Tablet) 200 mg PO QDAY [facility] Stop: 05/28/25 08:59 Last Admin: 04/30/25 08:56 Dose: 200 mg Apixaban (Apixaban 2.5 Mg Tablet) 5 mg PO BID [facility] Stop: 05/27/25 20:59 Last Admin: 04/29/25 20:37 Dose: 5 mg Atropine Sulfate (Atropine Sulf Inj 0.1 Mg/Ml Syr 10 Ml) 0.5 mg IV Q5MIN PRN PRN Reason: HR <40 Stop: 04/30/25 17:31 Atropine Sulfate (Atropine Sulf Inj 1 Mg/Ml Vial) 0.5 mg IVP Q5MIN PRN PRN Reason: HR < 40 Stop: 04/30/25 17:39 Bumetanide (Bumetanide Inj 0.25 Mg/Ml Vial 4 Ml) 1 mg IVP X1 ONE Stop: 04/27/25 06:31 Last Admin: 04/27/25 06:43 Dose: 1 mg Bumetanide (Bumetanide Inj 0.25 Mg/Ml Vial 4 Ml) 1 mg IVP X1 ONE Stop: 04/27/25 08:36 Last Admin: 04/27/25 14:36 Dose: 1 mg Bumetanide (Bumetanide Inj 0.25 Mg/Ml Vial 4 Ml) 1 mg IVP BIDD [facility] Stop: 05/27/25 17:59 Last Admin: 04/28/25 06:24 Dose: 1 mg Bumetanide (Bumetanide Inj 0.25 Mg/Ml Vial 4 Ml) 2 mg IVP BIDD [facility] Stop: 05/28/25 17:59 Last Admin: 04/29/25 17:02 Dose: 2 mg Bumetanide (Bumetanide Inj 0.25 Mg/Ml Vial 4 Ml) 1 mg IVP X1 ONE Stop: 04/28/25 12:13 Last Admin: 04/28/25 12:21 Dose: 1 mg Bumetanide (Bumetanide Inj 0.25 Mg/Ml Vial 4 Ml) 2 mg IVP QDAY [facility] Stop: 05/30/25 08:59 Last Admin: 04/30/25 09:05 Dose: 2 mg Bumetanide (Bumetanide Inj 0.25 Mg/Ml Vial 4 Ml) 1 mg IVP QDAY [facility] Stop: 05/31/25 08:59 Last Admin: 05/01/25 09:51 Dose: 1 mg Carvedilol (Carvedilol 3.125 Mg Tablet) 3.125 mg PO BIDWM [facility] Stop: 05/28/25 17:29 Digoxin (Digoxin Inj 0.25 Mg/Ml Amp 2 Ml) 0.25 mg IVP X1 ONE Stop: 04/26/25 23:36 Last Admin: 04/26/25 23:46 Dose: 0.25 mg Digoxin (Digoxin Inj 0.25 Mg/Ml Amp 2 Ml) 0.25 mg IVP X1 ONE Stop: 04/27/25 06:28 Last Admin: 04/27/25 14:59 Dose: Not Given Diltiazem HCl (Diltiazem Inj 5 Mg/Ml Vial 5 Ml) 15 mg IV X1 ONE Stop: 04/30/25 01:54 Last Admin: 04/30/25 02:10 Dose: 15 mg Diphenhydramine HCl (Diphenhydramine Inj 50 Mg/Ml Vial) 12.5 mg IM X1 ONE Stop: 04/30/25 01:47 Last Admin: 05/02/25 07:48 Dose: Not Given Diphenhydramine HCl (Diphenhydramine Inj 50 Mg/Ml Vial) 12.5 mg IVP X1 ONE Stop: 04/30/25 02:17 Last Admin: 04/30/25 02:21 Dose: 12.5 mg Diphenhydramine HCl (Diphenhydramine Elix 25 Mg/10 Ml Udc) 25 mg PO X1 ONE Stop: 05/02/25 00:20 Last Admin: 05/02/25 00:52 Dose: Not Given Diphenhydramine HCl (Diphenhydramine 25 Mg Capsule) 25 mg PO X1 ONE Stop: 05/02/25 00:22 Last Admin: 05/02/25 00:24 Dose: 25 mg Diphenhydramine HCl (Diphenhydramine Inj 50 Mg/Ml Vial) 12.5 mg IVP X1 ONE Stop: 05/02/25 00:31 Last Admin: 05/02/25 00:51 Dose: Not Given Etomidate (Etomidate Inj 2 Mg/Ml Vial 10 Ml) 5 mg IVP X1 ONE Stop: 04/26/25 22:58 Last Admin: 04/27/25 01:23 Dose: Not Given Glycerin (Glycerin, Adult 1 Ea Supp) 2 each TN X1 ONE Stop: 05/03/25 17:31 Last Admin: 05/03/25 18:11 Dose: 2 each Heparin Sodium (Porcine) (Heparin Sod Inj 5000 Unit/Ml Vial) 5,000 unit SC Q8HR JOHN Stop: 05/11/25 08:14 Last Admin: 04/28/25 07:46 Dose: Not Given Hydromorphone HCl (Hydromorphone Inj 2 Mg/Ml Vial) 1 mg IVP X1 ONE Stop: 05/01/25 17:58 Last Admin: 05/01/25 18:02 Dose: 1 mg Hydromorphone HCl (Hydromorphone Inj 2 Mg/Ml Vial) 0.25 mg IVP X1 ONE Stop: 05/02/25 02:09 Last Admin: 05/02/25 02:13 Dose: 0.25 mg Magnesium Sulfate/Dextrose (Magnesium Sulfate Ivpb) 1 gm in 100 mls @ 100 mls/hr IV X1 ONE Stop: 04/26/25 23:53 Last Admin: 04/26/25 23:42 Dose: Not Given Norepinephrine/Dextrose (Levophed In D5w 8mg/250ml) 8 mg in 250 mls @ 7.867 mls/hr IV .Q24H PRN; Protocol PRN Reason: PER PROTOCOL Stop: 05/26/25 22:58 Amiodarone HCl/Dextrose (Nexterone Ivpb) 150 mg in 100 mls @ 600 mls/hr IV .Q10M ONE Stop: 04/26/25 23:09 Last Infusion: 04/26/25 23:23 Dose: Infused Amiodarone HCl/Dextrose (Nexterone Ivpb) 360 mg in 200 mls @ 33.333 mls/hr IV .Q6H ONE Stop: 04/27/25 04:58 Last Infusion: 04/27/25 05:23 Dose: Infused Amiodarone HCl/Dextrose (Nexterone Ivpb) 360 mg in 200 mls @ 16.667 mls/hr IV .Q12H [facility] Stop: 04/27/25 22:59 Last Admin: 04/27/25 02:36 Dose: Not Given Amiodarone HCl/Dextrose (Nexterone Ivpb) 360 mg in 200 mls @ 16.667 mls/hr IV .Q12H [facility] Stop: 04/28/25 04:59 Last Infusion: 04/28/25 06:10 Dose: Infused Magnesium Sulfate/Dextrose (Magnesium Sulfate Ivpb) 1 gm in 100 mls @ 100 mls/hr IV X1 ONE Stop: 04/27/25 07:33 Last Infusion: 04/27/25 07:50 Dose: Infused Ceftriaxone Sodium/Dextrose (Rocephin/D5w 1gm Iv Premix) 1 gm in 50 mls @ 100 mls/hr IV QDAY JOHN Stop: 05/04/25 08:06 Last Admin: 05/03/25 08:11 Dose: 100 mls/hr Azithromycin 500 mg/ Sodium (Chloride) 250 mls @ 250 mls/hr IV QDAY JOHN Stop: 05/05/25 08:59 Last Admin: 05/03/25 10:08 Dose: 250 mls/hr Azithromycin 500 mg/ Sodium (Chloride) 250 mls @ 250 mls/hr IV X1 ONE Stop: 04/27/25 09:29 Last Infusion: 04/27/25 16:31 Dose: Infused Magnesium Sulfate/Dextrose (Magnesium Sulfate Ivpb) 1 gm in 100 mls @ 100 mls/hr IV X1 ONE Stop: 04/27/25 09:34 Last Infusion: 04/27/25 19:51 Dose: Infused Albumin Human (Albuminar-25 Ivpb) 12.5 gm in 50 mls @ 50 mls/hr IV X1 ONE Stop: 04/28/25 17:59 Last Admin: 04/28/25 17:08 Dose: 50 mls/hr Magnesium Sulfate (Magnesium Sulfate Ivpb) 2 gm in 50 mls @ 25 mls/hr IV X1 ONE Stop: 04/30/25 16:50 Last Admin: 04/30/25 15:29 Dose: 25 mls/hr Potassium Phosphate (Pot Phos 15 Mmol In Ns 250 Ml) 15 mmol in 250 mls @ 62.5 mls/hr IV Q4H JOHN Stop: 04/30/25 22:59 Last Admin: 04/30/25 19:41 Dose: 62.5 mls/hr Metronidazole (Flagyl 500 Mg Iv) 500 mg in 100 mls @ 200 mls/hr IV Q8HR JOHN Stop: 05/09/25 10:20 Last Admin: 05/04/25 05:24 Dose: 200 mls/hr Lactated Ringer's (Lactated Ringers) 500 mls @ 250 mls/hr IV .Q2H ONE Stop: 05/03/25 17:23 Last Admin: 05/03/25 16:45 Dose: Not Given Lactated Ringer's (Lactated Ringers) 500 mls @ 250 mls/hr IV .Q2H ONE Stop: 05/03/25 17:23 Last Admin: 05/03/25 16:22 Dose: 250 mls/hr Piperacillin/Tazobactam/Dextrose (Zosyn) 3.375 gm in 50 mls @ 12.5 mls/hr IV Q12H [facility] Stop: 05/11/25 12:59 Last Admin: 05/04/25 14:19 Dose: Not Given Dextrose/Sodium Chloride (D5-1/2ns) 500 mls @ 125 mls/hr IV .Q4H JOHN Stop: 06/03/25 08:44 Piperacillin/Tazobactam/Dextrose (Zosyn) 3.375 gm in 50 mls @ 100 mls/hr IV X1 ONE Stop: 05/04/25 09:14 Last Admin: 05/04/25 11:58 Dose: 100 mls/hr Lactated Ringer's (Lactated Ringers) 500 mls @ 125 mls/hr IV .Q4H ONE Stop: 05/04/25 14:21 Last Admin: 05/04/25 11:23 Dose: Not Given Sodium Chloride (Ns 0.45%) 500 mls @ 999 mls/hr IV .Q31M ONE Stop: 05/04/25 19:10 Last Admin: 05/04/25 18:53 Dose: 999 mls/hr Norepinephrine/Dextrose (Levophed In D5w 8mg/250ml) 8 mg in 250 mls @ 6.508 mls/hr IV .Q24H PRN; Protocol PRN Reason: PER PROTOCOL Stop: 06/03/25 19:54 Sodium Chloride (Ns) 250 mls @ 999 mls/hr IV .Q16M ONE Stop: 05/04/25 20:26 Lactulose (Lactulose Syrup 20 Gm/30 Ml Udc) 20 gm PO X1 ONE; Protocol Stop: 05/02/25 19:02 Last Admin: 05/02/25 20:40 Dose: 20 gm Lactulose (Lactulose Syrup 20 Gm/30 Ml Udc) 40 gm PO X1 ONE; Protocol Stop: 05/03/25 11:07 Last Admin: 05/03/25 11:53 Dose: 40 gm Levothyroxine Sodium (Levothyroxine Sodium 25 Mcg Tablet) 25 mcg PO X1 ONE Stop: 04/27/25 18:01 Last Admin: 04/27/25 18:47 Dose: 25 mcg Lidocaine (Lidocaine 5% 1 Patch) 1 patch TOP X1 ONE Stop: 05/01/25 16:07 Last Admin: 05/01/25 16:14 Dose: 1 patch Lidocaine HCl (Lidocaine Hcl 1% 20 Ml Vial) 30 ml INFL X1 ONE Stop: 05/04/25 20:33 Lorazepam (Lorazepam 2 Mg/Ml Vial) 1 mg IVP X1 ONE Stop: 04/30/25 11:48 Last Admin: 04/30/25 11:57 Dose: 1 mg Lorazepam (Lorazepam 2 Mg/Ml Vial) 0.5 mg IV X1 ONE Stop: 05/04/25 09:04 Last Admin: 05/04/25 09:15 Dose: 0.5 mg Metoprolol Succinate (Metoprolol Succinate Xl 25 Mg Tabcr) 25 mg PO X1 ONE Stop: 04/30/25 08:25 Last Admin: 04/30/25 09:09 Dose: 25 mg Metoprolol Succinate (Metoprolol Succinate Xl 25 Mg Tabcr) 50 mg PO QDAY [facility] Stop: 05/31/25 09:59 Last Admin: 05/01/25 09:49 Dose: Not Given Metoprolol Succinate (Metoprolol Succinate Xl 25 Mg Tabcr) 50 mg PO X1 ONE Stop: 05/02/25 02:38 Last Admin: 05/02/25 02:44 Dose: 50 mg Morphine Sulfate (Morphine Sulf Inj 10 Mg/Ml Vial) 0.5 mg IVP Q8HR PRN PRN Reason: PAIN SCALE 7-10 (Severe Stop: 05/06/25 17:39 Morphine Sulfate (Morphine Sulf Inj 10 Mg/Ml Vial) 2 mg IVP X1 ONE Stop: 05/04/25 20:33 Morphine Sulfate (Morphine Sulf Inj 10 Mg/Ml Vial) 1 mg IVP X1 ONE Stop: 05/04/25 20:56 Last Admin: 05/04/25 21:12 Dose: 1 mg Naloxone HCl (Naloxone Inj 1 Mg/Ml Syringe 2 Ml) 0.4 mg IV X1 ONE Stop: 05/04/25 19:51 Naloxone HCl (Naloxone Inj 1 Mg/Ml Syringe 2 Ml) 2 mg IV X1 ONE Stop: 05/04/25 19:51 Last Admin: 05/04/25 20:18 Dose: 2 mg Polyethylene Glycol (Polyethylene Glycol 17 Gm Packet) 17 gm PO QDAY [facility] Stop: 05/31/25 08:59 Last Admin: 05/03/25 08:11 Dose: 17 gm Potassium Chloride (Potassium Chloride 20 Meq Tabcr) 40 meq PO X1 ONE Stop: 04/27/25 08:36 Last Admin: 04/27/25 14:28 Dose: 40 meq Potassium Chloride (Potassium Chloride 20 Meq Tabcr) 40 meq PO X1 ONE Stop: 04/28/25 12:15 Last Admin: 04/28/25 12:20 Dose: 40 meq Potassium Chloride (Potassium Chloride 20 Meq Tabcr) 40 meq PO X1 ONE Stop: 04/29/25 08:53 Last Admin: 04/29/25 09:22 Dose: 40 meq Potassium Chloride (Potassium Chloride 20 Meq Tabcr) 40 meq PO X1 ONE Stop: 04/29/25 13:46 Last Admin: 04/29/25 14:14 Dose: 40 meq Quetiapine Fumarate (Quetiapine Fumarate 25 Mg Tablet) 25 mg PO X1 ONE Stop: 05/01/25 00:17 Last Admin: 05/01/25 00:23 Dose: 25 mg Quetiapine Fumarate (Quetiapine Fumarate 25 Mg Tablet) 25 mg PO X1 ONE Stop: 05/02/25 02:07 Last Admin: 05/02/25 02:13 Dose: 25 mg Sertraline HCl (Sertraline Hcl 25 Mg Tablet) 12.5 mg PO HS JOHN Stop: 05/30/25 20:59
[2025-05-04 22:16] LABS: Lactate (Lactic Acid) 4.5 mMol/L (0.4-2.0)
[2025-05-04 22:21] LABS: Reflex Lactate? Y
[2025-05-04 22:24] LABS: Base Excess 3 (-3-3); HCO3 27 mEq/L (20-26); Inspired O2, VO2 Liters 15 L/min; O2 Saturation 99 % (91-98); PCO2 41 mmHg (32.0-48.0); PO2 107 mmHg (83-108); pH, Arterial 7.43 (7.35-7.45)
[2025-05-04 22:25] LABS: Allen Test Not Performed; Puncture Site Arterial Line
[2025-05-04 22:27] LABS: Alanine Aminotransferase 111 U/L (10-49); Albumin, Serum 2.3 gm/dL (3.4-4.8); Albumin/Globulin Ratio 0.8 (1.2-2.2); Alkaline Phosphatase 218 U/L (46-116); Anion Gap 12 (7-16); Aspartate Amino Transferase 111 U/L (0-34); BUN/Creatinine Ratio 20 Ratio (12-20); Bilirubin,Total 1.1 mg/dL (0.3-1.2); Blood Urea Nitrogen 71 mg/dL (9-23); Calcium 8.3 mg/dL (8.3-10.6); Calcium (Corrected) 9.7 mg/dL (8.5-10.1); Carbon Dioxide 27.3 mMol/L (20.0-31.0); Chloride 107 mMol/L (98-107); Creatinine (Component) 3.5 mg/dL (0.6-1.3); Estimated Creatinine Clearance 13.1 mL/min (>60); Globulin 2.8 gm/dL (2.3-3.5); Glucose 138 mg/dL (74-106); Magnesium 2.0 mg/dL (1.6-2.6); Osmolality,Calculated 313 (275-295); Phosphorous 5.7 mg/dL (2.4-5.1); Potassium 5.0 mMol/L (3.4-5.1); Sodium 146 mMol/L (136-145); Total Protein 5.1 gm/dL (5.7-8.2); eGFR 13 See Note
[2025-05-04] MEDS: VASOPRESSIN IN NS IVPB 20 UNIT/100 ML BAG IV (22:30)
[2025-05-04 22:57] LABS: Basophils # (Auto) 0.1 Thou/mm3 (0.0-0.2); Basophils % (Auto) 0 % (0-2.5); Eosinophils # (Auto) 0.0 Thou/mm3 (0.0-0.5); Eosinophils % (Auto) 0 % (0-10); Hematocrit 39.2 % (36.0-46.0); Hemoglobin 12.9 g/dL (12.0-16.0); Immature Granulocytes Auto 0.15 Thou/mm3 (0.00-0.00); Lymphocytes # (Auto) 1.0 Thou/mm3 (1.0-4.8); Lymphocytes % (Auto) 6 % (10-50); Mean Corpuscular HGB Conc 32.9 g/dl (31.0-37.0); Mean Corpuscular Hemoglobin 25.0 pg (25.0-35.0); Mean Corpuscular Volume 76 fL (80-100); Monocytes # (Auto) 0.4 Thou/mm3 (0.0-0.8); Monocytes % (Auto) 3 % (0-12); Neutrophils # (Auto) 14.2 Thou/mm3 (1.8-7.7); Neutrophils % (Auto) 90 % (37-80); Nucleated Red Blood Cell # 0.02 Thou/mm3 (0.00-0.00); Nucleated Red Blood Cell % 0 /100 WBC (0); Platelet Count 130 Thou/mm3 (140-440); RDW Standard Deviation 53.5 fL (36.4-46.3); Red Blood Count 5.15 Miln/mm3 (4.00-5.20); White Blood Count 15.8 Thou/mm3 (3.6-11.0)
[2025-05-04] MEDS: fentaNYL CIT INJ 50 mCg/ML AMP 2ML IVP (23:03)
--- NOTE | 2025-05-04 23:13 | XR_ITS ---
Examination: AP chest single view TECHNIQUE: Portable AP chest single view Date and time: May 04, 2025, 2323 hours Comparison May 04, 2025 2110 hours INDICATIONS: Hypoxic respiratory failure postintubation today. FINDINGS: Bibasilar pneumonia, greater at the left base, consider aspiration pneumonia Endotracheal tube tip 3 cm above Leanna. Orogastric tube is in the stomach satisfactory position No significant cardiac enlargement IMPRESSION: Bibasilar pneumonia, consider aspiration pneumonia
[2025-05-04] MEDS: MIDAZOLAM INJ 1 MG/ML VIAL 2 ML 2 MG IVP (23:16)
--- NOTE | 2025-05-04 23:19 | ESOP_ITS ---
PROCEDURES: Procedure Date / Time 05/04/25 5342 Arterial Line Indication(s): shock and inability to monitor non-invasive BP Informed consent obtained: procedure done urgently Time out done, and the following verified: correct patient, side and site, procedure, patient position and implants and/or equipment Size (Gauge): 20 Technique used: guide wire technique Post-Procedure: line sutured into place and dry sterile dressing placed Patient tolerated procedure: well and no complications EBL(ml): 5 Complications: none Site: right and radial Procedure comment: Procedure performed under supervision of Dr. Dailey. Kj Warner MD, PGY 3. Disclaimer: This note was dictated by speech recognition. Minor errors in aquaculture and fisheries professor may be present due to voice recognition software.
--- NOTE | 2025-05-04 23:20 | ESOP_ITS ---
PROCEDURES: Procedure Date / Time 05/04/25 2240 Central Line Placement Right Femoral: Indication(s): shock and poor, or inadequate peripheral venous access Informed consent obtained: procedure done urgently Time out done, and the following verified: correct patient, side and site, procedure, patient position and implants and/or equipment Patient placed on monitor/pulse ox: Yes Hand Hygiene: scrub, soap & water and alcohol-based hand rub Max Sterile Barrier Techniques used: cap, mask, sterile gown, sterile gloves and sterile full body drape Central line prep: Chlorhexidine scrub and sterile drapes applied Local anesthesia used: lidocaine 1% Amount of anesthesia used (mL): 10 Ultrasound used for placement: Yes Sterile Technique if Ultrasound used, including sterile gel: yes Central line lumen inserted: triple Post procedure: sutured in place, good blood return, all ports aspirated, flushed, capped and sterile dressing applied Patient tolerated procedure: well and no complications EBL(ml): 10 Complications: none Procedure comment: Procedure performed under supervision of Dr. Dailey. Kj Warner MD, PGY 3. Disclaimer: This note was dictated by speech recognition. Minor errors in quality improvement coordinator (rn) may be present due to voice recognition software.
[2025-05-04] MEDS: PROPOFOL 1,000 MG IVPB 1,000 MG/100 ML VIAL 2.083 MG IV (23:21)
--- NOTE | 2025-05-04 23:21 | PD.RESPROC ---
PROCEDURES: Procedure Date / Time 05/04/25 2443 Intubation Indication(s): inability to protect airway Informed consent obtained: procedure done urgently Time out done, and the following verified: correct patient, side and site, procedure, patient position and implants and/or equipment Sedative: other (midazolam) Mg given: 2 Sedative #2: fentanyl Mg Given (sedative #2): 50 Paralytic: rocuronium Mg given: 60 Laryngoscope: fiber optic video scope Assist device used: fiber optic device ET tube size: 7.5 ET tube uncuffed: No Tube secured depth (cm): 26 Tube secured location: teeth Tube placement confirmation: visualized tube passing through cords, equal breath sounds bilaterally, no breath sounds over epigastrium and confirmation by capnometry Patient tolerated procedure: well and no complications EBL(ml): 0 Intubation complications: none Additional comments: Procedure performed under supervision of Dr. Dailey. Kj Warner MD, PGY 3. Disclaimer: This note was dictated by speech recognition. Minor errors in photographer apprentice may be present due to voice recognition software.
[2025-05-04] MEDS: fentaNYL 2,500 MCG/250 ML BAG 2,500 MCG/250 ML BAG IV (23:23)
--- NOTE | 2025-05-04 23:38 | ESCONSULT_ITS ---
HPI Data of Consult Consult date: 05/04/25 Requesting Physician: Pranay Crane MD Admitting Provider: Matias Santoro DO Attending Provider: Pranay Crane MD Primary Care Provider: Physician No Primary/Family Consult Narrative Reason for consult: shock History of present illness: Patient is a 74 years old female with PMH of A-fib (on amiodarone and Eliquis), CAD status post stent, hypertension, history of CVA in 2022, HFrEF EF 35 to 40% and history of left ventrical mural thrombus was initially presented to [facility] on 04/27/2025 when she was brought in by her son for SNF placement as he wasn't able to take care of her, she was admitted due to AHRF 2/2 CHF exacerbation and was started on IV diuretics. Her hospital course was complicated by episode of Afib with RVR and worsening mental status. On 05/01/2025 primary team noticed abdominal tenderness and distention, abdominal US showed cholelithiasis, gallbladder wall is thickening. HIDA scan on 05/02/2025 showed no gallbladder activity consistent with cystic duct obstruction. General surgery was consulted for cholelithiasis and possible cholecystitis. Per general surgery patient was not a candidate for surgery and recommended continuing antibiotics. Follow up CTAP on 05/03/2025 showed cirrhosis, mild ascites, pneumoperitoneum, cholelithiasis, general surgery advised to continue IV antibiotics as the patient is not a candidate for surgical intervention. On rapid response was called due to patient being significantly encephalopathic, vitals showed MAP of 53 and she was upgraded to ICU due to shock and was started on pressors. cc:: cc: Pranay Crane MD Review of Systems Review of Systems ROS Unobtainable: unobtainable due to mental status and due to endotracheal tube Exam Vital Signs Temp Pulse Resp BP Pulse Ox O2 Del Method O2 Flow Rate 97.3 F 72 15 98/57 L 95 Nasal Cannula 5 05/04/25 20:19 05/04/25 20:19 05/04/25 20:19 05/04/25 20:19 05/04/25 20:19 05/04/25 16:00 05/04/25 20:19 Narrative Exam Gen: Well-developed and well-nourished agitated elderly female. HEENT: NCAT, PERRLA, EOMI, MMM, anicteric conjunctivae. CVS: normal S1 and S2. RRR. No M/R/G. Resp: wheezing B/L. No rhonchi, rales, crackles. Abd: soft, tender throughout, non-distended. BS muffled but present. MSK: Good ROM in BUE & BLE. Petechial rash over chest, mottling noted over BLE. 1+ edema BLE. Neuro: limited exam due to mental status. Results Labs 05/05/25 05:43 05/05/25 08:17 Labs: Short CBC 05/04/25 05/04/25 05/04/25 Range/Units 04:55 18:58 22:30 WBC 27.9 H D 13.0 H D 15.8 H (3.6-11.0) Thou/mm3 Hgb 13.4 13.0 12.9 (12.0-16.0) g/dL Hct 42.6 40.5 39.2 (36.0-46.0) % Plt Count 138 L 116 L 130 L (140-440) Thou/mm3 BMP 05/04/25 05/04/25 05/04/25 04:55 10:55 15:07 Sodium 150 H 149 H 149 H Potassium 4.8 D 4.8 4.9 Chloride 104 105 106 Carbon Dioxide 33.9 H 34.2 H 31.9 H BUN 76 H 75 H 77 H Creatinine 3.2 H D 3.4 H 3.5 H Glucose 113 H 105 103 Calcium 8.8 8.6 8.5 05/04/25 05/04/25 18:58 21:38 Sodium 149 H 146 H Potassium 5.0 5.0 Chloride 108 H 107 Carbon Dioxide 30.2 27.3 BUN 83 H 71 H Creatinine 3.5 H 3.5 H Glucose 90 138 H D Calcium 8.8 8.3 Liver Function 05/04/25 05/04/25 05/04/25 Range/Units 04:55 10:55 18:58 Total Bilirubin 1.2 D 1.1 1.1 (0.3-1.2) mg/dL Direct Bilirubin 0.8 H (0.0-0.3) mg/dL AST 157 H 140 H 107 H (0-34) U/L ALT 133 H 125 H 105 H (10-49) U/L Alkaline Phosphatase 264 H D 229 H D 219 H (46-116) U/L Albumin 2.6 L 2.4 L 2.3 L (3.4-4.8) gm/dL 05/04/25 Range/Units 21:38 Total Bilirubin 1.1 (0.3-1.2) mg/dL Direct Bilirubin (0.0-0.3) mg/dL AST 111 H (0-34) U/L ALT 111 H (10-49) U/L Alkaline Phosphatase 218 H (46-116) U/L Albumin 2.3 L (3.4-4.8) gm/dL ABG Interpretation ABG results: 04/26/25 05/01/25 05/04/25 23:16 19:51 19:21 ABG pH 7.50 H 7.40 D ABG pCO2 45 47 ABG pO2 89 75 L ABG HCO3 35 H 29 H ABG O2 Saturation 98 95 ABG Base Excess 10 H 4 H VBG pH 7.49 VBG pCO2 23 L VBG pO2 33 VBG Base Excess -4 L 05/04/25 22:15 ABG pH 7.43 ABG pCO2 41 ABG pO2 107 D ABG HCO3 27 H ABG O2 Saturation 99 H ABG Base Excess 3 VBG pH VBG pCO2 VBG pO2 VBG Base Excess Quality Measures Quality Measures VTE prophylaxis Advance care planning discussed with:: patient and child Medications Home Medications and Allergies Home Medications ?Medication ?Instructions ?Recorded ?Confirmed ?Type olmesartan 40 mg tablet 40 mg PO DAILY 08/18/2301/20 History bumetanide 1 mg tablet 1 mg PO QDAY 08/03/24 History spironolactone 25 mg tablet 25 mg PO QDAY 08/03/2401/20 History clonidine HCl 0.2 mg tablet 0.2 mg PO DAILY 04/30/25 0 04/30/25 History nitroglycerin 0.4 mg sublingual 0.4 mg buccal [id number] PRN chest 04/30/25 04/30/25 History tablet pain Allergies Allergy/AdvReac Type Severity Reaction Status Date / Time codeine Allergy Unknown Blister Verified 03/06/25 18:35 Visit Medications Acetaminophen (Acetaminophen 325 Mg Tablet) 650 mg PO Q6H PRN PRN Reason: Fever >100.3 Stop: 05/27/25 08:00 Amiodarone HCl (Amiodarone Hcl 200 Mg Tablet) 200 mg PO BID [facility] Stop: 05/30/25 20:59 Last Admin: 05/04/25 22:19 Dose: Not Given Apixaban (Apixaban 2.5 Mg Tablet) 2.5 mg PO BID JOHN Stop: 05/30/25 08:59 Last Admin: 05/03/25 08:12 Dose: 2.5 mg Aspirin (Aspirin Ec 81 Mg Tabec) 81 mg PO DAILY [facility] Stop: 05/28/25 08:59 Last Admin: 05/03/25 08:12 Dose: 81 mg Atorvastatin Calcium (Atorvastatin Calcium 20 Mg Tablet) 80 mg PO HS [facility] Stop: 05/27/25 20:59 Last Admin: 05/04/25 22:20 Dose: Not Given Balsam Alpha/Wray Oil (Balsam Rich/Wray Oil (Venelex) 60 Gm Tube) 0 gm TOP BID [facility] Stop: 05/28/25 20:59 Last Admin: 05/04/25 11:59 Dose: 1 applicatio Hydromorphone HCl (Hydromorphone Inj 2 Mg/Ml Vial) 0.5 mg IVP Q4HR PRN PRN Reason: PAIN SCALE 4-10(Mod-Sev Stop: 05/08/25 17:02 Last Admin: 05/04/25 16:14 Dose: 0.5 mg Sodium Chloride (Ns 0.45%) 1,000 mls @ 50 mls/hr IV .Q20H [facility] Stop: 05/06/25 02:34 Last Admin: 05/04/25 11:54 Dose: 50 mls/hr Piperacillin/Tazobactam/Dextrose (Zosyn) 3.375 gm in 50 mls @ 12.5 mls/hr IV Q12H [facility] Stop: 05/11/25 15:59 Last Admin: 05/04/25 16:14 Dose: 12.5 mls/hr Norepinephrine/Dextrose (Levophed In D5w 8mg/250ml) 8 mg in 250 mls @ 6.508 mls/hr IV .Q24H PRN; Protocol PRN Reason: PER PROTOCOL Stop: 06/03/25 21:06 Last Titration: 05/04/25 22:10 Dose: 0.8 mcg/kg/min, 104.133 mls/hr Propofol (Diprivan Ivpb) 1,000 mg in 100 mls @ 2.083 mls/hr IV .Q24H PRN; Protocol PRN Reason: PER PROTOCOL Stop: 06/03/25 23:12 Last Admin: 05/04/25 23:21 Dose: 5 mcg/kg/min, 2.083 mls/hr Fentanyl Citrate (Sublimaze Inj 2,500 Mcg/250 Ml Bag) 2,500 mcg in 250 mls @ 2.5 mls/hr IV .Q24H PRN; Protocol PRN Reason: PER PROTOCOL Stop: 05/09/25 23:13 Last Admin: 05/04/25 23:23 Dose: 25 mcg/hr, 2.5 mls/hr Levothyroxine Sodium (Levothyroxine Sodium 25 Mcg Tablet) 25 mcg PO ACBR [facility] Stop: 05/28/25 05:59 Last Admin: 05/04/25 05:24 Dose: 25 mcg Metoprolol Succinate (Metoprolol Succinate Xl 25 Mg Tabcr) 50 mg PO QDAY [facility] Stop: 06/01/25 08:59 Last Admin: 05/04/25 08:30 Dose: Not Given Pharmacy Consult (Pharmacy Renal Dose Adjustment 1 Ea) 1 each XX PRN PRN PRN Reason: CONSULT Stop: 06/03/25 08:35 Quetiapine Fumarate (Quetiapine Fumarate 25 Mg Tablet) 25 mg PO [facility] Stop: 05/31/25 20:59 Last Admin: 05/04/25 22:20 Dose: Not Given Sennosides (Senna/Docusate Sod 1 Tab Tablet) 1 tab PO [facility]; Protocol Stop: 05/31/25 20:59 Last Admin: 05/02/25 20:40 Dose: 1 tab Discontinued Medications Acetaminophen (Acetaminophen 325 Mg Tablet) 650 mg PO Q6H PRN PRN Reason: Fever >101.5 Stop: 05/27/25 08:00 Last Admin: 05/01/25 13:41 Dose: 650 mg Acetaminophen (Acetaminophen 325 Mg Tablet) 650 mg PO Q6H PRN PRN Reason: Fever >100.3 Stop: 05/27/25 08:00 Hydrocodone Bitart/Acetaminophen (Hydrocodone/Apap 10/325 Tab) 1 tab PO X1 ONE Stop: 05/01/25 22:39 Last Admin: 05/01/25 22:53 Dose: 1 tab Albuterol/Ipratropium (Albuterol/Ipratropium (Duoneb) Rt Margaret 3 Ml Nebu) 3 ml INH X1 ONE Stop: 05/04/25 21:33 Amiodarone HCl (Amiodarone Hcl 200 Mg Tablet) 200 mg PO QDAY [facility] Stop: 05/28/25 08:59 Last Admin: 04/30/25 08:56 Dose: 200 mg Apixaban (Apixaban 2.5 Mg Tablet) 5 mg PO BID [facility] Stop: 05/27/25 20:59 Last Admin: 04/29/25 20:37 Dose: 5 mg Atropine Sulfate (Atropine Sulf Inj 0.1 Mg/Ml Syr 10 Ml) 0.5 mg IV Q5MIN PRN PRN Reason: HR <40 Stop: 04/30/25 17:31 Atropine Sulfate (Atropine Sulf Inj 1 Mg/Ml Vial) 0.5 mg IVP Q5MIN PRN PRN Reason: HR < 40 Stop: 04/30/25 17:39 Bumetanide (Bumetanide Inj 0.25 Mg/Ml Vial 4 Ml) 1 mg IVP X1 ONE Stop: 04/27/25 06:31 Last Admin: 04/27/25 06:43 Dose: 1 mg Bumetanide (Bumetanide Inj 0.25 Mg/Ml Vial 4 Ml) 1 mg IVP X1 ONE Stop: 04/27/25 08:36 Last Admin: 04/27/25 14:36 Dose: 1 mg Bumetanide (Bumetanide Inj 0.25 Mg/Ml Vial 4 Ml) 1 mg IVP BIDD [facility] Stop: 05/27/25 17:59 Last Admin: 04/28/25 06:24 Dose: 1 mg Bumetanide (Bumetanide Inj 0.25 Mg/Ml Vial 4 Ml) 2 mg IVP BIDD [facility] Stop: 05/28/25 17:59 Last Admin: 04/29/25 17:02 Dose: 2 mg Bumetanide (Bumetanide Inj 0.25 Mg/Ml Vial 4 Ml) 1 mg IVP X1 ONE Stop: 04/28/25 12:13 Last Admin: 04/28/25 12:21 Dose: 1 mg Bumetanide (Bumetanide Inj 0.25 Mg/Ml Vial 4 Ml) 2 mg IVP QDAY [facility] Stop: 05/30/25 08:59 Last Admin: 04/30/25 09:05 Dose: 2 mg Bumetanide (Bumetanide Inj 0.25 Mg/Ml Vial 4 Ml) 1 mg IVP QDAY [facility] Stop: 05/31/25 08:59 Last Admin: 05/01/25 09:51 Dose: 1 mg Carvedilol (Carvedilol 3.125 Mg Tablet) 3.125 mg PO BIDWM [facility] Stop: 05/28/25 17:29 Digoxin (Digoxin Inj 0.25 Mg/Ml Amp 2 Ml) 0.25 mg IVP X1 ONE Stop: 04/26/25 23:36 Last Admin: 04/26/25 23:46 Dose: 0.25 mg Digoxin (Digoxin Inj 0.25 Mg/Ml Amp 2 Ml) 0.25 mg IVP X1 ONE Stop: 04/27/25 06:28 Last Admin: 04/27/25 14:59 Dose: Not Given Diltiazem HCl (Diltiazem Inj 5 Mg/Ml Vial 5 Ml) 15 mg IV X1 ONE Stop: 04/30/25 01:54 Last Admin: 04/30/25 02:10 Dose: 15 mg Diphenhydramine HCl (Diphenhydramine Inj 50 Mg/Ml Vial) 12.5 mg IM X1 ONE Stop: 04/30/25 01:47 Last Admin: 05/02/25 07:48 Dose: Not Given Diphenhydramine HCl (Diphenhydramine Inj 50 Mg/Ml Vial) 12.5 mg IVP X1 ONE Stop: 04/30/25 02:17 Last Admin: 04/30/25 02:21 Dose: 12.5 mg Diphenhydramine HCl (Diphenhydramine Elix 25 Mg/10 Ml Udc) 25 mg PO X1 ONE Stop: 05/02/25 00:20 Last Admin: 05/02/25 00:52 Dose: Not Given Diphenhydramine HCl (Diphenhydramine 25 Mg Capsule) 25 mg PO X1 ONE Stop: 05/02/25 00:22 Last Admin: 05/02/25 00:24 Dose: 25 mg Diphenhydramine HCl (Diphenhydramine Inj 50 Mg/Ml Vial) 12.5 mg IVP X1 ONE Stop: 05/02/25 00:31 Last Admin: 05/02/25 00:51 Dose: Not Given Etomidate (Etomidate Inj 2 Mg/Ml Vial 10 Ml) 5 mg IVP X1 ONE Stop: 04/26/25 22:58 Last Admin: 04/27/25 01:23 Dose: Not Given Fentanyl Citrate (Fentanyl Cit Inj 50 Mcg/Ml Amp 2ml) 50 mcg IVP X1 ONE Stop: 05/04/25 22:59 Last Admin: 05/04/25 23:03 Dose: 50 mcg Glycerin (Glycerin, Adult 1 Ea Supp) 2 each UT X1 ONE Stop: 05/03/25 17:31 Last Admin: 05/03/25 18:11 Dose: 2 each Heparin Sodium (Porcine) (Heparin Sod Inj 5000 Unit/Ml Vial) 5,000 unit SC Q8HR JOHN Stop: 05/11/25 08:14 Last Admin: 04/28/25 07:46 Dose: Not Given Hydromorphone HCl (Hydromorphone Inj 2 Mg/Ml Vial) 1 mg IVP X1 ONE Stop: 05/01/25 17:58 Last Admin: 05/01/25 18:02 Dose: 1 mg Hydromorphone HCl (Hydromorphone Inj 2 Mg/Ml Vial) 0.25 mg IVP X1 ONE Stop: 05/02/25 02:09 Last Admin: 05/02/25 02:13 Dose: 0.25 mg Magnesium Sulfate/Dextrose (Magnesium Sulfate Ivpb) 1 gm in 100 mls @ 100 mls/hr IV X1 ONE Stop: 04/26/25 23:53 Last Admin: 04/26/25 23:42 Dose: Not Given Norepinephrine/Dextrose (Levophed In D5w 8mg/250ml) 8 mg in 250 mls @ 7.867 mls/hr IV .Q24H PRN; Protocol PRN Reason: PER PROTOCOL Stop: 05/26/25 22:58 Amiodarone HCl/Dextrose (Nexterone Ivpb) 150 mg in 100 mls @ 600 mls/hr IV .Q10M ONE Stop: 04/26/25 23:09 Last Infusion: 04/26/25 23:23 Dose: Infused Amiodarone HCl/Dextrose (Nexterone Ivpb) 360 mg in 200 mls @ 33.333 mls/hr IV .Q6H ONE Stop: 04/27/25 04:58 Last Infusion: 04/27/25 05:23 Dose: Infused Amiodarone HCl/Dextrose (Nexterone Ivpb) 360 mg in 200 mls @ 16.667 mls/hr IV .Q12H [facility] Stop: 04/27/25 22:59 Last Admin: 04/27/25 02:36 Dose: Not Given Amiodarone HCl/Dextrose (Nexterone Ivpb) 360 mg in 200 mls @ 16.667 mls/hr IV .Q12H [facility] Stop: 04/28/25 04:59 Last Infusion: 04/28/25 06:10 Dose: Infused Magnesium Sulfate/Dextrose (Magnesium Sulfate Ivpb) 1 gm in 100 mls @ 100 mls/hr IV X1 ONE Stop: 04/27/25 07:33 Last Infusion: 04/27/25 07:50 Dose: Infused Ceftriaxone Sodium/Dextrose (Rocephin/D5w 1gm Iv Premix) 1 gm in 50 mls @ 100 mls/hr IV QDAY [facility] Stop: 05/04/25 08:06 Last Admin: 05/03/25 08:11 Dose: 100 mls/hr Azithromycin 500 mg/ Sodium (Chloride) 250 mls @ 250 mls/hr IV QDAY [facility] Stop: 05/05/25 08:59 Last Admin: 05/03/25 10:08 Dose: 250 mls/hr Azithromycin 500 mg/ Sodium (Chloride) 250 mls @ 250 mls/hr IV X1 ONE Stop: 04/27/25 09:29 Last Infusion: 04/27/25 16:31 Dose: Infused Magnesium Sulfate/Dextrose (Magnesium Sulfate Ivpb) 1 gm in 100 mls @ 100 mls/hr IV X1 ONE Stop: 04/27/25 09:34 Last Infusion: 04/27/25 19:51 Dose: Infused Albumin Human (Albuminar-25 Ivpb) 12.5 gm in 50 mls @ 50 mls/hr IV X1 ONE Stop: 04/28/25 17:59 Last Admin: 04/28/25 17:08 Dose: 50 mls/hr Magnesium Sulfate (Magnesium Sulfate Ivpb) 2 gm in 50 mls @ 25 mls/hr IV X1 ONE Stop: 04/30/25 16:50 Last Admin: 04/30/25 15:29 Dose: 25 mls/hr Potassium Phosphate (Pot Phos 15 Mmol In Ns 250 Ml) 15 mmol in 250 mls @ 62.5 mls/hr IV Q4H [facility] Stop: 04/30/25 22:59 Last Admin: 04/30/25 19:41 Dose: 62.5 mls/hr Metronidazole (Flagyl 500 Mg Iv) 500 mg in 100 mls @ 200 mls/hr IV Q8HR [facility] Stop: 05/09/25 10:20 Last Admin: 05/04/25 05:24 Dose: 200 mls/hr Lactated Ringer's (Lactated Ringers) 500 mls @ 250 mls/hr IV .Q2H ONE Stop: 05/03/25 17:23 Last Admin: 05/03/25 16:45 Dose: Not Given Lactated Ringer's (Lactated Ringers) 500 mls @ 250 mls/hr IV .Q2H ONE Stop: 05/03/25 17:23 Last Admin: 05/03/25 16:22 Dose: 250 mls/hr Piperacillin/Tazobactam/Dextrose (Zosyn) 3.375 gm in 50 mls @ 12.5 mls/hr IV Q12H [facility] Stop: 05/11/25 12:59 Last Admin: 05/04/25 14:19 Dose: Not Given Dextrose/Sodium Chloride (D5-1/2ns) 500 mls @ 125 mls/hr IV .Q4H [facility] Stop: 06/03/25 08:44 Piperacillin/Tazobactam/Dextrose (Zosyn) 3.375 gm in 50 mls @ 100 mls/hr IV X1 ONE Stop: 05/04/25 09:14 Last Admin: 05/04/25 11:58 Dose: 100 mls/hr Lactated Ringer's (Lactated Ringers) 500 mls @ 125 mls/hr IV .Q4H ONE Stop: 05/04/25 14:21 Last Admin: 05/04/25 11:23 Dose: Not Given Sodium Chloride (Ns 0.45%) 500 mls @ 999 mls/hr IV .Q31M ONE Stop: 05/04/25 19:10 Last Admin: 05/04/25 18:53 Dose: 999 mls/hr Norepinephrine/Dextrose (Levophed In D5w 8mg/250ml) 8 mg in 250 mls @ 6.508 mls/hr IV .Q24H PRN; Protocol PRN Reason: PER PROTOCOL Stop: 06/03/25 19:54 Sodium Chloride (Ns) 250 mls @ 999 mls/hr IV .Q16M ONE Stop: 05/04/25 20:26 Lactulose (Lactulose Syrup 20 Gm/30 Ml Udc) 20 gm PO X1 ONE; Protocol Stop: 05/02/25 19:02 Last Admin: 05/02/25 20:40 Dose: 20 gm Lactulose (Lactulose Syrup 20 Gm/30 Ml Udc) 40 gm PO X1 ONE; Protocol Stop: 05/03/25 11:07 Last Admin: 05/03/25 11:53 Dose: 40 gm Levothyroxine Sodium (Levothyroxine Sodium 25 Mcg Tablet) 25 mcg PO X1 ONE Stop: 04/27/25 18:01 Last Admin: 04/27/25 18:47 Dose: 25 mcg Lidocaine (Lidocaine 5% 1 Patch) 1 patch TOP X1 ONE Stop: 05/01/25 16:07 Last Admin: 05/01/25 16:14 Dose: 1 patch Lidocaine HCl (Lidocaine Hcl 1% 20 Ml Vial) 30 ml INFL X1 ONE Stop: 05/04/25 20:33 Last Admin: 05/04/25 20:32 Dose: 10 ml Lorazepam (Lorazepam 2 Mg/Ml Vial) 1 mg IVP X1 ONE Stop: 04/30/25 11:48 Last Admin: 04/30/25 11:57 Dose: 1 mg Lorazepam (Lorazepam 2 Mg/Ml Vial) 0.5 mg IV X1 ONE Stop: 05/04/25 09:04 Last Admin: 05/04/25 09:15 Dose: 0.5 mg Metoprolol Succinate (Metoprolol Succinate Xl 25 Mg Tabcr) 25 mg PO X1 ONE Stop: 04/30/25 08:25 Last Admin: 04/30/25 09:09 Dose: 25 mg Metoprolol Succinate (Metoprolol Succinate Xl 25 Mg Tabcr) 50 mg PO QDAY JOHN Stop: 05/31/25 09:59 Last Admin: 05/01/25 09:49 Dose: Not Given Metoprolol Succinate (Metoprolol Succinate Xl 25 Mg Tabcr) 50 mg PO X1 ONE Stop: 05/02/25 02:38 Last Admin: 05/02/25 02:44 Dose: 50 mg Midazolam HCl (Midazolam Inj 1 Mg/Ml Vial 2 Ml) 2 mg IVP X1 ONE Stop: 05/04/25 22:59 Last Admin: 05/04/25 23:16 Dose: 2 mg Morphine Sulfate (Morphine Sulf Inj 10 Mg/Ml Vial) 0.5 mg IVP Q8HR PRN PRN Reason: PAIN SCALE 7-10 (Severe Stop: 05/06/25 17:39 Morphine Sulfate (Morphine Sulf Inj 10 Mg/Ml Vial) 2 mg IVP X1 ONE Stop: 05/04/25 20:33 Last Admin: 05/04/25 20:32 Dose: 2 mg Morphine Sulfate (Morphine Sulf Inj 10 Mg/Ml Vial) 1 mg IVP X1 ONE Stop: 05/04/25 20:56 Last Admin: 05/04/25 21:12 Dose: 1 mg Morphine Sulfate (Morphine Sulf Inj 10 Mg/Ml Vial) 1 mg IVP X1 ONE Stop: 05/04/25 21:32 Last Admin: 05/04/25 23:11 Dose: Not Given Naloxone HCl (Naloxone Inj 1 Mg/Ml Syringe 2 Ml) 0.4 mg IV X1 ONE Stop: 05/04/25 19:51 Naloxone HCl (Naloxone Inj 1 Mg/Ml Syringe 2 Ml) 2 mg IV X1 ONE Stop: 05/04/25 19:51 Last Admin: 05/04/25 20:18 Dose: 2 mg Polyethylene Glycol (Polyethylene Glycol 17 Gm Packet) 17 gm PO QDAY JOHN Stop: 05/31/25 08:59 Last Admin: 05/03/25 08:11 Dose: 17 gm Potassium Chloride (Potassium Chloride 20 Meq Tabcr) 40 meq PO X1 ONE Stop: 04/27/25 08:36 Last Admin: 04/27/25 14:28 Dose: 40 meq Potassium Chloride (Potassium Chloride 20 Meq Tabcr) 40 meq PO X1 ONE Stop: 04/28/25 12:15 Last Admin: 04/28/25 12:20 Dose: 40 meq Potassium Chloride (Potassium Chloride 20 Meq Tabcr) 40 meq PO X1 ONE Stop: 04/29/25 08:53 Last Admin: 04/29/25 09:22 Dose: 40 meq Potassium Chloride (Potassium Chloride 20 Meq Tabcr) 40 meq PO X1 ONE Stop: 04/29/25 13:46 Last Admin: 04/29/25 14:14 Dose: 40 meq Quetiapine Fumarate (Quetiapine Fumarate 25 Mg Tablet) 25 mg PO X1 ONE Stop: 05/01/25 00:17 Last Admin: 05/01/25 00:23 Dose: 25 mg Quetiapine Fumarate (Quetiapine Fumarate 25 Mg Tablet) 25 mg PO X1 ONE Stop: 05/02/25 02:07 Last Admin: 05/02/25 02:13 Dose: 25 mg Sertraline HCl (Sertraline Hcl 25 Mg Tablet) 12.5 mg PO HS JOHN Stop: 05/30/25 20:59 Assessment & Plan Plan Patient is a 74 years old female with PMH of A-fib (on amiodarone and Eliquis), CAD status post stent, hypertension, history of CVA in 2022, HFrEF EF 35 to 40% and history of left ventrical mural thrombus was upgraded to ICU due to shock. Neuro: #Acute encephalopathy. #Sedation. Likely related to underlying infection and sepsis, worsened by hypoperfusion due to shock. Hypernatremia was also noted, peaked at 150 on 05/02. She is now sedated with fentanyl and propofol, RAAS -2. Plan: - continue sedation with fentanyl and propofol, RAAS -2. Cardiovascular: #Undifferentiated shock. DDx: septic, cardiogenic, hypovolemic, combined. Patient initially presented with CHF exacerbation and fluid overload status, echo at that time showed worsening ejection fraction compared to prior echo with estimated EF 15 to 20%, patient was aggressively diuresed and fluid restricted. Diuretics were discontinued after patient was stabilized however later she became altered and had poor oral intake, total fluid intake for the last 3 days documented was slightly above 2 L. Around that time her creatinine started getting worse from 1.9(05/01) to 3.5 today. On 05/01 patient was noticed to have abdominal tenderness. Imaging showed pneumoperitoneum and possible cystic duct obstruction and cholelithiasis, at that time WBCs were significantly elevated pointing to intra-abdominal infection. Patient was started on IV Zosyn per general surgery recommendations with improvement of her WBCs and overall condition. Since admission to ICU patient required 2 pressors on high-dose to maintain MAP above 65. NHM showed delta SVI 59% and patient was started on IV fluid resuscitation with multiple boluses and maintenance fluid. Her pressor requirement dramatically reduced after IVF. At the time of ICU upgrade bedside echo showed similar cardiac function and ejection fraction making cardiogenic shock less likely possible. Patient was adequately covered with antibiotics prior to ICU admission and her WBCs were showing positive dynamic. Given dramatic improvement of her hemodynamic status after IV fluids patient is likely suffered from hypovolemic shock from IV diuresis and poor oral intake with possible component of septic shock given ongoing infection. Plan: - continue pressor support with vasopressin and NEpi, titrate to maintain MAP > 65. - continue IVF resuscitation with LR maintains and boluses. #HFrEF with EF 15-20%. Patient initially was on IV Bumex, was discontinued once CHF exacerbation improved and her volume status has improved. GDMT was held due to worsening hypotension. Echo from 04/27 showed Dilated cardiomyopathy. EF worsened from 35 to 40% to less than 20%. Severe LV dilatation, severe Global Hypokinesis. Estimated EF 15- 20%. Bedside echo at the time of ICU admission showed dilated LV with global hypokinesis consistent with prior echo reading, IVF unable to assess due to abdominal tenderness. NHM showed delta SVI 59%, IVF started. Plan: - currently on volume resuscitation. - strict PRIYA. #Hx of Ischemic stroke, 2022. #Hx of CAD s/p PCI. #Troponinemia. At home on aspirin and atorvastatin. Troponin I 0.093 at the time of ICU upgrade, likely demand ischemia in setting of shock. Plan: - aspirin on hold due to potential surgery, continue atorvastatin. - continue trending troponin I. - EKG is ordered. #Hx of Afib. #History of small PFO. Patient has a history of A-fib and takes amiodarone and Eliquis at home. On admission patient was found to be in A-fib with heart rate 160s, was given digoxin and magnesium and started on amio drip as per cardio recommendations. BE from 08/22/2023 showed small mobile MARCIO thrombus, positive bubble study, evidence of very small PFO demonstrated by agitated saline injection. [id number] score 5, HAS-BLED 5. Plan: - Eliquis on hold due to potential surgery. - Continue Amiodarone 200 mg p.o. BID. - Keep magnesium above 2 potassium above 4. - Television Service Engineer Dr. Lezama is consulted, appreciate recommendations. #Hx of primary hypertension. - Medications on hold due to shock. Respiratory: #Acute hypoxic respiratory failure. #Intubation and mechanical ventilation. Patient was intubated due to inability to protect airways and respiratory distress. Started on MV volume control. ABG after intubation pH 7.34, pCO2 49, pO2 248. RR was increased to 20/min. Plan: - continue on VC with TV 360cc, FiO2 90%, RR 20/min, PEEP 5. - pending repeat ABG. Gastrointestinal: #Pneumoperitoneum. #Cholelithiasis. #?Cystic Duct obstruction. #Cirrhosis with ascites. 05/01 abdominal US showed cholelithiasis, gallbladder wall is thickening. HIDA scan on 05/02/2025 showed no gallbladder activity consistent with cystic duct obstruction. General surgery was consulted for cholelithiasis and possible cholecystitis. Per general surgery patient was not a candidate for surgery and recommended continuing antibiotics. CTAP on 05/03/2025 showed cirrhosis, mild ascites, pneumoperitoneum, cholelithiasis, general surgery advised to continue IV antibiotics as the patient is not a candidate for surgical intervention. Latest labs showed AST 111, ALT 101, alk phos 218, total bilirubin 1.1. Plan: - general surgery on board. - continue Zosyn IV. Renal: #LOYD. #Lactic acidosis. Latest labs showed BUN 71, Cr 3.5, eGFR 13. Baseline creatinine 1. UO 900cc. Likely ATN, consider nephrology consult and possible INVESTOR if continues to worsen. At the time of ICU upgrade lactic acid 4.5, repeat after IVF 3.8. Plan: - consider nephrology consult. - monitor with daily labs, trend lactic acid. - avoid nephrotoxic agents. - renally dose meds. - strict PRIYA. - continue IVF resuscitation. #Hypernatremia. At the time of ICU admission Na 149, repeat Na 146. Plan: - continue IVF resuscitation with LR. - monitor with daily labs. Endocrine: #Euthyroid sick syndrome. -Latest labs from 05/03 showed TSH 4.76, free T4 0.82. Plan: - Continue Levothyroxine 25 mcg daily. Infectious Disease: #Intraabdominal infection. See GI section. Blood culture from 04/27 negative x2, from 05/02 negative preliminary. Ceftriaxone (04/27/2025-05/04/2025) & Flagly (05/02/2025-05/04/2025). Plan: - general surgery on board, patient is not a candidate for surgery. - continue Zosyn IV (05/04 - ). Hematology/Oncology: #Leukocytosis. Likely due to intraabdominal infection, see GI section. Plan: - Continue to monitor with daily labs. #Thrombocytopenia. Likely related to underlying cirrhosis. Plan: - Continue to monitor with daily labs. Diet: NPO. DVT prophylaxis: SCDs. Lines: peripheral x2, central, arterial lines. Tubes: NG tube. GI prophylaxis: Famotidine. Code status: full code. Disposition: ICU due to shock. Plan of care discussed with attending Dr. Prather. Kj Warner MD, PGY 3. Disclaimer: This note was dictated by speech recognition. Minor errors in landing signal officer may be present due to voice recognition software. Attending Provider Attestation/Addendum I have examined the patient, reviewed labs and imaging findings, discussed the case with the resident(s), and reviewed entered orders. I agree with the plan of care as outlined in this note. Dr. Yamilka MD
[2025-05-04] MEDS: ROCURONIUM INJ 10 MG/ML VIAL 10 ML 60 MG IVP (23:55)
[2025-05-05] VITALS (116 sets, daily range): BP systolic 00–141; BP diastolic 0–100; PULSE 0–93; RESP 0–26; TEMP 35.8–36.9; O2SAT 69–100; BMI 28.3
[2025-05-05] LABS: Troponin I 0.093 ng/mL (0.0-0.045)
[2025-05-05] LABS: Base Excess 0 (-3-3); HCO3 26 mEq/L (20-26); O2 Saturation 100 % (91-98); PCO2 49 mmHg (32.0-48.0); PO2 248 mmHg (83-108); pH, Arterial 7.34 (7.35-7.45)
[2025-05-05 00:01] LABS: Allen Test Not Performed; Inspired Oxygen, FIO2 100 %; Puncture Site Arterial Line
[2025-05-05] MEDS: Norepinephrine/NS 16mg/250ml 16 MG/250 ML BAG 52.067 MG IV (00:15)
[2025-05-05 01:00] LABS: Reflex Lactate? Y
[2025-05-05] MEDS: SODIUM CHLORIDE 0.9% 1000 ML 1,000 ML 999 ML IV (01:08)
[2025-05-05] MEDS: BALSAM PERU/CASTOR OIL (Venelex) 60 GM TUBE TOP ×2 (01:13→08:32)
[2025-05-05] MEDS: ALBUTEROL/IPRATROPIUM (Duoneb) RT SOL 3 ML NEBU INH (01:25)
--- NOTE | 2025-05-05 01:36 | EKG_ITS ---
[facility] Test Date: 2025-05-05 Pat Name: OLGA GEIGER [facility] Gender: Female [employer]garten [employer] Teacher: ALESSANDROMaria Luisa : 1950 Requested By: Kj Warner Order Number: [id number] Reading MD: Kj Warner Measurements Intervals [place] Rate: 84 P: 89 CT: 185 QRS: -60 QRSD: 101 T: -7 QT: 336 QTc: 398 Interpretive Statements SINUS RHYTHM INDETERMINATE AXIS LOW QRS VOLTAGE IN PRECORDIAL LEADS INFERIOR MYOCARDIAL INFARCTION , OF INDETERMINATE AGE ANTEROLATERAL MYOCARDIAL INFARCTION , OF INDETERMINATE AGE Compared to ECG 05/02/2025 02:12:51 Indeterminate axis now present Low QRS voltage now present Intraventricular conduction delay no longer present Myocardial infarct finding still present /store/S0/[id number]
[2025-05-05 01:51] LABS: Lactic Acid, 3 HR 3.8 mMol/L (0.4-2.0)
[2025-05-05 02:03] LABS: Base Excess -2 (-3-3); HCO3 25 mEq/L (20-26); Inspired Oxygen, FIO2 21 %; O2 Saturation 100 % (91-98); PCO2 46 mmHg (32.0-48.0); PO2 219 mmHg (83-108); pH, Arterial 7.33 (7.35-7.45)
[2025-05-05 02:08] LABS: Allen Test Not Performed; Puncture Site Arterial Line
[2025-05-05] MEDS: RINGERS LACTATED 1000 ML 1,000 ML 999 ML IV (02:22)
[2025-05-05] MEDS: RINGERS LACTATED 1000 ML 1,000 ML 125 ML IV (02:22)
[2025-05-05] MEDS: PIPER/TAZO 3.375 GM PREMIX 3.375 GM/50 ML BAG IV (03:33)
--- NOTE | 2025-05-05 04:00 | PC.NURSE ---
cornel done with plr @ [address]400 [address] 10.3% Dr Weir informed 500 ml bolus given
[2025-05-05] MEDS: RINGERS LACTATED 500 ML 500 ML 999 ML IV (04:17)
[2025-05-05 06:38] LABS: Basophils # (Auto) 0.1 Thou/mm3 (0.0-0.2); Basophils % (Auto) 0 % (0-2.5); Eosinophils # (Auto) 0.0 Thou/mm3 (0.0-0.5); Eosinophils % (Auto) 0 % (0-10); Hematocrit 37.6 % (36.0-46.0); Hemoglobin 12.3 g/dL (12.0-16.0); Immature Granulocytes Auto 0.13 Thou/mm3 (0.00-0.00); Lymphocytes # (Auto) 0.7 Thou/mm3 (1.0-4.8); Lymphocytes % (Auto) 4 % (10-50); Mean Corpuscular HGB Conc 32.7 g/dl (31.0-37.0); Mean Corpuscular Hemoglobin 25.2 pg (25.0-35.0); Mean Corpuscular Volume 77 fL (80-100); Monocytes # (Auto) 0.5 Thou/mm3 (0.0-0.8); Monocytes % (Auto) 3 % (0-12); Neutrophils # (Auto) 16.0 Thou/mm3 (1.8-7.7); Neutrophils % (Auto) 92 % (37-80); Nucleated Red Blood Cell # 0.02 Thou/mm3 (0.00-0.00); Nucleated Red Blood Cell % 0 /100 WBC (0); Platelet Count 125 Thou/mm3 (140-440); RDW Standard Deviation 55.5 fL (36.4-46.3); Red Blood Count 4.88 Miln/mm3 (4.00-5.20); White Blood Count 17.4 Thou/mm3 (3.6-11.0)
[2025-05-05 07:06] LABS: Alanine Aminotransferase 94 U/L (10-49); Albumin, Serum 2.1 gm/dL (3.4-4.8); Albumin/Globulin Ratio 0.9 (1.2-2.2); Alkaline Phosphatase 200 U/L (46-116); Anion Gap 14 (7-16); Aspartate Amino Transferase 98 U/L (0-34); BUN/Creatinine Ratio 22 Ratio (12-20); Bilirubin,Total 1.1 mg/dL (0.3-1.2); Blood Urea Nitrogen 76 mg/dL (9-23); Calcium 7.7 mg/dL (8.3-10.6); Calcium (Corrected) 9.2 mg/dL (8.5-10.1); Carbon Dioxide 25.1 mMol/L (20.0-31.0); Chloride 107 mMol/L (98-107); Creatinine (Component) 3.4 mg/dL (0.6-1.3); Estimated Creatinine Clearance 13.5 mL/min (>60); Globulin 2.4 gm/dL (2.3-3.5); Glucose 136 mg/dL (74-106); Osmolality,Calculated 315 (275-295); Potassium 5.1 mMol/L (3.4-5.1); Sodium 146 mMol/L (136-145); Total Protein 4.5 gm/dL (5.7-8.2); eGFR 13 See Note
[2025-05-05] MEDS: VASOPRESSIN IN NS IVPB 20 UNIT/100 ML BAG 9 UNIT IV (07:48)
--- NOTE | 2025-05-05 08:00 | PC.NURSE ---
MD OQUENDO NOTIFIED OF ART LINE ASSESSMENT. ORDER TO USE AUTOMATIC BP CUFF READING.
[2025-05-05] MEDS: FAMOTIDINE INJ 10 MG/ML VIAL 2 ML 20 MG IVP (08:32)
[2025-05-05 08:36] LABS: Lactate (Lactic Acid) 4.3 mMol/L (0.4-2.0)
--- NOTE | 2025-05-05 08:39 | PC.PT ---
Patient will be dc from PT services secondary to patient was transferred to ICU.
[2025-05-05] MEDS: Norepinephrine/NS 16mg/250ml 16 MG/250 ML BAG 25.382 MG IV (08:51)
[2025-05-05 09:41] LABS: Anion Gap 14 (7-16); BUN/Creatinine Ratio 22 Ratio (12-20); Blood Urea Nitrogen 78 mg/dL (9-23); Calcium 7.8 mg/dL (8.3-10.6); Carbon Dioxide 22.9 mMol/L (20.0-31.0); Chloride 108 mMol/L (98-107); Creatinine (Component) 3.5 mg/dL (0.6-1.3); Estimated Creatinine Clearance 13.7 mL/min (>60); Glucose 141 mg/dL (74-106); Magnesium 2.0 mg/dL (1.6-2.6); Osmolality,Calculated 314 (275-295); Phosphorous 6.5 mg/dL (2.4-5.1); Potassium 5.4 mMol/L (3.4-5.1); Sodium 145 mMol/L (136-145); eGFR 13 See Note
[2025-05-05 09:49] LABS: Troponin I 0.136 ng/mL (0.0-0.045)
--- NOTE | 2025-05-05 10:47 | ESPR_ITS ---
Documentation for date of: 05/05/25 Subjective Subjective Interval history: Overnight events: Rapid response called for encephalopathy and MAP of 53. It was determined that patient needed pressor support and was transferred to ICU. Please placement of arterial line and central line were performed for fluid resuscitation. Intubation was also performed. Patient was seen and examined at bedside. AM vitals and labs reviewed. BUN 76, creatinine 3.4, and GFR 13. White blood cell from a.m. labs at 17.4, increased from 15.8 from overnight labs, but decreased from 27.9 from yesterday's a.m. labs. Sodium at 146 after initiating half-normal saline yesterday. Half-normal saline was discontinued during ICU transfer, LR was started. Surgery still hesitant to operate on possible pneumoperitoneum as exploration is risky due to poor ejection fraction and other comorbidities. Review of systems otherwise negative except for what is mentioned above. Exam Vital Signs Temp Pulse Resp BP Pulse Ox O2 Del Method O2 Flow Rate 98.1 F 85 20 77/57 L 100 Mechanical Ventilation 5 05/05/25 08:00 05/05/25 10:42 05/05/25 08:15 05/05/25 10:42 05/05/25 10:42 05/05/25 08:00 05/04/25 20:19 FiO2 70 05/05/25 10:42 Objective Labs 05/05/25 05:43 05/05/25 08:17 Labs: Laboratory Results - last 24 hr 05/04/25 05/04/25 05/04/25 10:55 15:07 18:58 WBC 13.0 H D RBC 5.23 H Hgb 13.0 Hct 40.5 MCV 77 L MCH 24.9 L MCHC 32.1 RDW Std Deviation 56.3 H Plt Count 116 L Neut % (Auto) 90 H Lymph % (Auto) 7 L Stewart % (Auto) 2 Eos % (Auto) 0 Baso % (Auto) 0 Neut # (Auto) 11.6 H Lymph # (Auto) 0.9 L Stewart # (Auto) 0.3 Eos # (Auto) 0.0 Baso # (Auto) 0.0 Immature Gran # (Auto) 0.11 H Absolute Nucleated RBC 0.02 H Immature Gran % 1 H Nucleated RBC % 0 Puncture Site ABG pH ABG pCO2 ABG pO2 ABG HCO3 ABG O2 Saturation ABG Base Excess Oxygen Liter Flow FiO2 Sodium 149 H 149 H 149 H Potassium 4.8 4.9 5.0 Chloride 105 106 108 H Carbon Dioxide 34.2 H 31.9 H 30.2 Anion Gap 10 11 11 BUN 75 H 77 H 83 H Creatinine 3.4 H 3.5 H 3.5 H Estim Creat Clear Calc 13.5 L 13.1 L 13.1 L eGFR 13 L* 13 L* 13 L* BUN/Creatinine Ratio 22 H 22 H 24 H Glucose 105 103 90 Calculated Osmolality 318 H 319 H 321 H Lactic Acid 2.5 H 3.3 H Calcium 8.6 8.5 8.8 Corrected Calcium 9.9 10.2 H Phosphorus 5.1 Magnesium Total Bilirubin 1.1 1.1 AST 140 H 107 H ALT 125 H 105 H Alkaline Phosphatase 229 H D 219 H Troponin I Total Protein 5.2 L 4.9 L Albumin 2.4 L 2.3 L Globulin 2.8 2.6 Albumin/Globulin Ratio 0.9 L 0.9 L 05/04/25 05/04/25 05/04/25 19:21 21:38 22:15 WBC RBC Hgb Hct MCV MCH MCHC RDW Std Deviation Plt Count Neut % (Auto) Lymph % (Auto) Stewart % (Auto) Eos % (Auto) Baso % (Auto) Neut # (Auto) Lymph # (Auto) Stewart # (Auto) Eos # (Auto) Baso # (Auto) Immature Gran # (Auto) Absolute Nucleated RBC Immature Gran % Nucleated RBC % Puncture Site Right Radial Arterial Line ABG pH 7.40 D 7.43 ABG pCO2 47 41 ABG pO2 75 L 107 D ABG HCO3 29 H 27 H ABG O2 Saturation 95 99 H ABG Base Excess 4 H 3 Oxygen Liter Flow 2 15 FiO2 Sodium 146 H Potassium 5.0 Chloride 107 Carbon Dioxide 27.3 Anion Gap 12 BUN 71 H Creatinine 3.5 H Estim Creat Clear Calc 13.1 L eGFR 13 L* BUN/Creatinine Ratio 20 Glucose 138 H D Calculated Osmolality 313 H Lactic Acid 4.5 H* Calcium 8.3 Corrected Calcium 9.7 Phosphorus 5.7 H Magnesium 2.0 Total Bilirubin 1.1 AST 111 H ALT 111 H Alkaline Phosphatase 218 H Troponin I Total Protein 5.1 L Albumin 2.3 L Globulin 2.8 Albumin/Globulin Ratio 0.8 L 05/04/25 05/04/2505/05/25 22:30 23:53 01:40 WBC 15.8 H RBC 5.15 Hgb 12.9 Hct 39.2 MCV 76 L MCH 25.0 MCHC 32.9 RDW Std Deviation 53.5 H Plt Count 130 L Neut % (Auto) 90 H Lymph % (Auto) 6 L Stewart % (Auto) 3 Eos % (Auto) 0 Baso % (Auto) 0 Neut # (Auto) 14.2 H Lymph # (Auto) 1.0 Stewart # (Auto) 0.4 Eos # (Auto) 0.0 Baso # (Auto) 0.1 Immature Gran # (Auto) 0.15 H Absolute Nucleated RBC 0.02 H Immature Gran % 1 H Nucleated RBC % 0 Puncture Site Arterial Line ABG pH 7.34 L ABG pCO2 49 H ABG pO2 248 H D ABG HCO3 26 ABG O2 Saturation 100 H ABG Base Excess 0 Oxygen Liter Flow FiO2 100 Sodium Potassium Chloride Carbon Dioxide Anion Gap BUN Creatinine Estim Creat Clear Calc eGFR BUN/Creatinine Ratio Glucose Calculated Osmolality Lactic Acid 3.8 H Calcium Corrected Calcium Phosphorus Magnesium Total Bilirubin AST ALT Alkaline Phosphatase Troponin I 0.093 H* Total Protein Albumin Globulin Albumin/Globulin Ratio 05/05/25 05/05/25 05/05/25 01:50 05:43 08:17 WBC 17.4 H RBC 4.88 Hgb 12.3 Hct 37.6 MCV 77 L MCH 25.2 MCHC 32.7 RDW Std Deviation 55.5 H Plt Count 125 L Neut % (Auto) 92 H Lymph % (Auto) 4 L Stewart % (Auto) 3 Eos % (Auto) 0 Baso % (Auto) 0 Neut # (Auto) 16.0 H Lymph # (Auto) 0.7 L Stewart # (Auto) 0.5 Eos # (Auto) 0.0 Baso # (Auto) 0.1 Immature Gran # (Auto) 0.13 H Absolute Nucleated RBC 0.02 H Immature Gran % 1 H Nucleated RBC % 0 Puncture Site Arterial Line ABG pH 7.33 L ABG pCO2 46 ABG pO2 219 H D ABG HCO3 25 ABG O2 Saturation 100 H ABG Base Excess -2 Oxygen Liter Flow FiO2 21 Sodium 146 H 145 Potassium 5.1 5.4 H Chloride 107 108 H Carbon Dioxide 25.1 22.9 Anion Gap 14 14 BUN 76 H 78 H Creatinine 3.4 H 3.5 H Estim Creat Clear Calc 13.5 L 13.7 L eGFR 13 L* 13 L* BUN/Creatinine Ratio 22 H 22 H Glucose 136 H 141 H Calculated Osmolality 315 H 314 H Lactic Acid 4.3 H* Calcium 7.7 L 7.8 L Corrected Calcium 9.2 Phosphorus 6.5 H Magnesium 2.0 Total Bilirubin 1.1 AST 98 H ALT 94 H Alkaline Phosphatase 200 H Troponin I 0.136 H* Total Protein 4.5 L Albumin 2.1 L Globulin 2.4 Albumin/Globulin Ratio 0.9 L ABG Interpretation ABG results: 04/26/25 05/01/25 05/04/25 23:16 19:51 19:21 ABG pH 7.50 H 7.40 D ABG pCO2 45 47 ABG pO2 89 75 L ABG HCO3 35 H 29 H ABG O2 Saturation 98 95 ABG Base Excess 10 H 4 H VBG pH 7.49 VBG pCO2 23 L VBG pO2 33 VBG Base Excess -4 L 05/04/25 05/04/25 05/05/25 22:15 23:53 01:50 ABG pH 7.43 7.34 L 7.33 L ABG pCO2 41 49 H 46 ABG pO2 107 D 248 H D 219 H D ABG HCO3 27 H 26 25 ABG O2 Saturation 99 H 100 H 100 H ABG Base Excess 3 0 -2 VBG pH VBG pCO2 VBG pO2 VBG Base Excess Quality Measures Quality Measures VTE prophylaxis Advance care planning discussed with:: patient Assessment & Plan Assessment Current Active Medications: Generic Name Dose Route Start Last Admin Trade Name Ivy PRN Reason Stop Dose Admin Acetaminophen 650 mg 05/01/25 17:44 Acetaminophen 325 Mg Tablet PO 05/27/25 08:00 Q6H PRN Fever >100.3 Amiodarone HCl 200 mg 04/30/25 21:00 05/05/25 08:43 Amiodarone Hcl 200 Mg Tablet PO 05/30/25 20:59 Not Given BID JOHN Apixaban 2.5 mg 04/30/25 09:00 05/03/25 08:12 Apixaban 2.5 Mg Tablet PO 05/30/25 08:59 2.5 mg BID JOHN Administration Aspirin 81 mg 04/28/25 09:00 05/03/25 08:12 Aspirin Ec 81 Mg Tabec PO 05/28/25 08:59 81 mg DAILY JOHN Administration Atorvastatin Calcium 80 mg 04/27/25 21:00 05/04/25 22:20 Atorvastatin Calcium 20 Mg Tablet PO 05/27/25 20:59 Not Given HS JOHN Balsam Rich/Equality Oil 0 gm 04/28/25 21:00 05/05/25 08:32 Balsam Rich/Equality Oil (Venelex) 60 Gm Tube TOP 05/28/25 20:59 1 applicatio BID JOHN Administration Famotidine 20 mg 05/05/25 09:00 05/05/25 08:32 Famotidine Inj 10 Mg/Ml Vial 2 Ml IVP 06/04/25 08:59 20 mg QDAY JOHN Administration Hydromorphone HCl 0.5 mg 05/03/25 17:03 05/04/25 16:14 Hydromorphone Inj 2 Mg/Ml Vial IVP 05/08/25 17:02 0.5 mg Q4HR PRN Administration PAIN SCALE 4-10(Mod-Sev Piperacillin/Tazobactam/Dextrose 3.375 gm in 50 mls @ 12.5 mls/hr 05/04/25 16:00 05/05/25 03:33 Zosyn IV 05/11/25 15:59 12.5 mls/hr Q12H JOHN Administration Propofol 1,000 mg in 100 mls @ 2.083 mls/hr 05/04/25 23:13 05/05/25 08:00 Diprivan Ivpb IV 06/03/25 23:12 5 mcg/kg/min .Q24H PRN 2.083 mls/hr PER PROTOCOL Titration Protocol 5 MCG/KG/MIN Fentanyl Citrate 2,500 mcg in 250 mls @ 2.5 mls/hr 05/04/25 23:14 05/05/25 08:00 Sublimaze Inj 2,500 Mcg/250 Ml Bag IV 05/09/25 23:13 75 mcg/hr .Q24H PRN 7.5 mls/hr PER PROTOCOL Titration Protocol 25 MCG/HR Norepinephrine Bitartrate 16 mg in 250 mls @ 3.254 mls/hr 05/05/25 00:06 05/05/25 08:51 Levophed In Ns 16mg/250ml IV 06/04/25 00:05 0.39 mcg/kg/min .Q24H PRN 25.382 mls/hr PER PROTOCOL Administration Protocol 0.05 MCG/KG/MIN Lactated Ringer's 1,000 mls @ 125 mls/hr 05/05/25 01:39 05/05/25 02:22 Lactated Ringers IV 125 mls/hr .Q8H JOHN Administration Vasopressin/Sodium Chloride 20 unit in 100 mls @ 9 mls/hr 05/05/25 07:42 05/05/25 07:48 Vasostrict/Ns Ivpb IV 06/04/25 07:41 0.03 unit/min .Q11H7M PRN 9 mls/hr PER PROTOCOL Administration Protocol 0.03 UNIT/MIN Levothyroxine Sodium 25 mcg 04/28/25 06:00 05/05/25 08:43 Levothyroxine Sodium 25 Mcg Tablet PO 05/28/25 05:59 Not Given ACBR JOHN Metoprolol Succinate 50 mg 05/02/25 09:00 05/04/25 08:30 Metoprolol Succinate Xl 25 Mg Tabcr PO 06/01/25 08:59 Not Given QDAY JOHN Pharmacy Consult 1 each 05/04/25 08:36 Pharmacy Renal Dose Adjustment 1 Ea XX 06/03/25 08:35 PRN PRN CONSULT Quetiapine Fumarate 25 mg 05/01/25 21:00 05/04/25 22:20 Quetiapine Fumarate 25 Mg Tablet PO 05/31/25 20:59 Not Given HS JOHN Sennosides 1 tab 05/01/25 21:00 05/02/25 20:40 Senna/Docusate Sod 1 Tab Tablet PO 05/31/25 20:59 1 tab HS JOHN Administration Protocol Plan Mrs. Kaiser is a 74 year old lady with a relevant past medical history of CAD s/p stent, HFrEF with EF of 35-40%, atrial fibrilation on Eliquis, and dilated cardiomyopathy who presented to [facility] with concerns of SNF placement. Nephrology was consulted due to concerns of LOYD in the setting of an acute exacerbation of her CHF. #Acute kidney injury due to cardiorenal syndrome 2/2 acute CHF exacerbation #Hypernatremia (resolving) Patient admitted with Cr of 3.4, GFR 13, BUN 81 in the setting of a history of HFrEF and 3+ edema on physical exam. Patient transfered to ICU for low MAP and AMS on 05/04 in the evening. - Continue IV hydration. - Will hold off on hemodialysis for now. - Patient most likely became fluid deficient, which resulted in further injury to kidneys, which should improve over time. - Shock likely contributed to further LOYD, resulting in worsening of renal function. - Will monitor for now and assess trends in renal function, if lab values suggest worsening of renal function instead of slow improvement, will reassess need for hemodialysis - Continue to monitor progress and trend renal lab values. - Nephrology will continue to monitor. Patient was discussed with the Nephrology attending, Dr. Martin. Thank you for allowing us to participate in the care of this patient. Aayush Hall, PGY-1
--- NOTE | 2025-05-05 10:50 | CHAP ---
Family requested I come up and pray for the patient. I went up and found that they had left for a bit. I came back about 10 minutes later, but the family was still gone. I prayed over the patient and left a message with the nurse that another survival specialist would be available after 1300.
[2025-05-05 11:28] LABS: Reflex Lactate? Y
--- NOTE | 2025-05-05 12:25 | ESPR_ITS ---
<Statement entered by Osmany Pineda MD - 05/06/25 10:05> TOTAL CC TIME: 65 MIN I saw and evaluated the patient. I reviewed the resident?s note and agree with findings and plan as documented in the resident?s note. Upon my evaluation, this patient had a high probability of imminent or life- threatening deterioration due to severe septic shock with likely small bowel perforation which required my direct attention, intervention, and personal management. This time is exclusive of time spent on procedures, which are documented separately if performed. Case was reviewed in detail and discussed with surgeon at bedside. Dr. Hirsch did not believe the patient would be an appropriate candidate for emergency exploratory laparotomy due to severe medical comorbidities especially severe coronary artery disease in the setting of systolic ventricular ejection fraction of less than 20%. Vasopressors and IV fluids were initiated, Zosyn was started. NG tube with low intermittent suction ordered. Patient's condition continued to deteriorate through the day with increasing lower extremity mottling and pressor requirements were increasing. Urine output essentially was an uric, patient was clearly in multisystem organ failure. We discussed the patient's prognosis as well as their current condition with the family at bedside. Family eventually decided to proceed with comfort care Documentation for date of: 05/05/25 Subjective Subjective Interval history: Patient is a 74 years old female with PMH of A-fib (on amiodarone and Eliquis), CAD status post stent, hypertension, history of CVA in 2022, HFrEF EF 35 to 40% and history of left ventrical mural thrombus was initially presented to [facility] on 04/27/2025 when she was brought in by her son for SNF placement as he wasn't able to take care of her, she was admitted due to AHRF 2/2 CHF exacerbation and was started on IV diuretics. Her hospital course was complicated by episode of Afib with RVR and worsening mental status. On 05/01/2025 primary team noticed abdominal tenderness and distention, abdominal US showed cholelithiasis, gallbladder wall is thickening. HIDA scan on 05/02/2025 showed no gallbladder activity consistent with cystic duct obstruction. General surgery was consulted for cholelithiasis and possible cholecystitis. Per general surgery patient was not a candidate for surgery and recommended continuing antibiotics. Follow up CTAP on 05/03/2025 showed cirrhosis, mild ascites, pneumoperitoneum, cholelithiasis, general surgery advised to continue IV antibiotics as the patient is not a candidate for surgical intervention. On rapid response was called due to patient being significantly encephalopathic, vitals showed MAP of 53 and she was upgraded to ICU due to shock and was started on pressors. 05/05/25: Patient had elevated lactate, high suspicion of bowel ischemia, hyperkalemia noted on repeat labs. Discussed with general surgeon, patient poor candidate for ex lap due to underlying cardiac and liver comorbidities. Discussed with family in the morning, patient CODE STATUS updated to DNR/DNI per son. Son informed of guarded prognosis if patient does not undergo surgery, son requested for more time to think. Exam Vital Signs Temp Pulse Resp BP Pulse Ox O2 Del Method O2 Flow Rate 98.1 F 85 19 101/71 99 Mechanical Ventilation 5 05/05/25 08:00 05/05/25 11:45 05/05/25 11:45 05/05/25 11:45 05/05/25 11:45 05/05/25 08:00 05/04/25 20:19 FiO2 60 05/05/25 12:00 Narrative Exam Gen: Sedated, on mechanical ventilation HEENT: NCAT, PERRLA, EOMI, MMM, anicteric conjunctivae. CVS: normal S1 and S2. RRR. No M/R/G. Resp: Bilateral breath sounds, no crackles or rales Abd: Distended, tense. MSK: Good ROM in BUE & BLE. Petechial rash over chest, mottling noted over BLE. Trace edema BLE. Neuro: Sedated on mechanical ventilation Objective Labs 05/05/25 05:43 05/05/25 08:17 Labs: Laboratory Results - last 24 hr 05/04/25 05/04/25 05/04/25 15:07 18:58 19:21 WBC 13.0 H D RBC 5.23 H Hgb 13.0 Hct 40.5 MCV 77 L MCH 24.9 L MCHC 32.1 RDW Std Deviation 56.3 H Plt Count 116 L Neut % (Auto) 90 H Lymph % (Auto) 7 L [place] % (Auto) 2 Eos % (Auto) 0 Baso % (Auto) 0 Neut # (Auto) 11.6 H Lymph # (Auto) 0.9 L [place] # (Auto) 0.3 Eos # (Auto) 0.0 Baso # (Auto) 0.0 Immature Gran # (Auto) 0.11 H Absolute Nucleated RBC 0.02 H Immature Gran % 1 H Nucleated RBC % 0 Puncture Site Right Radial ABG pH 7.40 D ABG pCO2 47 ABG pO2 75 L ABG HCO3 29 H ABG O2 Saturation 95 ABG Base Excess 4 H Oxygen Liter Flow 2 FiO2 Sodium 149 H 149 H Potassium 4.9 5.0 Chloride 106 108 H Carbon Dioxide 31.9 H 30.2 Anion Gap 11 11 BUN 77 H 83 H Creatinine 3.5 H 3.5 H Estim Creat Clear Calc 13.1 L 13.1 L eGFR 13 L* 13 L* BUN/Creatinine Ratio 22 H 24 H Glucose 103 90 Calculated Osmolality 319 H 321 H Lactic Acid 3.3 H Calcium 8.5 8.8 Corrected Calcium 10.2 H Phosphorus Magnesium Total Bilirubin 1.1 AST 107 H ALT 105 H Alkaline Phosphatase 219 H Troponin I Total Protein 4.9 L Albumin 2.3 L Globulin 2.6 Albumin/Globulin Ratio 0.9 L Blood Type Antibody Screen Blood Bank Wristband ID 05/04/25 05/04/25 05/04/25 21:38 22:15 22:30 WBC 15.8 H RBC 5.15 Hgb 12.9 Hct 39.2 MCV 76 L MCH 25.0 MCHC 32.9 RDW Std Deviation 53.5 H Plt Count 130 L Neut % (Auto) 90 H Lymph % (Auto) 6 L [place] % (Auto) 3 Eos % (Auto) 0 Baso % (Auto) 0 Neut # (Auto) 14.2 H Lymph # (Auto) 1.0 [place] # (Auto) 0.4 Eos # (Auto) 0.0 Baso # (Auto) 0.1 Immature Gran # (Auto) 0.15 H Absolute Nucleated RBC 0.02 H Immature Gran % 1 H Nucleated RBC % 0 Puncture Site Arterial Line ABG pH 7.43 ABG pCO2 41 ABG pO2 107 D ABG HCO3 27 H ABG O2 Saturation 99 H ABG Base Excess 3 Oxygen Liter Flow 15 FiO2 Sodium 146 H Potassium 5.0 Chloride 107 Carbon Dioxide 27.3 Anion Gap 12 BUN 71 H Creatinine 3.5 H Estim Creat Clear Calc 13.1 L eGFR 13 L* BUN/Creatinine Ratio 20 Glucose 138 H D Calculated Osmolality 313 H Lactic Acid 4.5 H* Calcium 8.3 Corrected Calcium 9.7 Phosphorus 5.7 H Magnesium 2.0 Total Bilirubin 1.1 AST 111 H ALT 111 H Alkaline Phosphatase 218 H Troponin I 0.093 H* Total Protein 5.1 L Albumin 2.3 L Globulin 2.8 Albumin/Globulin Ratio 0.8 L Blood Type Antibody Screen Blood Bank Wristband ID 05/04/25 05/05/25 05/05/25 23:53 01:40 01:50 WBC RBC Hgb Hct MCV MCH MCHC RDW Std Deviation Plt Count Neut % (Auto) Lymph % (Auto) [place] % (Auto) Eos % (Auto) Baso % (Auto) Neut # (Auto) Lymph # (Auto) [place] # (Auto) Eos # (Auto) Baso # (Auto) Immature Gran # (Auto) Absolute Nucleated RBC Immature Gran % Nucleated RBC % Puncture Site Arterial Line Arterial Line ABG pH 7.34 L 7.33 L ABG pCO2 49 H 46 ABG pO2 248 H D 219 H D ABG HCO3 26 25 ABG O2 Saturation 100 H 100 H ABG Base Excess 0 -2 Oxygen Liter Flow FiO2 100 21 Sodium Potassium Chloride Carbon Dioxide Anion Gap BUN Creatinine Estim Creat Clear Calc eGFR BUN/Creatinine Ratio Glucose Calculated Osmolality Lactic Acid 3.8 H Calcium Corrected Calcium Phosphorus Magnesium Total Bilirubin AST ALT Alkaline Phosphatase Troponin I Total Protein Albumin Globulin Albumin/Globulin Ratio Blood Type Antibody Screen Blood Bank Wristband ID 05/05/25 05/05/25 05/05/25 05:43 08:17 09:28 WBC 17.4 H RBC 4.88 Hgb 12.3 Hct 37.6 MCV 77 L MCH 25.2 MCHC 32.7 RDW Std Deviation 55.5 H Plt Count 125 L Neut % (Auto) 92 H Lymph % (Auto) 4 L [place] % (Auto) 3 Eos % (Auto) 0 Baso % (Auto) 0 Neut # (Auto) 16.0 H Lymph # (Auto) 0.7 L [place] # (Auto) 0.5 Eos # (Auto) 0.0 Baso # (Auto) 0.1 Immature Gran # (Auto) 0.13 H Absolute Nucleated RBC 0.02 H Immature Gran % 1 H Nucleated RBC % 0 Puncture Site ABG pH ABG pCO2 ABG pO2 ABG HCO3 ABG O2 Saturation ABG Base Excess Oxygen Liter Flow FiO2 Sodium 146 H 145 Potassium 5.1 5.4 H Chloride 107 108 H Carbon Dioxide 25.1 22.9 Anion Gap 14 14 BUN 76 H 78 H Creatinine 3.4 H 3.5 H Estim Creat Clear Calc 13.5 L 13.7 L eGFR 13 L* 13 L* BUN/Creatinine Ratio 22 H 22 H Glucose 136 H 141 H Calculated Osmolality 315 H 314 H Lactic Acid 4.3 H* Calcium 7.7 L 7.8 L Corrected Calcium 9.2 Phosphorus 6.5 H Magnesium 2.0 Total Bilirubin 1.1 AST 98 H ALT 94 H Alkaline Phosphatase 200 H Troponin I 0.136 H* Total Protein 4.5 L Albumin 2.1 L Globulin 2.4 Albumin/Globulin Ratio 0.9 L Blood Type O Positive Antibody Screen NEGATIVE Blood Bank Wristband ID Yes ABG Interpretation ABG results: 04/26/25 05/01/25 05/04/25 23:16 19:51 19:21 ABG pH 7.50 H 7.40 D ABG pCO2 45 47 ABG pO2 89 75 L ABG HCO3 35 H 29 H ABG O2 Saturation 98 95 ABG Base Excess 10 H 4 H VBG pH 7.49 VBG pCO2 23 L VBG pO2 33 VBG Base Excess -4 L 05/04/25 05/04/25 05/05/25 22:15 23:53 01:50 ABG pH 7.43 7.34 L 7.33 L ABG pCO2 41 49 H 46 ABG pO2 107 D 248 H D 219 H D ABG HCO3 27 H 26 25 ABG O2 Saturation 99 H 100 H 100 H ABG Base Excess 3 0 -2 VBG pH VBG pCO2 VBG pO2 VBG Base Excess Quality Measures Quality Measures VTE prophylaxis Advance care planning discussed with:: child and legal surragate Assessment & Plan Assessment Current Active Medications: Generic Name Dose Route Start Last Admin Trade Name Freq PRN Reason Stop Dose Admin Acetaminophen 650 mg 05/01/25 17:44 Acetaminophen 325 Mg Tablet PO 05/27/25 08:00 Q6H PRN Fever >100.3 Amiodarone HCl 200 mg 04/30/25 21:00 05/05/25 08:43 Amiodarone Hcl 200 Mg Tablet PO 05/30/25 20:59 Not Given BID OJHN Apixaban 2.5 mg 04/30/25 09:00 05/03/25 08:12 Apixaban 2.5 Mg Tablet PO 05/30/25 08:59 2.5 mg BID JOHN Administration Aspirin 81 mg 04/28/25 09:00 05/03/25 08:12 Aspirin Ec 81 Mg Tabec PO 05/28/25 08:59 81 mg DAILY JOHN Administration Atorvastatin Calcium 80 mg 04/27/25 21:00 05/04/25 22:20 Atorvastatin Calcium 20 Mg Tablet PO 05/27/25 20:59 Not Given HS JOHN Balsam Rich/[place] Oil 0 gm 04/28/25 21:00 05/05/25 08:32 Balsam Rich/[place] Oil (Venelex) 60 Gm Tube TOP 05/28/25 20:59 1 applicatio BID JOHN Administration Hydromorphone HCl 0.5 mg 05/03/25 17:03 05/04/25 16:14 Hydromorphone Inj 2 Mg/Ml Vial IVP 05/08/25 17:02 0.5 mg Q4HR PRN Administration PAIN SCALE 4-10(Mod-Sev Piperacillin/Tazobactam/Dextrose 3.375 gm in 50 mls @ 12.5 mls/hr 05/04/25 16:00 05/05/25 03:33 Zosyn IV 05/11/25 15:59 12.5 mls/hr Q12H JOHN Administration Propofol 1,000 mg in 100 mls @ 2.083 mls/hr 05/04/25 23:13 05/05/25 12:00 Diprivan Ivpb IV 06/03/25 23:12 5 mcg/kg/min .Q24H PRN 2.083 mls/hr PER PROTOCOL Titration Protocol 5 MCG/KG/MIN Fentanyl Citrate 2,500 mcg in 250 mls @ 2.5 mls/hr 05/04/25 23:14 05/05/25 12:00 Sublimaze Inj 2,500 Mcg/250 Ml Bag IV 05/09/25 23:13 25 mcg/hr .Q24H PRN 2.5 mls/hr PER PROTOCOL Titration Protocol 25 MCG/HR Norepinephrine Bitartrate 16 mg in 250 mls @ 3.254 mls/hr 05/05/25 00:06 05/05/25 12:00 Levophed In Ns 16mg/250ml IV 06/04/25 00:05 0.39 mcg/kg/min .Q24H PRN 25.382 mls/hr PER PROTOCOL Titration Protocol 0.05 MCG/KG/MIN Lactated Ringer's 1,000 mls @ 125 mls/hr 05/05/25 01:39 05/05/25 02:22 Lactated Ringers IV 125 mls/hr .Q8H JOHN Administration Vasopressin/Sodium Chloride 20 unit in 100 mls @ 9 mls/hr 05/05/25 07:42 05/05/25 07:48 Vasostrict/Ns Ivpb IV 06/04/25 07:41 0.03 unit/min .Q11H7M PRN 9 mls/hr PER PROTOCOL Administration Protocol 0.03 UNIT/MIN Levothyroxine Sodium 25 mcg 04/28/25 06:00 05/05/25 08:43 Levothyroxine Sodium 25 Mcg Tablet PO 05/28/25 05:59 Not Given ACBR JOHN Metoprolol Succinate 50 mg 05/02/25 09:00 05/04/25 08:30 Metoprolol Succinate Xl 25 Mg Tabcr PO 06/01/25 08:59 Not Given QDAY JOHN Pantoprazole Sodium 40 mg 05/05/25 11:15 Pantoprazole Inj 40 Mg Vial IVP 06/04/25 11:14 QDAY JOHN Pharmacy Consult 1 each 05/04/25 08:36 Pharmacy Renal Dose Adjustment 1 Ea XX 06/03/25 08:35 PRN PRN CONSULT Quetiapine Fumarate 25 mg 05/01/25 21:00 05/04/25 22:20 Quetiapine Fumarate 25 Mg Tablet PO 05/31/25 20:59 Not Given HS JOHN Sennosides 1 tab 05/01/25 21:00 05/02/25 20:40 Senna/Docusate Sod 1 Tab Tablet PO 05/31/25 20:59 1 tab HS JOHN Administration Protocol Plan Patient is a 74 years old female with PMH of A-fib (on amiodarone and Eliquis), CAD status post stent, hypertension, history of CVA in 2022, HFrEF EF 35 to 40% and history of left ventrical mural thrombus was upgraded to ICU due to shock. Neuro: #Acute encephalopathy. #Sedation. Differential diagnosis: Underlying sepsis, worsening perfusion due to shock, hypernatremia, hospital-acquired delirium Diagnostic workup: -Underlying distributive shock, MAP noted to be less than 65 prior to ICU. -Patient sodium noted to be 150 on 05/02, currently improving - Has been hospitalized since 04/27, component of hospital-acquired delirium possibly Treatment: -Currently sedated with propofol and fentanyl, RASS goal -2 Follow-up: - Has underlying bowel ischemia, distributive shock will continue with sedation for now Cardiovascular: # Distributive shock, septic shock in setting of bowel ischemia/perforation Diagnostic workup: -Patient initially admitted for CHF exacerbation, upgraded to ICU overnight for pressor support with vaso and levo -Elevated lactate noted, patient had a CT abdomen pelvis finding of 05/03 showing pneumoperitoneum -Abdomen prior to intubation and sedation noted to be diffusely tender distended, surgery has been following due to high suspicion of surgical abdomen -Worsening lactate, hyperkalemia noted this morning, high suspicion of bowel perforation -Discussed with general surgeon, per surgeon patient not a candidate for surgery Treatment: -Continue Levophed and vasopressin, MAP goal greater than 65 -Patient did receive about 3.5 L fluid resuscitation, will hold maintenance fluid for now -General Surgery consulted, appreciate recommendations -Goals of care discussion held with family, patient transition to DNR/DNI Follow-up: -Will do passive leg raise later today -General Surgery to evaluate for possible surgery -If surgery is high risk due to underlying comorbidities, we will proceed with further goals of care discussion with son #Heart failure with reduced ejection fraction, EF 15 to 20% #Dilated cardiomyopathy, severe LV dilation Diagnostic workup: -Patient initially was on IV Bumex, was discontinued once CHF exacerbation improved and her volume status has improved. GDMT was held due to worsening hypotension. -Echo from 04/27 showed Dilated cardiomyopathy. EF worsened from 35 to 40% to less than 20%. Severe LV dilatation, severe Global Hypokinesis. Estimated EF 15- 20%. -Bedside echo at the time of ICU admission showed dilated LV with global hypokinesis consistent with prior echo reading, IVF unable to assess due to abdominal tenderness. NHM showed delta SVI 59%, IVF started. Treatment: - Currently euvolemic, will hold maintenance fluid -Strict intake and output Follow-up: - Passive leg raise later today #Ischemic stroke, 2022, by history #CAD s/p PCI, by history #Hypertension by history #Troponinemia. Diagnostic workup: -At home on aspirin, olmesartan, clonidine, spironolactone and atorvastatin -Troponin I 0.093 at the time of ICU upgrade, likely demand ischemia in setting of shock. Treatment: -Hold aspirin in setting of bowel perforation and possible potential surgery -Repeat troponin 0.136 high suspicion of NSTEMI type II Follow-up: - Follow troponin until downtrending - Cardiology consulted # Atrial fibrillation, by history #History of small PFO. Diagnostic workup: -Patient has a history of A-fib and takes amiodarone and Eliquis at home. -On admission patient was found to be in A-fib with heart rate 160s, was given digoxin and magnesium and started on amio drip as per cardio recommendations. -BE from 08/22/2023 showed small mobile MARCIO thrombus, positive bubble study, evidence of very small PFO demonstrated by agitated saline injection. Treatment: - Hold Eliquis in setting of bowel ischemia/perforation -Currently in sinus rhythm, will hold amiodarone -Keep potassium more than 4 and magnesium greater than 2 Follow-up: - Telemetry monitoring - Follow-up with cardiology Respiratory: #Acute hypoxic respiratory failure in setting of septic shock and inability to protect airway Diagnostic workup: - Patient noted to be septic, concern of bowel ischemia/bowel perforation - Also had acute encephalopathy, inability to protect airway Treatment: - On mechanical ventilation Follow-up: - ABG as needed Gastrointestinal: #Pneumoperitoneum. #High suspicion of bowel perforation/ischemia #Cholelithiasis, ?Cystic Duct obstruction. #Cirrhosis with ascites. Diagnostic workup: -05/01 abdominal US showed cholelithiasis, gallbladder wall is thickening. HIDA scan on 05/02/2025 showed no gallbladder activity consistent with cystic duct obstruction. -General surgery was consulted for cholelithiasis and possible cholecystitis. Per general surgery patient was not a candidate for surgery and recommended continuing antibiotics. -CTAP on 05/03/2025 showed cirrhosis, mild ascites, pneumoperitoneum, cholelithiasis, general surgery advised to continue IV antibiotics as the patient is not a candidate for surgical intervention. -Latest labs showed AST 111, ALT 101, alk phos 218, total bilirubin 1.1. -Patient has worsening lactic acidosis, evaluated by general surgeon, patient poor candidate for surgery. Treatment: -General Surgery to follow poor candidate for exploratory laparotomy due to underlying multiple morbidities -NG tube with low intermittent suction has coffee-ground drainage -Continue IV Zosyn Follow-up: - Goals of care discussion with family Renal: #Acute kidney injury #Hematuria. #Lactic acidosis. Differential diagnosis: Renal (ATN), Prerenal Diagnostic workup: -Latest labs showed BUN 71, Cr 3.5, eGFR 13. Baseline creatinine 1. UO 900cc. Likely ATN - Worsening urine output noted, pink urine noted in Le -Patient's lactate elevated at 4.5 during ICU upgrade, after fluids down trended to 3.8 now uptrending again. Lactic acidosis in setting of bowel ischemia/perforation Treatment: -Nephrology has been following patient, per nephrology no indication for dialysis -Will continue to titrate Levophed and vasopressin to maintain MAP greater than 65 -Will avoid nephrotoxic agents, renally dose medication, strict PRIYA Follow-up: - Renal function and lactate will follow-up labs #Hypernatremia. Diagnostic workup: - Patient has had on and off hyponatremia, patient sodium was 150 on 05/02 - During ICU admission sodium 149, repeat sodium 146 Treatment: -Patient received 3.5 L IV fluids -Goal sodium correction 8- Follow-up: -Follow renal panel Endocrine: #Euthyroid sick syndrome. Diagnostic workup: 05/03 showed TSH 4.76, free T4 0.82. Treatment: Continue Levothyroxine 25 mcg daily Infectious Disease: #Suspected bowel perforation/ischemia See GI section. Blood culture from 04/27 negative x2, from 05/02 negative preliminary. Ceftriaxone (04/27/2025-05/04/2025) & Flagly (05/02/2025-05/04/2025). Continue Zosyn IV (05/04 - ) Hematology/Oncology: #Leukocytosis Diagnostic workup: - Patient has underlying distributive shock/sepsis Treatment: -Treat underlying sepsis Follow-up: - Continue to monitor with daily labs. #Thrombocytopenia. Differential diagnosis: Underlying cirrhosis, in setting of septic shock Diagnostic workup: -Platelet count variable, low at baseline, in the setting of cirrhosis likely Treatment: -Follow-up labs in a.m. Diet: NPO. DVT prophylaxis: SCDs. Lines: peripheral x2, right femoral central line, right radial A-line Tubes: NG tube with LIS GI prophylaxis: Famotidine. Code status: Full code. Disposition: ICU due to shock. Case discussed with Attending Dr. Pineda. Nicki Bates MD Internal medicine PGY 1 Disclaimer: This note was dictated by speech recognition. Minor errors in route manager may be present due to voice recognition software.
--- NOTE | 2025-05-05 12:36 | PD.SURPROG ---
Documentation for date of: 05/05/25 Subjective Subjective Brief History: History of present was reviewed and the patient was admitted with a history of multiple medical problems but mostly due to cardiac causes. Patient is not able to give any history and there is no family members to talk to. Most of the information was obtained from the chart. Patient's past medical history revealed that she had a history of coronary artery disease and hypertension and atrial fibrillation with mural thrombosis. She is on anticoagulation and she has had a stent placement. Other problem consist of congestive heart failure with ejection fraction around 30 to 40% at the time of admission. Now she has been complaining of pain diffusely in the abdomen and therefore surgical consultation was obtained. Patient has been evaluated by Dr. West about 5 days ago and was advised nonoperative treatment. Narrative: The patient had a rapid response around 7 PM last night and was transferred to the intensive care unit. She dropped her blood pressure to 50s systolic. She was later intubated in the intensive care unit 100% she is on pressure support. Exam Vital Signs Temp Pulse Resp BP Pulse Ox O2 Del Method O2 Flow Rate 98.1 F 85 19 101/71 99 Mechanical Ventilation 5 05/05/25 08:00 05/05/25 11:45 05/05/25 11:45 05/05/25 11:45 05/05/25 11:45 05/05/25 08:00 05/04/25 20:19 FiO2 60 05/05/25 12:00 Your vital signs are reasonably stable with pressure support Routine Abdominal Exam Comments: Examination of the abdomen is essentially unchanged Results Results: Laboratory Laboratory Narrative: Laboratory results show improvement in the WBC. Patient's lactic acid is improving and her BUN/creatinine is also increasing. Assessment & Plan Assessment Additional comments: Impression: Patient in shock and is being supported by mechanical ventilation Plan Plan: I discussed with the patient's son Mr. Culp explained the dire situation and high risk of operating on her. They are making her DNR today.
[2025-05-05 12:39] LABS: Lactate (Lactic Acid) 8.5 mMol/L (0.4-2.0)
[2025-05-05 13:10] LABS: INR 1.5 (0.9-1.3); Partial Thromboplastin Time 45.5 Seconds (22.0-36.0); Prothrombin Time 16.2 Seconds (9.0-12.2)
--- NOTE | 2025-05-05 13:30 | ESPR_ITS ---
<Statement entered by Ryan Baca MD - 05/06/25 00:27> I reviewed the findings of PGY 2 Dr. Vanessa patient not doing clinically well comfort care is a major and implemented patient is not expected to survive because low ejection fraction acute abdomen perforated viscus prognosis poor conditions critical agree with the family's decision to make the patient comfort care. Documentation for date of: 05/05/25 Subjective Subjective Interval history: Overnight pt went in shock, transferred to ICU and started on pressor support. Pt lactic acid continue to rise, LA 8.5. Pt continue to deteriorate clinically and required mechanical ventilation. Decision is made by family to start comfort care on the pt. Exam Vital Signs Temp Pulse Resp BP Pulse Ox O2 Del Method O2 Flow Rate 98.4 F 87 21 H 110/73 86 L Mechanical Ventilation 5 05/05/25 12:00 05/05/25 13:05 05/05/25 13:05 05/05/25 13:05 05/05/25 13:05 05/05/25 13:00 05/04/25 20:19 FiO2 100 05/05/25 13:00 Objective Labs 05/05/25 05:43 05/05/25 08:17 Labs: Laboratory Results - last 24 hr 05/04/25 05/04/25 05/04/25 15:07 18:58 19:21 WBC 13.0 H D RBC 5.23 H Hgb 13.0 Hct 40.5 MCV 77 L MCH 24.9 L MCHC 32.1 RDW Std Deviation 56.3 H Plt Count 116 L Neut % (Auto) 90 H Lymph % (Auto) 7 L [place] % (Auto) 2 Eos % (Auto) 0 Baso % (Auto) 0 Neut # (Auto) 11.6 H Lymph # (Auto) 0.9 L [place] # (Auto) 0.3 Eos # (Auto) 0.0 Baso # (Auto) 0.0 Immature Gran # (Auto) 0.11 H Absolute Nucleated RBC 0.02 H Immature Gran % 1 H Nucleated RBC % 0 PT INR APTT Puncture Site Right Radial ABG pH 7.40 D ABG pCO2 47 ABG pO2 75 L ABG HCO3 29 H ABG O2 Saturation 95 ABG Base Excess 4 H Oxygen Liter Flow 2 FiO2 Sodium 149 H 149 H Potassium 4.9 5.0 Chloride 106 108 H Carbon Dioxide 31.9 H 30.2 Anion Gap 11 11 BUN 77 H 83 H Creatinine 3.5 H 3.5 H Estim Creat Clear Calc 13.1 L 13.1 L eGFR 13 L* 13 L* BUN/Creatinine Ratio 22 H 24 H Glucose 103 90 Calculated Osmolality 319 H 321 H Lactic Acid 3.3 H Calcium 8.5 8.8 Corrected Calcium 10.2 H Phosphorus Magnesium Total Bilirubin 1.1 AST 107 H ALT 105 H Alkaline Phosphatase 219 H Troponin I Total Protein 4.9 L Albumin 2.3 L Globulin 2.6 Albumin/Globulin Ratio 0.9 L Blood Type Antibody Screen Blood Bank Wristband ID 05/04/25 05/04/25 05/04/25 21:38 22:15 22:30 WBC 15.8 H RBC 5.15 Hgb 12.9 Hct 39.2 MCV 76 L MCH 25.0 MCHC 32.9 RDW Std Deviation 53.5 H Plt Count 130 L Neut % (Auto) 90 H Lymph % (Auto) 6 L [place] % (Auto) 3 Eos % (Auto) 0 Baso % (Auto) 0 Neut # (Auto) 14.2 H Lymph # (Auto) 1.0 [place] # (Auto) 0.4 Eos # (Auto) 0.0 Baso # (Auto) 0.1 Immature Gran # (Auto) 0.15 H Absolute Nucleated RBC 0.02 H Immature Gran % 1 H Nucleated RBC % 0 PT INR APTT Puncture Site Arterial Line ABG pH 7.43 ABG pCO2 41 ABG pO2 107 D ABG HCO3 27 H ABG O2 Saturation 99 H ABG Base Excess 3 Oxygen Liter Flow 15 FiO2 Sodium 146 H Potassium 5.0 Chloride 107 Carbon Dioxide 27.3 Anion Gap 12 BUN 71 H Creatinine 3.5 H Estim Creat Clear Calc 13.1 L eGFR 13 L* BUN/Creatinine Ratio 20 Glucose 138 H D Calculated Osmolality 313 H Lactic Acid 4.5 H* Calcium 8.3 Corrected Calcium 9.7 Phosphorus 5.7 H Magnesium 2.0 Total Bilirubin 1.1 AST 111 H ALT 111 H Alkaline Phosphatase 218 H Troponin I 0.093 H* Total Protein 5.1 L Albumin 2.3 L Globulin 2.8 Albumin/Globulin Ratio 0.8 L Blood Type Antibody Screen Blood Bank Wristband ID 05/04/25 05/05/25 05/05/25 23:53 01:40 01:50 WBC RBC Hgb Hct MCV MCH MCHC RDW Std Deviation Plt Count Neut % (Auto) Lymph % (Auto) [place] % (Auto) Eos % (Auto) Baso % (Auto) Neut # (Auto) Lymph # (Auto) [place] # (Auto) Eos # (Auto) Baso # (Auto) Immature Gran # (Auto) Absolute Nucleated RBC Immature Gran % Nucleated RBC % PT INR APTT Puncture Site Arterial Line Arterial Line ABG pH 7.34 L 7.33 L ABG pCO2 49 H 46 ABG pO2 248 H D 219 H D ABG HCO3 26 25 ABG O2 Saturation 100 H 100 H ABG Base Excess 0 -2 Oxygen Liter Flow FiO2 100 21 Sodium Potassium Chloride Carbon Dioxide Anion Gap BUN Creatinine Estim Creat Clear Calc eGFR BUN/Creatinine Ratio Glucose Calculated Osmolality Lactic Acid 3.8 H Calcium Corrected Calcium Phosphorus Magnesium Total Bilirubin AST ALT Alkaline Phosphatase Troponin I Total Protein Albumin Globulin Albumin/Globulin Ratio Blood Type Antibody Screen Blood Bank Wristband ID 05/05/25 05/05/25 05/05/25 05:43 08:17 09:28 WBC 17.4 H RBC 4.88 Hgb 12.3 Hct 37.6 MCV 77 L MCH 25.2 MCHC 32.7 RDW Std Deviation 55.5 H Plt Count 125 L Neut % (Auto) 92 H Lymph % (Auto) 4 L [place] % (Auto) 3 Eos % (Auto) 0 Baso % (Auto) 0 Neut # (Auto) 16.0 H Lymph # (Auto) 0.7 L [place] # (Auto) 0.5 Eos # (Auto) 0.0 Baso # (Auto) 0.1 Immature Gran # (Auto) 0.13 H Absolute Nucleated RBC 0.02 H Immature Gran % 1 H Nucleated RBC % 0 PT INR APTT Puncture Site ABG pH ABG pCO2 ABG pO2 ABG HCO3 ABG O2 Saturation ABG Base Excess Oxygen Liter Flow FiO2 Sodium 146 H 145 Potassium 5.1 5.4 H Chloride 107 108 H Carbon Dioxide 25.1 22.9 Anion Gap 14 14 BUN 76 H 78 H Creatinine 3.4 H 3.5 H Estim Creat Clear Calc 13.5 L 13.7 L eGFR 13 L* 13 L* BUN/Creatinine Ratio 22 H 22 H Glucose 136 H 141 H Calculated Osmolality 315 H 314 H Lactic Acid 4.3 H* Calcium 7.7 L 7.8 L Corrected Calcium 9.2 Phosphorus 6.5 H Magnesium 2.0 Total Bilirubin 1.1 AST 98 H ALT 94 H Alkaline Phosphatase 200 H Troponin I 0.136 H* Total Protein 4.5 L Albumin 2.1 L Globulin 2.4 Albumin/Globulin Ratio 0.9 L Blood Type O Positive Antibody Screen NEGATIVE Blood Bank Wristband ID Yes 05/05/25 11:52 WBC RBC Hgb Hct MCV MCH MCHC RDW Std Deviation Plt Count Neut % (Auto) Lymph % (Auto) [place] % (Auto) Eos % (Auto) Baso % (Auto) Neut # (Auto) Lymph # (Auto) [place] # (Auto) Eos # (Auto) Baso # (Auto) Immature Gran # (Auto) Absolute Nucleated RBC Immature Gran % Nucleated RBC % PT 16.2 H INR 1.5 H APTT 45.5 H Puncture Site ABG pH ABG pCO2 ABG pO2 ABG HCO3 ABG O2 Saturation ABG Base Excess Oxygen Liter Flow FiO2 Sodium Potassium Chloride Carbon Dioxide Anion Gap BUN Creatinine Estim Creat Clear Calc eGFR BUN/Creatinine Ratio Glucose Calculated Osmolality Lactic Acid 8.5 H* Calcium Corrected Calcium Phosphorus Magnesium Total Bilirubin AST ALT Alkaline Phosphatase Troponin I Total Protein Albumin Globulin Albumin/Globulin Ratio Blood Type Antibody Screen Blood Bank Wristband ID ABG Interpretation ABG results: 04/26/25 05/01/25 05/04/25 23:16 19:51 19:21 ABG pH 7.50 H 7.40 D ABG pCO2 45 47 ABG pO2 89 75 L ABG HCO3 35 H 29 H ABG O2 Saturation 98 95 ABG Base Excess 10 H 4 H VBG pH 7.49 VBG pCO2 23 L VBG pO2 33 VBG Base Excess -4 L 05/04/25 05/04/25 05/05/25 22:15 23:53 01:50 ABG pH 7.43 7.34 L 7.33 L ABG pCO2 41 49 H 46 ABG pO2 107 D 248 H D 219 H D ABG HCO3 27 H 26 25 ABG O2 Saturation 99 H 100 H 100 H ABG Base Excess 3 0 -2 VBG pH VBG pCO2 VBG pO2 VBG Base Excess Quality Measures Quality Measures VTE prophylaxis Advance care planning discussed with:: child Assessment & Plan Assessment Current Active Medications: Generic Name Dose Route Start Last Admin Trade Name Freq PRN Reason Stop Dose Admin Acetaminophen 650 mg 05/01/25 17:44 Acetaminophen 325 Mg Tablet PO 05/27/25 08:00 Q6H PRN Fever >100.3 Amiodarone HCl 200 mg 04/30/25 21:00 05/05/25 08:43 Amiodarone Hcl 200 Mg Tablet PO 05/30/25 20:59 Not Given BID JOHN Apixaban 2.5 mg 04/30/25 09:00 05/03/25 08:12 Apixaban 2.5 Mg Tablet PO 05/30/25 08:59 2.5 mg BID JOHN Administration Aspirin 81 mg 04/28/25 09:00 05/03/25 08:12 Aspirin Ec 81 Mg Tabec PO 05/28/25 08:59 81 mg DAILY JOHN Administration Atorvastatin Calcium 80 mg 04/27/25 21:00 05/04/25 22:20 Atorvastatin Calcium 20 Mg Tablet PO 05/27/25 20:59 Not Given HS JOHN Balsam Rich/[place] Oil 0 gm 04/28/25 21:00 05/05/25 08:32 Balsam [place] Oil (Venelex) 60 Gm Tube TOP 05/28/25 20:59 1 applicatio BID JOHN Administration Hydromorphone HCl 0.5 mg 05/03/25 17:03 05/04/25 16:14 Hydromorphone Inj 2 Mg/Ml Vial IVP 05/08/25 17:02 0.5 mg Q4HR PRN Administration PAIN SCALE 4-10(Mod-Sev Piperacillin/Tazobactam/Dextrose 3.375 gm in 50 mls @ 12.5 mls/hr 05/04/25 16:00 05/05/25 03:33 Zosyn IV 05/11/25 15:59 12.5 mls/hr Q12H JOHN Administration Propofol 1,000 mg in 100 mls @ 2.083 mls/hr 05/04/25 23:13 05/05/25 12:00 Diprivan Ivpb IV 06/03/25 23:12 5 mcg/kg/min .Q24H PRN 2.083 mls/hr PER PROTOCOL Titration Protocol 5 MCG/KG/MIN Fentanyl Citrate 2,500 mcg in 250 mls @ 2.5 mls/hr 05/04/25 23:14 05/05/25 12:00 Sublimaze Inj 2,500 Mcg/250 Ml Bag IV 05/09/25 23:13 25 mcg/hr .Q24H PRN 2.5 mls/hr PER PROTOCOL Titration Protocol 25 MCG/HR Norepinephrine Bitartrate 16 mg in 250 mls @ 3.254 mls/hr 05/05/25 00:06 05/05/25 13:15 Levophed In Ns 16mg/250ml IV 06/04/25 00:05 0.77 mcg/kg/min .Q24H PRN 50.114 mls/hr PER PROTOCOL Titration Protocol 0.05 MCG/KG/MIN Lactated Ringer's 1,000 mls @ 125 mls/hr 05/05/25 01:39 05/05/25 02:22 Lactated Ringers IV 125 mls/hr .Q8H JOHN Administration Vasopressin/Sodium Chloride 20 unit in 100 mls @ 9 mls/hr 05/05/25 07:42 05/05/25 07:48 Vasostrict/Ns Ivpb IV 06/04/25 07:41 0.03 unit/min .Q11H7M PRN 9 mls/hr PER PROTOCOL Administration Protocol 0.03 UNIT/MIN Levothyroxine Sodium 25 mcg 04/28/25 06:00 05/05/25 08:43 Levothyroxine Sodium 25 Mcg Tablet PO 05/28/25 05:59 Not Given ACBR JOHN Metoprolol Succinate 50 mg 05/02/25 09:00 05/04/25 08:30 Metoprolol Succinate Xl 25 Mg Tabcr PO 06/01/25 08:59 Not Given QDAY JOHN Pantoprazole Sodium 40 mg 05/05/25 11:15 05/05/25 12:33 Pantoprazole Inj 40 Mg Vial IVP 06/04/25 11:14 40 mg QDAY JOHN Administration Pharmacy Consult 1 each 05/04/25 08:36 Pharmacy Renal Dose Adjustment 1 Ea XX 06/03/25 08:35 PRN PRN CONSULT Quetiapine Fumarate 25 mg 05/01/25 21:00 05/04/25 22:20 Quetiapine Fumarate 25 Mg Tablet PO 05/31/25 20:59 Not Given HS JOHN Sennosides 1 tab 05/01/25 21:00 05/02/25 20:40 Senna/Docusate Sod 1 Tab Tablet PO 05/31/25 20:59 1 tab HS JOHN Administration Protocol Plan Ms. Rushing is a 74-year-old female past medical history significant for A-fib (on amiodarone and Eliquis), CAD status post stent, hypertension, history of CVA in 2022, HFrEF EF 35 to 40% and history of left ventricle mural thrombus. Patient was brought in by her son for SNF placement as he is unable to care of her at home because patient has increased generalized weakness. #Comfort care -Family is at bedside, pt is started on comfort care #Acute hypoxic respiratory failure secondary to - resolved #Acute on chronic decompensated heart failure, resolved #HFrEF, EF of 20% #Dilated Cardiomyopathy #Severe global hypokinesia #A-fib with RVR, now rate controlled #History of MARCIO thrombus #[place] #Hypotension. #Primary hypertension. #Community Acquired Pneumonia #Pulmonary nodules #Hx. of Ischemic stroke, 2022 #History of CAD s/p stent placement. Assessment and plan discussed with my attending physician Dr. Keven Vanessa (PGY-2)- Internal medicine resident
[2025-05-05] MEDS: PHENYLEPHRINE HCL 40 MG in SODIUM CHLORIDE 0.9% 96 ML 5.775 MG IV (13:52)
--- NOTE | 2025-05-05 14:18 | EVENTNT_ITS ---
<Statement entered by Osmany Pineda MD - 05/06/25 10:07> I saw and evaluated the patient. I reviewed the resident?s note and agree with findings and plan as documented in the resident?s note. Documentation for date of: 05/05/25 Event Note Event Note: Received a call from patient's nurse regarding worsening hypotension despite high-dose Levophed and vasopressin, patient was started on phenylephrine around 1:30 PM, continued to remain hypotensive. Goals of care discussion held at patient's bedside with son Mr. Robbi Kaiser, explained to him and other family members at bedside that patient's MAP continues to remain low, there is concern of worsening distributive shock, elevated lactate and hyperkalemia?likely secondary to suspected bowel perforation. General surgery had evaluated earlier and deemed patient high risk for intervention, patient was transitioned to DNR/DNI earlier this morning; family elected for transition to comfort care. Charge nurse at bedside. Comfort measures initiated at 2:[address] Pineda informed. Case discussed with Attending Dr. Pineda. Nicki Bates MD Internal medicine resident PGY2 Disclaimer: This note was dictated by speech recognition. Minor errors in call manager may be present due to voice recognition software.
--- NOTE | 2025-05-05 14:19 | PC.NURSE ---
CALLED [employer] AND SPOKE WITH ASSISTANT PARALEGAL DORA. GAVE HISTORY AND REPORT REGARDING POSSIBLE COMFORT CARE WITHIN THE NEXT HOUR. PER DORA NOT CANDIDATE FOR ORGAN DONATION. CALL BACK WITH TOD.
--- NOTE | 2025-05-05 14:36 | PC.SS ---
Update: Patient has been transitioned to comfort care. Family at bedside with patient.
[2025-05-05] MEDS: MORPHINE SULF INJ 10 MG/ML VIAL 2 MG IVP (14:41)
[2025-05-05] MEDS: SCOPOLAMINE 1 MG TDSY TOP (14:41)
[2025-05-05] MEDS: LORazepam 2 MG/ML VIAL IVP (14:46)
--- NOTE | 2025-05-05 14:54 | PC.SS ---
FISHER TRAP confirmed with patient's son, Robbi Kaiser; plan to transition patient to comfort care. Son confirmed comfort care transition. Patient's son informed FISHER TRAP [facility] . FISHER TRAP updated ICU community music therapist.
[2025-05-05 15:33] LABS: Reflex Lactate? Y
--- NOTE | 2025-05-05 15:56 | DES_ITS ---
<Statement entered by Osmany Pineda MD - 05/06/25 10:12> TOTAL TIME: 45MINUTES ON DIRECT MEDICAL CARE, MANAGEMENT - COORDINATION AND COUNSELING > 50% OF TOTAL TIME I saw and evaluated the patient. I reviewed the resident?s note and agree with findings and plan as documented in the resident?s note. Documentation for date of: 05/05/25 Pronouncement Note Date and Time of Date of : 05/05/25 Time of : 15:45 PCOD Preliminary cause of : Cardiopulmonary arrest Contributing Factors (1) Cardiopulmonary arrest: (2) Shock: Summary Additional details: Received a call from nursing for unresponsiveness and asystole on telemetry around 15:40. On exam the patient did not respond to verbal or physical stimuli. Absent heart and breath sounds for 1 minute. Absent peripheral pulses. Pupils are fixed and dilated. Corneal reflex absent. Patient pronounced at 1545. Dr. Pineda notified. Patient's son and family at bedside notified. Patient's nurse present at bedside. Condolences given to the family. Case discussed with Attending Dr. Pineda. Nicki Bates MD Internal medicine Resident PGY-2 Disclaimer: This note was dictated by speech recognition. Minor errors in vegetable grower may be present due to voice recognition software. Additional Data Confirmation of : no pulse, no respirations, no heart sounds, pupils fixed and dilated and other (Absent Corneal Reflex) Family: at bedside Additional persons at bedside: other (Nurse) Attending/PCP notified?: Yes Attending physician: Osmany Pineda MD Was code activated?: No
--- NOTE | 2025-05-05 15:57 | DES_ITS ---
Documentation for date of: 05/05/25 Summary Date and Time Date of admission: 04/27/25 08:27 Summary Details: Received a call from nursing for unresponsiveness and asystole on telemetry around 15:40. On exam the patient did not respond to verbal or physical stimuli. Absent heart and breath sounds for 1 minute. Absent peripheral pulses. Pupils are fixed and dilated. Corneal reflex absent. Patient pronounced at 1545. Dr. Pineda notified. Patient's son and family at bedside notified. Patient's nurse present at bedside. Condolences given to the family. Hospital Course: Hospital course: Ms. Kaiser was a 74-year-old female with past medical history of atrial fibrillation (on amiodarone and Eliquis), coronary artery disease status post stent (followed Dr. Baca), hypertension, history of CVA in 2022, heart failure with reduced ejection fraction and history of left ventricular mural thrombus who presented to [facility] emergency department on 04/26/2025 with a chief complaint of generalized weakness. Patient was found to be in CHF exacerbation with A-fib with RVR and was found to have cholelithiasis without evidence of cholecystitis. Patient was admitted to the hospital for further workup patient was acutely hypoxic secondary to community- acquired pneumonia and acute decompensated heart failure. With progression of hospital course patient was found to have acute kidney injury nephrology was consulted and cardiology was following the patient for underlying acute decompensated heart failure. Patient's hospital course was complicated by hospital-acquired delirium and eventually there was concern of worsening cholecystitis on 05/02, was seen by general surgery for underlying issues. With the progression of hospital course patient continued to decline, patient had a HIDA scan done which showed cystic duct obstruction, per surgery patient is a poor surgical candidate, patient had bilateral lower extremity mottling worsening lactate and worsening sepsis. Eventually on 05/04 patient was upgraded to intensive care unit for close monitoring due to underlying distributive shock in setting of suspicion of bowel ischemia/perforation due to significant surgical abdominal findings. Patient was intubated, central line and A-line were placed patient requiring high dose pressors and was sedated. General surgery saw the patient in the intensive care unit, per surgery there is high suspicion of bowel ischemia and possible bowel perforation however patient is a very poor candidate for surgery and exploratory laparotomy. Findings were discussed with patient's son initially patient's CODE STATUS was changed to DNR/DNI. As patient's clinical condition worsen with her requiring increased p ressor support to sustain a MAP of greater than 65 goals of care discussion held with son at bedside, decision was made by son and other family members at bedside to transition patient to comfort measures. Patient was started on comfort measures and treatment was withdrawn. Patient pronounced at 1545, 05/05/2025. Family members at bedside notified, condolences given to the family. Case discussed with Attending Dr. Pineda. Nicki Bates MD Internal Medicine Resident PGY2 Disclaimer: This note was dictated by speech recognition. Minor errors in emr analyst may be present due to voice recognition software. Additional Data Confirmation of as documented by pronouncing clinician: no pulse, no respirations, no heart sounds, pupils fixed and dilated and other (absent corneal reflex) Family: at bedside Additional persons at bedside: other (nurse) Attending/PCP notified?: Yes Attending physician: Osmany Pineda MD Was code activated?: No Visit Providers Provider Primary care physician: Physician No Primary/Family Admitting clinician: Matias Santoro Attending physician on admission: Matias Santoro Consults: 04/27/25 06:32 Consult to General Surgery Stat Comment: daphne Consulting Provider: Bro West 04/27/25 06:34 Consult to Nephrology Stat Comment: Consulting Provider: Marcos Martin 04/27/25 08:06 Referral Physical Therapy Routine Comment: Physician Instructions: Referral Speech Therapy Routine Comment: 04/27/25 08:12 Consult to Cardiology Stat Comment: Consulting Provider: Herberth Lezama 04/28/25 01:27 Referral Wound Care Urgent Comment: bilateral buttocks lesions, multiple bruising 04/28/25 01:28 Referral Registered Dietitian Routine Comment: wound 05/05/25 10:54 Referral Steve Urgent Comment: Patient's sons requesting returned goods repairer in room 05/05/25 11:51 Referral [place] Stat Comment: Pronouncing clinician: Nicki Bates Diagnosis PCOD Cause of : Cardiopulmonary arrest Discharge Plan Plan Patient Disposition: Patient condition on transfer: Stable Prescriptions/Referrals Referrals: No Primary/Family,Physician [Primary Care Provider] - Patient/Caregiver Discharge Instructions Print Language: Taiwanese Discharge Order Discharge Orders: Discharge (Routine); Ordered 05/01/25 Ordered By: Laura Zhu
--- NOTE | 2025-05-05 16:20 | PC.SS ---
Patient . RN DIABETES EDUCATOR contacted [facility] for patient retrieval. [facility] to reach out to patient's son, Robbi Kaiser. Following discussion with patient's son, [facility] to reach out to nursing staff to arrange retrieval time. RN DIABETES EDUCATOR notified bedside nurse and ICU community planner.
--- NOTE | 2025-05-05 16:22 | PC.NURSE ---
CALLED [employer] AND SPOKE TO ENGINEER AUTOMATED EQUIPMENT CARLOS. REPORTED TOD OF [phone]. PER CARLOS GOMEZ CANDIDADTE FOR TISSUE DONATION. WILL CALL BACK UNIT NUMBER.
--- NOTE | 2025-05-05 17:07 | PC.NURSE ---
SPOKE WITH DONOR [employer] DEVIN WHO STATED PATIENT NOT CANDIDATE AND WILL CLOSE CASE. OK TO RELEASE
--- NOTE | 2025-05-05 17:24 | PC.NURSE ---
SPOKE WITH MERRITT FROM [facility]. WILL CALL BACK WITH GRICELDA
== END 2025-05-05 15:45 | disposition expired | DRG 208 ==
LOC: SERX 04-27 06:36 → SERHOLD 04-27 08:34 → S2NX 04-27 22:09 → S2SX 05-04 20:06
PROVIDERS: Student in an Organized Health Care Education/Training Program; Admitting Provider Student in an Organized Health Care Education/Training Program; Emergency Provider Emergency Medicine; Visit Provider Internal Medicine
DX: J18.9 Pneumonia, unspecified organism (principal); I50.43 Acute on chronic combined systolic (congestive) and diastolic (congestive) heart failure; J96.01 Acute respiratory failure with hypoxia; N17.0 Acute kidney failure with tubular necrosis; I13.0 Hypertensive heart and chronic kidney disease with heart failure and stage 1 through stage 4 chronic kidney disease, or unspecified chronic kidney disease; E87.0 Hyperosmolality and hypernatremia; E87.4 Mixed disorder of acid-base balance; I48.20 Chronic atrial fibrillation, unspecified; I48.92 Unspecified atrial flutter; R18.8 Other ascites; G93.40 Encephalopathy, unspecified; I24.9 Acute ischemic heart disease, unspecified; I47.10 Supraventricular tachycardia, unspecified; K80.10 Calculus of gallbladder with chronic cholecystitis without obstruction; F05 Delirium due to known physiological condition; I42.0 Dilated cardiomyopathy; I25.10 Atherosclerotic heart disease of native coronary artery without angina pectoris; Z86.73 Personal history of transient ischemic attack (TIA), and cerebral infarction without residual deficits; F17.200 Nicotine dependence, unspecified, uncomplicated; N18.9 Chronic kidney disease, unspecified; E07.81 Sick-euthyroid syndrome; E78.5 Hyperlipidemia, unspecified; F17.210 Nicotine dependence, cigarettes, uncomplicated; I48.0 Paroxysmal atrial fibrillation; I46.8 Cardiac arrest due to other underlying condition; Z95.5 Presence of coronary angioplasty implant and graft; R57.8 Other shock; Z79.899 Other long term (current) drug therapy; Z79.01 Long term (current) use of anticoagulants; K74.60 Unspecified cirrhosis of liver; N20.0 Calculus of kidney; S20.229A Contusion of unspecified back wall of thorax, initial encounter; Z51.5 Encounter for palliative care; Z66 Do not resuscitate; Z79.82 Long term (current) use of aspirin; Z79.890 Hormone replacement therapy; I25.5 Ischemic cardiomyopathy; E86.1 Hypovolemia; I27.21 Secondary pulmonary arterial hypertension; I35.8 Other nonrheumatic aortic valve disorders; I49.3 Ventricular premature depolarization; Z88.5 Allergy status to narcotic agent; I51.3 Intracardiac thrombosis, not elsewhere classified
CPT/HCPCS: 36415; 36600; 70450; 71045; 71250; 72125; 73020; 74018; 74022; 74176; 76705; 78227; 80048; 80053; 80061; 80069; 80074; 80076; 80307; 80329; 81001; 82140; 82550; 82803; 83036; 83605; 83735; 83880; 84100; 84436; 84439; 84443; 84484; 85025; 85610; 85730; 86331; 86635; 86850; 86900; 86901; 87040; 87205; 87400; 87493; 87811; 92526; 92610; 93005; 93306; 94002; 94003; 94640; 94664; 96365; 96366; 96367; 96368; 96372; 96375; 96376; 97162; 99291; 99292; A4314; A9270; A9537; J0283; J0456; J0696; J1160; J1171; J1200; J1644; J2060; J2250; J2270; J2310; J2371; J2470; J2543; J2598; J2704; J3010; J3475; J3490; J7030; J7050; J7120; J7999; P9047; G0480; J1836